=== PATIENT | male | born 1935 | race Two or more races ===

== ENCOUNTER 2018-09-07 14:35 | Inpatient (IN) | payer MEDICARE, MEDICAID ==
[~2018-09-07] VITALS: Ht 165.1 cm; Wt 68.0 kg
[2018-09-07 22:00] VITALS: BP 149/94
--- NOTE | 2018-09-07 22:00 | NUR ---
NURSE NOTES: Received report from Lev from [facility] (2029). Pt. arrived 2138 via ambulance. Family at bedside. Pt. in bed awake showing no signs of acute distress. Respiration even and non labored on room air. No sob noted. AOx1. VS stable. campus monitor on showing SR. Bed in lowest position, wheels locked and alarm on. Call light within reach. Will cont. to monitor.
[2018-09-07 23:00] LABS: BASOPHILS % (AUTO) 1.6 % (0.0-2.0); EOSINOPHILS % (AUTO) 5.4 % (0.0-3.0); HEMATOCRIT 40.6 % (42.0-52.0); HEMOGLOBIN 13.3 G/DL (14.2-18.0); LYMPHOCYTES % (AUTO) 20.4 % (20.0-45.0); MEAN CORPUSCULAR VOLUME 88 FL (80-99); MONOCYTES % (AUTO) 9.9 % (1.0-10.0); NEUTROPHILS % (AUTO) 62.8 % (45.0-75.0); PLATELET COUNT 229 K/UL (150-450); RED BLOOD COUNT 4.61 M/UL (4.70-6.10); RED CELL DISTRIBUTION WIDTH 11.7 % (11.6-14.8); WHITE BLOOD COUNT 7.3 K/UL (4.8-10.8)
[2018-09-07 23:24] LABS: ALANINE AMINOTRANSFERASE 16 U/L (12-78); ALBUMIN 3.5 G/DL (3.4-5.0); ALBUMIN/GLOBULIN RATIO 1.1 (1.0-2.7); ALKALINE PHOSPHATASE 45 U/L (46-116); ANION GAP 6 mmol/L (5-15); ASPARTATE AMINO TRANSFERASE 10 U/L (15-37); BILIRUBIN,TOTAL 0.3 MG/DL (0.2-1.0); BLOOD UREA NITROGEN 25 mg/dL (7-18); CALCIUM 8.8 MG/DL (8.5-10.1); CARBON DIOXIDE 29 MMOL/L (21-32); CHLORIDE 102 MMOL/L (98-107); CHOLESTEROL 134 MG/DL (< 200); CREATININE 1.5 MG/DL (0.55-1.30); HDL CHOLESTEROL 49 MG/DL (40-60); POTASSIUM 3.8 MMOL/L (3.5-5.1); SODIUM 137 MMOL/L (136-145); TRIGLYCERIDES 85 MG/DL (30-150)
[2018-09-08] VITALS: BP 131/73
[2018-09-08 04:00] VITALS: BP 136/80
[2018-09-08] MEDS ORDERED: FLOMAX0.4 MG ORAL (06:13)
[2018-09-08] MEDS ORDERED: SENEXON-S TABL1 EACH ORAL (06:13)
[2018-09-08] MEDS ORDERED: NAMENDA10 MG ORAL (06:13)
[2018-09-08] MEDS ORDERED: PLAVIX75 MG ORAL (06:13)
[2018-09-08] MEDS ORDERED: MULTIVITAMINS1 EAC8 ORAL (06:13)
[2018-09-08] MEDS ORDERED: BISACODYL10 MG/30 M RC (06:13)
[2018-09-08] MEDS ORDERED: PRAVASTATIN SOD10 M1 ORAL (06:13)
[2018-09-08] MEDS ORDERED: FOLIC ACID1 M1 PO (06:13)
[2018-09-08] MEDS ORDERED: ARICEPT23 MG ORAL (06:13)
[2018-09-08] MEDS ORDERED: CHLORHEXIDINE473 ML MM (06:13)
[2018-09-08] MEDS ORDERED: FISH OIL CAP1000 MG ORAL (06:13)
[2018-09-08] MEDS ORDERED: METFORMIN ER G500 MG PO (06:13)
[2018-09-08] MEDS ORDERED: VITAMIN D1000 UNI1 ORAL (06:13)
[2018-09-08] MEDS ORDERED: GLIMEPIRIDE2 MG ORAL (06:13)
[2018-09-08] MEDS ORDERED: VESICARE5 MG ORAL (06:13)
[2018-09-08] MEDS ORDERED: PANTOPRAZOLE SO20 MG ORAL (06:13)
[2018-09-08] MEDS ORDERED: LOSARTAN POTAS100 MG ORAL (06:13)
[2018-09-08] MEDS: NovoLOG Insulin Flexpen SUBQ SCH ×4 (06:15→21:00)
--- NOTE | 2018-09-08 07:24 | NUR ---
Received report form Venkatesh. pt sleeping in bed. Pt on air sampling and monitoring, no signs of cardiac or respiratory distress at this time. Pt Iv is patent on L F/A running 75ml/hr. call light with in reach. Bed is locked and in lowest position. Pt is AOx1. Will continue to follow plan of care.
--- NOTE | 2018-09-08 07:25 | NUR ---
HAND-OFF: Report given to LISBETH Mijares.
[2018-09-08 08:28] VITALS: BP 145/85
--- NOTE | 2018-09-08 09:45 | History and Physical Report ---
DATE OF ADMISSION: 09/07/2018 CHIEF COMPLAINT: Possible stroke HISTORY OF PRESENT ILLNESS: The patient is a pleasant 83-year-old male. He has a history of diabetes, hypertension, and atherosclerotic cardiovascular disease. He was transferred from a group home facility with complaints of generalized weakness. According to family members, the patient was previously ambulatory, but suddenly several days prior to admission became nonambulatory. Before he had been walking outside, but now could only be mobilized in a wheelchair. The patient is confused at baseline. He is unable provide any history. There is concern about a possible stroke and the patient is therefore admitted for further evaluation and care. PAST MEDICAL HISTORY: As above. PAST SURGICAL HISTORY: None. CURRENT MEDICATIONS: Reconciled and reviewed. ALLERGIES: None. FAMILY HISTORY: None. SOCIAL HISTORY: There is no known history of tobacco, ethanol, or drugs. REVIEW OF SYSTEMS: From the patient is unobtainable. PHYSICAL EXAMINATION: VITAL SIGNS: Temperature 97.4, pulse 102, respirations 18, and blood pressure 149/94. GENERAL: The patient is well developed, in no apparent distress. HEART: Regular rate and rhythm. LUNGS: Clear. ABDOMEN: Soft, nontender, and nondistended. EXTREMITIES: Without clubbing or cyanosis. NEUROLOGIC: The patient is unable to comply with a neurologic exam. He is awake, arousable. Does appear to move all his extremities. LABORATORY DATA: Sodium 137, potassium 3.8, BUN 25, and creatinine 1.5. White count 7, hemoglobin 13, and hematocrit 40. CT of the head is pending. ASSESSMENT: This is an 83-year-old male with history of diabetes, hypertension, and dementia admitted with complaints of focal weakness, inability to walk, unclear etiology. Stroke is a definite possibility. Acute renal failure. PLAN: CT scan of the head. Cardiology followup regarding the patient's tachycardia. Cautious hydration. Continue antiplatelet therapy and BP medications. Carlos Hunt M.D. DR: YENNIFER JOB#: [id number] CC:
[2018-09-08] MEDS: Heparin 5000 units/ml inj SUBQ SCH ×2 (09:52→21:26)
[2018-09-08] MEDS: Aspirin EC 81mg tab ORAL SCH (09:53)
[2018-09-08] MEDS: Docusate Sod/Senna tab ORAL SCH (09:53)
[2018-09-08] MEDS: Losartan 50mg tab ORAL SCH (09:53)
[2018-09-08] MEDS: Multivitamin w/Minerals tab ORAL SCH (09:54)
[2018-09-08] MEDS: Tamsulosin 0.4mg cap ORAL SCH (09:54)
[2018-09-08] MEDS: Vitamin D 1000 IU Tab ORAL SCH (09:54)
[2018-09-08] MEDS: Memantine 10mg tab ORAL SCH ×2 (09:54→17:54)
--- NOTE | 2018-09-08 10:59 | Diagnostic Imaging Report ---
Indications: Headache and weakness Technique: Spiral acquisitions obtained through the brain. Angled axial and coronal 5 x 5 mm slices were reconstructed. Total dose length product 1516.79 mGycm. CTDI vol(s) 70.38 mGy. Dose reduction achieved using automated exposure control Comparison: None. Findings: There is marked age-related enlargement of the ventricles and extra axial CSF spaces. There is periventricular deep white matter low-attenuation, consistent with chronic microvascular ischemic change. No acute intracranial hemorrhage or edema, mass effect, nor midline shift. There is minimal ethmoid sinus mucosal disease There is evidence of prior cataract surgery on the left. Impression: Chronic and age-related changes Negative for acute intracranial bleed or mass effect The CT scanner at [facility] is accredited by the [employer] and the scans are performed using protocols designed to limit radiation exposure to as low as reasonably achievable to attain images of sufficient resolution adequate for diagnostic evaluation.
[2018-09-08 12:00] VITALS: BP 151/90
--- NOTE | 2018-09-08 15:56 | NUR ---
CASE MANAGEMENT:REVIEW 83 YR OLD MALE BIBA FROM [facility] CC; UNABLE TO AMBULATE SI: ACUTE RENAL FAILURE. POSSIBLE STROKE 97.4 102 18 149/94 98% ON RA H/H-13.3/40.6 BUN+25 CR+1.5 IS:IVF@75/HR ASA PO QD HEPARIN SQ Q12 PLAVIX PO QD COZAAR PO QD CT HEAD CAROTID DUPLEX PT EVAL : DIRECTLY ADMITTED TO TELEMETRY
[2018-09-08 16:00] VITALS: BP 148/86
--- NOTE | 2018-09-08 19:32 | NUR ---
HAND-OFF: Report given to Eddie/RN , pt in stable condition endorsed plan of care.
--- NOTE | 2018-09-08 19:39 | NUR ---
NURSE NOTES: Received report form Maryana BOB. Patient is resting in bed watching tv. Vital signs are stable with no signs of cardiac or respiratory distress noted at this time. Pt Iv is patent on L F/A running 75ml/hr. Call light is within reach. Bed is locked and in lowest position. Will continue to monitor and follow plan of care.
[2018-09-08 20:00] VITALS: BP 148/90
[2018-09-09] VITALS: BP 162/88
--- NOTE | 2018-09-09 02:15 | Progress Note ---
DATE: 09/08/2018 CARDIOLOGY PROGRESS NOTE SUBJECTIVE: Imaging studies of the brain are pending. The patient is more alert, but still withdrawn and poorly mobile. OBJECTIVE: VITAL SIGNS: Blood pressure 148/90, pulse 80, respiratory rate 18, afebrile, and oxygen saturation 98% on room air. HEENT: Dry mucous membranes. NECK: Supple. No bruits. LUNGS: Clear. CARDIAC: Regular. Normal S1 and S2 with a fourth heart sound. ABDOMEN: Soft and nontender. EXTREMITIES: No edema. Symmetric strength. IMPRESSION: 1. Encephalopathy. 2. Cerebrovascular disease, possible acute cerebrovascular insult. 3. Acute on chronic kidney injury. 4. Hypovolemia. 5. Dehydration, resolved. 6. Sinus tachycardia. PLAN: 1. Continue hydration. 2. Titrate antihypertensives. 3. Metabolic profile. 4. DVT prophylaxis. 5. Await imaging studies of the brain. 6. Urinalysis, banding. Mitchell West M.D. DR: KAISER JOB#: [id number] CC:
--- NOTE | 2018-09-09 02:15 | Consultation ---
DATE OF CONSULTATION: 09/07/2018 CARDIOLOGY CONSULTATION CONSULTING PHYSICIAN: Mitchell West M.D. REQUESTING PHYSICIAN: Carlos Hunt M.D. REASON: Tachycardia in the setting of possible cerebrovascular accident. HISTORY OF PRESENT ILLNESS: This is an 83-year-old Turk[place] who lives in a [facility] facility and has significant cardiovascular disease. He was transferred to the emergency room with generalized weakness and decline in baseline function. He was previously ambulatory and according to family members was nonambulatory for the past few days. He has been increasingly confused and anorectic. The patient himself is unable to provide any history. PAST MEDICAL HISTORY: Includes atherosclerotic cardiovascular disease, hypertension, type 2 diabetes mellitus, chronic kidney disease, osteoarthritis, cerebrovascular disease with dementia, and urinary incontinence. ALLERGIES: None. FAMILY HISTORY: Noncontributory. SOCIAL HISTORY: No record of smoking, alcohol, or substance abuse. MEDICATIONS: Prior to admission, reviewed and reconciled. REVIEW OF SYSTEMS: Not obtainable from the patient. Pertinent data from review of prior records is outlined above. PHYSICAL EXAMINATION: VITAL SIGNS: Afebrile, blood pressure 149/94, pulse 102, and respirations 18. HEENT: Temporal wasting. Pale conjunctivae. Oropharynx clear. Mucous membranes dry. NECK: Supple. No adenopathy. Jugular venous pressure normal. LUNGS: Clear. CARDIAC: Regular rhythm. Rapid rate. Normal S1, S2 with a fourth heart sound and a 1/6 systolic murmur at apex. ABDOMEN: Soft, nontender. No guarding. No rebound. No pulsatile masses. EXTREMITIES: No clubbing or cyanosis. No edema. NEUROLOGIC: Unable to comply with neurologic exam. He is awake and arousable and moves all extremities. LABORATORY AND DIAGNOSTIC DATA: EKG pending. Chemistry panel reviewed. IMPRESSION: 1. Secondary sinus tachycardia. 2. Mild hypovolemia and dehydration. 3. Encephalopathy raising the possibility of an acute cerebrovascular insult. PLAN: 1. Hydration. 2. CAT scan of the brain. 3. DVT prophylaxis. 4. Antiplatelet therapy. 5. Discontinue medications that may contribute to altered mentation and somnolence. We will follow with you during this hospital course and we will review imaging studies of the brain once available. Mitchell West M.D. DR: HALIMA JOB#: [id number] CC:
[2018-09-09 04:00] VITALS: BP 161/94
[2018-09-09 06:15] LABS: EOSINOPHILS % (AUTO) 5.2 % (0.0-3.0); HEMATOCRIT 45.9 % (42.0-52.0); HEMOGLOBIN 15.1 G/DL (14.2-18.0); MEAN CORPUSCULAR VOLUME 90 FL (80-99); MONOCYTES % (AUTO) 8.5 % (1.0-10.0); NEUTROPHILS % (AUTO) 67.4 % (45.0-75.0); PLATELET COUNT 258 K/UL (150-450); RED BLOOD COUNT 5.11 M/UL (4.70-6.10); RED CELL DISTRIBUTION WIDTH 12.2 % (11.6-14.8); WHITE BLOOD COUNT 6.8 K/UL (4.8-10.8)
[2018-09-09] MEDS: NovoLOG Insulin Flexpen SUBQ SCH ×4 (06:30→21:00)
[2018-09-09 06:56] LABS: ALANINE AMINOTRANSFERASE 13 U/L (12-78); ALBUMIN 3.6 G/DL (3.4-5.0); ALBUMIN/GLOBULIN RATIO 0.9 (1.0-2.7); ALKALINE PHOSPHATASE 53 U/L (46-116); ANION GAP 7 mmol/L (5-15); ASPARTATE AMINO TRANSFERASE 15 U/L (15-37); BILIRUBIN,TOTAL 0.5 MG/DL (0.2-1.0); BLOOD UREA NITROGEN 13 mg/dL (7-18); CALCIUM 8.6 MG/DL (8.5-10.1); CARBON DIOXIDE 26 MMOL/L (21-32); CHLORIDE 107 MMOL/L (98-107); CHOLESTEROL 142 MG/DL (< 200); CREATININE 1.1 MG/DL (0.55-1.30); HDL CHOLESTEROL 50 MG/DL (40-60); POTASSIUM 4.1 MMOL/L (3.5-5.1); SODIUM 139 MMOL/L (136-145); TRIGLYCERIDES 145 MG/DL (30-150)
--- NOTE | 2018-09-09 07:17 | NUR ---
HAND-OFF: Report given to Min RN.
--- NOTE | 2018-09-09 07:17 | NUR ---
NURSE NOTES: Received report from Roslyn BOB. Alert and confused and unable to make needs known. Pt sitting in bed and awake. no c/o on kevin moon faces pain scale. Urine analysis ordered yesterday is not collected due to incontinence. Condom cath applied for collecting urine. No signs of distress noted. On room air. Bed in lowest position and locked. 2X side rails up and On Zone 2 bed alarm. Will continue to plan of care.
[2018-09-09 08:00] VITALS: BP 148/98
[2018-09-09] MEDS: Aspirin EC 81mg tab ORAL SCH (09:24)
[2018-09-09] MEDS: Tamsulosin 0.4mg cap ORAL SCH (09:24)
[2018-09-09] MEDS: Memantine 10mg tab ORAL SCH ×2 (09:24→19:07)
[2018-09-09] MEDS: Losartan 50mg tab ORAL SCH (09:24)
[2018-09-09] MEDS: Docusate Sod/Senna tab ORAL SCH (09:25)
[2018-09-09] MEDS: Vitamin D 1000 IU Tab ORAL SCH (09:25)
[2018-09-09] MEDS: Multivitamin w/Minerals tab ORAL SCH (09:25)
[2018-09-09] MEDS: Heparin 5000 units/ml inj SUBQ SCH ×2 (09:27→22:10)
[2018-09-09 10:14] LABS: APPEARANCE,URINE CLEAR; BILIRUBIN, URINE NEGATIVE (NEGATIVE); COLOR,URINE PALE YELLOW; GLUCOSE, URINE (UA) NEGATIVE (NEGATIVE); KETONES,URINE NEGATIVE (NEGATIVE); LEUKOCYTE ESTERASE ,URINE 2+ (NEGATIVE); NITRITE,URINE NEGATIVE (NEGATIVE); PH,URINE 7 (4.5-8.0); PROTEIN,URINE NEGATIVE (NEGATIVE); UROBILINOGEN,URINE NORMAL MG/DL (0.0-1.0)
--- NOTE | 2018-09-09 11:36 | General Progress Note ---
Assessment/Plan Problem List: (1) Inabality to Ambulate, Stroke (2) Acute renal failure (ARF) ICD Codes: N17.9 - Acute kidney failure, unspecified SNOMED: 65742943 (3) Diabetes type 2, controlled ICD Codes: E11.9 - Type 2 diabetes mellitus without complications SNOMED: 89882638, 791979174 (4) Toxic metabolic encephalopathy ICD Codes: G92 - Toxic encephalopathy SNOMED: 205791814 (5) SVT (supraventricular tachycardia) ICD Codes: I47.1 - Supraventricular tachycardia SNOMED: 0656160 Status: stable, progressing Assessment/Plan: antiplt rx ivf tele monitor for arrhythmia monitor bs BP rx Subjective ROS Limited/Unobtainable: Yes Constitutional: Reports: no symptoms HEENT: Reports: no symptoms Cardiovascular: Reports: palpitations Respiratory: Reports: no symptoms Gastrointestinal/Abdominal: Reports: no symptoms Genitourinary: Reports: no symptoms Neurologic/Psychiatric: Reports: pre-existing deficit Endocrine: Reports: no symptoms Hematologic/Lymphatic: Reports: no symptoms Allergies: Coded Allergies: NO KNOWN ALLERGIES (Verified Allergy, Unknown, 09/07/18) All Systems: reviewed and negative except above Subjective no events. had svt last night- regular. currently in sinus. no fever or chills. Objective Last 24 Hour Vital Signs Date Time Temp Pulse Resp B/P (MAP) Pulse Ox O2 Delivery O2 Flow Rate FiO2 09/09/18 09:24 148/98 09/09/18 09:00 Room Air 09/09/18 08:00 97.3 89 20 148/98 (115) 97 09/09/18 08:00 84 09/09/18 04:00 98.1 85 18 161/94 (116) 98 09/09/18 04:00 70 09/09/18 00:00 98.6 81 18 162/88 (112) 99 09/09/18 00:00 70 09/08/18 21:00 Room Air 09/08/18 20:00 98.4 80 18 148/90 (109) 98 09/08/18 20:00 83 09/08/18 16:00 96.7 85 18 148/86 (106) 98 09/08/18 16:00 81 09/08/18 12:00 98.6 87 18 151/90 (110) 97 09/08/18 12:00 80 Intake and Output 09/08/18 09/09/18 18:59 06:59 Intake Total 260 ml Balance 260 ml Intake Oral 260 ml # Voids 3 Laboratory Tests 09/09/18 05:43: White Blood Count 6.8, Red Blood Count 5.11, Hemoglobin 15.1, Hematocrit 45.9, Mean Corpuscular Volume 90, Mean Corpuscular Hemoglobin 29.4, Mean Corpuscular Hemoglobin Concent 32.8, Red Cell Distribution Width 12.2, Platelet Count 258, Mean Platelet Volume 5.4L, Neutrophils (%) (Auto) 67.4, Lymphocytes (%) (Auto) 17.0L, Monocytes (%) (Auto) 8.5, Eosinophils (%) (Auto) 5.2H, Basophils (%) ( Auto) 2.0, Sodium Level 139, Potassium Level 4.1, Chloride Level 107, Carbon Dioxide Level 26, Anion Gap 7, Blood Urea Nitrogen 13, Creatinine 1.1, Estimat Glomerular Filtration Rate , Glucose Level 100, Calcium Level 8.6, Magnesium Level 1.9, Total Bilirubin 0.5, Aspartate Amino Transf (AST/SGOT) 15, Alanine Aminotransferase (ALT/SGPT) 13, Alkaline Phosphatase 53, Pro-B-Type Natriuretic Peptide 310H, Total Protein 7.5, Albumin 3.6, Globulin 3.9, Albumin/Globulin Ratio 0.9L, Triglycerides Level 145, Cholesterol Level 142, LDL Cholesterol 74, HDL Cholesterol 50, Cholesterol/HDL Ratio 2.8L 09/09/18 10:05: Urine Color Pale yellow, Urine Appearance Clear, Urine pH 7, Urine Specific Sweeden 1.005, Urine Protein Negative, Urine Glucose (UA) Negative, Urine Ketones Negative, Urine Blood Negative, Urine Nitrite Negative, Urine Bilirubin Negative, Urine Urobilinogen Normal, Urine Leukocyte Esterase 2+H, Urine RBC 0, Urine WBC 0-2, Urine Squamous Epithelial Cells None, Urine Bacteria None Height (Feet): 5 Height (Inches): 5.00 Weight (Pounds): 150 General Appearance: WD/WN, alert, confused Neck: supple Cardiovascular: normal rate, regular rhythm Respiratory/Chest: chest wall non-tender, lungs clear, normal breath sounds, no respiratory distress Abdomen: normal bowel sounds, non tender, soft, no organomegaly, no mass Edema: no edema noted Arm (L), no edema noted Arm (R), no edema noted Leg (L), no edema noted Leg (R), no edema noted Pedal (L), no edema noted Pedal (R), no edema noted 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
[2018-09-09 12:00] VITALS: BP 148/74
[2018-09-09 16:00] VITALS: BP 141/76
--- NOTE | 2018-09-09 16:33 | NUR ---
PT Note PT chel completed, tx initiated. Patient has muscle weakness and decreased postural stability, requiring extensive assist in functional mobility and gait. Patient needs PT services to increase his muscle strength and balance to improve his mobility and gait. Addendum: 09/09/18 at 1634 by MARGARITA CHAMORRO PT Amended: Links added.
--- NOTE | 2018-09-09 19:30 | NUR ---
HAND-OFF: Report given to Duane RN. Pt remains stable..
--- NOTE | 2018-09-09 19:35 | NUR ---
NURSE NOTES: Received report from Romero Wilson RN. Patient in bed AAO X1-2 with family at bedside, no complaints of acute pain or discomfort noted. kept clean, dry, and comfortable in bed. IV line intact and patent and placed on continuous cardiac monitoring per protocol. Patient is incontinent and external catheter placed PRN, kept intact and patent. Tolerating RA with no S/S of SOB or resp. distress and on continuous cardiac monitoring per protocol. Safety precaution in place; siderails X3 up, call light within reach, bed in lowest position, brakes and alarm on at all times. Needs and wants anticipated and attended, will continue plan of care and monitor for any changes noted.
[2018-09-09 20:00] VITALS: BP 145/86
[2018-09-09] MEDS: Metoprolol 25mg tab ORAL SCH (22:08)
--- NOTE | 2018-09-09 23:45 | Progress Note ---
DATE: 09/09/2018 CARDIOLOGY PROGRESS NOTE SUBJECTIVE: Monitored rhythm is reviewed. Episode of nonsustained SVT last evening. Now in sinus rhythm. The patient without respiratory distress. OBJECTIVE: VITAL SIGNS: Blood pressure 148/98 to 162/88, heart rate 84, respiratory rate 18, and afebrile. LUNGS: Clear. CARDIAC: Regular rhythm and rate. Normal S1, S2 with a fourth heart sound. ABDOMEN: Soft. EXTREMITIES: No edema. LABORATORY DATA: White count 6.8 and hemoglobin 15.1. Sodium 139, potassium 4.1, bicarbonate 26, BUN 15, and creatinine 1.1. Pro-natriuretic peptide 310. Albumin 2.9. Urinalysis with no active sediment. CAT scan of the brain yesterday revealed chronic changes with no acute process. IMPRESSION: 1. Mild hypovolemia and dehydration, improved. 2. Prerenal azotemia and acute renal failure, improving. 3. Possible acute cerebrovascular insult. 4. Paroxysmal SVT. 5. Hypertensive heart disease with elevated blood pressure. 6. Metabolic and toxic encephalopathy. 7. Type 2 diabetes mellitus. 8. Chronic diastolic congestive heart failure. PLAN: 1. Advance antihypertensives and include beta-jose. 2. UA with sed rate. 3. Continue remainder of cardiovascular therapy without change. 4. Adjust IV fluids. 5. Continued anti-lipid and anti-platelet therapy. Mitchell West M.D. DR: LUIZ JOB#: [id number] CC:
[2018-09-10] VITALS: BP 142/85
--- NOTE | 2018-09-10 03:30 | NUR ---
NURSE NOTES: Patient in bed asleep with no S/S of distress. Will continue plan of care
[2018-09-10 04:00] VITALS: BP 144/88
[2018-09-10] MEDS: NovoLOG Insulin Flexpen SUBQ SCH ×4 (06:04→20:54)
--- NOTE | 2018-09-10 07:01 | NUR ---
NURSE NOTES: Received report from Duane BOB. Alert and confused and unable to make needs known. Pt sitting in bed and awake. no c/o pain. Condom cath intact and patent. No signs of distress noted. On room air. Bed in lowest position and locked. 2X side rails up and On Zone 2 bed alarm. Will continue to plan of care.
--- NOTE | 2018-09-10 07:01 | NUR ---
HAND-OFF: Report given to Romero Wilson RN. Patient in stable condition, endorsed plan of care.
[2018-09-10 07:13] LABS: BASOPHILS % (AUTO) 2.1 % (0.0-2.0); HEMATOCRIT 43.8 % (42.0-52.0); HEMOGLOBIN 14.4 G/DL (14.2-18.0); LYMPHOCYTES % (AUTO) 13.5 % (20.0-45.0); MEAN CORPUSCULAR VOLUME 89 FL (80-99); MONOCYTES % (AUTO) 9.2 % (1.0-10.0); NEUTROPHILS % (AUTO) 69.2 % (45.0-75.0); PLATELET COUNT 232 K/UL (150-450); RED BLOOD COUNT 4.94 M/UL (4.70-6.10); RED CELL DISTRIBUTION WIDTH 11.8 % (11.6-14.8); WHITE BLOOD COUNT 7.3 K/UL (4.8-10.8)
[2018-09-10 07:35] LABS: ANION GAP 9 mmol/L (5-15); BLOOD UREA NITROGEN 15 mg/dL (7-18); CALCIUM 8.7 MG/DL (8.5-10.1); CARBON DIOXIDE 26 MMOL/L (21-32); CHLORIDE 107 MMOL/L (98-107); CHOLESTEROL 136 MG/DL (< 200); CREATININE 1.1 MG/DL (0.55-1.30); HDL CHOLESTEROL 52 MG/DL (40-60); POTASSIUM 3.9 MMOL/L (3.5-5.1); SODIUM 141 MMOL/L (136-145); TRIGLYCERIDES 79 MG/DL (30-150)
[2018-09-10 08:00] VITALS: BP 158/87
[2018-09-10] MEDS: Metoprolol 25mg tab ORAL SCH ×2 (08:51→20:52)
[2018-09-10] MEDS: Docusate Sod/Senna tab ORAL SCH (08:51)
[2018-09-10] MEDS: Aspirin EC 81mg tab ORAL SCH (08:51)
[2018-09-10] MEDS: Multivitamin w/Minerals tab ORAL SCH (08:51)
[2018-09-10] MEDS: Vitamin D 1000 IU Tab ORAL SCH (08:51)
[2018-09-10] MEDS: Losartan 50mg tab ORAL SCH (08:51)
[2018-09-10] MEDS: Memantine 10mg tab ORAL SCH ×2 (08:52→17:45)
[2018-09-10] MEDS: Heparin 5000 units/ml inj SUBQ SCH ×2 (08:52→20:53)
[2018-09-10] MEDS: Tamsulosin 0.4mg cap ORAL SCH (08:52)
[2018-09-10 12:00] VITALS: BP 160/96
--- NOTE | 2018-09-10 15:11 | General Progress Note ---
Assessment/Plan Problem List: (1) Inabality to Ambulate, Stroke (2) Acute renal failure (ARF) ICD Codes: N17.9 - Acute kidney failure, unspecified SNOMED: 80310862 (3) Diabetes type 2, controlled ICD Codes: E11.9 - Type 2 diabetes mellitus without complications SNOMED: 62175626, 033822738 (4) Toxic metabolic encephalopathy ICD Codes: G92 - Toxic encephalopathy SNOMED: 986697393 (5) SVT (supraventricular tachycardia) ICD Codes: I47.1 - Supraventricular tachycardia SNOMED: 3931373 Status: stable, progressing Assessment/Plan: antiplt rx tele monitor for arrhythmia monitor bs BP rx dc planning Subjective ROS Limited/Unobtainable: No Constitutional: Reports: malaise, weakness HEENT: Reports: no symptoms Cardiovascular: Reports: no symptoms Respiratory: Reports: no symptoms Gastrointestinal/Abdominal: Reports: no symptoms Genitourinary: Reports: no symptoms Neurologic/Psychiatric: Reports: no symptoms Hematologic/Lymphatic: Reports: no symptoms Allergies: Coded Allergies: NO KNOWN ALLERGIES (Verified Allergy, Unknown, 09/07/18) All Systems: reviewed and negative except above Subjective no events. no fevers or chills. currently in sinus. no fever or chills. Objective Last 24 Hour Vital Signs Date Time Temp Pulse Resp B/P (MAP) Pulse Ox O2 Delivery O2 Flow Rate FiO2 09/10/18 12:00 76 09/10/18 12:00 98.0 76 22 160/96 (117) 99 09/10/18 09:00 Room Air 09/10/18 08:51 81 158/87 09/10/18 08:51 158/87 09/10/18 08:00 98.1 81 20 158/87 (110) 97 09/10/18 08:00 80 09/10/18 04:00 75 09/10/18 04:00 97.9 92 18 144/88 (106) 98 09/10/18 00:00 88 09/10/18 00:00 97.4 89 20 142/85 (104) 97 09/09/18 22:08 95 145/86 09/09/18 21:00 Room Air 09/09/18 20:00 98.1 95 18 145/86 (105) 96 09/09/18 20:00 109 09/09/18 16:00 92 09/09/18 16:00 97.7 72 20 141/76 (97) 97 Intake and Output 09/09/18 09/10/18 18:59 06:59 Intake Total 1120 ml Output Total 400 ml Balance 1120 ml -400 ml Intake Oral 120 ml IV Total 1000 ml Output Urine Total 400 ml # Voids 3 Laboratory Tests 09/10/18 06:15: White Blood Count 7.3, Red Blood Count 4.94, Hemoglobin 14.4, Hematocrit 43.8, Mean Corpuscular Volume 89, Mean Corpuscular Hemoglobin 29.1, Mean Corpuscular Hemoglobin Concent 32.8, Red Cell Distribution Width 11.8, Platelet Count 232, Mean Platelet Volume 4.9L, Neutrophils (%) (Auto) 69.2, Lymphocytes (%) (Auto) 13.5L, Monocytes (%) (Auto) 9.2, Eosinophils (%) (Auto) 6.0H, Basophils (%) ( Auto) 2.1H, Sodium Level 141, Potassium Level 3.9, Chloride Level 107, Carbon Dioxide Level 26, Anion Gap 9, Blood Urea Nitrogen 15, Creatinine 1.1, Estimat Glomerular Filtration Rate , Glucose Level 106, Calcium Level 8.7, Magnesium Level 2.1, Triglycerides Level 79, Cholesterol Level 136, LDL Cholesterol 71, HDL Cholesterol 52, Cholesterol/HDL Ratio 2.6L Height (Feet): 5 Height (Inches): 5.00 Weight (Pounds): 150 Objective General Appearance: WD/WN, alert, confused Neck: supple Cardiovascular: normal rate, regular rhythm Respiratory/Chest: chest wall non-tender, lungs clear, normal breath sounds, no respiratory distress Abdomen: normal bowel sounds, non tender, soft, no organomegaly, no mass Edema: no edema noted Arm (L), no edema noted Arm (R), no edema noted Leg (L), no edema noted Leg (R), no edema noted Pedal (L), no edema noted Pedal (R), no edema noted 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
[2018-09-10] MEDS ORDERED: NORVASC2.5 MG ORAL (15:16)
[2018-09-10] MEDS ORDERED: LOPRESSOR25 M1 ORAL (15:16)
[2018-09-10 16:00] VITALS: BP 154/90
--- NOTE | 2018-09-10 19:31 | NUR ---
HAND-OFF: Report given to Duane RN. Pt remains stable.
[2018-09-10 20:00] VITALS: BP 155/84
[2018-09-11] VITALS: BP 134/74
--- NOTE | 2018-09-11 | Progress Note ---
DATE: 09/10/2018 SUBJECTIVE: No new distress. Sinus rhythm. No recurring SVT. Rare atrial ectopics. OBJECTIVE: VITAL SIGNS: Blood pressure 160/96 max and now 155/84, heart rate 98, and respiratory rate 22. LUNGS: Clear. CARDIAC: Regular rhythm and rate. Normal S1 and S2. ABDOMEN: Soft. No edema. LABORATORY DATA: White count 7.3 and hemoglobin 14.4. Magnesium 2.1, potassium 3.9, BUN 15, and creatinine 1.1. IMPRESSION: 1. Hypovolemia and dehydration, corrected with hydration. 2. Hypertensive heart disease with elevated blood pressure. 3. Paroxysmal supraventricular tachycardia. 4. Cerebrovascular disease with dementia. PLAN: 1. Advance beta-jose. 2. Discontinue IV fluids. 3. Titrate antihypertensives. 4. Continue cardiac monitoring. 5. Antiplatelet and anti-lipid therapy long-term. Mitchell West M.D. DR: PA JOB#: [id number] CC:
--- NOTE | 2018-09-11 03:06 | NUR ---
NURSE NOTES: Patient in bed asleep with no S/S of distress. Will continue to monitor.
[2018-09-11 04:00] VITALS: BP 145/84
[2018-09-11] MEDS: NovoLOG Insulin Flexpen SUBQ SCH ×2 (05:54→11:20)
--- NOTE | 2018-09-11 07:33 | NUR ---
HAND-OFF: Report given to Moshe Joe RN. Patient in bed AAO X3 in stable condition, endorsed plan of care.
--- NOTE | 2018-09-11 07:33 | NUR ---
NURSE NOTES: Report received from Subha Zepeda. Patient observed sleeping comfortably in bed. No s/s of distress. all safety precautions in place. will follow.
[2018-09-11 08:00] VITALS: BP 148/81
[2018-09-11] MEDS: Aspirin EC 81mg tab ORAL SCH (08:45)
[2018-09-11] MEDS: Metoprolol 25mg tab ORAL SCH (08:45)
[2018-09-11] MEDS: Docusate Sod/Senna tab ORAL SCH (08:45)
[2018-09-11] MEDS: Multivitamin w/Minerals tab ORAL SCH (08:46)
[2018-09-11] MEDS: Vitamin D 1000 IU Tab ORAL SCH (08:46)
[2018-09-11] MEDS: Tamsulosin 0.4mg cap ORAL SCH (08:46)
[2018-09-11] MEDS: Losartan 50mg tab ORAL SCH (08:46)
[2018-09-11] MEDS: Heparin 5000 units/ml inj SUBQ SCH (08:48)
[2018-09-11] MEDS ORDERED: Memantine 10mg tab ORAL SCH (09:00)
--- NOTE | 2018-09-11 10:25 | NUR ---
DISCHARGE PLAN FAXED CLINICALS TO [facility] *WAITING FOR CALL BACK WITH ASSIGNED ROOM NUMBER
--- NOTE | 2018-09-11 11:27 | NUR ---
DISCHARGE PLANNING PATIENT WILL DISCHARGE TO [facility] ROOM 228-2 SKILLED T: [phone] FOR NURSE TO NURSE REPORT [facility] HAS BEEN ARRANGED FOR [address] [employer] ANALYST SPOKE WITH DAUGHTER,CATY, WHO IS IN AGREEMENT WITH DISCHARGE PLAN
[2018-09-11 12:00] VITALS: BP 135/86
--- NOTE | 2018-09-11 12:41 | NUR ---
NURSE NOTES: Discharge order received from Dr. Hunt. Patient to go back to [facility]. Report given to admitting Nurse Peace. Family aware of discharge. grape picker time at 13:30.
--- NOTE | 2018-09-11 15:20 | NUR ---
NURSE NOTES: Patient discharge to SNF accompanied by 2 ambulance attendants. Patient left facility in no distress. daughter Kay present during discharge. all belongings taken. heart monitor removed IV dcd.
--- NOTE | 2018-09-12 02:15 | Progress Note ---
DATE: 09/11/2018 CARDIOLOGY PROGRESS NOTE SUBJECTIVE: The patient has no shortness of breath or chest pain. Tolerating diet. No nausea or vomiting. Cultures remain negative. OBJECTIVE: VITAL SIGNS: Blood pressure 148/81, pulse 86, and respiratory rate 18. LUNGS: Clear. CARDIAC: Regular. Normal S1 and S2 with a fourth heart sound. ABDOMEN: Soft. EXTREMITIES: No edema. IMPRESSION: 1. Hypovolemia and dehydration, corrected with hydration by IV route. 2. Hypertensive heart disease with improved blood pressure control. 3. Paroxysmal supraventricular tachycardia, suppressed with beta-blockers. 4. Cerebrovascular disease with dementia, now at baseline mentation. PLAN: 1. Discharge to longterm facility on current cardiovascular medication regimen. 2. Encourage oral intake and fluids. 3. Outpatient follow up. Mitchell West M.D. DR: PRADIP JOB#: [id number] CC:
--- NOTE | 2018-09-12 11:41 | Discharge Summary ---
Discharge Summary Discharge Summary _ DATE OF ADMISSION: 09/07/2018 DATE OF DISCHARGE: 09/11/2018 DISCHARGED by: Dr. Hunt REASON FOR ADMISSION: 83 years old male with past medical history of diabetes mellitus, hypertension, atherosclerotic cardiovascular disease, was transferred from the [facility] facility with complaints of generalized weakness. According to family member, patient recently was ambulatory , but then became nonambulatory. Before he had been walking outside, but now he only can be mobilized by the wheelchair. Patient was confused at baseline and unable to provide any history. There was a concern of possible stroke, and patient therefore was admitted for further evaluation and management. CONSULTANTS: assistant spa director [facility]SE: Patient admitted to telemetry floor. Patient started on cautious hydration. CT of the head revealed chronic and age-related changes, but was negative for acute intracranial bleeding or mass-effect. Carotid duplex revealed minimal to mild degree of stenosis. Lipid panel was stable. TSH was within normal limits. Renal parameters and electrolytes were closely monitored. Nephrotoxins were avoided. Electrolytes remained stable. With gentle hydration BUN from 25 down to 15 , and creatinine from 1.5 down to 1.1. Urinalysis revealed no evidence of urinary tract infection. Circuit Recorder seen and evaluated patient and closely followed. Antiplatelet therapy with aspirin and Plavix continued. Statin was continued. DVT prophylaxis provided . All medication that possibly contributed to altered mentation and somnolence, were discontinued. Blood pressure was managed with multiple regimen of beta-jose, angiotensin receptor jose and calcium channel jose. Blood pressure stabilized. Patient had evidence of paroxysmal supraventricular tachycardia on telemetry , which was suppressed with beta-jose. Blood sugar was managed with sliding scale of insulin. Flomax continued. Patient was working with physical therapist. Fall precaution maintained. Patient was using front wheel walker. Patient initially presented with hypovolemia due to dehydration which was corrected with gentle IV hydration. IV fluids discontinued. Mental status returned to baseline. Patient was stable for discharge to [facility] facility on current cardiovascular medication regimen. Oral intake and fluids were encouraged. FINAL DIAGNOSES: Hypovolemia and dehydration, corrected with hydration Acute renal failure due to hypovolemia resolved Hypertensive heart disease with elevated blood pressure Paroxysmal supraventricular tachycardia, suppressed with beta-jose Cerebrovascular disease with dementia Toxic metabolic encephalopathy Diabetes mellitus type 2 controlled DISCHARGE MEDICATIONS: See Medication Reconciliation list. DISCHARGE INSTRUCTIONS: Patient was discharged to the [facility] facility. Follow up with medical doctor at the facility. I have been assigned to dictate discharge summary for this account. I was not involved in the patient's management. Lottie Hartman NP Sep 12, 2018 11:41
--- NOTE | 2018-09-13 09:01 | Diagnostic Imaging Report ---
APPROVED REPORT CPT Code: 75628 Vascular Symptoms CVA/TIA: Comments: Screening Doppler Spectral Velocity Analysis RightLeft arteries. The Doppler spectral flow analysis indicates the degree of stenosis is minimal (30%) in the common carotid arteries, mild (30-40%) in the internal carotid arteries, and (5% - 10%) in the external carotid arteries. arteries. The Doppler spectral flow analysis indicates the degree of stenosis is minimal (10%) in the common carotid arteries, mild (30-40%) in the internal carotid arteries, and (30%) in the external carotid arteries. SUBCLAVIANS/VERTEBRALS - Imaging reveals both subclavians and vertebral arteries to be patent, without evidence of stenosis or steal.
== END 2018-09-11 15:25 | DRG 682 ==
LOC: 2E 21:28
DX: N17.9 Acute kidney failure, unspecified (principal); G92 Toxic encephalopathy; I47.1 Supraventricular tachycardia; I50.32 Chronic diastolic (congestive) heart failure; I13.0 Hypertensive heart and chronic kidney disease with heart failure and stage 1 through stage 4 chronic kidney disease, or unspecified chronic kidney disease; R53.1 Weakness; E86.0 Dehydration; E86.1 Hypovolemia; I69.318 Other symptoms and signs involving cognitive functions following cerebral infarction; F01.50 Vascular dementia, unspecified severity, without behavioral disturbance, psychotic disturbance, mood disturbance, and anxiety; I25.10 Atherosclerotic heart disease of native coronary artery without angina pectoris; E11.22 Type 2 diabetes mellitus with diabetic chronic kidney disease; N18.9 Chronic kidney disease, unspecified; I69.398 Other sequelae of cerebral infarction; R26.2 Difficulty in walking, not elsewhere classified
CPT/HCPCS: 36415; 70450; 80048; 80053; 80061; 81003; 82962; 83036; 83735; 83880; 84443; 85025; 87081; 93880; C9399; J1815

== ENCOUNTER 2019-12-07 15:18 | Inpatient (IN) | payer MEDICARE, MEDICAID ==
[2019-12-07] VITALS (21 sets, daily range): BP systolic 82–133; BP diastolic 46–88
[~2019-12-07] VITALS: Ht 167.6 cm; Wt 68.5 kg
[~2019-12-07 15:18] MED LIST: ARICEPT23 MG ORAL; BISACODYL10 MG/30 M RC; CHLORHEXIDINE473 ML MM; FISH OIL CAP1000 MG ORAL; FLOMAX0.4 MG ORAL; FOLIC ACID1 M1 PO; GLIMEPIRIDE2 MG ORAL; LOPRESSOR25 M1 ORAL; LOSARTAN POTAS100 MG ORAL; METFORMIN ER G500 MG PO; MULTIVITAMINS1 EAC8 ORAL; NAMENDA10 MG ORAL; NORVASC2.5 MG ORAL; PANTOPRAZOLE SO20 MG ORAL; PLAVIX75 MG ORAL; PRAVASTATIN SOD10 M1 ORAL; SENEXON-S TABL1 EACH ORAL; VESICARE5 MG ORAL; VITAMIN D1000 UNI1 ORAL
--- NOTE | 2019-12-07 15:20 | NUR ---
ED Nurse Note: brought in by ambulance annalise ra [facility] from [facility] for hypotension and tachycardia 82/46 hr 148. changed into gown attached to monitor. patient ao0; opens eyes spontaneously; withdraws to pain. tachycardic. arrived with NRB 15L spo2 98%. incontinent x 2 presents with copious diarrhea. all safety measures met.
[2019-12-07] MEDS ORDERED: CATAPRES0.1 MG ORAL (15:28)
[2019-12-07] MEDS ORDERED: PRAVASTATIN SOD20 M1 ORAL (15:28)
[2019-12-07] MEDS ORDERED: SINEMET 25-1001 EAC1 ORAL (15:28)
[2019-12-07] MEDS ORDERED: FAMOTIDINE20 MG ORAL (15:28)
[2019-12-07] MEDS ORDERED: PANTOPRAZOLE SO40 MG ORAL (15:28)
[2019-12-07] MEDS ORDERED: METOPROLOL TART25 MG ORAL (15:28)
[2019-12-07] MEDS ORDERED: Sodium Chloride 1,900 ML IVLG ONE (15:30)
[2019-12-07] MEDS ORDERED: Cefepime HCl 2 GM in NS 110 ML IV ONE (15:30)
[2019-12-07] MEDS ORDERED: Vancomycin 1 GM in NS 275 ML IV ONE (15:30)
--- NOTE | 2019-12-07 15:30 | Emergency Room Report ---
History of Present Illness General Chief Complaint: Dyspnea/Respdistress Source: Patient Present Illness HPI Patient is an 84-year-old male sent in from nursing facility after increased altered level of consciousness. Patient had recent hospitalization for urinary infection in [facility]. He was noted to have increased work of breathing as well as decreased mental status. Patient was noted to be hypotensive by EMS and was started on supplemental oxygen. Has been having increased fever. Patient is noted to be Setswana speaking.Patient was sent in from [facility]. Primary care physician per patient's daughter is Dr. Hunt was noted to have systolic blood pressure in the 50s by EMS.. Patient was noted to have recent hospitalization and was having multiple episodes of watery diarrhea. Had recent antibiotic use in the hospital. Had a prior history of dementia as well as diabetes and CVA. Allergies: Coded Allergies: NO KNOWN ALLERGIES (Verified Allergy, Unknown, 09/07/18) COVID-19 Screening Contact w/high risk pt: No Experienced COVID-19 symptoms?: No COVID-19 Testing performed SENIOR ADMINISTRATIVE ASSISTANT: No Patient History Past Medical History: see triage record Reviewed Nursing Documentation: PMH: Agreed; PSxH: Agreed Nursing Documentation-PMH Past Medical History: No History, Except For Hx Cardiac Problems: Yes - chf, [place] Hx Hypertension: Yes Hx Diabetes: Yes Hx Neurological Problems: Yes - parkinson's disease Hx Dementia: Yes Review of Systems All Other Systems: negative except mentioned in HPI Physical Exam Vital Signs Date Time Temp Pulse Resp B/P (MAP) Pulse Ox O2 Delivery O2 Flow Rate FiO2 12/07/19 15:17 97.7 148 28 82/46 (58) 95 Non-Rebreather 15.0 Sp02 EP Interpretation: reviewed, normal General Appearance: alert, Chronically Ill Head: atraumatic ENT: normal ENT inspection, hearing 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, normal voice Neck: normal inspection, supple, no bony tend, limited range of motion Respiratory: normal inspection, no respiratory distress, no retraction, no wheezing Cardiovascular #1: regular rate, rhythm, no edema Gastrointestinal: normal inspection, normal bowel sounds, non tender, soft, no guarding, no hernia Genitourinary: no CVA tenderness, other - uncircumcised male Musculoskeletal: normal inspection, back normal, normal range of motion Neurologic: alert, speech normal, normal inspection, other - Responsive, dry mucous membranes blood pressure cough present Psychiatric: normal inspection, judgement/insight normal, mood/affect normal Skin: other - Erythema to the lower abdomen and scrotal area no crepitance, Procedures Critical Care Time Critical Care Time Patient had a critical medical condition which untreated could potentially result in life or limb threatening injury. Total critical care time excluding procedures approximately 45 minutes. Central Line Central Line : Consent: Emergent Central Line Lumen: triple Maximal Sterile Barrier Tech: yes cap, yes mask, yes sterile gown, yes sterile gloves, yes large sterile sheet, yes hand hygiene, yes chlorhexidine prep No Max Barrier Tech Because: emergency insertion Central Line Postion: internal jugular (R), subclavian (R) Anesthesia: Lidocaine cc's of anesthesia: 3 US Guided Line?: No Central Line Post Position: sutured, good blood return, position confirmed w/ CXR Attempts: Other - Right subclavian attempted x1 with poor line position. Patient Tolerated: Well Complications: None Progress Right IJ was placed under ultrasound guidance with adequate line placement. Medical Decision Making Diagnostic Impression: Primary Impression: Septic shock Additional Impressions: Inabality to Ambulate, Stroke Toxic metabolic encephalopathy ER Course Patient presented for hypotension. Diagnosis include was not limited to septic shock, cardiogenic shock, dehydration among others. Because of complexity of patient's case laboratory tests and imaging studies were ordered. Patient noted to have recent hospitalization for urinary infection. He was noted to be markedly hypotensive by EMS and started on IV fluids. Had recent hospitalizations with similar symptoms in the past. Patient's laboratory testing showed elevated white blood count as well as elevated BNP. Patient started on IV fluids with some improvement in blood pressure. He started on pressors after fluid bolus. Patient's initial troponin was noted be negative. BNP was elevated. Lactic acid level was 2.0. White blood count was noted to be elevated. Patient's increased diarrhea suggest that the patient may have colitis. CT imaging of the head and abdomen pelvis was ordered. Patient was started on IV antibiotics. Patient was full code. Dr. West was contacted for Dr. Hunt was contacted for inpatient management due to primary care physician. Labs Test 12/07/19 15:30 12/07/19 15:46 White Blood Count 18.6 K/UL (4.8-10.8) Red Blood Count 5.09 M/UL (4.70-6.10) Hemoglobin 14.9 G/DL (14.2-18.0) Hematocrit 45.7 % (42.0-52.0) Mean Corpuscular Volume 90 FL (80-99) Mean Corpuscular Hemoglobin 29.2 PG (27.0-31.0) Mean Corpuscular Hemoglobin Concent 32.5 G/DL (32.0-36.0) Red Cell Distribution Width 15.1 % (11.6-14.8) Platelet Count 330 K/UL (150-450) Mean Platelet Volume 5.7 FL (6.5-10.1) Neutrophils (%) (Auto) % (45.0-75.0) Lymphocytes (%) (Auto) % (20.0-45.0) Monocytes (%) (Auto) % (1.0-10.0) Eosinophils (%) (Auto) % (0.0-3.0) Basophils (%) (Auto) % (0.0-2.0) Urine Color Yellow Urine Appearance Cloudy Urine pH 5 (4.5-8.0) Urine Specific Barton 1.025 (1.005-1.035) Urine Protein 2+ (NEGATIVE) Urine Glucose (UA) Negative (NEGATIVE) Urine Ketones 1+ (NEGATIVE) Urine Blood 3+ (NEGATIVE) Urine Nitrite Negative (NEGATIVE) Urine Bilirubin 2+ (NEGATIVE) Urine Ictotest Negative (NEGATIVE) Urine Urobilinogen Normal MG/DL (0.0-1.0) Urine Leukocyte Esterase 1+ (NEGATIVE) Urine RBC 5-10 /HPF (0 - 0) Urine WBC 2-4 /HPF (0 - 0) Urine Squamous Epithelial Cells Few /LPF (NONE/OCC) Urine Bacteria Moderate /HPF (NONE) Sodium Level 149 MMOL/L (136-145) Potassium Level 4.7 MMOL/L (3.5-5.1) Chloride Level 118 MMOL/L (98-107) Carbon Dioxide Level 19 MMOL/L (21-32) Anion Gap 12 mmol/L (5-15) Blood Urea Nitrogen 53 mg/dL (7-18) Creatinine 4.3 MG/DL (0.55-1.30) Estimat Glomerular Filtration Rate 13.3 mL/min (>60) Glucose Level 259 MG/DL (74-106) Calcium Level 7.4 MG/DL (8.5-10.1) Total Bilirubin 0.3 MG/DL (0.2-1.0) Aspartate Amino Transf (AST/SGOT) 15 U/L (15-37) Alanine Aminotransferase (ALT/SGPT) < 6 U/L (12-78) Alkaline Phosphatase 57 U/L (46-116) Total Creatine Kinase 60 U/L (26-308) Creatine Kinase MB < 0.5 NG/ML (0.0-3.6) Creatine Kinase MB Relative Index 0.8 Troponin I 0.013 ng/mL (0.000-0.056) Pro-B-Type Natriuretic Peptide 1937 pg/mL (0-125) Total Protein 6.3 G/DL (6.4-8.2) Albumin 2.0 G/DL (3.4-5.0) Globulin 4.3 g/dL Albumin/Globulin Ratio 0.5 (1.0-2.7) Arterial Blood pH 7.380 (7.350-7.450) Arterial Blood Partial Pressure CO2 24.9 mmHg (35.0-45.0) Arterial Blood Partial Pressure O2 428.8 mmHg (75.0-100.0) Arterial Blood HCO3 14.4 mmol/L (22.0-26.0) Arterial Blood Oxygen Saturation 99.5 % (95-100) Arterial Blood Base Excess -8.8 (-2-2) Jose Test N/a EKG Diagnostic Results Rate: tachycardiac Rhythm: NSR ST Segments: no acute changes Rhythm Strip Diag. Results EP Interpretation: yes Rhythm: NSR, no PVC's Last Vital Signs Date Time Temp Pulse Resp B/P (MAP) Pulse Ox O2 Delivery O2 Flow Rate FiO2 12/07/19 15:17 97.7 148 28 82/46 (58) 95 Non-Rebreather 15.0 Status: improved Disposition: ADMITTED INPATIENT Condition: Critical Miguel Lester MD Dec 07, 2019 15:30
--- NOTE | 2019-12-07 15:30 | NUR ---
ED Nurse Note: central line placed by ermd. abbott inserted per ermd order. blood, initial lactic, blood cultures, urine, flu covid mrsa vre cre swab collected; sent downt to lab.
[2019-12-07] MEDS ORDERED: Lidocaine 1% Plain 30 ml INJ ONE (15:40)
--- NOTE | 2019-12-07 16:00 | NUR ---
ED Nurse Note: upon xray confirmation, central line malpositioned. line d/c by ermd. 2nd attempt placed by ermd; pending xray confirmation
[2019-12-07] MEDS ORDERED: Norepinephrine Bitartrate 4 MG in NS 250 ML IV SCH (16:04)
[2019-12-07] MEDS ORDERED: Norepinephrine 4mg/NS Premix 250 ML IV SCH (16:15)
[2019-12-07 16:18] LABS: HEMATOCRIT 45.7 % (42.0-52.0); HEMOGLOBIN 14.9 G/DL (14.2-18.0); MEAN CORPUSCULAR VOLUME 90 FL (80-99); PLATELET COUNT 330 K/UL (150-450); RED BLOOD COUNT 5.09 M/UL (4.70-6.10); RED CELL DISTRIBUTION WIDTH 15.1 % (11.6-14.8); WHITE BLOOD COUNT 18.6 K/UL (4.8-10.8)
[2019-12-07 16:19] LABS: APPEARANCE,URINE CLOUDY; BILIRUBIN, URINE 2+ (NEGATIVE); GLUCOSE, URINE (UA) NEGATIVE (NEGATIVE); KETONES,URINE 1+ (NEGATIVE); LEUKOCYTE ESTERASE ,URINE 1+ (NEGATIVE); NITRITE,URINE NEGATIVE (NEGATIVE); PH,URINE 5 (4.5-8.0); PROTEIN,URINE 2+ (NEGATIVE); UROBILINOGEN,URINE NORMAL MG/DL (0.0-1.0)
[2019-12-07 16:20] LABS: COLOR,URINE YELLOW
[2019-12-07 16:27] LABS: ANION GAP 12 mmol/L (5-15); BLOOD UREA NITROGEN 53 mg/dL (7-18); CALCIUM 7.4 MG/DL (8.5-10.1); CARBON DIOXIDE 19 MMOL/L (21-32); CHLORIDE 118 MMOL/L (98-107); CREATININE 4.3 MG/DL (0.55-1.30); POTASSIUM 4.7 MMOL/L (3.5-5.1); SODIUM 149 MMOL/L (136-145)
[2019-12-07 16:40] LABS: ALANINE AMINOTRANSFERASE < 6 U/L (12-78); ALBUMIN/GLOBULIN RATIO 0.5 (1.0-2.7); ALKALINE PHOSPHATASE 57 U/L (46-116); ASPARTATE AMINO TRANSFERASE 15 U/L (15-37); BILIRUBIN,TOTAL 0.3 MG/DL (0.2-1.0); CKMB < 0.5 NG/ML (0.0-3.6); CREATINE KINASE 60 U/L (26-308)
--- NOTE | 2019-12-07 17:02 | NUR ---
ED Nurse Note: pt down to ct via gurney with autobody technician. patient stable for transport.
--- NOTE | 2019-12-07 17:28 | Diagnostic Imaging Report ---
EXAM: CT Head Without Intravenous Contrast CLINICAL HISTORY: AMS TECHNIQUE: Axial computed tomography images of the head/brain without intravenous contrast. CTDI is 53.4 mGy and DLP is 965.4 mGy-cm. One or more of the following dose reduction techniques were used: automated exposure control, adjustment of the mA and/or kV according to patient size, use of iterative reconstruction technique. COMPARISON: CT head on 09/08/2018 FINDINGS: Brain: No acute infarct or hemorrhage identified. No extra-axial fluid collection. No mass effect or midline shift. Stable areas of hypoattenuation in the supratentorial white matter likely represent chronic small vessel ischemic changes. Ventricles and sulci: Stable prominence of the ventricles and sulci is likely secondary to cerebral volume loss. Bones: Normal. No bony lesion or acute fracture. Subcutaneous tissues: Normal. Sinuses: Normal. No air-fluid levels or mucosal thickening. Mastoid air cells: Normal. Orbits: Left lens implant. Other: Atherosclerotic calcifications in the intracranial vasculature. IMPRESSION: 1. No acute intracranial abnormality. 2. Stable prominent small vessel ischemic changes and cerebral volume loss.
--- NOTE | 2019-12-07 17:30 | NUR ---
ED Nurse Note: pt back from ct via gurney with transport tank technician. reattached to monitor. remains tachycardic; bp stable 109/88. levophed still on hold until xray confirmation result. will continue to monitor.
--- NOTE | 2019-12-07 17:45 | NUR ---
ED Nurse Note: sacral wound noted. rectal tube inserted per ermd order. Addendum: 12/07/19 at 1817 by LCRISOSTOM ED Nurse Note: sacral wound noted; photo taken and uploaded. rectal tube inserted per ermd order.
--- NOTE | 2019-12-07 17:46 | Diagnostic Imaging Report ---
EXAM: CT Abdomen and Pelvis Without Intravenous Contrast CLINICAL HISTORY: AMS TECHNIQUE: Axial computed tomography images of the abdomen and pelvis without intravenous contrast. CTDI is 4.1 mGy and DLP is 207.3 mGy-cm. One or more of the following dose reduction techniques were used: automated exposure control, adjustment of the mA and/or kV according to patient size, use of iterative reconstruction technique. COMPARISON: None FINDINGS: Lung bases: Mild dependent atelectasis bilaterally. Component of infectious/inflammatory process is not excluded. Mediastinum: Small hiatal hernia. ABDOMEN: Liver: Hepatic cysts. Gallbladder and bile ducts: Unremarkable. No calcified stones. No ductal dilation. Pancreas: Unremarkable. No ductal dilation. Spleen: Unremarkable. No splenomegaly. Adrenals: Unremarkable. No mass. Kidneys and ureters: Mild renal vascular calcifications bilaterally. No hydronephrosis or obstructing stone. Small inferior left renal cyst. Stomach and bowel: Fluid in the colon is suggestive of diarrheal state. Prominence of the berrios of the colon and rectum may represent colitis and proctitis. Mildly prominent fluid and gas-filled small bowel loops could represent enteritis. Wall thickening of the duodenum is concerning for duodenitis. Evaluation of the stomach is limited by underdistention. PELVIS: Appendix: Normal appendix. Bladder: Cisneros catheter in an underdistended bladder. No stones. Reproductive: Unremarkable as visualized. ABDOMEN and PELVIS: Intraperitoneal space: Unremarkable. No free air. No significant fluid collection. Bones/joints: Old left-sided rib fracture deformities. Old fracture deformity of the left pubic rami. Degenerative changes of the spine. No dislocation. Soft tissues: Unremarkable. Vasculature: Atherosclerotic changes of the vasculature. No aortic aneurysm. Lymph nodes: Unremarkable. No enlarged lymph nodes. IMPRESSION: 1. Mild dependent atelectasis bilaterally. Component of infectious/inflammatory process is not excluded. 2. Fluid in the colon is suggestive of diarrheal state. Prominence of the berrios of the colon and rectum may represent colitis and proctitis. 3. Mildly prominent fluid and gas-filled small bowel loops could represent enteritis. Wall thickening of the duodenum is concerning for duodenitis.
--- NOTE | 2019-12-07 17:47 | Diagnostic Imaging Report ---
EXAM: XR Chest, 1 View CLINICAL HISTORY: SOB TECHNIQUE: Frontal view of the chest. COMPARISON: None FINDINGS: Hardware: Right internal jugular central venous catheter which terminates in the region of the SVC. Lungs/pleura: Normal. No focal consolidation. No pleural effusion or pneumothorax. Heart/mediastinum: Atherosclerotic calcifications of the aorta. No cardiomegaly. Soft tissues: Unremarkable. Bones: No acute fracture. Degenerative changes of the acromio clavicular joints and spine. Upper abdomen: Normal. IMPRESSION: 1. No acute disease identified. 2. Right internal jugular central venous catheter which terminates in the region of the SVC.
--- NOTE | 2019-12-07 18:00 | NUR ---
ED Nurse Note: confirmation to use TLC noted; initiated levophed drip to 10 mcg/min per ermd. bp 112/85
--- NOTE | 2019-12-07 18:22 | NUR ---
NURSE NOTES: LATE ENTRY: CALLED ER FOR REPORT, PLACED ON HOLD, NURSE HOUSTON HOLM WILL CALL BACK WHEN READY.
--- NOTE | 2019-12-07 18:37 | NUR ---
NURSE NOTES: LATE ENTRY: RECEIVED FROM RN HOUSTON HOLM. AWAITING PT ARRIVAL TO UNIT. GOING TO ROOM 246-H
--- NOTE | 2019-12-07 18:45 | NUR ---
TRANSFER TO FLOOR: Patient transferred to icu 246h as ordered, per paul jay. Report given to tiffany obregon. patient stable for transport. transferred to unit via gurney with rn and peg. belongings list and admission packet sent with patient.
--- NOTE | 2019-12-07 18:50 | NUR ---
NURSE NOTES: LATE ENTRY: PT ON UNIT, CONNECTED TO MONITOR. BP 112. LEVOPHED RUNNING AT 10MG/HR. HR 120'S. PT O.E TO PAIN. NON VERBAL. ON R.A 95%. RECTAL TUBE. SACRAL WOUND. ECHEVERRIA IN PLACE. AX TEMPP 98.5. RT IJ TLC. REPORT GIVEN TO ON COMING NURSE. BED ALARM. SIDE RAILS.
--- NOTE | 2019-12-07 19:00 | NUR ---
NURSE NOTES: Patient Transferred from ED to ICU, report was received from Theresa BOB. Patient is non-verbal at this time, awake but not oriented, opens eyes to stimulus, pupils reactive to light. patients upper extremities are strong 4/5, somewhat contracted inwardly. Patient is currently on Levophed gtt at 10mcg/min with blood pressure of 114/76, pressor will be titrated down accordingly.Patient has Cisneros catheter with minimal output,light adan in color. There is a right IJ TLC with Levophed at 10mcg/min. Skin alterations noted. Cool to touch, mild mottled lower extremities. Addendum: 12/08/19 at 0045 by KATIE NORTON RN Patient also has rectal tube in place, inserted in ER. Watery diarrhea.
--- NOTE | 2019-12-07 19:15 | NUR ---
NURSE NOTES: Follow up ABG performed by RT.
--- NOTE | 2019-12-07 19:38 | NUR ---
NURSE NOTES: Called attending and left message regarding admission orders.
--- NOTE | 2019-12-07 19:45 | NUR ---
NURSE NOTES: Patient placed on NC at 2L for now.
--- NOTE | 2019-12-07 20:00 | NUR ---
NURSE NOTES: Dr. West called back, I gave MD updates on patients condition. MD mentioned he will be inputting admission orders himself.
[2019-12-07] MEDS: Norepinephrine 4mg/NS Premix 250 ML IV SCH (21:04)
--- NOTE | 2019-12-07 21:30 | NUR ---
NURSE NOTES: blood pressure is 124/69, pressor held at this time, was running at 2mcg/min.
--- NOTE | 2019-12-07 22:30 | NUR ---
NURSE NOTES: pt is a sleep at this time, no SOB noted. O2sat is at 100% with NC 2L. pt seems comfortable. pt able to understand some words but confused. call light within reach. will continue to monitor pt closely.
[2019-12-08] VITALS (26 sets, daily range): BP systolic 96–144; BP diastolic 54–99
--- NOTE | 2019-12-08 | NUR ---
NURSE NOTES: checked pt's BS 209, asymptomatic. pt is watching Estonian TV shows at this time. AOx1 and confused. no SOB noted. VSS. call light within reach. will continue to monitor pt
--- NOTE | 2019-12-08 00:30 | Consultation ---
DATE OF CONSULTATION: 12/07/2019 CARDIOLOGY CONSULTATION CONSULTING PHYSICIAN: Mitchell West MD. REQUESTING PHYSICIAN: Carlos Hunt MD. REASON FOR CONSULTATION: Shock. HISTORY OF PRESENT ILLNESS: This is an 84-year-old male residing at a group home facility. He was recently hospitalized at a different facility for urinary tract infection with sepsis. The patient was noted to be lethargic, withdrawn, and short of breath according to [facility] staff. Paramedics were summoned. Supplemental oxygen was placed and hypotension was confirmed. The patient was also febrile and transported to this emergency room. On arrival to the emergency room, systolic blood pressure readings ranged from 50 to 70. Central venous access was obtained. Fluid challenges were initiated and subsequently pressors were given. The patient has recently had diarrhea episodes at the group home facility. Other constitutional symptoms are not known. The patient has an underlying dementia and historical data cannot be obtained especially in view of his current presentation. PAST MEDICAL HISTORY: Cerebrovascular disease, dementia, recurring urinary tract infections, prostatic hypertrophy, hyperlipidemia, hypertension, type 2 diabetes mellitus, osteoarthritis, history of aspiration, history of myocardial infarction, Parkinson disease, history of congestive heart failure. ALLERGIES: None known. MEDICATIONS: Reviewed and reconciled. SOCIAL HISTORY: Negative for smoking, alcohol, or substance abuse. His surrogate decision maker is his daughter. Advanced directives, Full Code. This was reaffirmed with discussions with his daughter. The patient has been full Code during his recent hospitalizations as well. Family members are aware of his poor health overall and critical status at this time. REVIEW OF SYSTEMS: Otherwise not obtainable. PHYSICAL EXAMINATION: GENERAL: Thin frail, poorly responsive. VITAL SIGNS: Blood pressure 70/50, heart rate 148, respiratory rate 28, afebrile. HEENT: Temporal wasting. Pale conjunctivae. Dry mucous membranes. NECK: Supple. LUNGS: Diminished breath sounds. No wheezing or rales. CARDIAC: Regular rhythm. Rapid rate. Normal S1, S2 with no murmur. ABDOMEN: Soft, slightly distended but no guarding or rebound elicited. EXTREMITIES: With poor capillary refill. No clubbing, cyanosis, or edema. NEUROLOGIC: Presently withdraws to pain, otherwise non communicative. He does open his eyes to verbal communication. Right internal jugular access site is clean and dry. LABORATORY DATA: White count 18.6, hemoglobin 14.9, platelets 330. Lactic acid 2.0. Troponin is 0.013. Natriuretic peptide 1900. Albumin 2.0. Liver function normal. BUN 53, creatinine 4.3, sodium 149, potassium 4.7, bicarb 19. EKG sinus tachycardia, no acute abnormalities. Chest x-ray, no acute process. IMPRESSION: 1. Sepsis. 2. Shock. 3. Hypovolemia. 4. Dehydration. 5. Hypernatremia. 6. . 7. Metabolic acidosis. 8. Acute renal failure. 9. Type 2 diabetes mellitus with hyperglycemia. 10. Acute myocardial ischemia. 11. Acute diastolic congestive heart failure. 12. Severe protein-calorie malnutrition. 13. Possible colitis. PLAN: 1. ICU care. 2. Volume resuscitation. 3. Free water replacement. 4. Pressor support with taper as condition improves. 5. Panculture. 6. Broad-spectrum antibiotics. 7. Stool C. diff toxin. 8. DVT and stress ulcer prophylaxis. 9. NPO for now. 10. Remains critical and guarded. 11. Follow up troponin level will be obtained. Mitchell West M.D. DR: Gudelia JOB#: [id number] CC:
--- NOTE | 2019-12-08 01:20 | NUR ---
NURSE NOTES: pt is watching bulgarian TV show at this time. pt states no pain at this time. call light within reach. will continue to monitor pt. no SOB noted. VSS.
--- NOTE | 2019-12-08 01:38 | NUR ---
NURSE NOTES: Pressors continues to remain on hold, blood pressure has remained stable since pressors have been on hold current BP is 126/49, latest temperature was 98.5F (ax). Remains on nasal cannula at 2L, 100% SpO2.
--- NOTE | 2019-12-08 03:30 | NUR ---
NURSE NOTES: pt is resting on the bed, VSS. no fever, no active bleeding, no SOB noted at this time. call light within reach.
--- NOTE | 2019-12-08 05:00 | NUR ---
NURSE NOTES: pt's temperature is at 97.1, vitals are stable at this time. no SOB noted. pt currently AOx 1 confused but able to understand more conversation compare to prior. call light within reach. will continue to monitor pt.
[2019-12-08 05:09] LABS: BASOPHILS % (AUTO) 1.4 % (0.0-2.0); EOSINOPHILS % (AUTO) 0.1 % (0.0-3.0); HEMATOCRIT 41.6 % (42.0-52.0); LYMPHOCYTES % (AUTO) 9.8 % (20.0-45.0); MEAN CORPUSCULAR VOLUME 91 FL (80-99); MONOCYTES % (AUTO) 10.8 % (1.0-10.0); NEUTROPHILS % (AUTO) 77.9 % (45.0-75.0); PLATELET COUNT 266 K/UL (150-450); RED BLOOD COUNT 4.59 M/UL (4.70-6.10); RED CELL DISTRIBUTION WIDTH 15.1 % (11.6-14.8); WHITE BLOOD COUNT 15.4 K/UL (4.8-10.8)
[2019-12-08 06:03] LABS: ALANINE AMINOTRANSFERASE < 6 U/L (12-78); ALBUMIN 1.8 G/DL (3.4-5.0); ALBUMIN/GLOBULIN RATIO 0.4 (1.0-2.7); ALKALINE PHOSPHATASE 53 U/L (46-116); ANION GAP 14 mmol/L (5-15); ASPARTATE AMINO TRANSFERASE 15 U/L (15-37); BILIRUBIN,TOTAL 0.2 MG/DL (0.2-1.0); BLOOD UREA NITROGEN 51 mg/dL (7-18); CALCIUM 7.1 MG/DL (8.5-10.1); CARBON DIOXIDE 13 MMOL/L (21-32); CHLORIDE 121 MMOL/L (98-107); CREATININE 3.1 MG/DL (0.55-1.30); POTASSIUM 4.1 MMOL/L (3.5-5.1); SODIUM 148 MMOL/L (136-145)
[2019-12-08] MEDS: NovoLOG Insulin Flexpen SUBQ SCH ×6 (06:21→21:00)
--- NOTE | 2019-12-08 07:28 | NUR ---
HAND-OFF: Report given to [facility] Nurse.
[2019-12-08] MEDS: Pantoprazole Inj IVP SCH (08:49)
[2019-12-08] MEDS: Heparin 5000 units/ml inj SUBQ SCH ×2 (08:49→21:00)
--- NOTE | 2019-12-08 08:51 | NUR ---
OPENS EYES TO TOUCHING FLATAFFECT LEVOPHED DRIP OFF BP 119/72 TEMP 97,9 HR105
--- NOTE | 2019-12-08 09:38 | NUR ---
CASE MANAGEMENT:REVIEW 84 YR OLD MALE BIBA FROM [facility] CC: SOB AND LOW BP SI: SEPTIC SHOCK. 97.7 148 28 82/46 95% ON 15L NRB WBC+18.6 BUN+53 CR-4.3 IS: IV VANCOMYCIN IV CEFEPIME IV FLAGYL LEVOPHED GTT 1L NS BOLUS CT HEAD/ABD/PELVIS CXR BLOOD CX : ICU STATUS DCP: FROM [facility]
[2019-12-08] MEDS ORDERED: NS 275ml ONE (09:51)
[2019-12-08] MEDS ORDERED: 1/2 NS 1000ml IV ONE ×2 (09:51→15:19)
[2019-12-08] MEDS ORDERED: Tubing IV Secondary IV ONE (09:51)
--- NOTE | 2019-12-08 11:40 | NUR ---
PT, SEEN BY JENNIFER MURRIETA NO NEW ORDERS
--- NOTE | 2019-12-08 13:09 | Cardiology Progress Note ---
Subjective DATE OF SERVICE: Dec 08, 2019 Remains in ICU - condition remains critical with guarded prognosis. Discussed with ICU staff and consulting MD's Pressor support being tapered off. Still with loose stools. Cultures pending Objective Last 24 Hour Vital Signs Date Time Temp Pulse Resp B/P (MAP) Pulse Ox O2 Delivery O2 Flow Rate FiO2 12/08/19 12:00 Nasal Cannula 2.0 12/08/19 12:00 110 12/08/19 12:00 110 19 120/63 (82) 100 12/08/19 11:04 107 25 111/63 (79) 100 12/08/19 10:00 107 15 141/99 (113) 100 12/08/19 09:00 97.9 105 18 144/68 (93) 100 12/08/19 08:00 104 18 119/72 (88) 100 12/08/19 08:00 Nasal Cannula 2.0 12/08/19 08:00 107 12/08/19 07:00 104 21 107/65 (79) 100 12/08/19 06:00 109 18 110/74 (86) 100 12/08/19 05:00 109 18 96/82 (87) 100 12/08/19 04:00 Nasal Cannula 2.0 12/08/19 04:00 97.0 110 17 117/70 (86) 100 12/08/19 03:05 111 12/08/19 03:00 115 18 124/77 (93) 100 12/08/19 02:00 115 20 115/74 (88) 100 12/08/19 01:00 118 22 108/70 (83) 99 12/08/19 00:30 119 22 113/75 (88) 100 12/08/19 00:00 98.8 120 20 110/74 (86) 100 12/08/19 00:00 Nasal Cannula 2.0 12/07/19 23:30 121 17 120/73 (89) 100 12/07/19 23:08 120 12/07/19 23:00 124 14 109/70 (83) 100 12/07/19 22:30 122 14 133/83 (100) 100 12/07/19 22:00 98.5 122 22 111/72 (85) 100 12/07/19 21:30 124 20 107/71 (83) 100 12/07/19 21:15 124 21 110/69 (83) 100 12/07/19 21:04 112/71 12/07/19 21:00 126 22 112/71 (85) 100 12/07/19 21:00 112/71 12/07/19 20:45 124 27 103/66 (78) 100 12/07/19 20:30 103/66 12/07/19 20:30 126 23 103/56 (72) 100 12/07/19 20:15 126 23 97/60 (72) 100 12/07/19 20:15 110/75 12/07/19 20:01 127 12/07/19 20:00 127 27 94/54 (67) 100 12/07/19 20:00 97/60 12/07/19 20:00 Nasal Cannula 2.0 12/07/19 19:57 99 Nasal Cannula 2.0 28 12/07/19 19:45 127 22 110/75 (87) 100 12/07/19 19:40 Non-Rebreather 10.0 12/07/19 19:30 110/75 12/07/19 19:30 127 24 111/65 (80) 100 12/07/19 19:15 129 19 107/71 (83) 100 12/07/19 19:02 129 12/07/19 19:00 128 21 107/66 (80) 98 12/07/19 19:00 107/71 12/07/19 18:58 98.9 128 19 118/82 (94) 90 12/07/19 18:45 97.7 128 18 132/85 91 Room Air 12/07/19 18:45 118/82 12/07/19 18:00 97.7 128 18 112/85 91 Room Air 12/07/19 18:00 112/85 12/07/19 17:45 97.7 131 19 83/65 96 Room Air 12/07/19 17:30 97.7 136 20 109/88 94 Room Air 12/07/19 16:20 77/48 12/07/19 16:19 77/48 12/07/19 16:00 97.7 129 20 94/67 96 Room Air 12/07/19 15:30 97.7 148 28 82/46 95 Non-Rebreather 15.0 12/07/19 15:30 148 28 Non-Rebreather 15.0 12/07/19 15:17 97.7 148 28 82/46 (58) 95 Non-Rebreather 15.0 ROS: unchanged from my evaluation of 12/07/19 HEENT: other - Dry MM's RHYTHM: NSR, ST LUNGS: lungs clear bilaterally CARDIAC: regular rhythm, normal S1 and S2, tachycardia ABDOMEN: normal bowel sounds, non tender, soft, no organomegaly EXTREMITIES: no calf tenderness, trace edema Laboratory Tests Test 12/07/19 15:30 12/07/19 15:46 12/07/19 19:39 12/07/19 23:57 White Blood Count 18.6 K/UL (4.8-10.8) H Red Blood Count 5.09 M/UL (4.70-6.10) Hemoglobin 14.9 G/DL (14.2-18.0) Hematocrit 45.7 % (42.0-52.0) Mean Corpuscular Volume 90 FL (80-99) Mean Corpuscular Hemoglobin 29.2 PG (27.0-31.0) Mean Corpuscular Hemoglobin Concent 32.5 G/DL (32.0-36.0) Red Cell Distribution Width 15.1 % (11.6-14.8) H Platelet Count 330 K/UL (150-450) Mean Platelet Volume 5.7 FL (6.5-10.1) L Neutrophils (%) (Auto) % (45.0-75.0) Lymphocytes (%) (Auto) % (20.0-45.0) Monocytes (%) (Auto) % (1.0-10.0) Eosinophils (%) (Auto) % (0.0-3.0) Basophils (%) (Auto) % (0.0-2.0) Differential Total Cells Counted 100 Neutrophils % (Manual) 71 % (45-75) Lymphocytes % (Manual) 10 % (20-45) L Monocytes % (Manual) 7 % (1-10) Eosinophils % (Manual) 1 % (0-3) Basophils % (Manual) 0 % (0-2) Band Neutrophils 11 % (0-8) H Platelet Estimate Adequate Platelet Morphology Normal Anisocytosis 1+ Urine Color Yellow Urine Appearance Cloudy Urine pH 5 (4.5-8.0) Urine Specific [place] 1.025 (1.005-1.035) Urine Protein 2+ (NEGATIVE) H Urine Glucose (UA) Negative (NEGATIVE) Urine Ketones 1+ (NEGATIVE) H Urine Blood 3+ (NEGATIVE) H Urine Nitrite Negative (NEGATIVE) Urine Bilirubin 2+ (NEGATIVE) H Urine Ictotest Negative (NEGATIVE) Urine Urobilinogen Normal MG/DL (0.0-1.0) Urine Leukocyte Esterase 1+ (NEGATIVE) H Urine RBC 5-10 /HPF (0 - 0) H Urine WBC 2-4 /HPF (0 - 0) Urine Squamous Epithelial Cells Few /LPF (NONE/OCC) Urine Bacteria Moderate /HPF (NONE) H Sodium Level 149 MMOL/L (136-145) H Potassium Level 4.7 MMOL/L (3.5-5.1) Chloride Level 118 MMOL/L (98-107) H Carbon Dioxide Level 19 MMOL/L (21-32) L Anion Gap 12 mmol/L (5-15) Blood Urea Nitrogen 53 mg/dL (7-18) H Creatinine 4.3 MG/DL (0.55-1.30) H Estimat Glomerular Filtration Rate 13.3 mL/min (>60) Glucose Level 259 MG/DL (74-106) H Lactic Acid Level 2.00 mmol/L (0.4-2.0) Calcium Level 7.4 MG/DL (8.5-10.1) L Total Bilirubin 0.3 MG/DL (0.2-1.0) Aspartate Amino Transf (AST/SGOT) 15 U/L (15-37) Alanine Aminotransferase (ALT/SGPT) < 6 U/L (12-78) L Alkaline Phosphatase 57 U/L (46-116) Total Creatine Kinase 60 U/L (26-308) Creatine Kinase MB < 0.5 NG/ML (0.0-3.6) Creatine Kinase MB Relative Index 0.8 Troponin I 0.013 ng/mL (0.000-0.056) Pro-B-Type Natriuretic Peptide 1937 pg/mL (0-125) H Total Protein 6.3 G/DL (6.4-8.2) L Albumin 2.0 G/DL (3.4-5.0) L Globulin 4.3 g/dL Albumin/Globulin Ratio 0.5 (1.0-2.7) L Arterial Blood pH 7.380 (7.350-7.450) 7.317 (7.350-7.450) Arterial Blood Partial Pressure CO2 24.9 mmHg (35.0-45.0) *L 23.3 mmHg (35.0-45.0) *L Arterial Blood Partial Pressure O2 428.8 mmHg (75.0-100.0) H 238.9 mmHg (75.0-100.0) H Arterial Blood HCO3 14.4 mmol/L (22.0-26.0) *L 11.7 mmol/L (22.0-26.0) *L Arterial Blood Oxygen Saturation 99.5 % (95-100) 99.0 % (95-100) Arterial Blood Base Excess -8.8 (-2-2) L -12.4 (-2-2) *L Jose Test N/a Positive POC Whole Blood Glucose Pending Test 12/08/19 01:00 12/08/19 04:10 12/08/19 06:14 12/08/19 11:15 Stool Occult Blood Pending White Blood Count 15.4 K/UL (4.8-10.8) H Red Blood Count 4.59 M/UL (4.70-6.10) L Hemoglobin 13.0 G/DL (14.2-18.0) L Hematocrit 41.6 % (42.0-52.0) L Mean Corpuscular Volume 91 FL (80-99) Mean Corpuscular Hemoglobin 28.4 PG (27.0-31.0) Mean Corpuscular Hemoglobin Concent 31.4 G/DL (32.0-36.0) L Red Cell Distribution Width 15.1 % (11.6-14.8) H Platelet Count 266 K/UL (150-450) Mean Platelet Volume 5.7 FL (6.5-10.1) L Neutrophils (%) (Auto) 77.9 % (45.0-75.0) H Lymphocytes (%) (Auto) 9.8 % (20.0-45.0) L Monocytes (%) (Auto) 10.8 % (1.0-10.0) H Eosinophils (%) (Auto) 0.1 % (0.0-3.0) Basophils (%) (Auto) 1.4 % (0.0-2.0) Sodium Level 148 MMOL/L (136-145) H Potassium Level 4.1 MMOL/L (3.5-5.1) Chloride Level 121 MMOL/L (98-107) H Carbon Dioxide Level 13 MMOL/L (21-32) L Anion Gap 14 mmol/L (5-15) Blood Urea Nitrogen 51 mg/dL (7-18) H Creatinine 3.1 MG/DL (0.55-1.30) H Estimat Glomerular Filtration Rate 19.3 mL/min (>60) Glucose Level 215 MG/DL (74-106) H Calcium Level 7.1 MG/DL (8.5-10.1) L Magnesium Level 2.1 MG/DL (1.8-2.4) Total Bilirubin 0.2 MG/DL (0.2-1.0) Aspartate Amino Transf (AST/SGOT) 15 U/L (15-37) Alanine Aminotransferase (ALT/SGPT) < 6 U/L (12-78) L Alkaline Phosphatase 53 U/L (46-116) Troponin I 0.018 ng/mL (0.000-0.056) Total Protein 5.8 G/DL (6.4-8.2) L Albumin 1.8 G/DL (3.4-5.0) L Globulin 4.0 g/dL Albumin/Globulin Ratio 0.4 (1.0-2.7) L Thyroid Stimulating Hormone (TSH) 1.387 uiU/mL (0.358-3.740) POC Whole Blood Glucose Pending 138 MG/DL (74-106) H Microbiology Date/Time Source Procedure Growth Status 12/07/19 15:45 Nasal Nares - Final Complete 12/07/19 15:45 Nasal Nares - Final Complete 12/07/19 15:30 Urine,Clean Catch Urine Culture - Preliminary NO GROWTH Resulted 12/07/19 15:30 Nasopharynx SARS-CoV-2 RdRp Gene Assay - Final Complete Assessment/Plan Assessment/Plan Sepsis Shock Hypovolemia Dehydration Acute myocardial ischemia Acute renal failure NIDDM with hyperglycemia Diarrhea Metabolic acidosis Parkinson's dis with dementia Taper off pressors Antimicrobials Hypotonic IVF Hold feeds Follow-up culture results Full Code Mitchell West MD Dec 08, 2019 13:09
[2019-12-08] MEDS ORDERED: COLACE100 MG ORAL (14:03)
[2019-12-08] MEDS ORDERED: ACETAMINOPHEN325 M1 ORAL (14:03)
[2019-12-08] MEDS ORDERED: NOVOLIN R100 UNIT/1 SUBQ (14:03)
[2019-12-08] MEDS ORDERED: LOPRESSOR25 M1 ORAL (14:03)
[2019-12-08] MEDS ORDERED: BISACODYL10 M1 RC (14:03)
[2019-12-08] MEDS ORDERED: MILK OF MA2400 MG/10 ORAL (14:03)
[2019-12-08] MEDS ORDERED: LOPERAMIDE2 M1 PO (14:03)
[2019-12-08] MEDS: Sodium Bicarbonate 50 ML in 1/2 NS 1000ml 1,000 ML IV SCH ×2 (15:00→23:27)
[2019-12-08] MEDS: Cefepime HCl 1 GM in D5W 55 ML IVPB SCH (15:00)
--- NOTE | 2019-12-08 15:05 | NUR ---
PT,SEEN BY LIANG MURRIETA WITH ORDERS
--- NOTE | 2019-12-08 15:45 | History and Physical Report ---
DATE OF ADMISSION: 12/07/2019 CHIEF COMPLAINT: Septic shock, UTI. HISTORY: The patient is an 84-year-old male, well known to me. He has a history of hypertension, diabetes, Crohn disease, dementia, who was transferred from a half-way facility with complaints of altered mental status and tachycardia. In the ER, he was noted to be septic and was hypotensive. He had evidence of an urinary tract infection. He was instituted on broad-spectrum IV antibiotics, pancultured. He was started on Levophed. His blood pressure was 40. He is now admitted to intensive care unit. PAST MEDICAL HISTORY: As above. PAST SURGICAL HISTORY: None. CURRENT MEDICATIONS: Reconciled and reviewed. ALLERGIES: None. FAMILY HISTORY: None. SOCIAL HISTORY: There is no known history of tobacco, ethanol, or drugs. REVIEW OF SYSTEMS: Unobtainable as the patient is confused. PHYSICAL EXAMINATION: VITAL SIGNS: Temperature 97.9, pulse 104, respirations 18, and blood pressure 144/68. GENERAL: The patient is a chronically ill-appearing male, in no apparent distress. HEENT: Head is normocephalic and atraumatic. Sclerae anicteric. The oropharynx is clear. NECK: Supple. HEART: Regular rate and rhythm. LUNGS: Clear. ABDOMEN: Soft, nontender, nondistended. EXTREMITIES: Without clubbing, cyanosis, or edema. LABORATORY DATA: White count 18,000. Sodium 148, creatinine was 3.1, bicarb of 13. UA showed 2-4 wbc's. Chest x-ray was clear. CT of the abdomen showed possible colitis, questionable duodenitis. ASSESSMENT: This is an elderly male with multiple medical problems complaints of septic shock, possibly secondary to UTI, cannot rule out some component of colitis. PLAN: Broad-spectrum antibiotics. ID consultation. Cardiology followup. Aggressive fluid resuscitation. Monitor renal function. The patient's status is currently critical and guarded. Carlos Hunt M.D. DR: KEDAR JOB#: [id number] CC:
--- NOTE | 2019-12-08 17:14 | NUR ---
AWAKE/AGITATEDWITH PMCARE HOBUP V/S CONDITION STABLE
--- NOTE | 2019-12-08 19:25 | NUR ---
NURSE HAND-OFF REPORT: Latest Vital Signs: Temperature 98.3 , Pulse 107 , B/P 119 /65 , Respiratory Rate 17 , O2 SAT 100 , Nasal Cannula, O2 Flow Rate 2.0 . Vital Sign Comment: EKG Rhythm: Sinus Tachycardia Rhythm change?: N MD Notified?: - MD Response: Latest Miranda Fall Score: 50 Fall Risk: High Risk Safety Measures: Call light , Bed Alarm Zone 2, Side Rails Side Rails x2, Bed position Low and Locked. Fall Precautions: Yellow Socks Yellow Gown Door Sign Patient Fall Education Report given to Abelino PINA.
[2019-12-08] MEDS: Dyna-Hex 2% Top Sol 2oz TOPIC SCH (20:00)
--- NOTE | 2019-12-08 20:00 | NUR ---
NURSE NOTES: SBAR form Lou casing fluid tender. Patient is awake, [place] speaking, opens eyes spontaneously, non-verbal. On NC 2L, SpO2 97%, NO SOB or Pain, FLACC score 0/10. Right IJ TLC NaHCO3 at 125ml/hr. Vitals are stable, afebrile , NAD at this time. skin alterations noted. Will continue to monitor.
[2019-12-08] MEDS: Norepinephrine 4mg/NS Premix 250 ML IV SCH (21:00)
--- NOTE | 2019-12-08 22:00 | NUR ---
NURSE NOTES: Scheduled medications given, glucose noted to be 104, no coverage given. Vitals remains stable. Afebrile, Family at bedside. Will continue monitor.
[2019-12-09] VITALS (18 sets, daily range): BP systolic 106–136; BP diastolic 54–80
--- NOTE | 2019-12-09 | NUR ---
NURSE NOTES: Patient resting in bed. Vitals remains stable, making more urine output-clear yellow. Oral care performed, repositioned. NAD awake AAOX1-2
--- NOTE | 2019-12-09 02:00 | NUR ---
NURSE NOTES: Repositioned patient, vitals continue to be stable, afebrile, no SOB observed. Urine output doing well.
--- NOTE | 2019-12-09 04:00 | NUR ---
NURSE NOTES: AM care performed, wound dressings changed. Bed bath given. VS remains stable, patient on room air tolerating well, no SOB. Spo2 100%. RR 16-20. Rectal tube remains in place, draining watery stool. Am labs performed.
[2019-12-09 05:44] LABS: BASOPHILS % (AUTO) 0.6 % (0.0-2.0); HEMATOCRIT 37.1 % (42.0-52.0); HEMOGLOBIN 11.7 G/DL (14.2-18.0); LYMPHOCYTES % (AUTO) 9.5 % (20.0-45.0); MEAN CORPUSCULAR VOLUME 90 FL (80-99); MONOCYTES % (AUTO) 9.3 % (1.0-10.0); NEUTROPHILS % (AUTO) 79.6 % (45.0-75.0); PLATELET COUNT 238 K/UL (150-450); RED BLOOD COUNT 4.11 M/UL (4.70-6.10); RED CELL DISTRIBUTION WIDTH 14.8 % (11.6-14.8); WHITE BLOOD COUNT 9.4 K/UL (4.8-10.8)
--- NOTE | 2019-12-09 06:00 | NUR ---
NURSE NOTES: Patient resting in bed. Vitals remains stable, making more urine output-clear yellow. Oral care performed, repositioned. NAD awake AAOX1-2
[2019-12-09 06:07] LABS: CALCIUM 7.2 MG/DL (8.5-10.1); CREATININE 1.9 MG/DL (0.55-1.30); POTASSIUM 3.3 MMOL/L (3.5-5.1)
[2019-12-09 06:10] LABS: PHOSPHORUS 2.7 MG/DL (2.5-4.9)
[2019-12-09] MEDS: NovoLOG Insulin Flexpen SUBQ SCH ×4 (06:30→21:20)
--- NOTE | 2019-12-09 07:10 | NUR ---
NURSE NOTES: Report received from LISBETH Mcadams. Patient is awake and oriented to name. Icelandic speaking. Confused and trying to pull out IVs. Afebrile. Continued bilateral soft wrist restraints. On RA. O2 sat 100%. Cisneros and rectal tube in place draining to gravity. Right IJ TLC patent and asymptomatic. Sodium bicarb in 1/2NS is running at 125cc/hr. Bed in lowest position. Side rails up x3. Will resume plan of care.
[2019-12-09] MEDS: Sodium Bicarbonate 50 ML in 1/2 NS 1000ml 1,000 ML IV SCH (07:37)
[2019-12-09] MEDS ORDERED: Sodium Bicarbonate 50 ML in D5W 1000ml 1,000 ML IV SCH (07:45)
--- NOTE | 2019-12-09 07:48 | General Progress Note ---
Subjective ROS Limited/Unobtainable: Yes Constitutional: Reports: malaise, weakness HEENT: Reports: no symptoms Cardiovascular: Reports: no symptoms Respiratory: Reports: no symptoms Gastrointestinal/Abdominal: Reports: diarrhea Genitourinary: Reports: no symptoms Neurologic/Psychiatric: Reports: pre-existing deficit Endocrine: Reports: no symptoms Hematologic/Lymphatic: Reports: no symptoms Allergies: Coded Allergies: NO KNOWN ALLERGIES (Verified Allergy, Unknown, 09/07/18) All Systems: reviewed and negative except above Subjective alert. BP stable. no fevers. On ivf. good uop. renal fxn improving. Na trending up. cultures noted. Objective Last 24 Hour Vital Signs Date Time Temp Pulse Resp B/P (MAP) Pulse Ox O2 Delivery O2 Flow Rate FiO2 12/09/19 07:00 101 13 126/59 (81) 100 12/09/19 06:00 104 17 112/64 (80) 100 12/09/19 05:00 101 13 108/67 (81) 100 12/09/19 04:00 105 12/09/19 04:00 98.6 107 15 125/62 (83) 100 12/09/19 04:00 Nasal Cannula 2.0 12/09/19 03:00 101 16 121/64 (83) 100 12/09/19 02:00 117 16 119/57 (77) 12/09/19 01:00 101 16 119/80 (93) 97 12/09/19 00:00 99.1 108 14 124/69 (87) 100 12/09/19 00:00 102 12/09/19 00:00 Nasal Cannula 2.0 12/08/19 23:00 104 14 115/62 (79) 100 12/08/19 22:00 107 14 122/62 (82) 99 12/08/19 21:45 105 20 111/70 (84) 92 12/08/19 21:00 92 18 113/58 (76) 100 12/08/19 20:00 99 12/08/19 20:00 Nasal Cannula 2.0 12/08/19 20:00 98.9 106 14 123/67 (85) 100 12/08/19 19:05 107 17 119/65 (83) 100 12/08/19 18:00 108 14 133/71 (91) 100 12/08/19 17:05 101 17 121/54 (76) 100 10/24/20 16:00 106 22 128/67 (87) 96 12/08/19 16:00 104 12/08/19 16:00 Nasal Cannula 2.0 12/08/19 15:03 98.3 103 17 118/64 (82) 100 12/08/19 14:00 103 16 104/61 (75) 100 12/08/19 13:00 102 14 102/85 (91) 100 12/08/19 12:00 Nasal Cannula 2.0 12/08/19 12:00 110 12/08/19 12:00 110 19 120/63 (82) 100 12/08/19 11:04 107 25 111/63 (79) 100 12/08/19 10:00 107 15 141/99 (113) 100 12/08/19 09:00 97.9 105 18 144/68 (93) 100 12/08/19 08:00 104 18 119/72 (88) 100 12/08/19 08:00 Nasal Cannula 2.0 12/08/19 08:00 107 Intake and Output 12/08/19 12/09/19 19:00 07:00 Intake Total 1505 ml 1650 ml Output Total 640 ml 695 ml Balance 865 ml 955 ml Intake IV Total 1505 ml 1650 ml Output Urine Total 585 ml 695 ml Stool Total 55 ml Laboratory Tests 12/08/19 11:15: POC Whole Blood Glucose 138H 12/08/19 15:00: Urine Random Sodium 32, Urine Creatinine 104.8 12/09/19 04:34: White Blood Count 9.4, Red Blood Count 4.11L, Hemoglobin 11.7L, Hematocrit 37.1L , Mean Corpuscular Volume 90, Mean Corpuscular Hemoglobin 28.6, Mean Corpuscular Hemoglobin Concent 31.7L, Red Cell Distribution Width 14.8, Platelet Count 238, Mean Platelet Volume 5.6L, Neutrophils (%) (Auto) 79.6H, Lymphocytes (%) (Auto) 9.5L, Monocytes (%) (Auto) 9.3, Eosinophils (%) (Auto) 1.0, Basophils (%) (Auto) 0.6, Sodium Level 150H, Potassium Level 3.3L, Chloride Level 119H, Carbon Dioxide Level 20L, Anion Gap 11, Blood Urea Nitrogen 33H, Creatinine 1.9H, Estimat Glomerular Filtration Rate 34.0, Glucose Level 93#, Calcium Level 7.2L, Phosphorus Level 2.7, Magnesium Level 1.9, Pro-B-Type Natriuretic Peptide 584H, Random Vancomycin Level 7.8 12/09/19 06:12: POC Whole Blood Glucose [Pending] Height (Feet): 5 Height (Inches): 6.00 Weight (Pounds): 114 General Appearance: WD/WN, alert, confused EENT: normal ENT inspection Neck: supple Cardiovascular: normal rate Respiratory/Chest: chest wall non-tender, lungs clear, normal breath sounds Abdomen: normal bowel sounds, non tender, soft, no organomegaly Edema: no edema noted Arm (L), no edema noted Arm (R) 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, alert, responsive, disoriented Lymphatic: normal anterior cervical (L), normal anterior cervical (R) Assessment/Plan Problem List: (1) IBD (inflammatory bowel disease) ICD Codes: K52.9 - Noninfective gastroenteritis and colitis, unspecified SNOMED: 49931074 (2) SVT (supraventricular tachycardia) ICD Codes: I47.1 - Supraventricular tachycardia SNOMED: 4988365 (3) Acute renal failure (ARF) ICD Codes: N17.9 - Acute kidney failure, unspecified SNOMED: 63679450 (4) Diabetes type 2, controlled ICD Codes: E11.9 - Type 2 diabetes mellitus without complications SNOMED: 91338723, 666563773 (5) Toxic metabolic encephalopathy ICD Codes: G92 - Toxic encephalopathy SNOMED: 933033325 (6) Septic shock ICD Codes: A41.9 - Sepsis, unspecified organism; R65.21 - Severe sepsis with septic shock SNOMED: 76976161 Status: stable, progressing Assessment/Plan: ivf adjusted monitor lytes iv abx per ID follow up cultures GI eval pending dvt/stress ulcer prophylaxis follow up cdiff guarded improving Carlos Hunt MD Dec 09, 2019 07:48
[2019-12-09] MEDS ORDERED: Vancomycin 1gm/D5W 275ml IVPB ONE ×2 (08:00)
--- NOTE | 2019-12-09 08:00 | NUR ---
NURSE NOTES: Dr Hunt here to see the patient. Updated him with patient's current condition including abnormal labs. Order entered by Doctor.
[2019-12-09] MEDS: Pantoprazole Inj IVP SCH (08:28)
[2019-12-09] MEDS: Heparin 5000 units/ml inj SUBQ SCH ×2 (08:29→21:00)
--- NOTE | 2019-12-09 09:27 | NUR ---
NURSE NOTES: HOB elevated in high gaona's position. Fed the patient 1:1 with soft easy chew diet at bedside. Patient ate 20% of the meal. Slow repetitive chewing noted. No coughing.
--- NOTE | 2019-12-09 11:16 | NUR ---
NURSE NOTES: Dr Martinez here to see the patient. Updated him with patient's current condition. Orders entered by Dr Martinez. Son visited the patient.
--- NOTE | 2019-12-09 12:30 | Consultation ---
DATE OF CONSULTATION: 12/09/2019 NEPHROLOGY CONSULTATION CONSULTING PHYSICIAN: Jose A Martinez MD. REFERRING PHYSICIAN: Carlos Hunt MD. REASON FOR CONSULTATION: Acute kidney injury. HISTORY OF PRESENT ILLNESS: The patient is an 84-year-old man, who presented to the emergency room with hypotension, shock with a blood pressure of 50 to 70, acute kidney injury, metabolic acidosis. He apparently was recently in [facility] with an episode of tachycardia and urosepsis. He has had recent diarrhea. The patient has a history of diabetes, Parkinson's disease, dementia, congestive heart failure. He is unable to provide any history. MEDICATIONS: Prior to admission, medications are listed in the computer include the following: Tylenol, bisacodyl, Sinemet, Colace, NovoLog sliding scale, loperamide, magnesium hydroxide, metoprolol, pravastatin. SYSTEM REVIEW: The patient is unable. PHYSICAL EXAMINATION: GENERAL: The patient is seen in the ICU. He opens his eyes, looks above, is not speaking. VITAL SIGNS: Pulse 108, respirations 15, blood pressure 136/69, O2 saturation 100%, temperature 98.6. HEAD, EYES, EARS, NOSE, AND THROAT: He keeps his mouth closed. Sclerae nonicteric. NECK: No adenopathy. LUNGS: Clear. HEART: Rhythm is regular and tachycardic. I hear no murmur. ABDOMEN: Soft without organomegaly or masses. GENITOURINARY: A Cisneros catheter is in place. Rectal tube shows dark liquid stool. EXTREMITIES: No edema, cyanosis or clubbing. NEUROLOGIC: The patient looks above. There is no obvious facial asymmetry. There is a paucity of movement. No tremor is seen. LABORATORY DATA: Review of pertinent labs as follows. The urinalysis shows 2+ protein, 1+ ketones, 3+ blood, 5 to 10 rbc's and 2 to 4 white cells per high-power field. Urine sodium 32, urine creatinine 104.8. On admission, sodium 149, potassium 4.7, chloride 118, CO2 19, BUN 53, creatinine 4.3, calcium 7.4, CK 60. Albumin 2.0. The CO2 fell as low as 13 and I started an IV fluids with bicarbonate. This morning, sodium 150, potassium 3.3, chloride 119, CO2 20, BUN 33, creatinine 1.9, glucose is 93, phosphorus 2.7, magnesium 1.9. IMPRESSION: 1. Septic shock. 2. Hypovolemic shock. 3. Acute kidney injury likely due to prerenal azotemia. 4. UTI with gram-negative rods, although there is minimal pyuria on urinalysis. 5. Diarrhea, which may be a cause of his fever and dehydration, rule out C. difficile. 6. Adult-onset diabetes. 7. History of BPH with possible urinary retention in the past. 8. [id number] protein-calorie malnutrition. 9. History of Parkinson's. PLAN: Continue IV hydration cautiously in view of a prior history of CHF. We will check for C. difficile. Continue antibiotics and watch closely in view of his comorbidities. Jose A Martinez M.D. DR: QUAN JOB#: [id number] CC:
[2019-12-09] MEDS: SODIUM BICARBONATE IV SCH ×2 (12:41→21:25)
[2019-12-09] MEDS: D5W IV SCH ×2 (12:41→21:25)
[2019-12-09] MEDS: POTASSIUM CHLORIDE IV SCH ×2 (12:41→21:25)
--- NOTE | 2019-12-09 13:20 | NUR ---
TRANSFER TO FLOOR: Patient transferred to [facility], . Report given to LISBETH Mcgowan. No belongings noted. Informed daughter of the transfer.
--- NOTE | 2019-12-09 13:45 | NUR ---
NURSES NOTES: Received report from Stephani Maddox RN. No belongings listed. Pt is A/O x 1 and Serbian speaking. No pain noted. No SOB or acute distress. Pt is on bilateral restraints which skin is intact, no swelling. media monitor shows ST at 107. VS within normal range of 116/62. Pt has a abbott which is draining yellow urine via gravity. Also has a rectal tube with dark green stool. 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 Pt has fluids running @ 125cc/hr. Bed in lowest position and locked. Bed alarm on. Will continue plan of care.
[2019-12-09] MEDS: Cefepime HCl 1 GM in D5W 55 ML IVPB SCH (15:17)
--- NOTE | 2019-12-09 17:30 | Cardiology Progress Note ---
Subjective DATE OF SERVICE: Dec 09, 2019 Remains in ICU - condition remains critical but improving. Discussed with ICU staff and consulting MD's Pressor support now tapered off. Still with loose stools. Stool OB +; stool CDiff pending Objective Last 24 Hour Vital Signs Date Time Temp Pulse Resp B/P (MAP) Pulse Ox O2 Delivery O2 Flow Rate FiO2 12/09/19 16:00 94 12/09/19 16:00 104 18 114/67 (83) 100 12/09/19 13:42 98.9 107 16 116/62 (80) 99 12/09/19 13:00 108 14 106/54 (71) 100 12/09/19 12:00 101 15 126/65 (85) 100 12/09/19 12:00 Room Air 12/09/19 12:00 103 12/09/19 12:00 98.8 105 12 130/64 (86) 99 12/09/19 11:00 101 15 126/65 (85) 100 12/09/19 10:00 110 15 113/76 (88) 100 12/09/19 09:00 108 15 136/69 (91) 100 12/09/19 08:30 99 14 123/69 (87) 100 12/09/19 08:00 Room Air 12/09/19 08:00 98.6 100 17 127/59 (81) 100 12/09/19 07:32 100 12/09/19 07:00 101 13 126/59 (81) 100 12/09/19 06:00 104 17 112/64 (80) 100 12/09/19 05:00 101 13 108/67 (81) 100 12/09/19 04:00 105 12/09/19 04:00 98.6 107 15 125/62 (83) 100 12/09/19 04:00 Nasal Cannula 2.0 12/09/19 03:00 101 16 121/64 (83) 100 12/09/19 02:00 117 16 119/57 (77) 12/09/19 01:00 101 16 119/80 (93) 97 12/09/19 00:00 99.1 108 14 124/69 (87) 100 12/09/19 00:00 102 12/09/19 00:00 Nasal Cannula 2.0 12/08/19 23:00 104 14 115/62 (79) 100 12/08/19 22:00 107 14 122/62 (82) 99 12/08/19 21:45 105 20 111/70 (84) 92 12/08/19 21:00 92 18 113/58 (76) 100 12/08/19 20:00 99 12/08/19 20:00 Nasal Cannula 2.0 12/08/19 20:00 98.9 106 14 123/67 (85) 100 12/08/19 19:05 107 17 119/65 (83) 100 12/08/19 18:00 108 14 133/71 (91) 100 ROS: unchanged from my evaluation of 12/07/19 HEENT: other RHYTHM: NSR, ST LUNGS: lungs clear bilaterally CARDIAC: regular rhythm, normal S1 and S2, tachycardia ABDOMEN: normal bowel sounds, non tender, soft, no organomegaly EXTREMITIES: no calf tenderness, trace edema Laboratory Tests Test 12/09/19 04:34 12/09/19 06:12 White Blood Count 9.4 K/UL (4.8-10.8) Red Blood Count 4.11 M/UL (4.70-6.10) L Hemoglobin 11.7 G/DL (14.2-18.0) L Hematocrit 37.1 % (42.0-52.0) L Mean Corpuscular Volume 90 FL (80-99) Mean Corpuscular Hemoglobin 28.6 PG (27.0-31.0) Mean Corpuscular Hemoglobin Concent 31.7 G/DL (32.0-36.0) L Red Cell Distribution Width 14.8 % (11.6-14.8) Platelet Count 238 K/UL (150-450) Mean Platelet Volume 5.6 FL (6.5-10.1) L Neutrophils (%) (Auto) 79.6 % (45.0-75.0) H Lymphocytes (%) (Auto) 9.5 % (20.0-45.0) L Monocytes (%) (Auto) 9.3 % (1.0-10.0) Eosinophils (%) (Auto) 1.0 % (0.0-3.0) Basophils (%) (Auto) 0.6 % (0.0-2.0) Sodium Level 150 MMOL/L (136-145) H Potassium Level 3.3 MMOL/L (3.5-5.1) L Chloride Level 119 MMOL/L (98-107) H Carbon Dioxide Level 20 MMOL/L (21-32) L Anion Gap 11 mmol/L (5-15) Blood Urea Nitrogen 33 mg/dL (7-18) H Creatinine 1.9 MG/DL (0.55-1.30) H Estimat Glomerular Filtration Rate 34.0 mL/min (>60) Glucose Level 93 MG/DL (74-106) # Calcium Level 7.2 MG/DL (8.5-10.1) L Phosphorus Level 2.7 MG/DL (2.5-4.9) Magnesium Level 1.9 MG/DL (1.8-2.4) Pro-B-Type Natriuretic Peptide 584 pg/mL (0-125) H Random Vancomycin Level 7.8 ug/mL POC Whole Blood Glucose Pending Microbiology Date/Time Source Procedure Growth Status 12/07/19 15:45 Nasal Nares - Final Complete 12/07/19 15:45 Nasal Nares - Final Complete 12/07/19 15:45 Blood Blood Culture - Preliminary NO GROWTH AFTER 24 HOURS Resulted 12/07/19 15:30 Urine,Clean Catch Urine Culture - Preliminary Gram Negative Fei Resulted 12/07/19 15:30 Nasopharynx SARS-CoV-2 RdRp Gene Assay - Final Complete 12/07/19 15:30 Blood Blood Culture - Preliminary NO GROWTH AFTER 24 HOURS Resulted Assessment/Plan Assessment/Plan Sepsis Shock Hypovolemia Dehydration Acute myocardial ischemia Acute renal failure responding to hydration NIDDM with hyperglycemia Diarrhea Metabolic acidosis Parkinson's dis with dementia Remain off pressors Antimicrobials Hypotonic IVF with bicarb Advance diet Follow-up culture results Full Code Mitchell West MD Dec 09, 2019 17:30
--- NOTE | 2019-12-09 17:32 | General Progress Note ---
Subjective Allergies: Coded Allergies: NO KNOWN ALLERGIES (Verified Allergy, Unknown, 09/07/18) Objective Last 24 Hour Vital Signs Date Time Temp Pulse Resp B/P (MAP) Pulse Ox O2 Delivery O2 Flow Rate FiO2 12/09/19 16:00 94 12/09/19 16:00 104 18 114/67 (83) 100 12/09/19 13:42 98.9 107 16 116/62 (80) 99 12/09/19 13:00 108 14 106/54 (71) 100 12/09/19 12:00 101 15 126/65 (85) 100 12/09/19 12:00 Room Air 12/09/19 12:00 103 12/09/19 12:00 98.8 105 12 130/64 (86) 99 12/09/19 11:00 101 15 126/65 (85) 100 12/09/19 10:00 110 15 113/76 (88) 100 12/09/19 09:00 108 15 136/69 (91) 100 12/09/19 08:30 99 14 123/69 (87) 100 12/09/19 08:00 Room Air 12/09/19 08:00 98.6 100 17 127/59 (81) 100 12/09/19 07:32 100 12/09/19 07:00 101 13 126/59 (81) 100 12/09/19 06:00 104 17 112/64 (80) 100 12/09/19 05:00 101 13 108/67 (81) 100 12/09/19 04:00 105 12/09/19 04:00 98.6 107 15 125/62 (83) 100 12/09/19 04:00 Nasal Cannula 2.0 12/09/19 03:00 101 16 121/64 (83) 100 12/09/19 02:00 117 16 119/57 (77) 12/09/19 01:00 101 16 119/80 (93) 97 12/09/19 00:00 99.1 108 14 124/69 (87) 100 12/09/19 00:00 102 12/09/19 00:00 Nasal Cannula 2.0 12/08/19 23:00 104 14 115/62 (79) 100 12/08/19 22:00 107 14 122/62 (82) 99 12/08/19 21:45 105 20 111/70 (84) 92 10/24/20 21:00 92 18 113/58 (76) 100 12/08/19 20:00 99 12/08/19 20:00 Nasal Cannula 2.0 12/08/19 20:00 98.9 106 14 123/67 (85) 100 12/08/19 19:05 107 17 119/65 (83) 100 12/08/19 18:00 108 14 133/71 (91) 100 Intake and Output 12/08/19 12/09/19 19:00 07:00 Intake Total 1505 ml 1775 ml Output Total 640 ml 695 ml Balance 865 ml 1080 ml Intake IV Total 1505 ml 1775 ml Output Urine Total 585 ml 695 ml Stool Total 55 ml Laboratory Tests 12/09/19 04:34: White Blood Count 9.4, Red Blood Count 4.11L, Hemoglobin 11.7L, Hematocrit 37.1L , Mean Corpuscular Volume 90, Mean Corpuscular Hemoglobin 28.6, Mean Corpuscular Hemoglobin Concent 31.7L, Red Cell Distribution Width 14.8, Platelet Count 238, Mean Platelet Volume 5.6L, Neutrophils (%) (Auto) 79.6H, Lymphocytes (%) (Auto) 9.5L, Monocytes (%) (Auto) 9.3, Eosinophils (%) (Auto) 1.0, Basophils (%) (Auto) 0.6, Sodium Level 150H, Potassium Level 3.3L, Chloride Level 119H, Carbon Dioxide Level 20L, Anion Gap 11, Blood Urea Nitrogen 33H, Creatinine 1.9H, Estimat Glomerular Filtration Rate 34.0, Glucose Level 93#, Calcium Level 7.2L, Phosphorus Level 2.7, Magnesium Level 1.9, Pro-B-Type Natriuretic Peptide 584H, Random Vancomycin Level 7.8 12/09/19 06:12: POC Whole Blood Glucose [Pending] Height (Feet): 5 Height (Inches): 6.00 Weight (Pounds): 114 Assessment/Plan Status: stable, progressing Assessment/Plan: GI CONSULT Dictated Pattern of recurrent sepsis concerning may need to consider changing Humira to a different biologic. Continue hydration / Abx / supportive care Will follow Thank you MD Bill Stack Payman MD Dec 09, 2019 17:32
[2019-12-09] MEDS ORDERED: SODIUM BICARBONATE IV SCH (18:00)
[2019-12-09] MEDS ORDERED: D5W IV SCH (18:00)
[2019-12-09] MEDS ORDERED: POTASSIUM CHLORIDE IV SCH (18:00)
--- NOTE | 2019-12-09 19:27 | NUR ---
NURSE HAND-OFF REPORT: Important Events on Shift: Transfer from ICU, Diet changed to puree per family request. Patient Status: Stable Diet: Diabetic Puree Moist Pending Orders: Pending Results/Labs: Pending MD notification: Latest Vital Signs: Temperature 98.9 , Pulse 94 , B/P 114 /67 , Respiratory Rate 18 , O2 SAT 100 , Room Air, O2 Flow Rate 2.0 . Vital Sign Comment: EKG Rhythm: Sinus Rhythm Rhythm change?: N MD Notified?: - MD Response: Latest Miranda Fall Score: 50 Fall Risk: High Risk Safety Measures: Call light , Bed Alarm Zone 2, Side Rails Side Rails x2, Bed position Low and Locked. Fall Precautions: Yellow Socks Yellow Gown Door Sign Patient Fall Education Report given to Keny.
--- NOTE | 2019-12-09 20:16 | NUR ---
NURSE NOTES: Received patient report from LISBETH Mcgowan. Patient shows no signs of distress or pain noted at the time. Patient is AO x1. He is on bilateral soft wrist restraints. Patient is on room air and shows no signs of distress or pain. IJ is intact and patent. Running Sodium bicarb 50ml KCL 20 MEQ in D5W @125 Addendum: 12/09/19 at 2020 by Maria Luz Tineo RN Rectal tube in place. Cisneros in place and patent. Patient is on a P200 mattress. Bed is in the lowest position, call light is within reach, side rails up x3. Will continue to monitor.
[2019-12-09] MEDS: Dyna-Hex 2% Top Sol 2oz TOPIC SCH (21:17)
[2019-12-10] VITALS: BP 120/59
[2019-12-10 04:00] VITALS: BP 137/85
[2019-12-10] MEDS: POTASSIUM CHLORIDE IV SCH (06:05)
[2019-12-10] MEDS: SODIUM BICARBONATE IV SCH (06:05)
[2019-12-10] MEDS: D5W IV SCH (06:05)
[2019-12-10] MEDS: NovoLOG Insulin Flexpen SUBQ SCH ×4 (06:07→21:19)
--- NOTE | 2019-12-10 06:33 | NUR ---
NURSE NOTES: Sacral wound dressing changed and cleaned.
--- NOTE | 2019-12-10 06:48 | General Progress Note ---
Subjective ROS Limited/Unobtainable: No Constitutional: Reports: malaise, weakness HEENT: Reports: no symptoms Cardiovascular: Reports: no symptoms Respiratory: Reports: cough Gastrointestinal/Abdominal: Reports: diarrhea Genitourinary: Reports: no symptoms Neurologic/Psychiatric: Reports: no symptoms Hematologic/Lymphatic: Reports: no symptoms Allergies: Coded Allergies: NO KNOWN ALLERGIES (Verified Allergy, Unknown, 09/07/18) All Systems: reviewed and negative except above Subjective more alert. no fevers. WBC trending down. still with diarrhea. cultures reviewed. remains on ivf. all noted. Objective Last 24 Hour Vital Signs Date Time Temp Pulse Resp B/P (MAP) Pulse Ox O2 Delivery O2 Flow Rate FiO2 12/10/19 04:00 96.8 91 20 137/85 (102) 95 12/10/19 04:00 89 12/10/19 04:00 Room Air 12/10/19 02:53 Room Air 12/10/19 00:00 97.9 96 18 120/59 (79) 98 12/10/19 00:00 98 12/09/19 20:12 99 Nasal Cannula 2.0 28 12/09/19 20:00 97.8 105 20 124/66 (85) 100 12/09/19 20:00 108 12/09/19 16:00 94 12/09/19 16:00 104 18 114/67 (83) 100 12/09/19 13:42 98.9 107 16 116/62 (80) 99 12/09/19 13:00 108 14 106/54 (71) 100 12/09/19 12:00 101 15 126/65 (85) 100 12/09/19 12:00 Room Air 12/09/19 12:00 103 12/09/19 12:00 98.8 105 12 130/64 (86) 99 12/09/19 11:00 101 15 126/65 (85) 100 12/09/19 10:00 110 15 113/76 (88) 100 12/09/19 09:00 108 15 136/69 (91) 100 12/09/19 08:30 99 14 123/69 (87) 100 12/09/19 08:00 Room Air 12/09/19 08:00 98.6 100 17 127/59 (81) 100 12/09/19 07:32 100 12/09/19 07:00 101 13 126/59 (81) 100 Intake and Output 12/09/19 12/10/19 19:00 07:00 Intake Total 839.583 ml 450 ml Output Total 375 ml 100 ml Balance 464.583 ml 350 ml Intake Oral 300 ml 450 ml IV Total 539.583 ml Output Urine Total 375 ml 100 ml Laboratory Tests 12/10/19 05:30: White Blood Count [Pending], Red Blood Count [Pending], Hemoglobin [Pending], Hematocrit [Pending], Mean Corpuscular Volume [Pending], Mean Corpuscular Hemoglobin [Pending], Mean Corpuscular Hemoglobin Concent [Pending], Red Cell Distribution Width [Pending], Platelet Count [Pending], Mean Platelet Volume [Pending], Neutrophils (%) (Auto) [Pending], Lymphocytes (%) (Auto) [Pending], Monocytes (%) (Auto) [Pending], Eosinophils (%) (Auto) [Pending], Basophils (%) (Auto) [Pending], Sodium Level [Pending], Potassium Level [Pending], Chloride Level [Pending], Carbon Dioxide Level [Pending], Blood Urea Nitrogen [Pending], Creatinine [Pending], Estimat Glomerular Filtration Rate [Pending], Glucose Level [Pending], Calcium Level [Pending], Phosphorus Level [Pending], Magnesium Level [Pending], Total Bilirubin [Pending], Aspartate Amino Transf (AST/SGOT) [Pending], Alanine Aminotransferase (ALT/SGPT) [Pending], Alkaline Phosphatase [Pending], Total Protein [Pending], Albumin [Pending], Globulin [Pending], Random Vancomycin Level [Pending] Height (Feet): 5 Height (Inches): 6.00 Weight (Pounds): 114 Objective General Appearance: WD/WN, alert, confused EENT: normal ENT inspection Neck: supple Cardiovascular: normal rate Respiratory/Chest: chest wall non-tender, lungs clear, normal breath sounds Abdomen: normal bowel sounds, non tender, soft, no organomegaly Edema: no edema noted Arm (L), no edema noted Arm (R) 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, alert, responsive, disoriented Lymphatic: normal anterior cervical (L), normal anterior cervical (R) Assessment/Plan Problem List: (1) IBD (inflammatory bowel disease) ICD Codes: K52.9 - Noninfective gastroenteritis and colitis, unspecified SNOMED: 40523957 (2) SVT (supraventricular tachycardia) ICD Codes: I47.1 - Supraventricular tachycardia SNOMED: 5790330 (3) Acute renal failure (ARF) ICD Codes: N17.9 - Acute kidney failure, unspecified SNOMED: 11305565 (4) Diabetes type 2, controlled ICD Codes: E11.9 - Type 2 diabetes mellitus without complications SNOMED: 52978661, 300092254 (5) Toxic metabolic encephalopathy ICD Codes: G92 - Toxic encephalopathy SNOMED: 949309577 (6) Septic shock ICD Codes: A41.9 - Sepsis, unspecified organism; R65.21 - Severe sepsis with septic shock SNOMED: 23291194 Status: stable, progressing Assessment/Plan: ivf monitor lytes- pending for today iv abx per ID follow up cultures GI eval appreciated await stool cdiff dvt/stress ulcer prophylaxis improving d/w dtr x 15 mins. updated on status and POC Carlos Hunt MD Dec 10, 2019 06:48
[2019-12-10 07:08] LABS: ALBUMIN 1.6 G/DL (3.4-5.0); ALBUMIN/GLOBULIN RATIO 0.4 (1.0-2.7); BILIRUBIN,TOTAL 0.2 MG/DL (0.2-1.0); CALCIUM 6.9 MG/DL (8.5-10.1); CREATININE 1.5 MG/DL (0.55-1.30); POTASSIUM 3.5 MMOL/L (3.5-5.1)
[2019-12-10 07:10] LABS: PHOSPHORUS 2.1 MG/DL (2.5-4.9)
--- NOTE | 2019-12-10 07:32 | NUR ---
NURSE HAND-OFF REPORT: Important Events on Shift:[NA] Patient Status: [Full code] Diet: [[facility] pureed diet] Pending Orders: NA] Pending Results/Labs:[NA] Pending MD notification:[NA] Latest Vital Signs: Temperature 96.8 , Pulse 89 , B/P 137 /85 , Respiratory Rate 20 , O2 SAT 95 , Room Air, O2 Flow Rate 2.0 . Vital Sign Comment: [NA] EKG Rhythm: Sinus Rhythm Rhythm change?: N MD Notified?: - MD Response: Latest Miranda Fall Score: 50 Fall Risk: High Risk Safety Measures: Call light , Bed Alarm Zone 2, Side Rails Side Rails x2, Bed position Low and Locked. Fall Precautions: Yellow Socks Yellow Gown Door Sign Patient Fall Education Report given to [LISBETH Mac].
--- NOTE | 2019-12-10 07:47 | NUR ---
NURSE NOTES: Received report from LISBETH Braga. Pt asleep comfortably in bed. No s/s of acute distress. Currently on room air. IVF infusing on right IJ, asymptomatic, patent and intact. Bilateral soft wrist restraints on, checked for circulation. F/C draining by gravity, rectal tube in place. Bed in low position, side rails up x3 and call light within reach. Will continue to monitor.
[2019-12-10 08:00] VITALS: BP 136/69
--- NOTE | 2019-12-10 08:30 | Nephrology Progress Note ---
Assessment/Plan Problem List: (1) Septic shock (2) Acute renal failure (ARF) (3) Diabetes type 2, controlled (4) Hypomagnesemia (5) Hypophosphatemia (6) Gastroenteritis Plan iv adjusted, replace phos , mg, await c diff Subjective ROS Limited/Unobtainable: Yes Objective Objective Last 24 Hour Vital Signs Date Time Temp Pulse Resp B/P (MAP) Pulse Ox O2 Delivery O2 Flow Rate FiO2 12/10/19 08:00 96.8 104 20 136/69 (91) 99 12/10/19 04:00 96.8 91 20 137/85 (102) 95 12/10/19 04:00 89 12/10/19 04:00 Room Air 12/10/19 02:53 Room Air 12/10/19 00:00 97.9 96 18 120/59 (79) 98 12/10/19 00:00 98 12/09/19 20:12 99 Nasal Cannula 2.0 28 12/09/19 20:00 97.8 105 20 124/66 (85) 100 12/09/19 20:00 108 12/09/19 16:00 94 12/09/19 16:00 104 18 114/67 (83) 100 12/09/19 13:42 98.9 107 16 116/62 (80) 99 12/09/19 13:00 108 14 106/54 (71) 100 12/09/19 12:00 101 15 126/65 (85) 100 12/09/19 12:00 Room Air 12/09/19 12:00 103 12/09/19 12:00 98.8 105 12 130/64 (86) 99 12/09/19 11:00 101 15 126/65 (85) 100 12/09/19 10:00 110 15 113/76 (88) 100 12/09/19 09:00 108 15 136/69 (91) 100 12/09/19 08:30 99 14 123/69 (87) 100 l Intake and Output 12/09/19 12/10/19 19:00 07:00 Intake Total 839.583 ml 450 ml Output Total 375 ml 100 ml Balance 464.583 ml 350 ml Intake Oral 300 ml 450 ml IV Total 539.583 ml Output Urine Total 375 ml 100 ml Laboratory Tests 10/26/20 05:30: Sodium Level 146H, Potassium Level 3.5, Chloride Level 115H, Carbon Dioxide Level 25, Anion Gap 6, Blood Urea Nitrogen 17, Creatinine 1.5H, Estimat Gl omerular Filtration Rate 44.7, Glucose Level 171H, Calcium Level 6.9L, Phos phorus Level 2.1L, Magnesium Level 1.7L, Total Bilirubin 0.2, Aspartate Amino Transf (AST/SGOT) 16, Alanine Aminotransferase (ALT/SGPT) 7L, Alkaline Phosphatase 50, Total Protein 6.0L, Albumin 1.6L, Globulin 4.4, Albumin/Globulin Ratio 0.4L, Random Vancomycin Level 13.6 Height (Feet): 5 Height (Inches): 6.00 Weight (Pounds): 114 General Appearance: no apparent distress, alert EENT: normal ENT inspection Neck: normal alignment Cardiovascular: regular rhythm Respiratory/Chest: lungs clear Abdomen: non tender, soft Extremities: trace edema Neurologic: motor weakness, disoriented Jose A Martinez MD Dec 10, 2019 08:30
[2019-12-10] MEDS: Pantoprazole Inj IVP SCH (08:50)
[2019-12-10] MEDS: Heparin 5000 units/ml inj SUBQ SCH ×2 (08:53→21:19)
[2019-12-10] MEDS ORDERED: Vancomycin 750mg/NS 275ml IVPB ONE ×2 (09:00)
--- NOTE | 2019-12-10 09:01 | Consultation ---
DATE OF CONSULTATION: 12/09/2019 GASTROENTEROLOGY CONSULTATION CONSULTING PHYSICIAN: Ayaan Khan MD CHIEF COMPLAINT: I was asked to see this patient by Dr. Carlos Hunt for evaluation of Crohn's disease. HISTORY OF PRESENT ILLNESS: The patient is an 84-year-old [place] man [place] [facility] with advanced dementia, who comes in for sepsis. He has been recently admitted multiple times for similar episodes of sepsis. He was diagnosed earlier this year with Crohn's disease for the first time. He is chronically on steroids, but became symptomatic off of the steroids and therefore he was started on Humira approximately 3 months ago. The patient has been admitted with 3 episodes of urinary tract infection with sepsis and this is his fourth episode that I know about. He was also recently admitted to [facility]. With respect to his urinary infections, he has been diagnosed with neurogenic bladder. The patient himself is unable to provide any history. Most of the information is only available from his chart. His Crohn's disease did respond well to Humira treatment and he became asymptomatic, although he became more symptomatic with diarrhea and his Humira level showed need increase the dosage of Humira, but patient was repeatedly admitted for sepsis and therefore the Humira has been held. The patient has been eating by mouth. PAST MEDICAL HISTORY: History of dementia, Parkinson disease, hypertension, hypercholesterolemia, [id number] diabetes mellitus, atherosclerotic cardiovascular disease, prostatic hypertrophy, gastroesophageal reflux disease, vitamin D deficiency, history of duodenal ulcer, history of Crohn's ileitis and Crohn's colitis, neurogenic bladder, multiple episodes of urinary tract infection and sepsis. FAMILY HISTORY: Noncontributory. SOCIAL HISTORY: The patient has advanced dementia, but he is Spanish speaking and does respond to Spanish. [facility]. His daughter looks after his affairs. There is no history of smoking. REVIEW OF SYSTEMS: Otherwise negative. PHYSICAL EXAMINATION: GENERAL: Debilitated elderly man, seen in his room. HEENT: Normocephalic and atraumatic. NECK: Supple. CHEST: Clear to auscultation. CARDIOVASCULAR: Revealed a regular rate. ABDOMEN: Soft, nontender. EXTREMITIES: Revealed no edema. NEUROLOGIC: advanced dementia. LABORATORY DATA: Noted. ASSESSMENT: This patient had Crohn's disease and he has responded well to the therapy. However, the current bouts of sepsis are concerning and therefore his course of inflammatory bowel disease treatment may have to be changed. His immune system may be having a dysfunctional response to Humira. Steroids may be needed to treat his condition. For the time being, I would give antibiotics and hold his Humira. Discussion was held with the patient's family regarding the change in the treatment options. RECOMMENDATIONS: Per above discussion and per orders written in the chart. Thank you for asking me to participate in the care of this patient. Ayaan Khan M.D. DR: KESHIA JOB#: [id number] CC: CHRIS
[2019-12-10 09:22] LABS: BASOPHILS % (AUTO) 0.9 % (0.0-2.0); HEMATOCRIT 36.5 % (42.0-52.0); HEMOGLOBIN 11.7 G/DL (14.2-18.0); LYMPHOCYTES % (AUTO) 15.2 % (20.0-45.0); MEAN CORPUSCULAR VOLUME 89 FL (80-99); MONOCYTES % (AUTO) 10.8 % (1.0-10.0); NEUTROPHILS % (AUTO) 72.1 % (45.0-75.0); PLATELET COUNT 251 K/UL (150-450); RED BLOOD COUNT 4.12 M/UL (4.70-6.10); RED CELL DISTRIBUTION WIDTH 14.2 % (11.6-14.8); WHITE BLOOD COUNT 10.7 K/UL (4.8-10.8)
[2019-12-10] MEDS: Potassium Phosphate 20 MEQ in 1/2 NS 1000ml 1,000 ML IV SCH ×2 (10:01→18:20)
[2019-12-10 12:00] VITALS: BP 118/55
--- NOTE | 2019-12-10 12:15 | Consultation ---
DATE OF CONSULTATION: 12/10/2019 INFECTIOUS DISEASES CONSULTATION CONSULTING PHYSICIAN: Aftab Candelario MD REFERRING PHYSICIAN: Carlos Hunt MD REASON FOR CONSULTATION: Urinary tract infection. HISTORY OF PRESENTING ILLNESS: This is an 84-year-old gentleman with history of diabetes, hypertension, Crohn disease, dementia, who was transferred from a intermediate facility with altered mental status and tachycardia. He was noted to be hypotensive and septic. He was found to have urinary tract infection and an Infectious Diseases consultation has been obtained for antibiotics. PAST MEDICAL HISTORY: 1. History of diabetes. 2. Hypertension. 3. Crohn disease. 4. Dementia. SOCIAL HISTORY: No history of smoking, alcohol, or drug use. FAMILY HISTORY: Unknown. REVIEW OF SYSTEMS: Unable to obtain currently. MEDICATIONS: As an inpatient, he is on potassium, magnesium, chlorhexidine, cefepime, Protonix, subcu heparin, insulin, Flagyl, and vancomycin. ALLERGIES: No known drug allergies. PHYSICAL EXAMINATION: VITAL SIGNS: Temperature of 96.8, T-max of 99.1, pulse of 104, respiratory rate rate 20, blood pressure 136/69, O2 saturation of 99%. HEENT: Pupils equally reactive to light and accommodation. Mouth appears clean without thrush. NECK: Supple. No adenopathy. No JVD. CARDIOVASCULAR: Regular rate and rhythm. No murmurs. LUNGS: Clear to auscultation bilaterally. No crackles. No wheezes. ABDOMEN: Soft, nontender. No organomegaly. EXTREMITIES: No cyanosis. No clubbing. No edema. SKIN: Right IJ catheter noted. LABORATORY AND DIAGNOSTIC DATA: White count of 18 on 12/07/2019, white count of 10.7 today, hemoglobin 11.7, hematocrit 36.5, MCV 89, platelet count 251,000 with neutrophils of 72%. Sodium 146, potassium 3.5, chloride 115, bicarb 25, BUN 17, creatinine 1.5, glucose 171, calcium 6.9. Total bilirubin 0.2, AST 16, ALT 7, alkaline phosphatase 50, total protein 6, albumin 1.6. On 12/07/2019, BUN was 53, creatinine 4.3. UA is showing 2-4 white cells. Urine culture is showing gram-negative rods from 12/07/2019, 10,000 to 20,000 colonies. COVID-19 test was negative. On 12/07/2019, blood cultures are negative. From 12/07/2019, nasal swab was negative for influenza A and B. Chest x-ray is showing no acute disease. CT of abdomen and pelvis is showing mild dependent atelectasis bilaterally, may represent colitis or proctitis with prominence of the berrios of the colon and rectum, may represent enteritis with mildly prominent fluid and gas filled small-bowel loops. There might be duodenitis. CT of head is showing no acute intracranial abnormality, stable prominent small-vessel ischemic changes, and cerebral volume loss. ASSESSMENT: This is an 84-year-old gentleman with history of diabetes, hypertension, Crohn disease, and dementia, who comes in with tachycardia and hypotension and is found to have: 1. Gram-negative urinary tract infection. 2. We would also be concerned regarding enteritis and colitis and possible C. difficile colitis. 3. Renal failure is improving. 4. Leukocytosis is improving. 5. Shock has resolved. PLAN: 1. Continue cefepime and Flagyl for now. 2. We will order stool for C. difficile colitis. 3. Discontinue IV vancomycin. 4. We will follow up cultures and adjust antibiotics accordingly. I would like to thank, Dr. Hunt, for this consultation. Aftab Candelario M.D. DR: Brie JOB#: [id number] CC:
[2019-12-10] MEDS: Cefepime HCl 1 GM in D5W 55 ML IVPB SCH (15:45)
[2019-12-10 16:00] VITALS: BP 139/70
--- NOTE | 2019-12-10 19:09 | NUR ---
NURSE HAND-OFF REPORT: Important Events on Shift:[] Patient Status: [] Diet: [] Pending Orders: [] Pending Results/Labs:[] Pending MD notification:[] Latest Vital Signs: Temperature 97.2 , Pulse 113 , B/P 139 /70 , Respiratory Rate 20 , O2 SAT 98 , Room Air, O2 Flow Rate 2.0 . Vital Sign Comment: [] EKG Rhythm: Sinus Tachycardia Rhythm change?: N MD Notified?: N - MD Response: Latest Miranda Fall Score: 50 Fall Risk: High Risk Safety Measures: Call light , Bed Alarm Zone 2, Side Rails Side Rails x2, Bed position Low and Locked. Fall Precautions: Yellow Socks Yellow Gown Door Sign Patient Fall Education Report given to [LISBETH Braga].
[2019-12-10 20:00] VITALS: BP 121/72
--- NOTE | 2019-12-10 20:05 | NUR ---
NURSE NOTES: Received patient report from LISBETH Mac. Patient shows no signs of distress or pain at the time. He is sleeping at the moment. Patient responds when I call his name. IJ is intact and patent. Running 1/2 NS 20 Meq @100cc/hr. Dressing is intact and clean. Cisneros catheter is intact and draining. Patient has rectal tube in place. Patient is on room air and shows no signs of respiratory distress. Patient is on P200 mattress. Bed is in the lowest position, call light is within reach, side rails up x3. Patient is on bilateral soft wrist restraints. Optifoam in place on both wrists to protect skin integrity. Will continue to monitor.
--- NOTE | 2019-12-10 20:26 | NUR ---
NURSE NOTES: Amanda from microbiology called to inform patients urine shows ESBL with e coli. Dr. Hunt informed. No new orders given.
[2019-12-10] MEDS: Dyna-Hex 2% Top Sol 2oz TOPIC SCH (21:19)
--- NOTE | 2019-12-10 21:50 | General Progress Note ---
Subjective Allergies: Coded Allergies: NO KNOWN ALLERGIES (Verified Allergy, Unknown, 09/07/18) Subjective Above noted d/w at bedside patient out of ICU eating OK awake Objective Last 24 Hour Vital Signs Date Time Temp Pulse Resp B/P (MAP) Pulse Ox O2 Delivery O2 Flow Rate FiO2 12/10/19 16:00 113 12/10/19 16:00 97.2 113 20 139/70 (93) 98 12/10/19 12:00 110 12/10/19 12:00 97.9 101 18 118/55 (76) 99 12/10/19 09:00 Room Air 12/10/19 08:00 96.8 104 20 136/69 (91) 99 12/10/19 08:00 85 12/10/19 04:00 96.8 91 20 137/85 (102) 95 12/10/19 04:00 89 12/10/19 04:00 Room Air 12/10/19 02:53 Room Air 12/10/19 00:00 97.9 96 18 120/59 (79) 98 12/10/19 00:00 98 Intake and Output 12/09/19 12/10/19 19:00 07:00 Intake Total 839.583 ml 450 ml Output Total 375 ml 100 ml Balance 464.583 ml 350 ml Intake Oral 300 ml 450 ml IV Total 539.583 ml Output Urine Total 375 ml 100 ml Laboratory Tests 12/10/19 05:30: Sodium Level 146H, Potassium Level 3.5, Chloride Level 115H, Carbon Dioxide Level 25, Anion Gap 6, Blood Urea Nitrogen 17, Creatinine 1.5H, Estimat Glomerular Filtration Rate 44.7, Glucose Level 171H, Calcium Level 6.9L, Phosphorus Level 2.1L, Magnesium Level 1.7L, Total Bilirubin 0.2, Aspartate Amino Transf (AST/SGOT) 16, Alanine Aminotransferase (ALT/SGPT) 7L, Alkaline Phosphatase 50, Total Protein 6.0L, Albumin 1.6L, Globulin 4.4, Albumin/Globulin Ratio 0.4L, Random Vancomycin Level 13.6 12/10/19 08:50: White Blood Count 10.7, Red Blood Count 4.12L, Hemoglobin 11.7L, Hematocrit 36.5L, Mean Corpuscular Volume 89, Mean Corpuscular Hemoglobin 28.4, Mean Corpuscular Hemoglobin Concent 32.0, Red Cell Distribution Width 14.2, Platelet Count 251, Mean Platelet Volume 5.4L, Neutrophils (%) (Auto) 72.1, Lymphocytes (%) (Auto) 15.2L, Monocytes (%) (Auto) 10.8H, Eosinophils (%) (Auto) 1.0, Basophils (%) (Auto) 0.9 12/10/19 10:51: POC Whole Blood Glucose 157H Height (Feet): 5 Height (Inches): 6.00 Weight (Pounds): 114 Objective WDWN NCAT supple CTA RR abd soft NT ND no edema Assessment/Plan Status: stable, progressing Assessment/Plan: Assessment - Crohn's colitis - recurrent sepsis - diarrhea - OBS Recommendations - Abx - Hold Humira - Follow labs and exam - check C Diff - may need to switch biologic Ayaan Khan MD Dec 10, 2019 21:50
--- NOTE | 2019-12-10 22:38 | Cardiology Progress Note ---
Subjective DATE OF SERVICE: Dec 10, 2019 Still with loose stools. Stool OB +; stool CDiff pending Electrolyte abnormalities noted Objective Last 24 Hour Vital Signs Date Time Temp Pulse Resp B/P (MAP) Pulse Ox O2 Delivery O2 Flow Rate FiO2 12/10/19 21:00 Room Air 12/10/19 16:00 113 12/10/19 16:00 97.2 113 20 139/70 (93) 98 12/10/19 12:00 110 12/10/19 12:00 97.9 101 18 118/55 (76) 99 12/10/19 09:00 Room Air 12/10/19 08:00 96.8 104 20 136/69 (91) 99 12/10/19 08:00 85 12/10/19 04:00 96.8 91 20 137/85 (102) 95 12/10/19 04:00 89 12/10/19 04:00 Room Air 12/10/19 02:53 Room Air 12/10/19 00:00 97.9 96 18 120/59 (79) 98 12/10/19 00:00 98 ROS: unchanged from my evaluation of 12/07/19 HEENT: other RHYTHM: NSR, ST LUNGS: lungs clear bilaterally CARDIAC: regular rhythm, normal S1 and S2, tachycardia ABDOMEN: normal bowel sounds, non tender, soft, no organomegaly EXTREMITIES: no calf tenderness, trace edema Laboratory Tests Test 12/10/19 05:30 12/10/19 08:50 12/10/19 10:51 Sodium Level 146 MMOL/L (136-145) H Potassium Level 3.5 MMOL/L (3.5-5.1) Chloride Level 115 MMOL/L (98-107) H Carbon Dioxide Level 25 MMOL/L (21-32) Anion Gap 6 mmol/L (5-15) Blood Urea Nitrogen 17 mg/dL (7-18) Creatinine 1.5 MG/DL (0.55-1.30) H Estimat Glomerular Filtration Rate 44.7 mL/min (>60) Glucose Level 171 MG/DL (74-106) H Calcium Level 6.9 MG/DL (8.5-10.1) L Phosphorus Level 2.1 MG/DL (2.5-4.9) L Magnesium Level 1.7 MG/DL (1.8-2.4) L Total Bilirubin 0.2 MG/DL (0.2-1.0) Aspartate Amino Transf (AST/SGOT) 16 U/L (15-37) Alanine Aminotransferase (ALT/SGPT) 7 U/L (12-78) L Alkaline Phosphatase 50 U/L (46-116) Total Protein 6.0 G/DL (6.4-8.2) L Albumin 1.6 G/DL (3.4-5.0) L Globulin 4.4 g/dL Albumin/Globulin Ratio 0.4 (1.0-2.7) L Random Vancomycin Level 13.6 ug/mL White Blood Count 10.7 K/UL (4.8-10.8) Red Blood Count 4.12 M/UL (4.70-6.10) L Hemoglobin 11.7 G/DL (14.2-18.0) L Hematocrit 36.5 % (42.0-52.0) L Mean Corpuscular Volume 89 FL (80-99) Mean Corpuscular Hemoglobin 28.4 PG (27.0-31.0) Mean Corpuscular Hemoglobin Concent 32.0 G/DL (32.0-36.0) Red Cell Distribution Width 14.2 % (11.6-14.8) Platelet Count 251 K/UL (150-450) Mean Platelet Volume 5.4 FL (6.5-10.1) L Neutrophils (%) (Auto) 72.1 % (45.0-75.0) Lymphocytes (%) (Auto) 15.2 % (20.0-45.0) L Monocytes (%) (Auto) 10.8 % (1.0-10.0) H Eosinophils (%) (Auto) 1.0 % (0.0-3.0) Basophils (%) (Auto) 0.9 % (0.0-2.0) POC Whole Blood Glucose 157 MG/DL (74-106) H Assessment/Plan Assessment/Plan Sepsis Shock recovered Hypovolemia Dehydration Acute myocardial ischemia Acute renal failure responding to hydration NIDDM with hyperglycemia Diarrhea Metabolic acidosis Parkinson's dis with dementia Hypophosphatemia Hypomagnesemia Antimicrobials Adjust IVF Advance diet Follow-up stool culture and CDiff toxin results Replace Mg++ and PO4- Full Code Mitchell West MD Dec 10, 2019 22:38
[2019-12-10] MEDS: Metoprolol Tartrate 12.5mg TAB ORAL SCH (23:12)
[2019-12-11] VITALS: BP 126/69
--- NOTE | 2019-12-11 01:22 | NUR ---
NURSE NOTES: Patients sacral wound dressing cleaned and changed.
[2019-12-11 04:00] VITALS: BP 132/72
[2019-12-11] MEDS: Potassium Phosphate 20 MEQ in 1/2 NS 1000ml 1,000 ML IV SCH ×2 (06:10→16:09)
[2019-12-11] MEDS: NovoLOG Insulin Flexpen SUBQ SCH ×4 (06:11→21:00)
--- NOTE | 2019-12-11 07:00 | NUR ---
NURSE NOTES: Received report from LISBETH Braga. Pt is stable, awake and resting in bed. Pt is on RA w/ no s/s or complaint of distress at this time. Pt rectal tube draining stool noted. Pt abbott noted, draining to gravity. Pt is on a p200 overlay mattress. B heel DTI and sacral stage 3 noted. R IJ tripple lumen IV running 1/2 NS 20 MEQ at 100cc, dressing dry and intact. Pt is on B soft wrist restraints; skin intact, no swelling, pulse palpable, sensation intact and cap refill <3 seconds. Pt bed low and locked, call light in reach and bed alarm on. Abbott and rectal tube drainage bag both elevated off the floor.
--- NOTE | 2019-12-11 07:25 | NUR ---
NURSE HAND-OFF REPORT: Important Events on Shift:[NA] Patient Status: [Full code] Diet: [Pureed CCHO] Pending Orders: [NA] Pending Results/Labs:[NA] Pending MD notification:[NA] Latest Vital Signs: Temperature 99.1 , Pulse 92 , B/P 132 /72 , Respiratory Rate 20 , O2 SAT 98 , Room Air, O2 Flow Rate 2.0 . Vital Sign Comment: [NA] EKG Rhythm: Sinus Rhythm Rhythm change?: N MD Notified?: N - MD Response: Latest Miranda Fall Score: 50 Fall Risk: High Risk Safety Measures: Call light , Bed Alarm Zone 2, Side Rails Side Rails x2, Bed position Low and Locked. Fall Precautions: Yellow Socks Yellow Gown Door Sign Patient Fall Education Report given to []LISBETH Pace.
[2019-12-11 07:41] LABS: BASOPHILS % (AUTO) 0.6 % (0.0-2.0); EOSINOPHILS % (AUTO) 1.5 % (0.0-3.0); HEMATOCRIT 34.9 % (42.0-52.0); HEMOGLOBIN 11.1 G/DL (14.2-18.0); MEAN CORPUSCULAR VOLUME 88 FL (80-99); MONOCYTES % (AUTO) 8.8 % (1.0-10.0); NEUTROPHILS % (AUTO) 72.2 % (45.0-75.0); PLATELET COUNT 227 K/UL (150-450); RED BLOOD COUNT 3.95 M/UL (4.70-6.10); RED CELL DISTRIBUTION WIDTH 14.7 % (11.6-14.8); WHITE BLOOD COUNT 9.4 K/UL (4.8-10.8)
[2019-12-11 08:00] VITALS: BP 146/50
[2019-12-11] MEDS: Pantoprazole Inj IVP SCH (08:00)
[2019-12-11] MEDS: Metoprolol Tartrate 12.5mg TAB ORAL SCH ×2 (08:02→23:07)
[2019-12-11] MEDS: Heparin 5000 units/ml inj SUBQ SCH ×2 (08:04→23:05)
[2019-12-11 08:06] LABS: PHOSPHORUS 3.3 MG/DL (2.5-4.9)
[2019-12-11 08:15] LABS: ALBUMIN 1.4 G/DL (3.4-5.0); ALBUMIN/GLOBULIN RATIO 0.3 (1.0-2.7); BILIRUBIN,TOTAL 0.2 MG/DL (0.2-1.0); CALCIUM 6.6 MG/DL (8.5-10.1); CREATININE 1.2 MG/DL (0.55-1.30); POTASSIUM 3.6 MMOL/L (3.5-5.1)
--- NOTE | 2019-12-11 08:49 | NUR ---
NURSE NOTES:Skin/Wound assessment Sacral pressure ulcer stage 2 5.5x9.0x0.2 100% pink tissue with moderate amount of drainage.Nelly wound excoriated .Triad and Optifoam applied and recommended.Bilateral heels skin intact optifoam applied and pillows to offload.Patient has diarrhea and rectal tube which has dislodged could explain excoriation .RN aware and at bedside for reinsertion.Patient is on an air mattress overlay and is restrained. Addendum: 12/11/19 at 0905 by MARYLIN CHARLES RN RN assessment done 12/10/19
--- NOTE | 2019-12-11 08:51 | General Progress Note ---
Subjective ROS Limited/Unobtainable: No Constitutional: Reports: malaise, weakness HEENT: Reports: no symptoms Cardiovascular: Reports: no symptoms Respiratory: Reports: no symptoms Gastrointestinal/Abdominal: Reports: difficulty swallowing Genitourinary: Reports: no symptoms Neurologic/Psychiatric: Reports: pre-existing deficit Endocrine: Reports: no symptoms Hematologic/Lymphatic: Reports: no symptoms Allergies: Coded Allergies: NO KNOWN ALLERGIES (Verified Allergy, Unknown, 09/07/18) All Systems: reviewed and negative except above Subjective no events. alert. no fevers. tolerating puree food. All noted. +esbl uti. cdiff pending. stool ob +. on iv abx. Objective Last 24 Hour Vital Signs Date Time Temp Pulse Resp B/P (MAP) Pulse Ox O2 Delivery O2 Flow Rate FiO2 12/11/19 08:02 86 149/50 12/11/19 04:00 95 12/11/19 04:00 99.1 92 20 132/72 (92) 98 12/11/19 00:00 103 12/11/19 00:00 98.8 104 18 126/69 (88) 97 12/10/19 23:12 112 121/72 12/10/19 21:00 Room Air 12/10/19 20:00 98.2 109 18 121/72 (88) 98 12/10/19 20:00 112 12/10/19 16:00 113 12/10/19 16:00 97.2 113 20 139/70 (93) 98 12/10/19 12:00 110 12/10/19 12:00 97.9 101 18 118/55 (76) 99 12/10/19 09:00 Room Air Intake and Output 12/10/19 12/11/19 19:00 07:00 Intake Total 558.266 ml 750 ml Output Total 1300 ml 1300 ml Balance -741.734 ml -550 ml Intake Oral 50 ml IV Total 558.266 ml 700 ml Output Urine Total 1300 ml 1300 ml # Bowel Movements 3 Laboratory Tests 12/10/19 08:50: White Blood Count 10.7, Red Blood Count 4.12L, Hemoglobin 11.7L, Hematocrit 36.5L, Mean Corpuscular Volume 89, Mean Corpuscular Hemoglobin 28.4, Mean Corpuscular Hemoglobin Concent 32.0, Red Cell Distribution Width 14.2, Platelet Count 251, Mean Platelet Volume 5.4L, Neutrophils (%) (Auto) 72.1, Lymphocytes (%) (Auto) 15.2L, Monocytes (%) (Auto) 10.8H, Eosinophils (%) (Auto) 1.0, Basophils (%) (Auto) 0.9 12/10/19 10:51: POC Whole Blood Glucose 157H 12/11/19 06:50: White Blood Count 9.4, Red Blood Count 3.95L, Hemoglobin 11.1L, Hematocrit 34.9L , Mean Corpuscular Volume 88, Mean Corpuscular Hemoglobin 28.1, Mean Corpuscular Hemoglobin Concent 31.9L, Red Cell Distribution Width 14.7, Platelet Count 227, Mean Platelet Volume 5.5L, Neutrophils (%) (Auto) 72.2, Lymphocytes (%) (Auto) 17.0L, Monocytes (%) (Auto) 8.8, Eosinophils (%) (Auto) 1.5, Basophils (%) (Auto) 0.6, Sodium Level 149H, Potassium Level 3.6, Chloride Level 117H, Carbon Dioxide Level 25, Anion Gap 7, Blood Urea Nitrogen 11, Creatinine 1.2, Estimat Glomerular Filtration Rate 57.8, Glucose Level 110H, Calcium Level 6.6L, Phosphorus Level 3.3, Magnesium Level 2.0, Total Bilirubin 0.2, Aspartate Amino Transf (AST/SGOT) 17, Alanine Aminotransferase (ALT/SGPT) 8L, Alkaline Phosphatase 44L, Total Protein 5.5L, Albumin 1.4L, Globulin 4.1, Albumin/Globulin Ratio 0.3L Height (Feet): 5 Height (Inches): 6.00 Weight (Pounds): 114 Objective General Appearance: WD/WN, alert, confused EENT: normal ENT inspection Neck: supple Cardiovascular: normal rate Respiratory/Chest: chest wall non-tender, lungs clear, normal breath sounds Abdomen: normal bowel sounds, non tender, soft, no organomegaly Edema: no edema noted Arm (L), no edema noted Arm (R) Neurologic: data steward II-XII 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, alert, responsive, disoriented Lymphatic: normal anterior cervical (L), normal anterior cervical (R) Assessment/Plan Problem List: (1) IBD (inflammatory bowel disease) ICD Codes: K52.9 - Noninfective gastroenteritis and colitis, unspecified SNOMED: 82162101 (2) SVT (supraventricular tachycardia) ICD Codes: I47.1 - Supraventricular tachycardia SNOMED: 4679361 (3) Acute renal failure (ARF) ICD Codes: N17.9 - Acute kidney failure, unspecified SNOMED: 54320627 (4) Diabetes type 2, controlled ICD Codes: E11.9 - Type 2 diabetes mellitus without complications SNOMED: 91964380, 719572752 (5) Toxic metabolic encephalopathy ICD Codes: G92 - Toxic encephalopathy SNOMED: 769892101 (6) Septic shock ICD Codes: A41.9 - Sepsis, unspecified organism; R65.21 - Severe sepsis with septic shock SNOMED: 90986888 Status: stable, progressing Assessment/Plan: ivf adjusted for increased Na monitor lytes iv abx per ID follow up cultures GI eval appreciated await stool cdiff dvt/stress ulcer prophylaxis monitor HR monitor BS skin care turn q2 improving Carlos Hunt MD Dec 11, 2019 08:51
--- NOTE | 2019-12-11 11:08 | Infectious Diseases Prog Note ---
Assessment/Plan Assessment/Plan antibiotics : cefepime A 1. e.coli esbl UTI 2. diabetes mellitus 3. hypertension 4. dementia 5. leucocytosis improving 6. renal failure improving P 1. start meropenem 2. d/c cefepime 3. will follow up cultures Subjective ROS Limited/Unobtainable: Yes Allergies: Coded Allergies: NO KNOWN ALLERGIES (Verified Allergy, Unknown, 09/07/18) Objective Last 24 Hour Vital Signs Date Time Temp Pulse Resp B/P (MAP) Pulse Ox O2 Delivery O2 Flow Rate FiO2 12/11/19 09:00 Room Air 12/11/19 08:02 86 149/50 12/11/19 08:00 97.9 86 20 146/50 (82) 98 12/11/19 08:00 87 12/11/19 04:00 95 12/11/19 04:00 99.1 92 20 132/72 (92) 98 12/11/19 00:00 103 12/11/19 00:00 98.8 104 18 126/69 (88) 97 12/10/19 23:12 112 121/72 12/10/19 21:00 Room Air 12/10/19 20:00 98.2 109 18 121/72 (88) 98 12/10/19 20:00 112 12/10/19 16:00 113 12/10/19 16:00 97.2 113 20 139/70 (93) 98 12/10/19 12:00 110 12/10/19 12:00 97.9 101 18 118/55 (76) 99 Height (Feet): 5 Height (Inches): 6.00 Weight (Pounds): 114 Respiratory/Chest: lungs clear Cardiovascular: normal rate, regular rhythm, no gallop/murmur Abdomen: soft, non tender Extremities: no edema Laboratory Tests Test 12/11/19 06:08 12/11/19 06:50 POC Whole Blood Glucose Pending White Blood Count 9.4 K/UL (4.8-10.8) Red Blood Count 3.95 M/UL (4.70-6.10) L Hemoglobin 11.1 G/DL (14.2-18.0) L Hematocrit 34.9 % (42.0-52.0) L Mean Corpuscular Volume 88 FL (80-99) Mean Corpuscular Hemoglobin 28.1 PG (27.0-31.0) Mean Corpuscular Hemoglobin Concent 31.9 G/DL (32.0-36.0) L Red Cell Distribution Width 14.7 % (11.6-14.8) Platelet Count 227 K/UL (150-450) Mean Platelet Volume 5.5 FL (6.5-10.1) L Neutrophils (%) (Auto) 72.2 % (45.0-75.0) Lymphocytes (%) (Auto) 17.0 % (20.0-45.0) L Monocytes (%) (Auto) 8.8 % (1.0-10.0) Eosinophils (%) (Auto) 1.5 % (0.0-3.0) Basophils (%) (Auto) 0.6 % (0.0-2.0) Sodium Level 149 MMOL/L (136-145) H Potassium Level 3.6 MMOL/L (3.5-5.1) Chloride Level 117 MMOL/L (98-107) H Carbon Dioxide Level 25 MMOL/L (21-32) Anion Gap 7 mmol/L (5-15) Blood Urea Nitrogen 11 mg/dL (7-18) Creatinine 1.2 MG/DL (0.55-1.30) Estimat Glomerular Filtration Rate 57.8 mL/min (>60) Glucose Level 110 MG/DL (74-106) H Calcium Level 6.6 MG/DL (8.5-10.1) L Phosphorus Level 3.3 MG/DL (2.5-4.9) Magnesium Level 2.0 MG/DL (1.8-2.4) Total Bilirubin 0.2 MG/DL (0.2-1.0) Aspartate Amino Transf (AST/SGOT) 17 U/L (15-37) Alanine Aminotransferase (ALT/SGPT) 8 U/L (12-78) L Alkaline Phosphatase 44 U/L (46-116) L Total Protein 5.5 G/DL (6.4-8.2) L Albumin 1.4 G/DL (3.4-5.0) L Globulin 4.1 g/dL Albumin/Globulin Ratio 0.3 (1.0-2.7) L Current Medications Medications (Trade) Dose Ordered Sig/Adelaida Route PRN Reason Start Time Stop Time Status Last Admin Dose Admin Cefepime HCl 1 gm/ Dextrose 55 ml @ 110 mls/hr Q24H IVPB 12/08/19 15:00 12/15/19 14:59 12/10/19 15:45 Chlorhexidine Gluconate (Delicia-Hex 2%) 1 applic DAILY@2000 TOPIC 12/08/19 20:00 03/07/20 19:59 12/10/19 21:19 Dextrose 1,000 ml @ 75 mls/hr [id number] IV 12/11/19 09:00 01/10/20 08:59 12/11/19 09:50 Dextrose (Dextrose 50%) 25 ml Q30M PRN IV Hypoglycemia 12/07/19 23:30 03/06/20 23:29 Dextrose (Dextrose 50%) 50 ml Q30M PRN IV Hypoglycemia 12/07/19 23:30 03/06/20 23:29 Heparin Sodium (Porcine) (Heparin 5000 units/ml) 5,000 units EVERY 12 HOURS SUBQ 12/08/19 09:00 01/22/20 08:59 12/11/19 08:04 Insulin Aspart (NovoLOG) BEFORE MEALS AND HS SUBQ 12/08/19 06:30 03/07/20 06:29 12/10/19 21:19 Metoprolol Tartrate (Lopressor) 12.5 mg Q12HR ORAL 12/10/19 23:00 03/09/20 22:59 12/11/19 08:02 Metronidazole 100 ml @ 100 mls/hr Q8H IVPB 12/08/19 00:00 12/15/19 00:00 12/11/19 08:01 Pantoprazole (Protonix) 40 mg DAILY IVP 12/08/19 09:00 01/07/20 08:59 12/11/19 08:00 Potassium Phosphate 20 meq/ Sodium Chloride 1,004.5455 ml @ 100 mls/hr Q10H3M IV 12/10/19 10:00 01/09/20 09:59 12/11/19 06:10 Aftab Candelario MD Dec 11, 2019 11:08
--- NOTE | 2019-12-11 11:08 | NUR ---
RD ASSESSMENT & RECOMMENDATIONS SEE CARE ACTIVITY FOR COMPLETE ASSESSMENT DAILY ESTIMATED NEEDS: Needs based on underweight 52kg 30-35 kcals/kg 3600-0979 total kcals 1.25-2 g protein/kg 65-104 g total protein 25-30 mL/kg 3755-9284 total fluid mLs NUTRITION DIAGNOSIS: Altered GI function r/t Crohns disease as evidenced by pt w/ Crohns disease adm w. watery diarrhea, now w/ rectal tube and stage 2 sacral injury CURRENT DIET: CCHO LOW puree PO DIET RECOMMENDATIONS: Puree texture soft diet ADDITIONAL RECOMMENDATIONS: 1) recalibrate bed scale s/p floor txr from ICU 2) Add ensure enlive qdaily; glucerna w/ elev BG 3) Rec to DC CCHO diet until po intake is consistent. 4) Checks lytes daily w/ loose stool, replete as needed
[2019-12-11 12:00] VITALS: BP 122/60
--- NOTE | 2019-12-11 13:40 | NUR ---
NURSE NOTES: Contacted Dr Hunt regarding Pt two large volume fluids at the same time. Awaiting call back
[2019-12-11] MEDS: Meropenem 500 MG in NS 55 ML IVPB SCH (13:43)
[2019-12-11 16:00] VITALS: BP 133/71
--- NOTE | 2019-12-11 17:01 | General Progress Note ---
Subjective Allergies: Coded Allergies: NO KNOWN ALLERGIES (Verified Allergy, Unknown, 09/07/18) Subjective Above noted patient out of ICU eating OK awake Objective Last 24 Hour Vital Signs Date Time Temp Pulse Resp B/P (MAP) Pulse Ox O2 Delivery O2 Flow Rate FiO2 12/11/19 16:00 97.5 78 20 133/71 (91) 98 12/11/19 12:00 70 12/11/19 12:00 97.9 80 18 122/60 (80) 98 12/11/19 09:00 Room Air 12/11/19 08:02 86 149/50 12/11/19 08:00 97.9 86 20 146/50 (82) 98 12/11/19 08:00 87 12/11/19 04:00 95 12/11/19 04:00 99.1 92 20 132/72 (92) 98 12/11/19 00:00 103 12/11/19 00:00 98.8 104 18 126/69 (88) 97 12/10/19 23:12 112 121/72 12/10/19 21:00 Room Air 12/10/19 20:00 98.2 109 18 121/72 (88) 98 12/10/19 20:00 112 Intake and Output 12/10/19 12/11/19 19:00 07:00 Intake Total 558.266 ml 750 ml Output Total 1300 ml 1300 ml Balance -741.734 ml -550 ml Intake Oral 50 ml IV Total 558.266 ml 700 ml Output Urine Total 1300 ml 1300 ml # Bowel Movements 3 Laboratory Tests 12/11/19 06:08: POC Whole Blood Glucose [Pending] 12/11/19 06:50: White Blood Count 9.4, Red Blood Count 3.95L, Hemoglobin 11.1L, Hematocrit 34.9L , Mean Corpuscular Volume 88, Mean Corpuscular Hemoglobin 28.1, Mean Corpuscular Hemoglobin Concent 31.9L, Red Cell Distribution Width 14.7, Platelet Count 227, Mean Platelet Volume 5.5L, Neutrophils (%) (Auto) 72.2, Lymphocytes (%) (Auto) 17.0L, Monocytes (%) (Auto) 8.8, Eosinophils (%) (Auto) 1.5, Basophils (%) (Auto) 0.6, Sodium Level 149H, Potassium Level 3.6, Chloride Level 117H, Carbon Dioxide Level 25, Anion Gap 7, Blood Urea Nitrogen 11, Creatinine 1.2, Estimat Glomerular Filtration Rate 57.8, Glucose Level 110H, Calcium Level 6.6L, Phosphorus Level 3.3, Magnesium Level 2.0, Total Bilirubin 0.2, Aspartate Amino Transf (AST/SGOT) 17, Alanine Aminotransferase (ALT/SGPT) 8L, Alkaline Phosphatase 44L, Total Protein 5.5L, Albumin 1.4L, Globulin 4.1, Albumin/Globulin Ratio 0.3L 12/11/19 11:08: POC Whole Blood Glucose 122H Height (Feet): 5 Height (Inches): 6.00 Weight (Pounds): 114 Objective WDWN NCAT supple CTA RR abd soft NT ND no edema Assessment/Plan Status: stable, progressing Assessment/Plan: Assessment - Crohn's colitis - recurrent sepsis - diarrhea - (+) BM x3 - OBS Recommendations - Abx - Hold Humira - Follow labs and exam - check C Diff - still waiting, will re order - may need to switch biologic Ayaan Khan MD Dec 11, 2019 17:00
--- NOTE | 2019-12-11 17:11 | Nephrology Progress Note ---
Assessment/Plan Problem List: (1) Septic shock (2) Acute renal failure (ARF) (3) Diabetes type 2, controlled (4) Hypomagnesemia (5) Hypophosphatemia (6) Gastroenteritis Plan iv adjusted, replace phos , mg, better await c diff, esbl uti seen by ID, consuelo abbott 12/11, proteinuria and very low alb may be nephrotic Subjective ROS Limited/Unobtainable: Yes Objective Objective Last 24 Hour Vital Signs Date Time Temp Pulse Resp B/P (MAP) Pulse Ox O2 Delivery O2 Flow Rate FiO2 12/11/19 16:00 97.5 78 20 133/71 (91) 98 12/11/19 12:00 70 12/11/19 12:00 97.9 80 18 122/60 (80) 98 12/11/19 09:00 Room Air 12/11/19 08:02 86 149/50 12/11/19 08:00 97.9 86 20 146/50 (82) 98 12/11/19 08:00 87 12/11/19 04:00 95 12/11/19 04:00 99.1 92 20 132/72 (92) 98 12/11/19 00:00 103 12/11/19 00:00 98.8 104 18 126/69 (88) 97 12/10/19 23:12 112 121/72 12/10/19 21:00 Room Air 12/10/19 20:00 98.2 109 18 121/72 (88) 98 12/10/19 20:00 112 Intake and Output 12/10/19 12/11/19 19:00 07:00 Intake Total 558.266 ml 750 ml Output Total 1300 ml 1300 ml Balance -741.734 ml -550 ml Intake Oral 50 ml IV Total 558.266 ml 700 ml Output Urine Total 1300 ml 1300 ml # Bowel Movements 3 Laboratory Tests 12/11/19 06:08: POC Whole Blood Glucose [Pending] 12/11/19 06:50: White Blood Count 9.4, Red Blood Count 3.95L, Hemoglobin 11.1L, Hematocrit 34.9L , Mean Corpuscular Volume 88, Mean Corpuscular Hemoglobin 28.1, Mean Corpuscular Hemoglobin Concent 31.9L, Red Cell Distribution Width 14.7, Platelet Count 227, Mean Platelet Volume 5.5L, Neutrophils (%) (Auto) 72.2, Lymphocytes (%) (Auto) 17.0L, Monocytes (%) (Auto) 8.8, Eosinophils (%) (Auto) 1.5, Basophils (%) (Auto) 0.6, Sodium Level 149H, Potassium Level 3.6, Chloride Level 117H, Carbon Dioxide Level 25, Anion Gap 7, Blood Urea Nitrogen 11, Creatinine 1.2, Estimat Glomerular Filtration Rate 57.8, Glucose Level 110H, Calcium Level 6.6L, Phosphorus Level 3.3, Magnesium Level 2.0, Total Bilirubin 0.2, Aspartate Amino Transf (AST/SGOT) 17, Alanine Aminotransferase (ALT/SGPT) 8L, Alkaline Phosphatase 44L, Total Protein 5.5L, Albumin 1.4L, Globulin 4.1, Albumin/Globulin Ratio 0.3L 12/11/19 11:08: POC Whole Blood Glucose 122H Height (Feet): 5 Height (Inches): 6.00 Weight (Pounds): 114 General Appearance: no apparent distress, alert, confused EENT: normal ENT inspection Neck: normal alignment Cardiovascular: regular rhythm Respiratory/Chest: lungs clear, normal breath sounds Abdomen: non tender, soft Extremities: trace edema Neurologic: motor weakness, disoriented Jose A Martinez MD Dec 11, 2019 17:11
--- NOTE | 2019-12-11 19:15 | NUR ---
NURSE NOTES: Important Events on Shift: Received report from Katelynn Nichole RN. Pt in stable condition throughout shift. No signs or symptoms of pain or distress noted at this time Patient Status: stable Diet: CCHO low pureed Pending Orders: DC abbott catheter in AM, post void residual. Pending Results/Labs: BMP, Urine culture Pending MD notification: None Latest Vital Signs: Temperature 97.5 , Pulse 78 , B/P 133 /71 , Respiratory Rate 20 , O2 SAT 96 , Room Air, O2 Flow Rate 2.0 . Vital Sign Comment: Stable EKG Rhythm: Sinus Rhythm Rhythm change?: N MD Notified?: N - MD Response: - Latest Miranda Fall Score: 50 Fall Risk: High Risk Safety Measures: Call light , Bed Alarm Zone 2, Side Rails Side Rails x2, Bed position Low and Locked. Fall Precautions: YES Yellow Socks YES Yellow Gown YES Door Sign YES Patient Fall Education YES
[2019-12-11 20:00] VITALS: BP 135/72
[2019-12-11] MEDS: Dyna-Hex 2% Top Sol 2oz TOPIC SCH (23:04)
--- NOTE | 2019-12-11 23:49 | Cardiology Progress Note ---
Subjective DATE OF SERVICE: Dec 11, 2019 Decreased loose stools Stool OB + Electrolyte abnormalities noted; patient remains on hypotonic IVF Urine culture positive for ESBL E.coli. Objective Last 24 Hour Vital Signs Date Time Temp Pulse Resp B/P (MAP) Pulse Ox O2 Delivery O2 Flow Rate FiO2 12/11/19 23:07 95 135/72 12/11/19 18:52 96 Room Air 21 12/11/19 16:00 97.5 78 20 133/71 (91) 98 12/11/19 16:00 78 12/11/19 12:00 70 12/11/19 12:00 97.9 80 18 122/60 (80) 98 12/11/19 09:00 Room Air 12/11/19 08:02 86 149/50 12/11/19 08:00 97.9 86 20 146/50 (82) 98 12/11/19 08:00 87 12/11/19 04:00 95 12/11/19 04:00 99.1 92 20 132/72 (92) 98 12/11/19 00:00 103 12/11/19 00:00 98.8 104 18 126/69 (88) 97 ROS: unchanged from my evaluation of 12/07/19 HEENT: other RHYTHM: NSR, ST LUNGS: lungs clear bilaterally CARDIAC: regular rhythm, normal S1 and S2, tachycardia ABDOMEN: normal bowel sounds, non tender, soft, no organomegaly EXTREMITIES: no calf tenderness, trace edema Laboratory Tests Test 12/11/19 06:08 12/11/19 06:50 12/11/19 11:08 12/11/19 17:40 POC Whole Blood Glucose Pending 122 MG/DL (74-106) H White Blood Count 9.4 K/UL (4.8-10.8) Red Blood Count 3.95 M/UL (4.70-6.10) L Hemoglobin 11.1 G/DL (14.2-18.0) L Hematocrit 34.9 % (42.0-52.0) L Mean Corpuscular Volume 88 FL (80-99) Mean Corpuscular Hemoglobin 28.1 PG (27.0-31.0) Mean Corpuscular Hemoglobin Concent 31.9 G/DL (32.0-36.0) L Red Cell Distribution Width 14.7 % (11.6-14.8) Platelet Count 227 K/UL (150-450) Mean Platelet Volume 5.5 FL (6.5-10.1) L Neutrophils (%) (Auto) 72.2 % (45.0-75.0) Lymphocytes (%) (Auto) 17.0 % (20.0-45.0) L Monocytes (%) (Auto) 8.8 % (1.0-10.0) Eosinophils (%) (Auto) 1.5 % (0.0-3.0) Basophils (%) (Auto) 0.6 % (0.0-2.0) Sodium Level 149 MMOL/L (136-145) H Potassium Level 3.6 MMOL/L (3.5-5.1) Chloride Level 117 MMOL/L (98-107) H Carbon Dioxide Level 25 MMOL/L (21-32) Anion Gap 7 mmol/L (5-15) Blood Urea Nitrogen 11 mg/dL (7-18) Creatinine 1.2 MG/DL (0.55-1.30) Estimat Glomerular Filtration Rate 57.8 mL/min (>60) Glucose Level 110 MG/DL (74-106) H Calcium Level 6.6 MG/DL (8.5-10.1) L Phosphorus Level 3.3 MG/DL (2.5-4.9) Magnesium Level 2.0 MG/DL (1.8-2.4) Total Bilirubin 0.2 MG/DL (0.2-1.0) Aspartate Amino Transf (AST/SGOT) 17 U/L (15-37) Alanine Aminotransferase (ALT/SGPT) 8 U/L (12-78) L Alkaline Phosphatase 44 U/L (46-116) L Total Protein 5.5 G/DL (6.4-8.2) L Albumin 1.4 G/DL (3.4-5.0) L Globulin 4.1 g/dL Albumin/Globulin Ratio 0.3 (1.0-2.7) L Urine Random Total Protein 28 MG/DL (< 11.9) H Urine Creatinine 18.7 MG/DL (30.0-125.0) L Assessment/Plan Assessment/Plan Sepsis Shock recovered Hypovolemia Dehydration Acute myocardial ischemia Acute renal failure responding to hydration NIDDM with hyperglycemia Diarrhea Metabolic acidosis Parkinson's dis with dementia Hypophosphatemia Hypomagnesemia E.coli ESBL UTI Antimicrobials per ID Adjust IVF Advance diet Follow-up stool culture and CDiff toxin results Replace Mg++ and PO4- Full Code Mitchell West MD Dec 11, 2019 23:49
[2019-12-12] VITALS: BP 122/65
[2019-12-12] MEDS: Meropenem 500 MG in NS 55 ML IVPB SCH ×2 (01:58→14:18)
--- NOTE | 2019-12-12 03:50 | NUR ---
TRANSFER TO FLOOR: Patient transferred to [address] [place] [address] per Brett. Report given to LISBETH Mac Belongings and medications given to LISBETH Mac. Family to be informed of transfer in AM. Important Events on Shift: rectal tube dislodged, requiring reinsertion Patient Status: stable Diet: CCHO Low pureed Pending Orders: DC abbott cath in AM, Post residual void. Call dtr to inform her of transfer during AM shift. Pending Results/Labs: BMP, urine culture Pending MD notification: none Latest Vital Signs: Temperature 98.1 , Pulse 81 , B/P 122 /65 , Respiratory Rate 16 , O2 SAT 95 , Room Air, O2 Flow Rate 2.0 . Vital Sign Comment: stable EKG Rhythm: Sinus Rhythm Rhythm change?: N MD Notified?: N - MD Response: Latest Miranda Fall Score: 50 Fall Risk: High Risk Safety Measures: Call light , Bed Alarm Zone 2, Side Rails Side Rails x2, Bed position Low and Locked. Fall Precautions: yes Yellow Socks yes Yellow Gown yes Door Sign yes Patient Fall Education yes
[2019-12-12 04:00] VITALS: BP 127/67
--- NOTE | 2019-12-12 05:58 | Cardiology Progress Note ---
Subjective DATE OF SERVICE: Dec 12, 2019 No apparent distress Decreased loose stools Stool OB + Electrolyte abnormalities noted; patient remains on hypotonic IVF Urine culture positive for ESBL E.coli. Objective Last 24 Hour Vital Signs Date Time Temp Pulse Resp B/P (MAP) Pulse Ox O2 Delivery O2 Flow Rate FiO2 12/12/19 00:00 98.1 81 16 122/65 (84) 95 12/11/19 23:07 95 135/72 12/11/19 21:00 Room Air 12/11/19 20:00 98.4 95 17 135/72 (93) 97 12/11/19 18:52 96 Room Air 21 12/11/19 16:00 97.5 78 20 133/71 (91) 98 12/11/19 16:00 78 12/11/19 12:00 70 12/11/19 12:00 97.9 80 18 122/60 (80) 98 12/11/19 09:00 Room Air 12/11/19 08:02 86 149/50 12/11/19 08:00 97.9 86 20 146/50 (82) 98 12/11/19 08:00 87 ROS: unchanged from my evaluation of 12/07/19 HEENT: other LUNGS: lungs clear bilaterally CARDIAC: regular rhythm, normal S1 and S2, tachycardia ABDOMEN: normal bowel sounds, non tender, soft, no organomegaly EXTREMITIES: no calf tenderness, trace edema Laboratory Tests Test 12/11/19 06:08 12/11/19 06:50 12/11/19 11:08 12/11/19 17:40 POC Whole Blood Glucose Pending 122 MG/DL (74-106) H White Blood Count 9.4 K/UL (4.8-10.8) Red Blood Count 3.95 M/UL (4.70-6.10) L Hemoglobin 11.1 G/DL (14.2-18.0) L Hematocrit 34.9 % (42.0-52.0) L Mean Corpuscular Volume 88 FL (80-99) Mean Corpuscular Hemoglobin 28.1 PG (27.0-31.0) Mean Corpuscular Hemoglobin Concent 31.9 G/DL (32.0-36.0) L Red Cell Distribution Width 14.7 % (11.6-14.8) Platelet Count 227 K/UL (150-450) Mean Platelet Volume 5.5 FL (6.5-10.1) L Neutrophils (%) (Auto) 72.2 % (45.0-75.0) Lymphocytes (%) (Auto) 17.0 % (20.0-45.0) L Monocytes (%) (Auto) 8.8 % (1.0-10.0) Eosinophils (%) (Auto) 1.5 % (0.0-3.0) Basophils (%) (Auto) 0.6 % (0.0-2.0) Sodium Level 149 MMOL/L (136-145) H Potassium Level 3.6 MMOL/L (3.5-5.1) Chloride Level 117 MMOL/L (98-107) H Carbon Dioxide Level 25 MMOL/L (21-32) Anion Gap 7 mmol/L (5-15) Blood Urea Nitrogen 11 mg/dL (7-18) Creatinine 1.2 MG/DL (0.55-1.30) Estimat Glomerular Filtration Rate 57.8 mL/min (>60) Glucose Level 110 MG/DL (74-106) H Calcium Level 6.6 MG/DL (8.5-10.1) L Phosphorus Level 3.3 MG/DL (2.5-4.9) Magnesium Level 2.0 MG/DL (1.8-2.4) Total Bilirubin 0.2 MG/DL (0.2-1.0) Aspartate Amino Transf (AST/SGOT) 17 U/L (15-37) Alanine Aminotransferase (ALT/SGPT) 8 U/L (12-78) L Alkaline Phosphatase 44 U/L (46-116) L Total Protein 5.5 G/DL (6.4-8.2) L Albumin 1.4 G/DL (3.4-5.0) L Globulin 4.1 g/dL Albumin/Globulin Ratio 0.3 (1.0-2.7) L Urine Random Total Protein 28 MG/DL (< 11.9) H Urine Creatinine 18.7 MG/DL (30.0-125.0) L Assessment/Plan Assessment/Plan Sepsis Shock recovered Hypovolemia Dehydration Acute myocardial ischemia Acute renal failure responding to hydration NIDDM with hyperglycemia Diarrhea Metabolic acidosis Parkinson's dis with dementia Hypophosphatemia Hypomagnesemia E.coli ESBL UTI Antimicrobials per ID Taper off IVF Advance diet Follow-up stool culture and CDiff toxin results Replace Mg++ and PO4- Full Code Mitchell West MD Dec 12, 2019 05:58
[2019-12-12] MEDS: NovoLOG Insulin Flexpen SUBQ SCH ×4 (06:11→20:01)
--- NOTE | 2019-12-12 06:19 | NUR ---
NURSE NOTES: Cisneros catheter discontinued per MD order. Catheter intact. patient tolerated well.
--- NOTE | 2019-12-12 07:10 | NUR ---
NURSE NOTES: Spoke with daughter Kay about patient's transfer to .
--- NOTE | 2019-12-12 07:24 | NUR ---
HAND-OFF: Report given to LISBETH Clinton.
--- NOTE | 2019-12-12 07:30 | NUR ---
NURSE NOTES: received report from LISBETH Mac. patient in bed, sleeping. no respiratory distress noted on room air. no facial grimacing noted. IV on RIJ running D5w@75/hr, soft restraints on both wrists for safety, prevention pulling out devices. skin intact. P200 mattress for wound management. rectal tube in place.active bowel sound. monitor voiding bladder after d/c f/c. bed bound. call light within reach. alarm on. will continue to provide plan of care.
[2019-12-12 07:46] LABS: CALCIUM 6.7 MG/DL (8.5-10.1); CREATININE 1.2 MG/DL (0.55-1.30); POTASSIUM 3.2 MMOL/L (3.5-5.1)
[2019-12-12 08:00] VITALS: BP 155/94
[2019-12-12] MEDS: Pantoprazole Inj IVP SCH (09:24)
[2019-12-12] MEDS: Metoprolol Tartrate 12.5mg TAB ORAL SCH ×2 (09:25→19:59)
[2019-12-12] MEDS: Heparin 5000 units/ml inj SUBQ SCH ×2 (09:25→20:00)
--- NOTE | 2019-12-12 09:29 | General Progress Note ---
Subjective ROS Limited/Unobtainable: No Constitutional: Reports: malaise, weakness HEENT: Reports: no symptoms Cardiovascular: Reports: no symptoms Respiratory: Reports: no symptoms Gastrointestinal/Abdominal: Reports: no symptoms Genitourinary: Reports: no symptoms Neurologic/Psychiatric: Reports: no symptoms Endocrine: Reports: no symptoms Hematologic/Lymphatic: Reports: no symptoms Allergies: Coded Allergies: NO KNOWN ALLERGIES (Verified Allergy, Unknown, 09/07/18) All Systems: reviewed and negative except above Subjective no events. alert. no fevers. tolerating puree food. All noted. +esbl uti. cdiff pending. stool ob +. on iv abx. still with diarrhea Objective Last 24 Hour Vital Signs Date Time Temp Pulse Resp B/P (MAP) Pulse Ox O2 Delivery O2 Flow Rate FiO2 12/12/19 04:00 97.9 83 17 127/67 (87) 95 12/12/19 00:00 98.1 81 16 122/65 (84) 95 12/11/19 23:07 95 135/72 12/11/19 21:00 Room Air 12/11/19 20:00 98.4 95 17 135/72 (93) 97 12/11/19 18:52 96 Room Air 21 12/11/19 16:00 97.5 78 20 133/71 (91) 98 12/11/19 16:00 78 12/11/19 12:00 70 12/11/19 12:00 97.9 80 18 122/60 (80) 98 Intake and Output 12/11/19 12/12/19 19:00 07:00 Intake Total 150 ml Output Total 2600 ml 1200 ml Balance -2450 ml -1200 ml Intake Oral 150 ml Output Urine Total 2600 ml 1200 ml Laboratory Tests 12/11/19 11:08: POC Whole Blood Glucose 122H 12/11/19 17:40: Urine Random Total Protein 28H, Urine Creatinine 18.7L 12/12/19 06:48: Sodium Level 149H, Potassium Level 3.2L, Chloride Level 119H, Carbon Dioxide Level 24, Anion Gap 6, Blood Urea Nitrogen 10, Creatinine 1.2, Estimat Glomerular Filtration Rate 57.8, Glucose Level 159H, Calcium Level 6.7L Height (Feet): 5 Height (Inches): 6.00 Weight (Pounds): 114 Objective General Appearance: WD/WN, alert, confused EENT: normal ENT inspection Neck: supple Cardiovascular: normal rate Respiratory/Chest: chest wall non-tender, lungs clear, normal breath sounds Abdomen: normal bowel sounds, non tender, soft, no organomegaly Edema: no edema noted Arm (L), no edema noted Arm (R) 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, alert, responsive, disoriented Lymphatic: normal anterior cervical (L), normal anterior cervical (R) Assessment/Plan Problem List: (1) IBD (inflammatory bowel disease) ICD Codes: K52.9 - Noninfective gastroenteritis and colitis, unspecified SNOMED: 61700115 (2) SVT (supraventricular tachycardia) ICD Codes: I47.1 - Supraventricular tachycardia SNOMED: 1569812 (3) Acute renal failure (ARF) ICD Codes: N17.9 - Acute kidney failure, unspecified SNOMED: 43719846 (4) Diabetes type 2, controlled ICD Codes: E11.9 - Type 2 diabetes mellitus without complications SNOMED: 08284396, 224644584 (5) Toxic metabolic encephalopathy ICD Codes: G92 - Toxic encephalopathy SNOMED: 636664145 (6) Septic shock ICD Codes: A41.9 - Sepsis, unspecified organism; R65.21 - Severe sepsis with septic shock SNOMED: 17987712 Status: stable, progressing Assessment/Plan: ivf adjusted for increased Na monitor lytes iv abx per ID follow up cultures GI eval appreciated await stool cdiff dvt/stress ulcer prophylaxis monitor HR monitor BS skin care turn q2 improving Carlos Hunt MD Dec 12, 2019 09:29
--- NOTE | 2019-12-12 11:21 | Infectious Diseases Prog Note ---
Assessment/Plan Assessment/Plan antibiotics : meropenem A 1. e.coli esbl UTI 2. diabetes mellitus 3. hypertension 4. dementia 5. leucocytosis resolved 6. renal failure improving P 1. continue meropenem 5 more days 2. will follow up cultures Subjective ROS Limited/Unobtainable: Yes Allergies: Coded Allergies: NO KNOWN ALLERGIES (Verified Allergy, Unknown, 09/07/18) Objective Last 24 Hour Vital Signs Date Time Temp Pulse Resp B/P (MAP) Pulse Ox O2 Delivery O2 Flow Rate FiO2 12/12/19 09:25 72 155/94 12/12/19 09:00 Room Air 12/12/19 08:00 97.0 72 18 155/94 (114) 96 12/12/19 04:00 97.9 83 17 127/67 (87) 95 12/12/19 00:00 98.1 81 16 122/65 (84) 95 12/11/19 23:07 95 135/72 12/11/19 21:00 Room Air 12/11/19 20:00 98.4 95 17 135/72 (93) 97 12/11/19 18:52 96 Room Air 21 12/11/19 16:00 97.5 78 20 133/71 (91) 98 12/11/19 16:00 78 12/11/19 12:00 70 12/11/19 12:00 97.9 80 18 122/60 (80) 98 Height (Feet): 5 Height (Inches): 6.00 Weight (Pounds): 114 Respiratory/Chest: lungs clear Cardiovascular: normal rate, regular rhythm, no gallop/murmur Abdomen: soft, non tender Extremities: no edema, other - right IJ catheter Laboratory Tests Test 12/11/19 17:40 12/12/19 06:48 Urine Random Total Protein 28 MG/DL (< 11.9) H Urine Creatinine 18.7 MG/DL (30.0-125.0) L Sodium Level 149 MMOL/L (136-145) H Potassium Level 3.2 MMOL/L (3.5-5.1) L Chloride Level 119 MMOL/L (98-107) H Carbon Dioxide Level 24 MMOL/L (21-32) Anion Gap 6 mmol/L (5-15) Blood Urea Nitrogen 10 mg/dL (7-18) Creatinine 1.2 MG/DL (0.55-1.30) Estimat Glomerular Filtration Rate 57.8 mL/min (>60) Glucose Level 159 MG/DL (74-106) H Calcium Level 6.7 MG/DL (8.5-10.1) L Current Medications Medications (Trade) Dose Ordered Sig/Adelaida Route PRN Reason Start Time Stop Time Status Last Admin Dose Admin Chlorhexidine Gluconate (Delicia-Hex 2%) 1 applic DAILY@2000 TOPIC 12/08/19 20:00 03/07/20 19:59 12/11/19 23:04 Dextrose 1,000 ml @ 75 mls/hr [id number] IV 12/11/19 09:00 01/10/20 08:59 12/11/19 22:20 Dextrose (Dextrose 50%) 25 ml Q30M PRN IV Hypoglycemia 12/07/19 23:30 03/06/20 23:29 Dextrose (Dextrose 50%) 50 ml Q30M PRN IV Hypoglycemia 12/07/19 23:30 03/06/20 23:29 Heparin Sodium (Porcine) (Heparin 5000 units/ml) 5,000 units EVERY 12 HOURS SUBQ 12/08/19 09:00 01/22/20 08:59 12/12/19 09:25 Insulin Aspart (NovoLOG) BEFORE MEALS AND HS SUBQ 12/08/19 06:30 03/07/20 06:29 12/10/19 21:19 Meropenem 500 mg/ Sodium Chloride 55 ml @ 110 mls/hr Q12H IVPB 12/11/19 13:00 12/16/19 12:59 12/12/19 01:58 Metoprolol Tartrate (Lopressor) 12.5 mg Q12HR ORAL 12/10/19 23:00 03/09/20 22:59 12/12/19 09:25 Metronidazole 100 ml @ 100 mls/hr Q8H IVPB 12/08/19 00:00 12/15/19 00:00 12/12/19 09:24 Pantoprazole (Protonix) 40 mg DAILY IVP 12/08/19 09:00 01/07/20 08:59 12/12/19 09:24 Aftab Candelario MD Dec 12, 2019 11:21
[2019-12-12 12:00] VITALS: BP 145/79
[2019-12-12] MEDS ORDERED: NS 275ml ONE (14:02)
[2019-12-12] MEDS ORDERED: Tubing IV Secondary IV ONE (14:02)
[2019-12-12 16:00] VITALS: BP 143/66
--- NOTE | 2019-12-12 16:35 | Nephrology Progress Note ---
Assessment/Plan Problem List: (1) Septic shock (2) Acute renal failure (ARF) (3) Diabetes type 2, controlled (4) Hypomagnesemia (5) Hypophosphatemia (6) Gastroenteritis (7) Crohn's colitis (8) Hypernatremia (9) Proteinuria Plan iv adjusted, replace phos , mg, better await c diff, esbl uti seen by ID, try dc abbott 12/11, proteinuria and very low alb may be from crohn's, low K and high Na iv adjusted Subjective ROS Limited/Unobtainable: Yes Objective Objective Last 24 Hour Vital Signs Date Time Temp Pulse Resp B/P (MAP) Pulse Ox O2 Delivery O2 Flow Rate FiO2 12/12/19 12:00 97.7 80 17 145/79 (101) 100 12/12/19 09:25 72 155/94 12/12/19 09:00 Room Air 12/12/19 08:00 97.0 72 18 155/94 (114) 96 12/12/19 04:00 97.9 83 17 127/67 (87) 95 12/12/19 00:00 98.1 81 16 122/65 (84) 95 12/11/19 23:07 95 135/72 12/11/19 21:00 Room Air 12/11/19 20:00 98.4 95 17 135/72 (93) 97 12/11/19 18:52 96 Room Air 21 Intake and Output 12/11/19 12/12/19 19:00 07:00 Intake Total 150 ml Output Total 2600 ml 1200 ml Balance -2450 ml -1200 ml Intake Oral 150 ml Output Urine Total 2600 ml 1200 ml Laboratory Tests 12/11/19 17:40: Urine Random Total Protein 28H, Urine Creatinine 18.7L 12/12/19 06:48: Sodium Level 149H, Potassium Level 3.2L, Chloride Level 119H, Carbon Dioxide Level 24, Anion Gap 6, Blood Urea Nitrogen 10, Creatinine 1.2, Estimat Glomerular Filtration Rate 57.8, Glucose Level 159H, Calcium Level 6.7L Height (Feet): 5 Height (Inches): 6.00 Weight (Pounds): 114 General Appearance: no apparent distress, confused EENT: normal ENT inspection Neck: normal alignment Cardiovascular: normal rate, regular rhythm Respiratory/Chest: lungs clear Abdomen: non tender, soft Extremities: trace edema Neurologic: motor weakness Jose A Martinez MD Dec 12, 2019 16:35
--- NOTE | 2019-12-12 19:29 | NUR ---
NURSE HAND-OFF: Important Events on Shift:DC rectal tube. changed IV ATB, restaints on both wrist Patient Status: stable, non compliant, aggressive at times. Diet: CCHO M Pending Orders: n/a Pending Results/Labs:c-diff Pending MD notification:n/a Latest Vital Signs: Temperature 98.1 , Pulse 84 , B/P 143 /66 , Respiratory Rate 18 , O2 SAT 94 , Room Air, O2 Flow Rate 2.0 . Vital Sign Comment: stable Latest Miranda Fall Score: 50 Fall Risk: High Risk Safety Measures: Call light , Bed Alarm Zone 2, Side Rails Side Rails x2, Bed position Low and Locked. Fall Precautions: Yellow Socks Yellow Gown Door Sign Patient Fall Education Report given to LISBETH Mac.
[2019-12-12 20:00] VITALS: BP 112/55
[2019-12-12] MEDS: Dyna-Hex 2% Top Sol 2oz TOPIC SCH (20:01)
--- NOTE | 2019-12-12 21:00 | NUR ---
NURSE NOTES: Son at bedside. Patient awake, no s/s of acute distress. P200 mattress noted. Right IJ patent, 3 lumens flushed with normal saline. Bilateral soft wrist restraints in place, skin underneath asymptomatic, bilateral upper extremity edema noted. Patient cleaned and changed with CARDIAC SURGEON and son. Paste like bowel movement. Sacral dressing changed. Calazime cream applied to perianal area.
--- NOTE | 2019-12-12 21:16 | General Progress Note ---
Subjective Allergies: Coded Allergies: NO KNOWN ALLERGIES (Verified Allergy, Unknown, 09/07/18) Subjective Above noted awake watching TV Objective Last 24 Hour Vital Signs Date Time Temp Pulse Resp B/P (MAP) Pulse Ox O2 Delivery O2 Flow Rate FiO2 12/12/19 19:59 84 143/66 12/12/19 19:30 97 Room Air 21 12/12/19 16:00 98.1 84 18 143/66 (91) 94 12/12/19 12:00 97.7 80 17 145/79 (101) 100 12/12/19 09:25 72 155/94 12/12/19 09:00 Room Air 12/12/19 08:00 97.0 72 18 155/94 (114) 96 12/12/19 04:00 97.9 83 17 127/67 (87) 95 12/12/19 00:00 98.1 81 16 122/65 (84) 95 12/11/19 23:07 95 135/72 l Intake and Output 12/11/19 12/12/19 19:00 07:00 Intake Total 150 ml Output Total 2600 ml 1200 ml Balance -2450 ml -1200 ml Intake Oral 150 ml Output Urine Total 2600 ml 1200 ml Laboratory Tests 12/12/19 06:48: Sodium Level 149H, Potassium Level 3.2L, Chloride Level 119H, Carbon Dioxide Level 24, Anion Gap 6, Blood Urea Nitrogen 10, Creatinine 1.2, Estimat Glomerular Filtration Rate 57.8, Glucose Level 159H, Calcium Level 6.7L Height (Feet): 5 Height (Inches): 6.00 Weight (Pounds): 114 Objective WDWN NCAT supple CTA RR abd soft NT ND no edema Assessment/Plan Status: stable, progressing Assessment/Plan: Assessment - Crohn's colitis - recurrent sepsis while on Humira - diarrhea - still no C Diff available - OBS Recommendations - Abx - Hold Humira - Follow labs and exam - check C Diff - still waiting, will re order - may need to switch biologic --> will try to get Stelara approved as outpt Ayaan Khan MD Dec 12, 2019 21:16
[2019-12-13] VITALS: BP 133/65
[2019-12-13] MEDS: Meropenem 500 MG in NS 55 ML IVPB SCH ×2 (00:38→12:26)
[2019-12-13 04:00] VITALS: BP 117/70
[2019-12-13 04:43] LABS: BASOPHILS % (AUTO) 0.8 % (0.0-2.0); EOSINOPHILS % (AUTO) 2.4 % (0.0-3.0); HEMATOCRIT 33.3 % (42.0-52.0); LYMPHOCYTES % (AUTO) 24.3 % (20.0-45.0); MEAN CORPUSCULAR VOLUME 89 FL (80-99); MONOCYTES % (AUTO) 9.8 % (1.0-10.0); NEUTROPHILS % (AUTO) 62.7 % (45.0-75.0); PLATELET COUNT 235 K/UL (150-450); RED BLOOD COUNT 3.76 M/UL (4.70-6.10); RED CELL DISTRIBUTION WIDTH 15.2 % (11.6-14.8); WHITE BLOOD COUNT 5.6 K/UL (4.8-10.8)
[2019-12-13 05:05] LABS: PHOSPHORUS 2.2 MG/DL (2.5-4.9)
[2019-12-13 05:06] LABS: ALANINE AMINOTRANSFERASE 10 U/L (12-78); ALBUMIN 1.3 G/DL (3.4-5.0); ALBUMIN/GLOBULIN RATIO 0.3 (1.0-2.7); ALKALINE PHOSPHATASE 40 U/L (46-116); ANION GAP 3 mmol/L (5-15); ASPARTATE AMINO TRANSFERASE 24 U/L (15-37); BILIRUBIN,TOTAL 0.2 MG/DL (0.2-1.0); BLOOD UREA NITROGEN 7 mg/dL (7-18); CALCIUM 6.9 MG/DL (8.5-10.1); CARBON DIOXIDE 27 MMOL/L (21-32); CHLORIDE 120 MMOL/L (98-107); CREATININE 1.1 MG/DL (0.55-1.30); POTASSIUM 3.4 MMOL/L (3.5-5.1); SODIUM 150 MMOL/L (136-145)
[2019-12-13] MEDS: NovoLOG Insulin Flexpen SUBQ SCH ×4 (05:54→20:27)
--- NOTE | 2019-12-13 06:24 | NUR ---
NURSE NOTES: Sacral dressing changed again. Second paste like bowel movement.
--- NOTE | 2019-12-13 07:24 | General Progress Note ---
Subjective ROS Limited/Unobtainable: Yes Constitutional: Reports: malaise, weakness HEENT: Reports: no symptoms Cardiovascular: Reports: no symptoms Respiratory: Reports: no symptoms Gastrointestinal/Abdominal: Reports: diarrhea Genitourinary: Reports: no symptoms Neurologic/Psychiatric: Reports: pre-existing deficit Endocrine: Reports: no symptoms Hematologic/Lymphatic: Reports: no symptoms Allergies: Coded Allergies: NO KNOWN ALLERGIES (Verified Allergy, Unknown, 09/07/18) All Systems: reviewed and negative except above Subjective no events. decreased diarrhea. more formed. no fever or chills. alert ut confused at baseline. increase Na. on hypotonic ivf. cdiff neg. GI noted. Objective Last 24 Hour Vital Signs Date Time Temp Pulse Resp B/P (MAP) Pulse Ox O2 Delivery O2 Flow Rate FiO2 12/13/19 04:00 98.3 83 18 117/70 (86) 94 12/13/19 00:00 98.5 98 18 133/65 (87) 94 12/12/19 21:47 Room Air 12/12/19 20:00 98.9 89 18 112/55 (74) 94 12/12/19 19:59 84 143/66 12/12/19 19:30 97 Room Air 21 12/12/19 16:00 98.1 84 18 143/66 (91) 94 12/12/19 12:00 97.7 80 17 145/79 (101) 100 12/12/19 09:25 72 155/94 12/12/19 09:00 Room Air 12/12/19 08:00 97.0 72 18 155/94 (114) 96 Intake and Output 12/12/19 12/13/19 18:59 06:59 Intake Total 910 ml 250 ml Output Total 424 ml 179 ml Balance 486 ml 71 ml Intake Oral 600 ml 250 ml IV Total 310 ml Post Void Residual 424 ml 179 ml Bladder Scan Volume Amount 201-300 ml 151-200 ml 151-200 ml # Voids 3 3 # Bowel Movements 2 2 Laboratory Tests 12/13/19 04:00: White Blood Count 5.6, Red Blood Count 3.76L, Hemoglobin 11.0L, Hematocrit 33.3L , Mean Corpuscular Volume 89, Mean Corpuscular Hemoglobin 29.3, Mean Corpuscular Hemoglobin Concent 33.1, Red Cell Distribution Width 15.2H, Platelet Count 235, Mean Platelet Volume 5.9L, Neutrophils (%) (Auto) 62.7, Lymphocytes (%) (Auto) 24.3, Monocytes (%) (Auto) 9.8, Eosinophils (%) (Auto) 2.4, Basophils (%) (Auto) 0.8, Sodium Level 150H, Potassium Level 3.4L, Chloride Level 120H, Carbon Dioxide Level 27, Anion Gap 3L, Blood Urea Nitrogen 7, Creatinine 1.1, Estimat Glomerular Filtration Rate > 60, Glucose Level 108H, Calcium Level 6.9L, Phosphorus Level 2.2L, Magnesium Level 1.6L, Total Bilirubin 0.2, Aspartate Amino Transf (AST/SGOT) 24, Alanine Aminotransferase (ALT/SGPT) 10L, Alkaline Phosphatase 40L, Total Protein 5.4L, Albumin 1.3L, Globulin 4.1, Albumin/Globulin Ratio 0.3L Height (Feet): 5 Height (Inches): 6.00 Weight (Pounds): 114 Objective General Appearance: WD/WN, alert, confused EENT: normal ENT inspection Neck: supple Cardiovascular: normal rate Respiratory/Chest: chest wall non-tender, lungs clear, normal breath sounds Abdomen: normal bowel sounds, non tender, soft, no organomegaly Edema: no edema noted Arm (L), no edema noted Arm (R) 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, alert, responsive, disoriented Lymphatic: normal anterior cervical (L), normal anterior cervical (R) Assessment/Plan Problem List: (1) IBD (inflammatory bowel disease) ICD Codes: K52.9 - Noninfective gastroenteritis and colitis, unspecified SNOMED: 72955151 (2) SVT (supraventricular tachycardia) ICD Codes: I47.1 - Supraventricular tachycardia SNOMED: 4806323 (3) Acute renal failure (ARF) ICD Codes: N17.9 - Acute kidney failure, unspecified SNOMED: 60221500 (4) Diabetes type 2, controlled ICD Codes: E11.9 - Type 2 diabetes mellitus without complications SNOMED: 02161533, 885188727 (5) Toxic metabolic encephalopathy ICD Codes: G92 - Toxic encephalopathy SNOMED: 981045004 (6) Septic shock ICD Codes: A41.9 - Sepsis, unspecified organism; R65.21 - Severe sepsis with septic shock SNOMED: 76236897 Status: stable, progressing Assessment/Plan: ivf increased monitor lytes iv abx per ID follow up cultures GI eval appreciated. Consider stelara as outpt cdiff neg dvt/stress ulcer prophylaxis monitor HR monitor BS skin care turn q2 improving Carlos Hunt MD Dec 13, 2019 07:23
--- NOTE | 2019-12-13 07:30 | NUR ---
NURSE NOTES: Report received from Zaina RN, rounds made. Patient non-verbal, calm. Respirations even/unlabored on RA. In semi-fowlers position. IV (D5W+30 meq KCL) at 75 ml/hr infusing to right IJ, site asymptomatic. Bilateral wrist restraints on, skin warm, capillary refill < 3 seconds, wiggles, pulses palpable, bilateral wrist optifoam in place. P200 [address]. Will reposition every 2 hours and provide skin care. Will provide nutrition and PO fluids. Will apply condom cath. Call light in reach, bed in lowest position, will continue to monitor.
--- NOTE | 2019-12-13 07:44 | NUR ---
HAND-OFF: Report given to LISBETH Graves.
[2019-12-13 08:00] VITALS: BP 147/94
[2019-12-13] MEDS: Pantoprazole Inj IVP SCH (08:55)
[2019-12-13] MEDS: Metoprolol Tartrate 12.5mg TAB ORAL SCH ×2 (08:56→20:28)
[2019-12-13] MEDS: Heparin 5000 units/ml inj SUBQ SCH ×2 (08:56→20:26)
[2019-12-13] MEDS: D5W w/KCl 20mEq 1,000 ML IV SCH ×2 (09:03→17:06)
[2019-12-13 12:00] VITALS: BP 130/69
--- NOTE | 2019-12-13 12:18 | NUR ---
CASE MANAGEMENT:REVIEW 12/13/19 SI: SEPTIC SHOCK. IBD. ACUTE RENAL FAILURE 98.0 88 20 147/94 99% ON RA H/H-11.0/33.3 NA+150 K-3.4 PHOS-2.2 MAG-1.6 IS: IVF@125/HR IV MEROPENEM Q12 LOPRESSOR PO Q12 IV PROTONIX QD HEPARIN SQ Q12HRS : MED/SURG STATUS 4 EAST DCP: FROM [facility]: DC RECTAL TUBE
--- NOTE | 2019-12-13 12:30 | NUR ---
NURSE NOTES: Condom catheter applied, y/cl urine noted in drainage bag. Skin care provided, repositioned every 2 hours. Patient had brown soft moderate size BM x1. New optifoam applied to sacral area, redness noted. Will continue to monitor.
--- NOTE | 2019-12-13 13:00 | Infectious Diseases Prog Note ---
Assessment/Plan Assessment/Plan A 1. E.coli UTI 2. Diabetes mellitus 3. Hypertension 4. Dementia 5. Leucocytosis resolved 6. Acute renal failure improving P 1. continue Meropenem 4 more days 2. will follow up cultures Subjective ROS Limited/Unobtainable: Yes Constitutional: Denies: fever Psychiatric: Reports: other - on restraint Allergies: Coded Allergies: NO KNOWN ALLERGIES (Verified Allergy, Unknown, 09/07/18) Objective Last 24 Hour Vital Signs Date Time Temp Pulse Resp B/P (MAP) Pulse Ox O2 Delivery O2 Flow Rate FiO2 12/13/19 12:00 97.7 85 20 130/69 (89) 99 12/13/19 08:56 88 147/94 12/13/19 08:00 98.0 88 20 147/94 (111) 99 12/13/19 04:00 98.3 83 18 117/70 (86) 94 12/13/19 00:00 98.5 98 18 133/65 (87) 94 12/12/19 21:47 Room Air 12/12/19 20:00 98.9 89 18 112/55 (74) 94 12/12/19 19:59 84 143/66 12/12/19 19:30 97 Room Air 21 12/12/19 16:00 98.1 84 18 143/66 (91) 94 Height (Feet): 5 Height (Inches): 6.00 Weight (Pounds): 114 General Appearance: no acute distress HEENT: mucous membranes moist Respiratory/Chest: lungs clear Cardiovascular: normal rate Abdomen: soft, non tender Extremities: no edema Neurologic/Psychiatric: alert, responsive Microbiology Date/Time Source Procedure Growth Status 12/12/19 12:20 Stool Clostridium difficile Toxin Assay - Final Complete Laboratory Tests Test 12/12/19 16:18 12/12/19 19:52 12/13/19 04:00 12/13/19 11:50 POC Whole Blood Glucose 186 MG/DL (74-106) H 185 MG/DL (74-106) H 200 MG/DL (74-106) H White Blood Count 5.6 K/UL (4.8-10.8) Red Blood Count 3.76 M/UL (4.70-6.10) L Hemoglobin 11.0 G/DL (14.2-18.0) L Hematocrit 33.3 % (42.0-52.0) L Mean Corpuscular Volume 89 FL (80-99) Mean Corpuscular Hemoglobin 29.3 PG (27.0-31.0) Mean Corpuscular Hemoglobin Concent 33.1 G/DL (32.0-36.0) Red Cell Distribution Width 15.2 % (11.6-14.8) H Platelet Count 235 K/UL (150-450) Mean Platelet Volume 5.9 FL (6.5-10.1) L Neutrophils (%) (Auto) 62.7 % (45.0-75.0) Lymphocytes (%) (Auto) 24.3 % (20.0-45.0) Monocytes (%) (Auto) 9.8 % (1.0-10.0) Eosinophils (%) (Auto) 2.4 % (0.0-3.0) Basophils (%) (Auto) 0.8 % (0.0-2.0) Sodium Level 150 MMOL/L (136-145) H Potassium Level 3.4 MMOL/L (3.5-5.1) L Chloride Level 120 MMOL/L (98-107) H Carbon Dioxide Level 27 MMOL/L (21-32) Anion Gap 3 mmol/L (5-15) L Blood Urea Nitrogen 7 mg/dL (7-18) Creatinine 1.1 MG/DL (0.55-1.30) Estimat Glomerular Filtration Rate > 60 mL/min (>60) Glucose Level 108 MG/DL (74-106) H Calcium Level 6.9 MG/DL (8.5-10.1) L Phosphorus Level 2.2 MG/DL (2.5-4.9) L Magnesium Level 1.6 MG/DL (1.8-2.4) L Total Bilirubin 0.2 MG/DL (0.2-1.0) Aspartate Amino Transf (AST/SGOT) 24 U/L (15-37) Alanine Aminotransferase (ALT/SGPT) 10 U/L (12-78) L Alkaline Phosphatase 40 U/L (46-116) L Total Protein 5.4 G/DL (6.4-8.2) L Albumin 1.3 G/DL (3.4-5.0) L Globulin 4.1 g/dL Albumin/Globulin Ratio 0.3 (1.0-2.7) L Current Medications Medications (Trade) Dose Ordered Sig/Adelaida Route PRN Reason Start Time Stop Time Status Last Admin Dose Admin Chlorhexidine Gluconate (Delicia-Hex 2%) 1 applic DAILY@2000 TOPIC 12/08/19 20:00 03/07/20 19:59 12/12/19 20:01 Dextrose (Dextrose 50%) 25 ml Q30M PRN IV Hypoglycemia 12/07/19 23:30 03/06/20 23:29 Dextrose (Dextrose 50%) 50 ml Q30M PRN IV Hypoglycemia 12/07/19 23:30 03/06/20 23:29 Dextrose/ Electrolytes 1,000 ml @ 125 mls/hr Q8H IV 12/13/19 08:30 01/12/20 08:29 12/13/19 09:03 Heparin Sodium (Porcine) (Heparin 5000 units/ml) 5,000 units EVERY 12 HOURS SUBQ 12/08/19 09:00 01/22/20 08:59 12/13/19 08:56 Insulin Aspart (NovoLOG) BEFORE MEALS AND HS SUBQ 12/08/19 06:30 03/07/20 06:29 12/13/19 11:55 Meropenem 500 mg/ Sodium Chloride 55 ml @ 110 mls/hr Q12H IVPB 12/11/19 13:00 12/16/19 12:59 12/13/19 12:26 Metoprolol Tartrate (Lopressor) 12.5 mg Q12HR ORAL 12/10/19 23:00 03/09/20 22:59 12/13/19 08:56 Pantoprazole (Protonix) 40 mg DAILY IVP 12/08/19 09:00 01/07/20 08:59 12/13/19 08:55 Gael Wilkinson MD Dec 13, 2019 13:00
[2019-12-13 16:00] VITALS: BP 128/71
--- NOTE | 2019-12-13 17:30 | NUR ---
NURSE NOTES: BMP drawn from right IJ site (flushed, wasted 5 ml, obtained specimen, flushed x2, clamped), sent down to lab at this time.
[2019-12-13 17:51] LABS: CALCIUM 6.8 MG/DL (8.5-10.1); CREATININE 1.2 MG/DL (0.55-1.30); POTASSIUM 3.6 MMOL/L (3.5-5.1)
--- NOTE | 2019-12-13 19:12 | NUR ---
NURSE NOTES: Dr. Hunt updated with 1700 BMP results, no further orders. Also mentioned to Dr. Hunt that the family is requesting an eye examination due to previous blackout from eye pressure, and they think that's why he is always closing his eyes. Will endorse to next shift.
--- NOTE | 2019-12-13 19:18 | NUR ---
NURSE HAND-OFF: Important Events on Shift:K3.4, IVF/rate changed, 1700 BMP done, K3.6, (family requesting eye examination, Dr. Hunt advises to be done outpatient) Patient Status: stable Diet: CCHO med pureed (feed) Pending Orders: none Pending Results/Labs:none Pending MD notification:none Latest Vital Signs: Temperature 97.8 , Pulse 88 , B/P 128 /71 , Respiratory Rate 20 , O2 SAT 99 , Room Air, O2 Flow Rate 2.0 . Vital Sign Comment: none Latest Miranda Fall Score: 50 Fall Risk: High Risk Safety Measures: Call light , Bed Alarm Zone 2, Side Rails Side Rails x2, Bed position Low and Locked. Fall Precautions: Yellow Socks Yellow Gown Door Sign Patient Fall Education Report given to Tim BOB. Addendum: 12/13/19 at 1935 by Ely Dupree RN Endorsed to Tim BOB to pass along to daughter, regarding outpatient eye examination.
[2019-12-13 20:00] VITALS: BP 129/76
--- NOTE | 2019-12-13 20:01 | Nephrology Progress Note ---
Assessment/Plan Problem List: (1) Septic shock (2) Acute renal failure (ARF) (3) Diabetes type 2, controlled (4) Hypomagnesemia (5) Hypophosphatemia (6) Gastroenteritis (7) Crohn's colitis (8) Hypernatremia (9) Proteinuria Plan iv adjusted, replace phos , mg, better await c diff, esbl uti seen by ID, try dc abbott 12/11, proteinuria and very low alb may be from crohn's, low K and high Na iv adjusted Subjective ROS Limited/Unobtainable: Yes Objective Objective Last 24 Hour Vital Signs Date Time Temp Pulse Resp B/P (MAP) Pulse Ox O2 Delivery O2 Flow Rate FiO2 12/13/19 16:00 97.8 88 20 128/71 (90) 99 12/13/19 12:00 97.7 85 20 130/69 (89) 99 12/13/19 09:00 Room Air 12/13/19 08:56 88 147/94 12/13/19 08:11 99 Room Air 21 12/13/19 08:00 98.0 88 20 147/94 (111) 99 12/13/19 04:00 98.3 83 18 117/70 (86) 94 12/13/19 00:00 98.5 98 18 133/65 (87) 94 12/12/19 21:47 Room Air Intake and Output 12/12/19 12/13/19 19:00 07:00 Intake Total 910 ml 325 ml Output Total 424 ml 179 ml Balance 486 ml 146 ml Intake Oral 600 ml 250 ml IV Total 310 ml 75 ml Post Void Residual 424 ml 179 ml Bladder Scan Volume Amount 201-300 ml 151-200 ml 151-200 ml # Voids 3 3 # Bowel Movements 2 2 Laboratory Tests 12/13/19 04:00: White Blood Count 5.6, Red Blood Count 3.76L, Hemoglobin 11.0L, Hematocrit 33.3L , Mean Corpuscular Volume 89, Mean Corpuscular Hemoglobin 29.3, Mean Corpuscular Hemoglobin Concent 33.1, Red Cell Distribution Width 15.2H, Platelet Count 235, Mean Platelet Volume 5.9L, Neutrophils (%) (Auto) 62.7, Lymphocytes (%) (Auto) 24.3, Monocytes (%) (Auto) 9.8, Eosinophils (%) (Auto) 2.4, Basophils (%) (Auto) 0.8, Sodium Level 150H, Potassium Level 3.4L, Chloride Level 120H, Carbon Dioxide Level 27, Anion Gap 3L, Blood Urea Nitrogen 7, Creatinine 1.1, Estimat Glomerular Filtration Rate > 60, Glucose Level 108H, Calcium Level 6.9L, Phosphorus Level 2.2L, Magnesium Level 1.6L, Total Bilirubin 0.2, Aspartate Amino Transf (AST/SGOT) 24, Alanine Aminotransferase (ALT/SGPT) 10L, Alkaline Phosphatase 40L, Total Protein 5.4L, Albumin 1.3L, Globulin 4.1, Albumin/Globulin Ratio 0.3L 12/13/19 11:50: POC Whole Blood Glucose 200H 12/13/19 16:55: POC Whole Blood Glucose 234H 12/13/19 17:15: Sodium Level 144, Potassium Level 3.6, Chloride Level 113H, Carbon Dioxide Level 26, Anion Gap 5, Blood Urea Nitrogen 5L, Creatinine 1.2, Estimat Glomerular Filtration Rate 57.8, Glucose Level 224#H, Calcium Level 6.8L Height (Feet): 5 Height (Inches): 6.00 Weight (Pounds): 114 General Appearance: no apparent distress, alert, confused EENT: normal ENT inspection Neck: normal alignment Cardiovascular: regular rhythm Respiratory/Chest: lungs clear Abdomen: non tender, soft Extremities: trace edema Neurologic: motor weakness Jose A Martinez MD Dec 13, 2019 20:01
--- NOTE | 2019-12-13 20:10 | NUR ---
NURSE NOTES: Patient in bed, asleep, unable to make needs known. Respiration is even and unlabored. Kept clean and comfortable. No s/s of pain or discomfort noted. Skin is warm and dry to touch. IV site noted, iv fluid is infusing as ordered. Bed in low and locked position. provided safe environment. call light is at bedside. Will continue plan of care.
[2019-12-13] MEDS: Dyna-Hex 2% Top Sol 2oz TOPIC SCH (20:25)
--- NOTE | 2019-12-13 21:48 | General Progress Note ---
Subjective Allergies: Coded Allergies: NO KNOWN ALLERGIES (Verified Allergy, Unknown, 09/07/18) Subjective Above noted awake calm Objective Last 24 Hour Vital Signs Date Time Temp Pulse Resp B/P (MAP) Pulse Ox O2 Delivery O2 Flow Rate FiO2 12/13/19 20:28 77 129/76 12/13/19 20:00 98.5 77 20 129/76 (93) 94 12/13/19 16:00 97.8 88 20 128/71 (90) 99 12/13/19 12:00 97.7 85 20 130/69 (89) 99 12/13/19 09:00 Room Air 12/13/19 08:56 88 147/94 12/13/19 08:11 99 Room Air 21 12/13/19 08:00 98.0 88 20 147/94 (111) 99 12/13/19 04:00 98.3 83 18 117/70 (86) 94 12/13/19 00:00 98.5 98 18 133/65 (87) 94 12/12/19 21:47 Room Air Intake and Output 12/12/19 12/13/19 19:00 07:00 Intake Total 910 ml 325 ml Output Total 424 ml 179 ml Balance 486 ml 146 ml Intake Oral 600 ml 250 ml IV Total 310 ml 75 ml Post Void Residual 424 ml 179 ml Bladder Scan Volume Amount 201-300 ml 151-200 ml 151-200 ml # Voids 3 3 # Bowel Movements 2 2 Laboratory Tests 12/13/19 04:00: White Blood Count 5.6, Red Blood Count 3.76L, Hemoglobin 11.0L, Hematocrit 33.3L , Mean Corpuscular Volume 89, Mean Corpuscular Hemoglobin 29.3, Mean Corpuscular Hemoglobin Concent 33.1, Red Cell Distribution Width 15.2H, Platelet Count 235, Mean Platelet Volume 5.9L, Neutrophils (%) (Auto) 62.7, Lymphocytes (%) (Auto) 24.3, Monocytes (%) (Auto) 9.8, Eosinophils (%) (Auto) 2.4, Basophils (%) (Auto) 0.8, Sodium Level 150H, Potassium Level 3.4L, Chloride Level 120H, Carbon Dioxide Level 27, Anion Gap 3L, Blood Urea Nitrogen 7, Creatinine 1.1, Estimat Glomerular Filtration Rate > 60, Glucose Level 108H, Calcium Level 6.9L, Phosphorus Level 2.2L, Magnesium Level 1.6L, Total Bilirubin 0.2, Aspartate Amino Transf (AST/SGOT) 24, Alanine Aminotransferase (ALT/SGPT) 10L, Alkaline Phosphatase 40L, Total Protein 5.4L, Albumin 1.3L, Globulin 4.1, Albumin/Globulin Ratio 0.3L 12/13/19 11:50: POC Whole Blood Glucose 200H 12/13/19 16:55: POC Whole Blood Glucose 234H 12/13/19 17:15: Sodium Level 144, Potassium Level 3.6, Chloride Level 113H, Carbon Dioxide Level 26, Anion Gap 5, Blood Urea Nitrogen 5L, Creatinine 1.2, Estimat Glomerular Filtration Rate 57.8, Glucose Level 224#H, Calcium Level 6.8L Height (Feet): 5 Height (Inches): 6.00 Weight (Pounds): 114 Objective WDWN NCAT supple CTA RR abd soft NT ND no edema Assessment/Plan Status: stable, progressing Assessment/Plan: Assessment - Crohn's colitis - recurrent sepsis while on Humira - diarrhea - C Diff (-) - OBS Recommendations - Abx - Hold Humira - Follow labs and exam - may need to switch biologic --> will try to get [facility] approved as outpt Ayaan Khan MD Dec 13, 2019 21:48
[2019-12-13] MEDS: POTASSIUM PHOSPHATE IV SCH (21:50)
[2019-12-13] MEDS: D5W IV SCH (21:50)
[2019-12-14] VITALS: BP 133/71
[2019-12-14] MEDS: Meropenem 500 MG in NS 55 ML IVPB SCH ×2 (00:20→13:35)
[2019-12-14 04:00] VITALS: BP 152/82
--- NOTE | 2019-12-14 05:30 | NUR ---
NURSE NOTES: Patient was cleaned. Bowel movement, soft, no diarrhea. Kept clean and comfortable. Provide safe environment. Call light is at bedside. Will continue plan of care.
[2019-12-14] MEDS: POTASSIUM PHOSPHATE IV SCH (06:04)
[2019-12-14] MEDS: D5W IV SCH (06:04)
[2019-12-14] MEDS: NovoLOG Insulin Flexpen SUBQ SCH ×4 (06:04→22:31)
[2019-12-14 06:46] LABS: CALCIUM 7.2 MG/DL (8.5-10.1); CREATININE 1.2 MG/DL (0.55-1.30); POTASSIUM 3.9 MMOL/L (3.5-5.1)
--- NOTE | 2019-12-14 06:46 | General Progress Note ---
Subjective ROS Limited/Unobtainable: No Constitutional: Reports: malaise, weakness HEENT: Reports: no symptoms Cardiovascular: Reports: no symptoms Respiratory: Reports: no symptoms Gastrointestinal/Abdominal: Reports: no symptoms Genitourinary: Reports: no symptoms Neurologic/Psychiatric: Reports: pre-existing deficit Endocrine: Reports: no symptoms Hematologic/Lymphatic: Reports: no symptoms Allergies: Coded Allergies: NO KNOWN ALLERGIES (Verified Allergy, Unknown, 09/07/18) All Systems: reviewed and negative except above Subjective no events. d/w staff. diarrhea better- soft formed stool. no fevers. currently resting. no distress, remains on iv meropenem Objective Last 24 Hour Vital Signs Date Time Temp Pulse Resp B/P (MAP) Pulse Ox O2 Delivery O2 Flow Rate FiO2 12/14/19 04:00 98.2 83 20 152/82 (105) 99 12/14/19 00:00 97.7 67 18 133/71 (91) 100 12/13/19 21:00 Room Air 12/13/19 20:28 77 129/76 12/13/19 20:00 98.5 77 20 129/76 (93) 94 12/13/19 19:06 98 Room Air 21 12/13/19 16:00 97.8 88 20 128/71 (90) 99 12/13/19 12:00 97.7 85 20 130/69 (89) 99 12/13/19 09:00 Room Air 12/13/19 08:56 88 147/94 12/13/19 08:11 99 Room Air 21 12/13/19 08:00 98.0 88 20 147/94 (111) 99 Intake and Output 12/13/19 12/14/19 19:00 07:00 Intake Total 1240 ml 355 ml Output Total 473 ml 134 ml Balance 767 ml 221 ml Intake Oral 240 ml IV Total 1000 ml 355 ml Output Urine Total 400 ml Post Void Residual 73 ml 134 ml Bladder Scan Volume Amount 51-75 ml 101-150 ml # Voids 2 # Bowel Movements 3 Laboratory Tests 12/13/19 11:50: POC Whole Blood Glucose 200H 12/13/19 16:55: POC Whole Blood Glucose 234H 12/13/19 17:15: Sodium Level 144, Potassium Level 3.6, Chloride Level 113H, Carbon Dioxide Level 26, Anion Gap 5, Blood Urea Nitrogen 5L, Creatinine 1.2, Estimat Glomerular Filtration Rate 57.8, Glucose Level 224#H, Calcium Level 6.8L 12/14/19 06:00: POC Whole Blood Glucose 126H 12/14/19 06:05: Sodium Level [Pending], Potassium Level [Pending], Chloride Level [Pending], Carbon Dioxide Level [Pending], Blood Urea Nitrogen [Pending], Creatinine [Pending], Estimat Glomerular Filtration Rate [Pending], Glucose Level [Pending], Calcium Level [Pending], Phosphorus Level [Pending], Magnesium Level [Pending] Height (Feet): 5 Height (Inches): 6.00 Weight (Pounds): 114 Objective General Appearance: WD/WN, alert, confused EENT: normal ENT inspection Neck: supple Cardiovascular: normal rate Respiratory/Chest: chest wall non-tender, lungs clear, normal breath sounds Abdomen: normal bowel sounds, non tender, soft, no organomegaly Edema: no edema noted Arm (L), no edema noted Arm (R) 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, alert, responsive, disoriented Lymphatic: normal anterior cervical (L), normal anterior cervical (R) Assessment/Plan Problem List: (1) IBD (inflammatory bowel disease) ICD Codes: K52.9 - Noninfective gastroenteritis and colitis, unspecified SNOMED: 66971012 (2) SVT (supraventricular tachycardia) ICD Codes: I47.1 - Supraventricular tachycardia SNOMED: 7609567 (3) Acute renal failure (ARF) ICD Codes: N17.9 - Acute kidney failure, unspecified SNOMED: 16531453 (4) Diabetes type 2, controlled ICD Codes: E11.9 - Type 2 diabetes mellitus without complications SNOMED: 36247557, 701868348 (5) Toxic metabolic encephalopathy ICD Codes: G92 - Toxic encephalopathy SNOMED: 513411343 (6) Septic shock ICD Codes: A41.9 - Sepsis, unspecified organism; R65.21 - Severe sepsis with septic shock SNOMED: 50512340 Status: stable, progressing Assessment/Plan: dc ivf monitor lytes iv abx per ID follow up cultures GI eval appreciated. Consider stelara as outpt cdiff neg dvt/stress ulcer prophylaxis monitor HR monitor BS skin care turn q2 improving dc planning if ok with all. Carlos Hunt MD Dec 14, 2019 06:46
[2019-12-14] MEDS ORDERED: PROTONIX20 MG ORAL (06:49)
[2019-12-14] MEDS ORDERED: MEROPENEM500 MG IV (06:49)
[2019-12-14 07:09] LABS: PHOSPHORUS 2.4 MG/DL (2.5-4.9)
--- NOTE | 2019-12-14 07:13 | NUR ---
NURSE HAND-OFF: Important Events on Shift:WNL Patient Status: Diet: CCHO Med Pending Orders: Pending Results/Labs: Pending MD notification: Latest Vital Signs: Temperature 98.2 , Pulse 83 , B/P 152 /82 , Respiratory Rate 20 , O2 SAT 99 , Room Air, O2 Flow Rate 2.0 . Vital Sign Comment: WNL Latest Miranda Fall Score: 50 Fall Risk: High Risk Safety Measures: Call light , Bed Alarm Zone 2, Side Rails Side Rails x2, Bed position Low and Locked. Fall Precautions: Yellow Socks Yellow Gown Door Sign Patient Fall Education Report given to Subha Rodriguez.
[2019-12-14 08:00] VITALS: BP 112/71
--- NOTE | 2019-12-14 08:02 | NUR ---
NURSE NOTES: Received report from Tim BOB. Patient is asleep during rounds, in no apparent distress, RR even and unlabored. Bilat soft wrist restrains in place as ordered, condom cath in place. Right IJ dressing intact, clean. On pressure relief mattress. Fall precautions maintained. Side rails upx3, bed low and locked, call light within reach. Will continue plan of care.
[2019-12-14] MEDS: Metoprolol Tartrate 12.5mg TAB ORAL SCH ×2 (09:44→22:20)
[2019-12-14] MEDS: Pantoprazole Inj IVP SCH (09:44)
[2019-12-14] MEDS: Heparin 5000 units/ml inj SUBQ SCH ×2 (09:45→22:31)
--- NOTE | 2019-12-14 11:20 | Infectious Diseases Prog Note ---
Assessment/Plan Assessment/Plan antibiotics : meropenem A 1. e.coli esbl UTI 2. diabetes mellitus 3. hypertension 4. dementia 5. leucocytosis resolved 6. renal failure improving P 1. continue meropenem 3 more days 2. will follow up cultures Subjective ROS Limited/Unobtainable: Yes Allergies: Coded Allergies: NO KNOWN ALLERGIES (Verified Allergy, Unknown, 09/07/18) Objective Last 24 Hour Vital Signs Date Time Temp Pulse Resp B/P (MAP) Pulse Ox O2 Delivery O2 Flow Rate FiO2 12/14/19 09:44 68 112/71 12/14/19 09:00 Room Air 12/14/19 08:00 97.2 68 18 112/71 (85) 98 12/14/19 04:00 98.2 83 20 152/82 (105) 99 12/14/19 00:00 97.7 67 18 133/71 (91) 100 12/13/19 21:00 Room Air 12/13/19 20:28 77 129/76 12/13/19 20:00 98.5 77 20 129/76 (93) 94 12/13/19 19:06 98 Room Air 21 12/13/19 16:00 97.8 88 20 128/71 (90) 99 12/13/19 12:00 97.7 85 20 130/69 (89) 99 Height (Feet): 5 Height (Inches): 6.00 Weight (Pounds): 114 Respiratory/Chest: lungs clear Cardiovascular: normal rate, regular rhythm, no gallop/murmur Abdomen: soft, non tender Extremities: no edema, other - right IJ catheter Microbiology Date/Time Source Procedure Growth Status 12/12/19 12:20 Stool Clostridium difficile Toxin Assay - Final Complete Laboratory Tests Test 12/13/19 11:50 12/13/19 16:55 12/13/19 17:15 12/14/19 06:00 POC Whole Blood Glucose 200 MG/DL (74-106) H 234 MG/DL (74-106) H 126 MG/DL (74-106) H Sodium Level 144 MMOL/L (136-145) Potassium Level 3.6 MMOL/L (3.5-5.1) Chloride Level 113 MMOL/L (98-107) H Carbon Dioxide Level 26 MMOL/L (21-32) Anion Gap 5 mmol/L (5-15) Blood Urea Nitrogen 5 mg/dL (7-18) L Creatinine 1.2 MG/DL (0.55-1.30) Estimat Glomerular Filtration Rate 57.8 mL/min (>60) Glucose Level 224 MG/DL (74-106) #H Calcium Level 6.8 MG/DL (8.5-10.1) L Test 12/14/19 06:05 Sodium Level 142 MMOL/L (136-145) Potassium Level 3.9 MMOL/L (3.5-5.1) Chloride Level 111 MMOL/L (98-107) H Carbon Dioxide Level 28 MMOL/L (21-32) Anion Gap 4 mmol/L (5-15) L Blood Urea Nitrogen 5 mg/dL (7-18) L Creatinine 1.2 MG/DL (0.55-1.30) Estimat Glomerular Filtration Rate 57.8 mL/min (>60) Glucose Level 149 MG/DL (74-106) H Calcium Level 7.2 MG/DL (8.5-10.1) L Phosphorus Level 2.4 MG/DL (2.5-4.9) L Magnesium Level 2.2 MG/DL (1.8-2.4) Current Medications Medications (Trade) Dose Ordered Sig/Adelaida Route PRN Reason Start Time Stop Time Status Last Admin Dose Admin Chlorhexidine Gluconate (Delicia-Hex 2%) 1 applic DAILY@2000 TOPIC 12/08/19 20:00 03/07/20 19:59 12/13/19 20:25 Dextrose (Dextrose 50%) 25 ml Q30M PRN IV Hypoglycemia 12/07/19 23:30 03/06/20 23:29 Dextrose (Dextrose 50%) 50 ml Q30M PRN IV Hypoglycemia 12/07/19 23:30 03/06/20 23:29 Heparin Sodium (Porcine) (Heparin 5000 units/ml) 5,000 units EVERY 12 HOURS SUBQ 12/08/19 09:00 01/22/20 08:59 12/14/19 09:45 Insulin Aspart (NovoLOG) BEFORE MEALS AND HS SUBQ 12/08/19 06:30 03/07/20 06:29 12/13/19 20:27 Meropenem 500 mg/ Sodium Chloride 55 ml @ 110 mls/hr Q12H IVPB 12/11/19 13:00 12/16/19 12:59 12/14/19 00:20 Metoprolol Tartrate (Lopressor) 12.5 mg Q12HR ORAL 12/10/19 23:00 03/09/20 22:59 12/14/19 09:44 Pantoprazole (Protonix) 40 mg DAILY IVP 12/08/19 09:00 01/07/20 08:59 12/14/19 09:44 Aftab Candelario MD Dec 14, 2019 11:20
--- NOTE | 2019-12-14 11:21 | NUR ---
DISCHARGE PLANNING PATIENT IS FROM SNF AND REQUIRES A CURRENT COVID TEST ~ ORDERED NEED ID CLEARANCE FOR DISCHARGE
[2019-12-14 12:00] VITALS: BP 144/77
--- NOTE | 2019-12-14 12:15 | NUR ---
*-*DISCHARGE PLANNING*-* PATIENT HAS BEEN REFERRED TO: [facility] P: [phone] S/W SENG, WILL CALL BACK AFTER REVIEW.
--- NOTE | 2019-12-14 12:57 | NUR ---
RD ASSESSMENT & RECOMMENDATIONS SEE CARE ACTIVITY FOR COMPLETE ASSESSMENT DAILY ESTIMATED NEEDS: Needs based on underweight 52kg 30-35 kcals/kg 1262-6339 total kcals 1.25-2 g protein/kg 65-104 g total protein 25-30 mL/kg 0157-9952 total fluid mLs NUTRITION DIAGNOSIS: Altered GI function r/t Crohns disease as evidenced by pt w/ Crohns disease adm w. 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
--- NOTE | 2019-12-14 13:02 | NUR ---
CASE MANAGEMENT:REVIEW 12/14/19 SI: SEPTIC SHOCK. IBD. ACUTE RENAL FAILURE. 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
--- NOTE | 2019-12-14 14:20 | Nephrology Progress Note ---
Assessment/Plan Problem List: (1) Septic shock (2) Acute renal failure (ARF) (3) Diabetes type 2, controlled (4) Hypomagnesemia (5) Hypophosphatemia (6) Gastroenteritis (7) Crohn's colitis (8) Hypernatremia (9) Proteinuria Plan replace phos , mg, better await c diff, esbl uti seen by ID, try dc abbott 12/11, proteinuria and very low alb may be from crohn's, low K and high Na better Subjective ROS Limited/Unobtainable: Yes Objective Objective Last 24 Hour Vital Signs Date Time Temp Pulse Resp B/P (MAP) Pulse Ox O2 Delivery O2 Flow Rate FiO2 12/14/19 12:00 97.4 83 18 144/77 (99) 99 12/14/19 09:44 68 112/71 12/14/19 09:00 Room Air 12/14/19 08:00 97.2 68 18 112/71 (85) 98 12/14/19 04:00 98.2 83 20 152/82 (105) 99 12/14/19 00:00 97.7 67 18 133/71 (91) 100 12/13/19 21:00 Room Air 12/13/19 20:28 77 129/76 12/13/19 20:00 98.5 77 20 129/76 (93) 94 12/13/19 19:06 98 Room Air 21 12/13/19 16:00 97.8 88 20 128/71 (90) 99 Intake and Output 12/13/19 12/14/19 19:00 07:00 Intake Total 1240 ml 1255 ml Output Total 473 ml 884 ml Balance 767 ml 371 ml Intake Oral 240 ml 100 ml IV Total 1000 ml 1155 ml Output Urine Total 400 ml 750 ml Post Void Residual 73 ml 134 ml Bladder Scan Volume Amount 51-75 ml 101-150 ml # Voids 2 2 # Bowel Movements 3 1 Laboratory Tests 12/13/19 16:55: POC Whole Blood Glucose 234H 12/13/19 17:15: Sodium Level 144, Potassium Level 3.6, Chloride Level 113H, Carbon Dioxide Level 26, Anion Gap 5, Blood Urea Nitrogen 5L, Creatinine 1.2, Estimat Glomerular Filtration Rate 57.8, Glucose Level 224#H, Calcium Level 6.8L 12/14/19 06:00: POC Whole Blood Glucose 126H 12/14/19 06:05: Sodium Level 142, Potassium Level 3.9, Chloride Level 111H, Carbon Dioxide Level 28, Anion Gap 4L, Blood Urea Nitrogen 5L, Creatinine 1.2, Estimat Glomerular Filtration Rate 57.8, Glucose Level 149H, Calcium Level 7.2L, Phosphorus Level 2.4L, Magnesium Level 2.2 12/14/19 11:58: POC Whole Blood Glucose 111H Height (Feet): 5 Height (Inches): 6.00 Weight (Pounds): 114 General Appearance: no apparent distress, confused EENT: normal ENT inspection Neck: normal alignment Cardiovascular: regular rhythm Respiratory/Chest: normal breath sounds Abdomen: non tender Extremities: trace edema Neurologic: motor weakness Jose A Martinez MD Dec 14, 2019 14:20
--- NOTE | 2019-12-14 15:11 | NUR ---
NURSE NOTES: Spoke with Dr. Candelario. Per MD, patient is cleared for discharge back to SNF from ID standpoint, patient to continue IV antibiotics on d/c.
[2019-12-14] MEDS ORDERED: Tubing IV Secondary IV ONE (15:34)
--- NOTE | 2019-12-14 15:34 | NUR ---
DISCHARGE PLANNING DISCHARGE PLAN DISCUSSED WITH DR RODRIGUEZ. HE IS AWARE THAT DR CARRILLO GAVE CLEARANCE FOR DISCHARGE. MADE DR RODRIGUEZ AWARE OF IJ LINE AND THE FACT THE [facility]UST[facility] CANNOT ACCEPT WITH IJ. ORDER RECEIVED FROM DR RODRIGUEZ AND ENTERED
[2019-12-14 16:00] VITALS: BP 148/82
[2019-12-14] MEDS ORDERED: Potassium Phosphate 20 MM in NS 275 ML IV ONE (16:00)
--- NOTE | 2019-12-14 16:28 | NUR ---
NURSE NOTES: Right upper arm 22g peripheral IV line started per order.
--- NOTE | 2019-12-14 18:42 | General Progress Note ---
Subjective Allergies: Coded Allergies: NO KNOWN ALLERGIES (Verified Allergy, Unknown, 09/07/18) Subjective Above noted awake calm stools C Diff (-) Objective Last 24 Hour Vital Signs Date Time Temp Pulse Resp B/P (MAP) Pulse Ox O2 Delivery O2 Flow Rate FiO2 12/14/19 16:00 97.7 83 18 148/82 (104) 95 12/14/19 12:00 97.4 83 18 144/77 (99) 99 12/14/19 09:44 68 112/71 12/14/19 09:00 Room Air 12/14/19 08:00 97.2 68 18 112/71 (85) 98 12/14/19 04:00 98.2 83 20 152/82 (105) 99 12/14/19 00:00 97.7 67 18 133/71 (91) 100 12/13/19 21:00 Room Air 12/13/19 20:28 77 129/76 12/13/19 20:00 98.5 77 20 129/76 (93) 94 12/13/19 19:06 98 Room Air 21 Intake and Output 12/13/19 12/14/19 19:00 07:00 Intake Total 1240 ml 1255 ml Output Total 473 ml 884 ml Balance 767 ml 371 ml Intake Oral 240 ml 100 ml IV Total 1000 ml 1155 ml Output Urine Total 400 ml 750 ml Post Void Residual 73 ml 134 ml Bladder Scan Volume Amount 51-75 ml 101-150 ml # Voids 2 2 # Bowel Movements 3 1 Laboratory Tests 12/14/19 06:00: POC Whole Blood Glucose 126H 12/14/19 06:05: Sodium Level 142, Potassium Level 3.9, Chloride Level 111H, Carbon Dioxide Level 28, Anion Gap 4L, Blood Urea Nitrogen 5L, Creatinine 1.2, Estimat Glomerular Filtration Rate 57.8, Glucose Level 149H, Calcium Level 7.2L, Phosphorus Level 2.4L, Magnesium Level 2.2 12/14/19 11:58: POC Whole Blood Glucose 111H 12/14/19 16:30: POC Whole Blood Glucose 118H Height (Feet): 5 Height (Inches): 6.00 Weight (Pounds): 114 Objective WDWN NCAT supple CTA RR abd soft NT ND no edema Assessment/Plan Status: stable, progressing Assessment/Plan: Assessment - Crohn's colitis - recurrent sepsis while on Humira - diarrhea - C Diff (-) - OBS Recommendations - Abx - Hold Humira - Follow labs and exam - may need to switch biologic --> will try to get Stelara approved as outpt Ayaan Khan MD Dec 14, 2019 18:42
--- NOTE | 2019-12-14 19:25 | NUR ---
NURSE HAND-OFF: Important Events on Shift: D/c planning, peripheral line placed. Patient Status: stable Diet: CCHO Pending Orders: IJ removal, endorsed to Mercedes BOB Pending Results/Labs:N/A Pending MD notification:N/A Latest Vital Signs: Temperature 97.7 , Pulse 83 , B/P 148 /82 , Respiratory Rate 18 , O2 SAT 95 , Room Air, O2 Flow Rate 2.0 . Vital Sign Comment: VS stable Latest Miranda Fall Score: 50 Fall Risk: High Risk Safety Measures: Call light , Bed Alarm Zone 2, Side Rails Side Rails x3, Bed position Low and Locked. Fall Precautions: Yellow Socks Door Sign Patient Fall Education Report given to Mercedes BOB.
--- NOTE | 2019-12-14 19:30 | NUR ---
NURSE NOTES: Patient in bed, awake and confused. Bilateral soft wrist restraints in progress. On room air with no signs of distress or SOB. IV intact and patent. Right IJ noted. Bed locked and in lowest position. Call light in reach. Bed alarm on. Will continue plan of care.
[2019-12-14 20:00] VITALS: BP 143/83
[2019-12-14] MEDS: Dyna-Hex 2% Top Sol 2oz TOPIC SCH (22:23)
[2019-12-15] VITALS: BP 139/74
[2019-12-15] MEDS: Meropenem 500 MG in NS 55 ML IVPB SCH ×2 (01:11→12:04)
[2019-12-15 04:00] VITALS: BP 148/77
[2019-12-15 06:07] LABS: ANION GAP 4 mmol/L (5-15); BLOOD UREA NITROGEN 4 mg/dL (7-18); CALCIUM 7.2 MG/DL (8.5-10.1); CARBON DIOXIDE 27 MMOL/L (21-32); CHLORIDE 115 MMOL/L (98-107); CREATININE 1.1 MG/DL (0.55-1.30); POTASSIUM 3.6 MMOL/L (3.5-5.1); SODIUM 146 MMOL/L (136-145)
--- NOTE | 2019-12-15 06:15 | NUR ---
NURSE NOTES: Right internal jugular central line removed per MD orders. Pressure held for 5 minutes. No bleeding; dressing clean, dry and intact. director card aware. Will send cath tip for culture per protocol.
[2019-12-15] MEDS: NovoLOG Insulin Flexpen SUBQ SCH ×2 (06:24→12:11)
--- NOTE | 2019-12-15 07:06 | NUR ---
NURSE HAND-OFF: Important Events on Shift: Right IJ central line removed Patient Status: Stable Diet: CCHO Pending Orders: N/A Pending Results/Labs: Phos, BMP Pending MD notification: N/A Latest Vital Signs: Temperature 97.5 , Pulse 79 , B/P 148 /77 , Respiratory Rate 18 , O2 SAT 100 , Room Air, O2 Flow Rate 2.0 . Vital Sign Comment: N/A Latest Miranda Fall Score: 50 Fall Risk: High Risk Safety Measures: Call light , Bed Alarm Zone 2, Side Rails Side Rails x3, Bed position Low and Locked. Fall Precautions: Yellow Socks Door Sign Patient Fall Education Report given to LISBETH Robbins.
--- NOTE | 2019-12-15 07:48 | General Progress Note ---
Subjective ROS Limited/Unobtainable: Yes Constitutional: Reports: malaise, weakness HEENT: Reports: no symptoms Cardiovascular: Reports: no symptoms Respiratory: Reports: no symptoms Gastrointestinal/Abdominal: Reports: diarrhea Genitourinary: Reports: no symptoms Neurologic/Psychiatric: Reports: pre-existing deficit Endocrine: Reports: no symptoms Hematologic/Lymphatic: Reports: no symptoms Allergies: Coded Allergies: NO KNOWN ALLERGIES (Verified Allergy, Unknown, 09/07/18) All Systems: reviewed and negative except above Subjective no events. d/w staff. intermittent diarrhea, no fevers. currently resting. no distress, remains on iv meropenem IJ removed Objective Last 24 Hour Vital Signs Date Time Temp Pulse Resp B/P (MAP) Pulse Ox O2 Delivery O2 Flow Rate FiO2 12/15/19 04:00 97.5 79 18 148/77 (100) 100 12/15/19 00:00 98.1 79 18 139/74 (95) 99 12/14/19 22:20 92 143/83 12/14/19 20:38 Room Air 12/14/19 20:00 97.7 92 18 143/83 (103) 98 12/14/19 16:00 97.7 83 18 148/82 (104) 95 12/14/19 12:00 97.4 83 18 144/77 (99) 99 12/14/19 09:44 68 112/71 12/14/19 09:00 Room Air 12/14/19 08:00 97.2 68 18 112/71 (85) 98 Intake and Output 12/14/19 12/15/19 19:00 07:00 Intake Total 775 ml Output Total 78 ml Balance 775 ml -78 ml Intake Oral 720 ml IV Total 55 ml Post Void Residual 78 ml Bladder Scan Volume Amount 283 mL 76-100 ml # Voids 3 5 # Bowel Movements 2 2 Laboratory Tests 12/14/19 11:58: POC Whole Blood Glucose 111H 12/14/19 16:30: POC Whole Blood Glucose 118H 12/15/19 05:30: Sodium Level 146H, Potassium Level 3.6, Chloride Level 115H, Carbon Dioxide Level 27, Anion Gap 4L, Blood Urea Nitrogen 4L, Creatinine 1.1, Estimat Glomerular Filtration Rate > 60, Glucose Level 106, Calcium Level 7.2L, Phosphorus Level 3.0 Height (Feet): 5 Height (Inches): 6.00 Weight (Pounds): 114 Objective General Appearance: WD/WN, alert, confused EENT: normal ENT inspection Neck: supple Cardiovascular: normal rate Respiratory/Chest: chest wall non-tender, lungs clear, normal breath sounds Abdomen: normal bowel sounds, non tender, soft, no organomegaly Edema: no edema noted Arm (L), no edema noted Arm (R) Neurologic: procurement manager II-XII 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, alert, responsive, disoriented Lymphatic: normal anterior cervical (L), normal anterior cervical (R) Assessment/Plan Problem List: (1) IBD (inflammatory bowel disease) ICD Codes: K52.9 - Noninfective gastroenteritis and colitis, unspecified SNOMED: 35080398 (2) SVT (supraventricular tachycardia) ICD Codes: I47.1 - Supraventricular tachycardia SNOMED: 9129768 (3) Acute renal failure (ARF) ICD Codes: N17.9 - Acute kidney failure, unspecified SNOMED: 15815203 (4) Diabetes type 2, controlled ICD Codes: E11.9 - Type 2 diabetes mellitus without complications SNOMED: 38992298, 693560892 (5) Toxic metabolic encephalopathy ICD Codes: G92 - Toxic encephalopathy SNOMED: 910313159 (6) Septic shock ICD Codes: A41.9 - Sepsis, unspecified organism; R65.21 - Severe sepsis with septic shock SNOMED: 16750157 Status: stable, progressing Assessment/Plan: dc ivf monitor lytes iv abx per ID follow up cultures GI eval appreciated. Consider stelara as outpt cdiff neg dvt/stress ulcer prophylaxis monitor HR monitor BS skin care turn q2 improving dc planning if ok with all. Carlos Hunt MD Dec 15, 2019 07:48
[2019-12-15 08:00] VITALS: BP 139/78
[2019-12-15] MEDS: Pantoprazole Inj IVP SCH (08:37)
[2019-12-15] MEDS: Heparin 5000 units/ml inj SUBQ SCH (08:43)
[2019-12-15] MEDS: Metoprolol Tartrate 12.5mg TAB ORAL SCH (08:44)
--- NOTE | 2019-12-15 09:05 | General Progress Note ---
Subjective ROS Limited/Unobtainable: No Allergies: Coded Allergies: NO KNOWN ALLERGIES (Verified Allergy, Unknown, 09/07/18) Objective Last 24 Hour Vital Signs Date Time Temp Pulse Resp B/P (MAP) Pulse Ox O2 Delivery O2 Flow Rate FiO2 12/15/19 08:44 93 139/78 12/15/19 08:00 97.5 93 19 139/78 (98) 91 12/15/19 04:00 97.5 79 18 148/77 (100) 100 12/15/19 00:00 98.1 79 18 139/74 (95) 99 12/14/19 22:20 92 143/83 12/14/19 20:38 Room Air 12/14/19 20:00 97.7 92 18 143/83 (103) 98 12/14/19 16:00 97.7 83 18 148/82 (104) 95 12/14/19 12:00 97.4 83 18 144/77 (99) 99 12/14/19 09:44 68 112/71 Intake and Output 12/14/19 12/15/19 19:00 07:00 Intake Total 775 ml Output Total 78 ml Balance 775 ml -78 ml Intake Oral 720 ml IV Total 55 ml Post Void Residual 78 ml Bladder Scan Volume Amount 283 mL 76-100 ml # Voids 3 5 # Bowel Movements 2 2 Laboratory Tests 12/14/19 11:58: POC Whole Blood Glucose 111H 12/14/19 16:30: POC Whole Blood Glucose 118H 12/15/19 05:30: Sodium Level 146H, Potassium Level 3.6, Chloride Level 115H, Carbon Dioxide Level 27, Anion Gap 4L, Blood Urea Nitrogen 4L, Creatinine 1.1, Estimat Glomerular Filtration Rate > 60, Glucose Level 106, Calcium Level 7.2L, Phosphorus Level 3.0 Height (Feet): 5 Height (Inches): 6.00 Weight (Pounds): 114 General Appearance: alert EENT: normal ENT inspection Neck: supple Cardiovascular: normal rate Respiratory/Chest: decreased breath sounds Abdomen: hypoactive bowel sounds Extremities: non-tender Assessment/Plan Status: stable, progressing Assessment/Plan: Status: stable, progressing Assessment/Plan: Assessment - Crohn's colitis - recurrent sepsis while on Humira - diarrhea - C Diff (-) - OBS Recommendations - Abx - Hold Humira - Follow labs and exam - may need to switch biologic --> will try to get Rebeccara approved as outpt Simeon Baez MD Dec 15, 2019 09:05
--- NOTE | 2019-12-15 09:21 | NUR ---
NURSE NOTES: PT SLEEPING IN BED. UNABLE TO BE AROUSED TO EAT BREAKFAST. RN UNABLE TO ADMINISTER SCHEDULED 0900 PO MEDICATIONS. VITALS STABLE. NO PAIN NOTED USING FLACC PAIN SCALE. IN NO APPARENT DISTRESS AT THIS TIME. PT IN SEMI-EGAN'S POSITION WITH HOB ELEVATED. BED IN LOWEST POSITION WITH BEDSIDE RAILS X3 RAISED. BED ALARM ON. WILL CONTINUE TO MONITOR.
--- NOTE | 2019-12-15 09:47 | Nephrology Progress Note ---
Assessment/Plan Problem List: (1) Septic shock (2) Acute renal failure (ARF) (3) Diabetes type 2, controlled (4) Hypomagnesemia (5) Hypophosphatemia (6) Gastroenteritis (7) Crohn's colitis (8) Hypernatremia (9) Proteinuria Plan replace phos , mg, better esbl uti seen by ID, try dc abbott 12/11, proteinuria and very low alb may be from crohn's, low K and high Na better, voiding better residual 49 ml, intake fair at risk for recurrent dehydration Subjective ROS Limited/Unobtainable: Yes Objective Objective Last 24 Hour Vital Signs Date Time Temp Pulse Resp B/P (MAP) Pulse Ox O2 Delivery O2 Flow Rate FiO2 12/15/19 09:00 Room Air 12/15/19 08:44 93 139/78 12/15/19 08:00 97.5 93 19 139/78 (98) 91 12/15/19 04:00 97.5 79 18 148/77 (100) 100 12/15/19 00:00 98.1 79 18 139/74 (95) 99 12/14/19 22:20 92 143/83 12/14/19 20:38 Room Air 12/14/19 20:00 97.7 92 18 143/83 (103) 98 12/14/19 16:00 97.7 83 18 148/82 (104) 95 12/14/19 12:00 97.4 83 18 144/77 (99) 99 Intake and Output 12/14/19 12/15/19 19:00 07:00 Intake Total 775 ml Output Total 78 ml Balance 775 ml -78 ml Intake Oral 720 ml IV Total 55 ml Post Void Residual 78 ml Bladder Scan Volume Amount 283 mL 76-100 ml # Voids 3 5 # Bowel Movements 2 2 Laboratory Tests 12/14/19 11:58: POC Whole Blood Glucose 111H 12/14/19 16:30: POC Whole Blood Glucose 118H 12/15/19 05:30: Sodium Level 146H, Potassium Level 3.6, Chloride Level 115H, Carbon Dioxide Level 27, Anion Gap 4L, Blood Urea Nitrogen 4L, Creatinine 1.1, Estimat Glomerular Filtration Rate > 60, Glucose Level 106, Calcium Level 7.2L, Phosphorus Level 3.0 Height (Feet): 5 Height (Inches): 6.00 Weight (Pounds): 114 General Appearance: lethargic, confused EENT: normal ENT inspection Neck: normal alignment Cardiovascular: normal rate Respiratory/Chest: lungs clear Abdomen: soft Extremities: trace edema Neurologic: motor weakness Jose A Martinez MD Dec 15, 2019 09:47
--- NOTE | 2019-12-15 10:15 | NUR ---
*-*DISCHARGE PLANNED*-* PATIENT HAS BEEN ACCEPTED AND WILL BE DISCHARGE BACK TO: [facility] P: [phone] MARC FOR NURSE TO NURSE REPORT ROOM# 28.[facility] TRANSPORTATION SET FOR 12:45PM S/W IRMA [id number]. S/W PATIENTS DAUGHTER KIRK BALBUENA, WHO IS IN AGREEMENT WITH DISCHARGE PLAN.
--- NOTE | 2019-12-15 11:40 | NUR ---
NURSE NOTES: ORDER FOR DISCHARGE RECEIVED FROM DR RODRIGUEZ. RN GAVE REPORT TO LISBETH TRAN PRECISION INSPECTOR AT [facility]. MARC MADE AWARE PT TO CONTINUE IV MERREM 500MG Q12HR X 4 DAYS. RN TO GIVE TODAY'S FIRST DOSE BEFORE PT LEAVES. [facility] ETA 1245HRS. DAUGHTER BARBARA AT BEDSIDE AND MADE AWARE.
[2019-12-15 12:00] VITALS: BP 132/80
--- NOTE | 2019-12-15 13:42 | NUR ---
NURSE NOTES: IV MERREM 500MG COMPLETED FOR SCHEDULED 1300HR ADMINISTRATION. IV ACCESS DISCONTINUED. SACRAL AND BILATERAL HEEL WOUND DRESSING CHANGED AND PICTURES UPLOADED PER POLICY. AMBULANCE PERSONNEL AT BEDSIDE.
--- NOTE | 2019-12-15 13:59 | NUR ---
NURSE NOTES: PT WAS DISCHARGED IN STABLE CONDITION.
--- NOTE | 2019-12-17 14:00 | Discharge Summary ---
Discharge Summary Discharge Summary _ DATE OF ADMISSION: [] 12/07/2019 DATE OF DISCHARGE: [] 12/15/2019 DISCHARGED BY: Dr. Hunt REASON FOR ADMISSION: 84 years old male, resident of intermediate facility, with past medical history of hypertension, diabetes mellitus, congestive heart failure, myocardial infarction, Parkinson disease, dementia, was sent for evaluation due to altered mental status. Patient was recently hospitalized at [facility] for UTI. At the nursing facility he was noted to have increased work of breathing along with decreased mental status. Per seamless tube mill operator patient was hypotensive and hypoxic, patient started on supplemental oxygen. Taker Down also reported fever . patient also noted to have multiple episodes of watery diarrhea with recent antibiotic use in the hospital. Upon evaluation patient was tachycardic with heart rate 148, tachypneic with respiratory rate 28, hypotensive with blood pressure 82/46 and hypoxic , requiring 100% nonrebreather mask. Laboratory work-up revealed leukocytosis WBC 18.6 , stable hemoglobin, hematocrit and platelet count. Lactic acid 2.0 BUN 53, creatinine 4.3. Sodium 149. Glucose 259. Stable LFT. Troponin 0.013, pro BNP 197 . EKG revealed sinus tachycardia, no acute ischemic changes Albumin 2.0 CT scan of the head revealed no acute intracranial pathology. Small vessel ischemic changes and cerebral volume loss noted. Chest x-ray revealed no acute cardiopulmonary pathology. CT scan of the abdomen and pelvis demonstrated bilateral mild dependent atelectasis. Fluid in the colon suggestive of diarrheal state. Prominence of the wall of the colon and rectum , may represent colitis or proctitis. Mildly prominent fluid and gas-filled small bowel loops , could represent enteritis. Wall thickening of the duodenum was concerning for duodenitis. In emergency department central line was placed for pressors. Septic work-up initiated : patient received fluids , pancultured, started on empiric antibiotic and initially admitted to ICU for further management. CONSULTANTS: dipper and drier ID specialist Dr. Candelario GI specialist Dr. Khan salt cutter Dr. Martinez HOSPITAL COURSE: Patient admitted to ICU. Patient was initially on Levophed, titrated to keep mean arterial blood pressure above 65. Patient was also on IV hydration and empiric antibiotic. Supplemental oxygen provided and titrated to keep pulse oximetry above 92%. Pulmonary toilet provided. Blood culture were negative. Urine culture revealed E. coli ESBL. Influenza screen test was negative. Stool for C. difficile was negative. Repeated rapid COVID-19 test was negative as well. Patient was able eventually to be weaned from the pressors. Hemodynamic status was closely monitored . SNF medication resumed. Patient started on low-dose of beta-jose . Blood pressure remained stable. DVT and GI prophylaxis provided. Blood sugar was managed with a sliding scale of insulin. Leukocytosis resolved, no fevers. ID specialist recommended to complete a course of antibiotics at the facility. Renal parameters and electrolytes were closely monitored, electrolytes correct ed as needed. Patient was hydrated with close monitoring of volumes. Electrolytes corrected as needed. BUN from 53 down to 4 and creatinine from 4.3 down to 1.1. Sodium 146. Patient with a history of Crohn's disease. Patient was on Humira and apparently had recurrent sepsis while on Humira. GI specialist recommended hold Humira at this time and switch to another biologic agent. He advised to try to get Stelara to be approved as outpatient. Pain management was addressed as needed. Supportive care provided. Patient clinically stabilized and was ready for discharge to the intermediate facility for continuation of care. FINAL DIAGNOSES: Septic shock Recurrent sepsis while on Humira Crohn colitis Toxic metabolic encephalopathy Acute renal failure-resolved E. coli ESBL UTI Electrolyte imbalance Diabetes mellitus History of hypertension Dementia DISCHARGE MEDICATIONS: See Medication Reconciliation list. DISCHARGE INSTRUCTIONS: Patient was discharged to the intermediate facility. Follow up with medical doctor at the facility. I have been assigned to dictate discharge summary for this account. I was not involved in the patient's management. Lottie Hartman NP Dec 17, 2019 14:00
== END 2019-12-15 13:46 | DRG 871 ==
LOC: EDBD 15:18 → EMR 16:13 → ICU 16:38 → EDBEDREQ 18:02 → 2E 12-09 13:11 → 4E 12-12 03:57
PROC: 05HM33Z Insertion of Infusion Device into Right Internal Jugular Vein, Percutaneous Approach (ICD-10-PCS; principal; 2019-12-07)
DX: A41.9 Sepsis, unspecified organism (principal); R65.21 Severe sepsis with septic shock; I50.33 Acute on chronic diastolic (congestive) heart failure; E43 Unspecified severe protein-calorie malnutrition; G92 Toxic encephalopathy; N39.0 Urinary tract infection, site not specified; K50.90 Crohn's disease, unspecified, without complications; Z16.12 Extended spectrum beta lactamase (ESBL) resistance; N17.9 Acute kidney failure, unspecified; I47.1 Supraventricular tachycardia; Z68.1 Body mass index [BMI] 19.9 or less, adult; I51.3 Intracardiac thrombosis, not elsewhere classified; E86.1 Hypovolemia; G20 Parkinson's disease; F02.80 Dementia in other diseases classified elsewhere, unspecified severity, without behavioral disturbance, psychotic disturbance, mood disturbance, and anxiety; B96.20 Unspecified Escherichia coli [E. coli] as the cause of diseases classified elsewhere; E87.8 Other disorders of electrolyte and fluid balance, not elsewhere classified; Z86.73 Personal history of transient ischemic attack (TIA), and cerebral infarction without residual deficits; N40.0 Benign prostatic hyperplasia without lower urinary tract symptoms; E78.5 Hyperlipidemia, unspecified; M19.90 Unspecified osteoarthritis, unspecified site; I25.2 Old myocardial infarction; E86.0 Dehydration; I11.0 Hypertensive heart disease with heart failure; Z79.4 Long term (current) use of insulin; K21.9 Gastro-esophageal reflux disease without esophagitis; E11.65 Type 2 diabetes mellitus with hyperglycemia; K52.9 Noninfective gastroenteritis and colitis, unspecified; E83.39 Other disorders of phosphorus metabolism; E83.42 Hypomagnesemia
CPT/HCPCS: 36415; 70450; 71045; 74176; 80048; 80053; 80202; 81003; 82044; 82270; 82550; 82553; 82570; 82803; 82962; 83605; 83735; 83880; 84100; 84300; 84443; 84484; 85007; 85025; 86710; 87040; 87070; 87086; 87181; 87324; 93005; 96365; 96367; 99291; J1815; J7030; J8499; U0002

== ENCOUNTER 2020-01-09 11:42 | Inpatient (IN) | payer MEDICARE, MEDICAID ==
[~2020-01-09] VITALS: Ht 167.6 cm; Wt 48.1 kg
[2020-01-09 11:42] VITALS: BP 104/66
[~2020-01-09 11:42] MED LIST changes: +ACETAMINOPHEN325 M1 ORAL; +BISACODYL10 M1 RC; +CATAPRES0.1 MG ORAL; +COLACE100 MG ORAL; +FAMOTIDINE20 MG ORAL; +LOPERAMIDE2 M1 PO; +MEROPENEM500 MG IV; +METOPROLOL TART25 MG ORAL; +MILK OF MA2400 MG/10 ORAL; +NOVOLIN R100 UNIT/1 SUBQ; +PANTOPRAZOLE SO40 MG ORAL; +PRAVASTATIN SOD20 M1 ORAL; +PROTONIX20 MG ORAL; +SINEMET 25-1001 EAC1 ORAL
--- NOTE | 2020-01-09 11:48 | NUR ---
ED Nurse Note: Pt arrived with [facility] due to abnormal labs; BUN & Cr 2.0 from SNF. Left leg swelling noted. Pt knees appear chuyita. Pt has history demenits, nonverbal aox 1
--- NOTE | 2020-01-09 11:50 | NUR ---
ED Nurse Note: Pt penile area is appears red but intact. pt has noted bruising on arms. pt cool to touch.
[2020-01-09 12:49] LABS: HEMATOCRIT 50.4 % (42.0-52.0); HEMOGLOBIN 16.3 G/DL (14.2-18.0); MEAN CORPUSCULAR VOLUME 88 FL (80-99); PLATELET COUNT 397 K/UL (150-450); RED BLOOD COUNT 5.76 M/UL (4.70-6.10); RED CELL DISTRIBUTION WIDTH 14.5 % (11.6-14.8); WHITE BLOOD COUNT 20.9 K/UL (4.8-10.8)
--- NOTE | 2020-01-09 12:49 | NUR ---
ED Nurse Note: Pt began to desat at 74% room air. Pt placed on 15L NR. Called RT
[2020-01-09 12:53] LABS: INR 0.9 (0.9-1.1)
[2020-01-09 12:55] LABS: ANION GAP 18 mmol/L (5-15); BLOOD UREA NITROGEN 51 mg/dL (7-18); CALCIUM 9.1 MG/DL (8.5-10.1); CARBON DIOXIDE 17 MMOL/L (21-32); CHLORIDE 102 MMOL/L (98-107); CREATININE 3.6 MG/DL (0.55-1.30); POTASSIUM 4.3 MMOL/L (3.5-5.1); SODIUM 137 MMOL/L (136-145)
[2020-01-09] MEDS ORDERED: K-DUR20 MEQ ORAL (12:57)
[2020-01-09] MEDS ORDERED: FLUCONAZOLE100 MG ORAL (12:57)
[2020-01-09] MEDS ORDERED: PRO-STAT LIQUID30 ML ORAL (12:58)
[2020-01-09] MEDS ORDERED: MULTIVITAMINS1 EAC8 ORAL (12:59)
--- NOTE | 2020-01-09 13:01 | NUR ---
ED Nurse Note: Pt is at 88% NR 15L. RT at bedside doing ABG
[2020-01-09 13:08] VITALS: BP_SYST 68; BP_SYST 98; BP_DIAS 55; BP_DIAS 79
[2020-01-09 13:13] LABS: ALANINE AMINOTRANSFERASE 6 U/L (12-78); ALBUMIN 2.9 G/DL (3.4-5.0); ALBUMIN/GLOBULIN RATIO 0.4 (1.0-2.7); ALKALINE PHOSPHATASE 118 U/L (46-116); ASPARTATE AMINO TRANSFERASE 18 U/L (15-37); BILIRUBIN,TOTAL 0.3 MG/DL (0.2-1.0); FERRITIN 340 NG/ML (8-388); LACTATE DEHYDROGENASE 413 U/L (81-234)
[2020-01-09] MEDS ORDERED: [UNRECOGNIZED DRUG - OTHER] ORAL (13:31)
[2020-01-09] MEDS ORDERED: ACIDOPHILUS1 EAC7 PO (13:31)
[2020-01-09] MEDS ORDERED: NOVOLIN R100 UNIT/1 SUBQ (13:31)
[2020-01-09] MEDS ORDERED: FERROUS SU220 MG/53 PO (13:31)
--- NOTE | 2020-01-09 13:45 | NUR ---
ED Nurse Note: PT moved to private room
--- NOTE | 2020-01-09 13:52 | NUR ---
ED Nurse Note: Repeat lactic drawn and sent
[2020-01-09 14:18] VITALS: BP 93/57
--- NOTE | 2020-01-09 14:27 | NUR ---
ED Nurse Note: PT TOLERATING 15L NR WELL. SATURATING BETWEEN 97-100%
[2020-01-09 14:32] LABS: APPEARANCE,URINE CLOUDY; BILIRUBIN, URINE NEGATIVE (NEGATIVE); GLUCOSE, URINE (UA) 1+ (NEGATIVE); KETONES,URINE 1+ (NEGATIVE); LEUKOCYTE ESTERASE ,URINE 3+ (NEGATIVE); NITRITE,URINE NEGATIVE (NEGATIVE); PH,URINE 5 (4.5-8.0); PROTEIN,URINE 2+ (NEGATIVE); UROBILINOGEN,URINE NORMAL MG/DL (0.0-1.0)
[2020-01-09 14:36] LABS: COLOR,URINE BROWN
--- NOTE | 2020-01-09 15:18 | Emergency Room Report ---
History of Present Illness General Chief Complaint: Abnormal Labs Source: Medical Record Present Illness HPI 84-year-old male presents to ED for evaluation. Coming from residential facility. Referred here for BUN and creatinine elevated. Also was noted by nursing staff to be hypoxic at facility. Patient nonverbal at baseline. Unable to find any additional history. No signs of distress on arrival. No reported fevers or chills or cough. No other aggravating relieving factors. 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 - 01/07/20 COVID-19 Screening: Negative COVID-19 COVID-19 Testing Source: HEMATOLOGIST Patient History Past Medical History: DM, HTN, ND, CHF, dementia, other - crohns Pertinent Family History: none Social History: Denies: smoking, alcohol use, drug use Immunizations: UTD Reviewed Nursing Documentation: PMH: Agreed; PSxH: Agreed Nursing Documentation-PMH Past Medical History: No History, Except For Hx Cardiac Problems: Yes - chf, ND Hx Hypertension: Yes Hx Diabetes: Yes Hx Gastrointestinal Problems: Yes - Crohn's disease Hx Cerebrovascular Accident: Yes Hx Dementia: Yes Hx Parkinson's Disease: Yes Review of Systems All Other Systems: limited Physical Exam Vital Signs Date Time Temp Pulse Resp B/P (MAP) Pulse Ox O2 Delivery O2 Flow Rate FiO2 01/09/20 11:42 118 13 104/66 100 01/09/20 11:44 96.8 Room Air 01/09/20 13:08 15.0 Sp02 EP Interpretation: reviewed, normal General Appearance: no apparent distress, other - nonverbal Head: normocephalic, atraumatic Eyes: bilateral eye normal inspection, bilateral eye PERRL ENT: hearing 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, normal pharynx, no angioedema, normal voice Neck: full range of motion, supple/symm/no masses Respiratory: chest non-tender, lungs clear, normal breath sounds, speaking full sentences Cardiovascular #1: no edema, tachycardia Cardiovascular #2: 2+ carotid (R), 2+ carotid (L), 2+ radial (R), 2+ radial (L), 2+ dorsalis pedis (R), 2+ dorsalis pedis (L) Gastrointestinal: normal bowel sounds, non tender, soft, non-distended, no guarding, no rebound Rectal: deferred Genitourinary: normal inspection, no CVA tenderness Musculoskeletal: back normal Neurologic: other - Nonverbal Psychiatric: other - Nonverbal Reflexes: 3+ bicep (R), 3+ bicep (L), 3+ tricep (R), 3+ tricep (L), 3+ knee (R), 3+ knee (L) Skin: other - See nursing notes Lymphatic: no adenopathy Procedures Critical Care Time Critical Care Time i. I feel this is a highly complex case requiring extensive working including EKG/Rhythm strip, Xray/CT/US, Blood/urine lab work, repeat exams while in ED, and administration of strong opiates/narcotics for pain control, admission to hospital or close patient follow up. Total time: 45 min bedside evaluation and treatment excludes procedures (EKG). Reason for critical care: Renal failure, hypoxia Possible complications: hypotension, hypertension, ND, shock, arrhythmias, metabolic acidosis, end organ damage, respiratory failure. Interventions: Labs, EKG, chest x-ray, IV fluids, ABG, discussion with cardiology Course: Presenting for abnormal labs. Also noted to be hypoxic. Unable to get proper waveform on pulse ox. ABG shows no acidosis however bicarb very low not hypoxic. There is leukocytosis, BUN/creatinine elevated, lactic elevated, UA positive. IV hydration continued. Given broad-spectrum antibiotics Consultations: nursing staff, EMS, family Performed by: Dr Mancuso Tolerated well condition = serious j. because of unstable vital signs this patient had a condition that could potentially threaten life or limb. I feel this is a critical patient who required my full attention while patient was considered critical. Total Critical Care Time excluding procedures was greater than 45 minutes Medical Decision Making Diagnostic Impression: Primary Impression: Acute renal failure (ARF) Qualified Codes: N17.9 - Acute kidney failure, unspecified Additional Impressions: Sepsis Qualified Codes: A41.9 - Sepsis, unspecified organism UTI (urinary tract infection) Qualified Codes: N39.0 - Urinary tract infection, site not specified; R31.9 - Hematuria, unspecified ER Course Hospital Course 84-year-old male presents with abnormal BUN and creatinine and appears hypoxic Differential diagnoses include: Pneumonia, UTI, sepsis, dehydration, ND/unstable angina Clinical course Patient placed on stretcher. On court recording monitor with stable vitals are ED course. After initial history and physical, I ordered labs, IV fluids, EKG, chest x-ray, blood cultures, UA. Labs - BUN/Cr elevated, marked leukocytosis, troponins negative, UA grossly positive for UTI, lactic elevated EKG - sinus tachycardia no aucte ischemic changes interpreted by me CXR - no acute process ABG shows no hypoxia significant acidosis broad spectrum Abx given. IVFs given. Case discussed with Dr West and they agreed to admit patient to their service for further care and support I feel this is a highly complex case requiring extensive working including EKG/Rhythm strip, Xray/CT/US, Blood/urine lab work, repeat exams while in ED, and administration of strong opiates/narcotics for pain control, admission to hospital or close patient follow up. Diagnosis - ARF, sepsis, UTI Patient admitted to telemetry in serious condition Laboratory Tests Test 01/09/20 11:40 01/09/20 13:10 01/09/20 13:30 01/09/20 14:13 White Blood Count 20.9 K/UL (4.8-10.8) H Red Blood Count 5.76 M/UL (4.70-6.10) Hemoglobin 16.3 G/DL (14.2-18.0) Hematocrit 50.4 % (42.0-52.0) Mean Corpuscular Volume 88 FL (80-99) Mean Corpuscular Hemoglobin 28.3 PG (27.0-31.0) Mean Corpuscular Hemoglobin Concent 32.3 G/DL (32.0-36.0) Red Cell Distribution Width 14.5 % (11.6-14.8) Platelet Count 397 K/UL (150-450) Mean Platelet Volume 6.8 FL (6.5-10.1) Neutrophils (%) (Auto) % (45.0-75.0) Lymphocytes (%) (Auto) % (20.0-45.0) Monocytes (%) (Auto) % (1.0-10.0) Eosinophils (%) (Auto) % (0.0-3.0) Basophils (%) (Auto) % (0.0-2.0) Differential Total Cells Counted 100 Neutrophils % (Manual) 83 % (45-75) H Lymphocytes % (Manual) 10 % (20-45) L Monocytes % (Manual) 5 % (1-10) Eosinophils % (Manual) 0 % (0-3) Basophils % (Manual) 0 % (0-2) Band Neutrophils 2 % (0-8) Platelet Estimate Adequate Platelet Morphology Normal Red Blood Cell Morphology Normal Prothrombin Time 10.5 SEC (9.30-11.50) Prothromb Time International Ratio 0.9 (0.9-1.1) Activated Partial Thromboplast Time 27 SEC (23-33) D-Dimer 8.24 mg/L FEU (0.00-0.49) H Sodium Level 137 MMOL/L (136-145) Potassium Level 4.3 MMOL/L (3.5-5.1) Chloride Level 102 MMOL/L (98-107) Carbon Dioxide Level 17 MMOL/L (21-32) L Anion Gap 18 mmol/L (5-15) H Blood Urea Nitrogen 51 mg/dL (7-18) H Creatinine 3.6 MG/DL (0.55-1.30) H Estimat Glomerular Filtration Rate 16.3 mL/min (>60) Glucose Level 162 MG/DL (74-106) H Lactic Acid Level 5.90 mmol/L (0.4-2.0) H 3.80 mmol/L (0.66-2.22) H Calcium Level 9.1 MG/DL (8.5-10.1) Ferritin 340 NG/ML (8-388) Total Bilirubin 0.3 MG/DL (0.2-1.0) Aspartate Amino Transf (AST/SGOT) 18 U/L (15-37) Alanine Aminotransferase (ALT/SGPT) 6 U/L (12-78) L Alkaline Phosphatase 118 U/L (46-116) H Lactate Dehydrogenase 413 U/L (81-234) H Troponin I 0.009 ng/mL (0.000-0.056) C-Reactive Protein, Quantitative 2.5 mg/dL (0.00-0.90) H Pro-B-Type Natriuretic Peptide 1997 pg/mL (0-125) H Total Protein 10.0 G/DL (6.4-8.2) H Albumin 2.9 G/DL (3.4-5.0) L Globulin 7.1 g/dL Albumin/Globulin Ratio 0.4 (1.0-2.7) L Lipase > 2000 U/L (73-393) H Arterial Blood pH 7.390 (7.350-7.450) Arterial Blood Partial Pressure CO2 18.5 mmHg (35.0-45.0) *L Arterial Blood Partial Pressure O2 514.0 mmHg (75.0-100.0) H Arterial Blood HCO3 11.0 mmol/L (22.0-26.0) *L Arterial Blood Oxygen Saturation 99.4 % (95-100) Arterial Blood Base Excess -11.1 (-2-2) *L Jose Test Positive Urine Color Brown Urine Appearance Cloudy Urine pH 5 (4.5-8.0) Urine Specific [place] 1.020 (1.005-1.035) Urine Protein 2+ (NEGATIVE) H Urine Glucose (UA) 1+ (NEGATIVE) H Urine Ketones 1+ (NEGATIVE) H Urine Blood 5+ (NEGATIVE) H Urine Nitrite Negative (NEGATIVE) Urine Bilirubin Negative (NEGATIVE) Urine Urobilinogen Normal MG/DL (0.0-1.0) Urine Leukocyte Esterase 3+ (NEGATIVE) H Urine RBC 10-15 /HPF (0 - 0) H Urine WBC 60-80 /HPF (0 - 0) H Urine Squamous Epithelial Cells Occasional /LPF Urine Bacteria Few /HPF (NONE) EKG Diagnostic Results Troponin ordered: Yes Rate: tachycardiac Rhythm: NSR ST Segments: no acute changes ASA given to the pt in ED: No Rhythm Strip Diag. Results EP Interpretation: yes Rhythm: NSR, no PVC's, no ectopy Chest X-Ray Diagnostic Results Chest X-Ray Diagnostic Results : Chest X-Ray Ordered: Yes # of Views/Limited/Complete: 1 View Indication: Other EP Interpretation: Yes Interpretation: no consolidation, no effusion, no pneumothorax, no acute cardiopulmonary disease Impression: No acute disease Electronically Signed by: Electronically signed by Kashif Mancuso MD Last Vital Signs Date Time Temp Pulse Resp B/P (MAP) Pulse Ox O2 Delivery O2 Flow Rate FiO2 01/09/20 14:18 96.8 119 17 93/57 100 Non-Rebreather 15.0 Status: improved Disposition: ADMITTED INPATIENT Condition: Serious Referrals: Mitchell West MD (PCP) Kashif Mancuso MD Jan 09, 2020 15:18
[2020-01-09 15:19] VITALS: BP 116/63
--- NOTE | 2020-01-09 15:26 | NUR ---
ED Nurse Note: Pt appears comfortable, asleep in bed. pt tolerating medications. VSS.
[2020-01-09] MEDS ORDERED: Piperacillin/Tazobactam 3.375 GM in NS 110 ML IVPB ONE (15:30)
[2020-01-09 16:02] VITALS: BP 114/72
--- NOTE | 2020-01-09 16:38 | Diagnostic Imaging Report ---
Indication: Shortness of breath Technique: One view of the chest Comparison: And 04/05/2019 Findings: Lungs and pleural spaces are clear. Heart size is normal. No significant change Impression: No acute process
--- NOTE | 2020-01-09 17:28 | NUR ---
ED Nurse Note: Telephone report given to tunde rn and whit rn for continuity of care.
--- NOTE | 2020-01-09 17:30 | NUR ---
TRANSFER TO FLOOR: Patient transferred to TELE as ordered, per ERMD. Report given to LISBETH GOMEZ RN. Belongings GIVEN TO PT.
--- NOTE | 2020-01-09 17:31 | NUR ---
NURSE NOTES: Patient transferred from ED via gurney without incident, report received from Pauly/RN. Patient awake, unable to respond to questions, but arousable to name. On 15L nonrebreather mask, no acute distress/SOB at this time. Patient came with diaper on covered with stool all over. cleaned and put on hospital gown, residential monitor placed on patient, Sinus tachy on monitor. Skin assessment done, patient has sacral stage 2, bilateral lower buttock stage 2, bilateral heel DTI. picture taken and will upload. put patient on comfortable position. Bed in low position and locked, Call light within reach. Encouraged to use call light when needed. Will call MD for admission order.
--- NOTE | 2020-01-09 19:20 | NUR ---
NURSE HAND-OFF REPORT: Important Events on Shift:NA Patient Status: Lethargic Diet: Pending Orders: NA Pending Results/Labs:NA Pending MD notification:NA Latest Vital Signs: Temperature 97.2 , Pulse 117 , B/P 124 /63 , Respiratory Rate 19 , O2 SAT 100 , Non-Rebreather, O2 Flow Rate 15.0 . Vital Sign Comment: Stable but sinus tachy EKG Rhythm: Sinus Tachycardia Rhythm change?: MD Notified?: - MD Response: Latest Miranda Fall Score: 60 Fall Risk: High Risk Safety Measures: Call light Within Reach, Bed Alarm Zone 1, Side Rails Side Rails x3, Bed position Low and Locked. Fall Precautions: Yellow Socks Yellow Gown Door Sign Report given to LISBETH Colindres.
--- NOTE | 2020-01-09 19:30 | NUR ---
NURSE NOTES: RECEIVED REPORT FROM WILLIS/LISBETH SAWYER. PATIENT ASLEEP, OPENS EYES TO VERBAL AND TACTILE STIMULI ONLY. NO S/SX OF PAIN OR DISCOMFORT NOTED AT THIS TIME. BREATHING IS EVEN AND UNLABORED ON 15LPM VIA NRB, NO S/SX OF DISTRESS NOTED; RR20, SAO2 98% ON CURRENT SETTINGS. IV SITE RAC PATENT, INTACT, ASYMPTOMATIC, AND SALINE-LOCKED AT THIS TIME. FALL AND ASPIRATION PRECAUTIONS IN PLACE. BED LOCKED AND IN LOWEST POSITION, SIDERAILS UP X 3. CALL LIGHT WITHIN REACH, WILL CONTINUE TO MONITOR PER POC.
[2020-01-09 20:00] VITALS: BP 104/69
--- NOTE | 2020-01-09 20:09 | NUR ---
NURSE NOTES: CONTACTED DR. VALLE TO CONFIRM IV FLUIDS ORDER THERE ARE TWO AT THIS TIME. ADDITIONALLY, WANTED TO CONFIRM DIET ORDER- PATIENT'S DIET ORDER AT FACILITY WAS PUREED [facility] ([facility] AWAITING CALL BACK FOR ANY NEW ORDERS. Addendum: 01/10/20 at 0022 by Bernadine Rosales RN PER DR. VALLE, "NO DIET ORDER" FOR NOW. NOTED AND CARRIED OUT.
[2020-01-09] MEDS: Heparin 5000 units/ml inj SUBQ SCH (20:25)
--- NOTE | 2020-01-09 21:44 | NUR ---
NURSE NOTES: ECHEVERRIA CATHETER 16FR/10ML INSERTED PER MD ORDER FOR I/Os. PATIENT TOLERATED WELL. URINE AT THIS TIME IS CLEAR AND YELLOW IN COLOR.
[2020-01-10] VITALS: BP 127/78
--- NOTE | 2020-01-10 02:29 | Consultation ---
DATE OF CONSULTATION: 01/09/2020 CARDIOLOGY CONSULTATION CONSULTING PHYSICIAN: Mitchell West MD REFERRING PHYSICIAN: Carlos Hunt MD REASON FOR CONSULTATION: Severe sepsis, early shock, lactic acidosis. HISTORY OF PRESENT ILLNESS: This 84-year-old [place]ian male has been residing at a [facility] facility. He has been on IV fluids repeatedly because of diarrhea related to inflammatory bowel disease and electrolyte disturbances. He also was started on Diflucan several days ago for fungal cystitis. While he had been making progress with his recovery and was scheduled to see Dr. Khan the day after for reevaluation of his colitis, today he was noted to be hypoxic, tachycardic, and transferred to the emergency room for evaluation. There, he was noted to have significant laboratory abnormalities with some hypoxia. I have been asked to assist with cardiovascular care. PAST MEDICAL HISTORY: 1. Coronary artery disease. 2. History of myocardial infarction. 3. Hypertension. 4. Cerebrovascular disease. 5. Dementia. 6. Crohn disease. 7. History of congestive heart failure due to diastolic dysfunction. 8. Type 2 diabetes mellitus. 9. Parkinson disease. ALLERGIES: None. SOCIAL HISTORY: Nonsmoker. No alcohol use. ADVANCE DIRECTIVES: Full Code. REVIEW OF SYSTEMS: COVID-19 study was negative on 01/07/2020. Prior echocardiogram has revealed normal ejection fraction with mild degenerative valve disease. PHYSICAL EXAMINATION: VITAL SIGNS: Blood pressure 104/66, heart rate 118, respirations 13, afebrile, oxygen saturation on 15 liters is 100%. HEENT: Temporal wasting. Dry mucous membranes. NECK: Supple. LUNGS: Clear. CARDIAC: Regular rhythm. Rapid rate. Normal S1, S2 with a fourth heart sound. ABDOMEN: Soft with no focal tenderness, guarding, or rebound. EXTREMITIES: No edema, but contractures are seen. NEUROLOGIC: Moderate cognitive impairment noted, but the patient is alert and interactive. LABORATORY AND DIAGNOSTIC DATA: EKG reveals sinus tachycardia. No acute changes. Chest x-ray, no acute process. Labs notable for sodium 137, potassium 4.3, bicarb 17, BUN 51, creatinine 3.6. Lactic acid 5.9. Glucose 162. LDH 413. Pro-natriuretic peptide 1996. Troponin 0.009. Lipase over 1999. Albumin 2.9. White count is 20.9, hemoglobin 16.3. ABG 7.39, 18, 514. IMPRESSION: 1. Severe sepsis. 2. Early shock. 3. Possible acute pancreatitis. 4. Lactic acidosis. 5. Leukocytosis. 6. Acute renal failure. 7. Fungal cystitis, partially treated. 8. Chronic diastolic congestive heart failure. 9. Moderate protein-calorie malnutrition. 10. Type 2 diabetes mellitus. 11. Cerebrovascular disease with dementia. 12. Hypertensive and ischemic cardiomyopathy. PLAN: 1. Panculture. 2. Antifungal therapy. 3. Cardiac monitoring. 4. Serial lactic acid levels. 5. IV fluid hydration. 6. Monitor electrolytes. 7. NPO. 8. Abdominal imaging studies. 9. Repeat lipase level. 10. DVT prophylaxis. 11. Insulin coverage by sliding scale. 12. Titrate supplemental oxygen as needed. Mitchell West M.D. DR: VALENTIN JOB#: [id number] CC:
[2020-01-10 04:00] VITALS: BP 114/56
--- NOTE | 2020-01-10 06:00 | NUR ---
NURSE NOTES: MRSA/VRE/CRE SWABS COLLECTED AND SENT TO LAB.
[2020-01-10] MEDS ORDERED: NovoLOG Insulin Flexpen SUBQ SCH (06:30)
--- NOTE | 2020-01-10 06:45 | NUR ---
NURSE NOTES: INFORMED EMILY FROM LAB THAT AM LABS NEED TO BE DRAWN.
[2020-01-10] MEDS: NovoLOG Insulin Flexpen SUBQ SCH ×4 (06:55→20:50)
--- NOTE | 2020-01-10 07:35 | NUR ---
NURSE HAND-OFF REPORT: Important Events on Shift: NEW ADMISSION, ECHEVERRIA CATHETER INSERTION Patient Status: STABLE Diet: NPO Pending Orders: 2DECHO, CT ABD WITHOUT CONTRAST Pending Results/Labs: AM LABS, MRSA/VRE/CRE SWABS, COVID PCR Pending MD notification: N/A Latest Vital Signs: Temperature 96.6 , Pulse 68 , B/P 114 /56 , Respiratory Rate 24 , O2 SAT 96 , Non-Rebreather, O2 Flow Rate 15.0 . Vital Sign Comment: STABLE EKG Rhythm: Sinus Tachycardia Rhythm change?: N MD Notified?: - MD Response: Latest Miranda Fall Score: 70 Fall Risk: High Risk Safety Measures: Call light Within Reach, Bed Alarm Zone 1, Side Rails Side Rails x3, Bed position Low and Locked. Fall Precautions: Yellow Socks Yellow Gown Door Sign Patient Fall Education Report given to LISBETH MIR.
--- NOTE | 2020-01-10 07:47 | NUR ---
NURSE NOTES: Report received from Bernadine BOB. Patient seen on rounds, asleep but easily rousable. O2 @ 15lpm via NRM, no signs of distress. Afebrile. SR on tele monitor. Pt is NPO per MD orders. PIV on right AC patent and infusing IV 1/2 NS at 125ml/hr. Cisneros cath secured and draining well. Isolation precautions maintained. Bed low and locked, siderails up x2, call light placed within reach, zone alarms on 1, will continue with plan of care.
[2020-01-10 08:00] VITALS: BP 116/61
[2020-01-10] MEDS: Heparin 5000 units/ml inj SUBQ SCH ×2 (08:22→20:18)
--- NOTE | 2020-01-10 08:36 | NUR ---
NURSE NOTES: Spoke with Javy from Radiology re: Abdomen CT. Pt is PUI so test will be rescheduled till pt results come back. Dr. Hunt saw patient on rounds and was made aware.
[2020-01-10 08:56] LABS: BASOPHILS % (AUTO) 0.7 % (0.0-2.0); EOSINOPHILS % (AUTO) 0.7 % (0.0-3.0); HEMATOCRIT 38.4 % (42.0-52.0); HEMOGLOBIN 12.6 G/DL (14.2-18.0); LYMPHOCYTES % (AUTO) 11.7 % (20.0-45.0); MEAN CORPUSCULAR VOLUME 88 FL (80-99); MONOCYTES % (AUTO) 6.2 % (1.0-10.0); NEUTROPHILS % (AUTO) 80.7 % (45.0-75.0); PLATELET COUNT 329 K/UL (150-450); RED BLOOD COUNT 4.36 M/UL (4.70-6.10); RED CELL DISTRIBUTION WIDTH 15.3 % (11.6-14.8); WHITE BLOOD COUNT 14.3 K/UL (4.8-10.8)
--- NOTE | 2020-01-10 08:59 | History and Physical Report ---
DATE OF ADMISSION: 01/09/2020 CHIEF COMPLAINT: Abnormal labs. HISTORY OF PRESENT ILLNESS: The patient is an 84-year-old male well known to me. He has a history of dementia, diabetes, sinus tachycardia, Crohn disease, hypertension. He was transferred from a residential facility with complaints of abnormal labs. The patient is a poor historian, is unable provide any history. On evaluation in the emergency room, labs were significant for a creatinine of 3.6. Lipase greater than 2000. He was hypoxic and placed on a non-rebreather. White count was 20,000. ABG showed significant metabolic acidosis. The patient also had evidence of UTI. He has been started on IV hydration, antibiotics. He is now admitted to a monitored bed. PAST MEDICAL HISTORY: As above. PAST SURGICAL HISTORY: None. CURRENT MEDICATIONS: Reconciled and reviewed. ALLERGIES: None. FAMILY HISTORY: None. SOCIAL HISTORY: There is no known history of tobacco, ethanol, or drugs. REVIEW OF SYSTEMS: Unobtainable as the patient is confused. PHYSICAL EXAMINATION: VITAL SIGNS: Temperature 96.6, pulse 102, respirations 24, blood pressure 114/56, saturating 97% on 15 liters non-rebreather. GENERAL: The patient is well-developed male, in no apparent distress. Awake, alert. HEENT: Head normocephalic, atraumatic. Sclerae anicteric. Oropharynx clear. NECK: Supple. HEART: Regular rate and rhythm. LUNGS: Clear. ABDOMEN: Soft, nontender, nondistended. EXTREMITIES: Without clubbing, cyanosis, or edema. LABORATORY AND DIAGNOSTIC DATA: White count was 20,000, hemoglobin 16, platelets of 397. Sodium was 137, BUN 51, creatinine 3.6. Lipase greater than 2000. UA showed 60 to 80 wbc's. Chest x-ray was clear. ASSESSMENT: This is an unfortunate 84-year-old male with a history of dementia, , sinus tachycardia, Crohn disease, diabetes, admitted with complaints of sepsis secondary to urinary tract infection, hypoxemia, etiology of which is unclear, possible pancreatitis. PLAN: IV hydration. Monitor laboratories and electrolytes. Follow up pending cultures. IV antibiotics. Cardiology, Infectious Diseases, GI consultation will be obtained. The patient's status is currently guarded. Carlos Hunt M.D. DR: Layla JOB#: [id number] CC:
[2020-01-10 09:28] LABS: ALANINE AMINOTRANSFERASE 6 U/L (12-78); ALBUMIN 2.2 G/DL (3.4-5.0); ALBUMIN/GLOBULIN RATIO 0.4 (1.0-2.7); ALKALINE PHOSPHATASE 86 U/L (46-116); ANION GAP 13 mmol/L (5-15); ASPARTATE AMINO TRANSFERASE 13 U/L (15-37); BILIRUBIN,TOTAL 0.2 MG/DL (0.2-1.0); BLOOD UREA NITROGEN 47 mg/dL (7-18); CALCIUM 7.9 MG/DL (8.5-10.1); CARBON DIOXIDE 14 MMOL/L (21-32); CHLORIDE 110 MMOL/L (98-107); CHOLESTEROL 107 MG/DL (< 200); CREATININE 2.7 MG/DL (0.55-1.30); HDL CHOLESTEROL 39 MG/DL (40-60); POTASSIUM 4.6 MMOL/L (3.5-5.1); SODIUM 137 MMOL/L (136-145); TRIGLYCERIDES 230 MG/DL (30-150)
[2020-01-10 12:00] VITALS: BP 118/71
--- NOTE | 2020-01-10 13:02 | General Progress Note ---
Subjective Allergies: Coded Allergies: NO KNOWN ALLERGIES (Verified Allergy, Unknown, 09/07/18) Objective Last 24 Hour Vital Signs Date Time Temp Pulse Resp B/P (MAP) Pulse Ox O2 Delivery O2 Flow Rate FiO2 01/10/20 12:00 96.7 81 20 118/71 (87) 96 01/10/20 09:00 Non-Rebreather 15.0 01/10/20 08:00 98.8 86 21 116/61 (79) 96 01/10/20 08:00 108 01/10/20 04:00 96.6 68 24 114/56 (75) 96 01/10/20 04:00 102 01/10/20 00:00 97.5 77 24 127/78 (94) 97 01/10/20 00:00 102 01/09/20 21:00 Non-Rebreather 15.0 01/09/20 20:00 110 01/09/20 20:00 97.9 112 24 104/69 (81) 100 01/09/20 18:24 Non-Rebreather 15.0 01/09/20 17:43 97.2 117 19 124/63 100 Non-Rebreather 15.0 01/09/20 16:02 97.1 112 18 114/72 100 Non-Rebreather 15.0 01/09/20 15:19 96.8 115 17 116/63 98 Non-Rebreather 15.0 01/09/20 14:18 96.8 119 17 93/57 100 Non-Rebreather 15.0 01/09/20 13:08 96.8 115 19 98/79 86 Non-Rebreather 15.0 Intake and Output 01/09/20 01/10/20 19:00 07:00 Intake Total 1110 ml 1022.92 ml Output Total 0 ml 375 ml Balance 1110 ml 647.92 ml Intake IV Total 1110 ml 1022.92 ml Output Urine Total 0 ml 375 ml # Bowel Movements 1 3 Laboratory Tests 01/09/20 13:10: Arterial Blood pH 7.390, Arterial Blood Partial Pressure CO2 18.5*L, Arterial Blood Partial Pressure O2 514.0H, Arterial Blood HCO3 11.0*L, Arterial Blood Oxygen Saturation 99.4, Arterial Blood Base Excess -11.1*L, Jose Test Positive 01/09/20 13:30: Urine Color Brown, Urine Appearance Cloudy, Urine pH 5, Urine Specific [place] 1.020, Urine Protein 2+H, Urine Glucose (UA) 1+H, Urine Ketones 1+H, Urine Blood 5+H, Urine Nitrite Negative, Urine Bilirubin Negative, Urine Urobilinogen Normal, Urine Leukocyte Esterase 3+H, Urine RBC 10-15H, Urine WBC 60-80H, Urine Squamous Epithelial Cells Occasional, Urine Bacteria Few 01/09/20 14:13: Lactic Acid Level 3.80H 01/10/20 05:37: POC Whole Blood Glucose 190H 01/10/20 07:55: White Blood Count 14.3H, Red Blood Count 4.36L, Hemoglobin 12.6L, Hematocrit 38.4L, Mean Corpuscular Volume 88, Mean Corpuscular Hemoglobin 28.8, Mean Corpuscular Hemoglobin Concent 32.7, Red Cell Distribution Width 15.3H, Platelet Count 329, Mean Platelet Volume 6.5, Neutrophils (%) (Auto) 80.7H, Lymphocytes (%) (Auto) 11.7L, Monocytes (%) (Auto) 6.2, Eosinophils (%) (Auto) 0.7, Basophils (%) (Auto) 0.7, Sodium Level 137, Potassium Level 4.6, Chloride Level 110H, Carbon Dioxide Level 14L, Anion Gap 13, Blood Urea Nitrogen 47H, Creatinine 2.7H, Estimat Glomerular Filtration Rate 22.7, Glucose Level 234H, Lactic Acid Level 1.40, Calcium Level 7.9L, Magnesium Level 2.4, Total Bilirubin 0.2, Aspartate Amino Transf (AST/SGOT) 13L, Alanine Aminotransferase (ALT/SGPT) 6L, Alkaline Phosphatase 86, Total Protein 7.6, Albumin 2.2L, Globulin 5.4, Albumin/Globulin Ratio 0.4L, Triglycerides Level 230H, Cholesterol Level 107, LDL Cholesterol 42, HDL Cholesterol 39L, Cholesterol/HDL Ratio 2.7L, Lipase > 2000H 01/10/20 11:22: POC Whole Blood Glucose 199H Height (Feet): 5 Height (Inches): 6.00 Weight (Pounds): 106 Assessment/Plan Assessment/Plan: GI CONSULT Assessment - presentation with pneumonitis and pancreatitis - possibly related to mesalamine side effect - h/o Crohns ileitis and pancolitis - steroid responsive - off Humira due to recurrent urosepsis - off mesalamine now given current presentation - h/o neurogenic bladder - h/o recurrent urosepsis - Current U/A suggestive of UTI - need to consider other options (? SP catheter) since Rx for Crohns will ultimately be immune suppressive Recommendations - Supportive care for pancreatitis - IVF - await pancreatic imaging - abx - r/o DVT / PE, given elevated DD and IBD related hypercoagulable state - urology re-eval - check all stool cultures and C Diff - will consider low dose steroids at later date as bridge to Stelara Thank you MD Bill Khan Payman MD Jan 10, 2020 13:02
--- NOTE | 2020-01-10 14:00 | NUR ---
NURSE NOTES: Pt tolerated weaning to venturi mask @ 4lpm, FiO2 30%, O2 sats 97-100% with no signs of distress.
--- NOTE | 2020-01-10 14:57 | Diagnostic Imaging Report ---
EXAM: US Duplex Bilateral Lower Extremities Veins CLINICAL HISTORY: TACHYPNEA TECHNIQUE: Real-time duplex ultrasound scan of the bilateral lower extremity veins integrating B-mode two-dimensional vascular structure, Doppler spectral analysis, color flow Doppler imaging and compression. COMPARISON: None FINDINGS: Right deep veins: Unremarkable. No DVT in the right common femoral, femoral, proximal deep femoral or popliteal veins. The veins demonstrate normal color flow, are normally compressible, with normal phasic flow and/or augmentation response. Right superficial veins: Unremarkable. No thrombus in the visualized right great saphenous vein. Left deep veins: Unremarkable. No DVT in the left common femoral, femoral, proximal deep femoral or popliteal veins. The veins demonstrate normal color flow, are normally compressible, with normal phasic flow and/or augmentation response. Left superficial veins: Unremarkable. No thrombus in the visualized left great saphenous vein. Soft tissues: No acute findings. No popliteal cyst. IMPRESSION: No deep venous thrombosis identified in either lower extremity.
[2020-01-10 16:00] VITALS: BP 114/58
--- NOTE | 2020-01-10 16:41 | Cardiology Progress Note ---
Subjective DATE OF SERVICE: Jan 10, 2020 Remains NPO on IVF hydration On fluconazole for fungal UTI diagnosed at [facility] No fevers No vomiting despite elevated lipase BP parameters stable Venous duplex: negative for DVT Objective Last 24 Hour Vital Signs Date Time Temp Pulse Resp B/P (MAP) Pulse Ox O2 Delivery O2 Flow Rate FiO2 01/10/20 16:00 96.6 68 19 114/58 (76) 96 01/10/20 15:29 Venturi Mask 4.0 01/10/20 12:00 96.7 81 20 118/71 (87) 96 01/10/20 12:00 106 01/10/20 09:00 Non-Rebreather 15.0 01/10/20 08:00 98.8 86 21 116/61 (79) 96 01/10/20 08:00 108 01/10/20 04:00 96.6 68 24 114/56 (75) 96 01/10/20 04:00 102 01/10/20 00:00 97.5 77 24 127/78 (94) 97 01/10/20 00:00 102 01/09/20 21:00 Non-Rebreather 15.0 01/09/20 20:00 110 01/09/20 20:00 97.9 112 24 104/69 (81) 100 01/09/20 18:24 Non-Rebreather 15.0 01/09/20 17:43 97.2 117 19 124/63 100 Non-Rebreather 15.0 HEENT: normal ENT inspection RHYTHM: NSR, ST, PACs LUNGS: lungs clear bilaterally CARDIAC: normal rate, regular rhythm, normal S1 and S2 ABDOMEN: normal bowel sounds, soft, no mass EXTREMITIES: non-tender, no swelling, No edema Laboratory Tests Test 01/10/20 05:37 01/10/20 07:55 01/10/20 11:22 01/10/20 15:59 POC Whole Blood Glucose 190 MG/DL (74-106) H 199 MG/DL (74-106) H 105 MG/DL (74-106) White Blood Count 14.3 K/UL (4.8-10.8) H Red Blood Count 4.36 M/UL (4.70-6.10) L Hemoglobin 12.6 G/DL (14.2-18.0) L Hematocrit 38.4 % (42.0-52.0) L Mean Corpuscular Volume 88 FL (80-99) Mean Corpuscular Hemoglobin 28.8 PG (27.0-31.0) Mean Corpuscular Hemoglobin Concent 32.7 G/DL (32.0-36.0) Red Cell Distribution Width 15.3 % (11.6-14.8) H Platelet Count 329 K/UL (150-450) Mean Platelet Volume 6.5 FL (6.5-10.1) Neutrophils (%) (Auto) 80.7 % (45.0-75.0) H Lymphocytes (%) (Auto) 11.7 % (20.0-45.0) L Monocytes (%) (Auto) 6.2 % (1.0-10.0) Eosinophils (%) (Auto) 0.7 % (0.0-3.0) Basophils (%) (Auto) 0.7 % (0.0-2.0) Sodium Level 137 MMOL/L (136-145) Potassium Level 4.6 MMOL/L (3.5-5.1) Chloride Level 110 MMOL/L (98-107) H Carbon Dioxide Level 14 MMOL/L (21-32) L Anion Gap 13 mmol/L (5-15) Blood Urea Nitrogen 47 mg/dL (7-18) H Creatinine 2.7 MG/DL (0.55-1.30) H Estimat Glomerular Filtration Rate 22.7 mL/min (>60) Glucose Level 234 MG/DL (74-106) H Lactic Acid Level 1.40 mmol/L (0.4-2.0) Calcium Level 7.9 MG/DL (8.5-10.1) L Magnesium Level 2.4 MG/DL (1.8-2.4) Total Bilirubin 0.2 MG/DL (0.2-1.0) Aspartate Amino Transf (AST/SGOT) 13 U/L (15-37) L Alanine Aminotransferase (ALT/SGPT) 6 U/L (12-78) L Alkaline Phosphatase 86 U/L (46-116) Total Protein 7.6 G/DL (6.4-8.2) Albumin 2.2 G/DL (3.4-5.0) L Globulin 5.4 g/dL Albumin/Globulin Ratio 0.4 (1.0-2.7) L Triglycerides Level 230 MG/DL (30-150) H Cholesterol Level 107 MG/DL (< 200) LDL Cholesterol 42 mg/dL (<100) HDL Cholesterol 39 MG/DL (40-60) L Cholesterol/HDL Ratio 2.7 (3.3-4.4) L Lipase > 2000 U/L (73-393) H Microbiology Date/Time Source Procedure Growth Status 01/10/20 05:30 Rectum Received 01/09/20 13:30 Urine,Clean Catch Urine Culture - Preliminary Gram Negative Fei Resulted Assessment/Plan Assessment/Plan UTI - complicated Fungal cystitis Severe sepsis Acute pancreatitis Hypovolemia Dehydration [place] bolic acidosis Acute renal failure Hx CHF - diastolic NIDDM Hypertension/HHD Hx Crohns with diarrhea NPO IVF with bicarb Antifungals ID eval Hold cardiac meds DVT prophyl Insulin cov'g by SS CT abd pending Mitchell West MD Jan 10, 2020 16:41
[2020-01-10] MEDS ORDERED: Sodium Bicarbonate 50 ML in 1/2 NS 1000ml 1,000 ML IV SCH (18:00)
--- NOTE | 2020-01-10 19:24 | NUR ---
NURSE HAND-OFF REPORT: Important Events on Shift: CT abdomen rescheduled pending covid swab results, may start clear liquids pending swallow evaluation; 2D echo done, venous doppler done and negative, O2 weaned nowi on Venturi mask at 4lpm Patient Status: Stable Diet: Clear liquids pending swallow eval Pending Orders: CT abdomen without contrast, urine collection for acetone Pending Results/Labs: Labs in AM Pending MD notification: Latest Vital Signs: Temperature 96.6 , Pulse 101 , B/P 114 /58 , Respiratory Rate 19 , O2 SAT 96 , Venturi Mask, O2 Flow Rate 4.0 . Vital Sign Comment: EKG Rhythm: Sinus Tachycardia Rhythm change?: N MD Notified?: - MD Response: Latest Miranda Fall Score: 70 Fall Risk: High Risk Safety Measures: Call light Within Reach, Bed Alarm Zone 1, Side Rails Side Rails x3, Bed position Low and Locked. Fall Precautions: Yellow Socks Yellow Gown Door Sign Patient Fall Education Report given to Adeola BOB.
--- NOTE | 2020-01-10 19:29 | Consultation ---
DATE OF CONSULTATION: 01/10/2020 GASTROENTEROLOGY CONSULTATION CONSULTING PHYSICIAN: Ayaan Khan MD REFERRING PHYSICIAN: Mitchell West MD CHIEF COMPLAINT: I was asked to see this patient by Dr. Mitchell West and Dr. Carlos Hunt for evaluation of some pancreatitis and Crohn disease. HISTORY OF PRESENT ILLNESS: The patient is an 84-year-old man from a [facility] with advanced dementia in bedbound state, who was brought into the hospital due to renal failure and markedly elevated lipase levels. He has become hypoxic and has been placed on non-rebreather mask. He has had high white count. The patient himself was unable to provide any history and most of the information is only available from the chart. CT scan has been ordered, but is pending at this time. The patient's past gastrointestinal history dates back to earlier this year where he presented to the hospital with refractory diarrhea and underwent colonoscopy showing Crohn disease. He responded very well to steroids, but when tapered off, he became re-symptomatic. Because of that in about middle of this year, he was started on Humira to which he also responded from gastrointestinal GI standpoint. However, he had multiple admissions with urinary tract infection and sepsis, which made continuation of this medication difficult. Although he was seen by Urology and was diagnosed with neurogenic bladder, which may be the cause of the bladder infection, accelerating the infection and sepsis that was possibly contributable to the Humira treatment and therefore, the Humira has been discontinued. In his last admission to the hospital, he was discharged home and he was started on a course of mesalamine until further arrangement as to the medication level could be determined. Of note was that his Humira level was low with no antibody on an [id number] course of treatment and at one point, Humira was increased to weekly doses. However, at this time, he is only on mesalamine 4800 mg daily. The patient has never had any previous history of pancreatitis. His colonoscopy did show Crohn terminal ileitis as well as total colitis. He has had 3 episodes of urinary tract infections recently and the current admission, which does show urinary tract infection, will be his fourth one. Of note, at this time, he is not on Humira and he still has urinary tract infection. A discussion has been held with the family regarding possibly starting him on Stelara as the next medication. PAST MEDICAL HISTORY: History of dementia, history of Parkinson disease, hypertension, hypercholesterolemia, [id number] diabetes mellitus, atherosclerotic cardiovascular disease, prostatic hypertrophy, gastroesophageal reflux disease, vitamin D deficiency, history of duodenal ulcer, and history of Crohn's ileitis as well as total colitis, neurogenic bladder, and multiple episodes of urinary tract infection. FAMILY HISTORY: Noncontributory. SOCIAL HISTORY: The patient is Maori-speaking. He has advanced dementia and is in a 24-hour [facility]. His daughter looks after his affairs. REVIEW OF SYSTEMS: Otherwise negative. PHYSICAL EXAMINATION: GENERAL: An elderly man, seen in his room with a non-rebreather mask. HEENT: Normocephalic and atraumatic. NECK: Supple. CHEST: Revealed coarse breath sounds. CARDIOVASCULAR: Revealed regular rate. ABDOMEN: Soft, flat, nontender, nondistended with good bowel sounds. EXTREMITIES: Revealed no edema. LABORATORY DATA: Noted. ASSESSMENT: This patient presents now with enzymatic pancreatitis although imaging studies are pending to verify the radiographic evaluation of this condition. Given that he was recently started on mesalamine, the possibility of mesalamine-induced pancreatitis should be considered. This is a rare side effect of this medication, but corresponds in timing to this patient's medication use and therefore, I am going to no longer use this medication for this patient. Imaging studies are pending and will be done to evaluate the extent of the condition. In the meantime, he does not have any tenderness on my examination. He appears to be relatively comfortable and therefore, clear liquid diet can be started. However, I will check a swallow study to make sure he is safe. Likewise, he does have some degree of respiratory compromise and mesalamines have also been associated rarely with pneumonitis, which would be secondary, so not to use this drug any further in this patient. The options at this time would be to restart the patient on steroids and we will switch to Stelara. The patient does have ongoing diarrhea, but his bowel movements are all mere few times a day. His presentation was severe lactic acidosis and may be due to the pancreatitis and pneumonitis, and not necessarily from the involvement of diarrhea as it does not appear to be massive. Nonetheless, these may take some time to obtain as an outpatient and he would likely benefit from calming down his inflammatory bowel disease and therefore, this medication is used although I would restart steroids once he is medically cleared from an infectious standpoint and also from sepsis standpoint. RECOMMENDATIONS: 1. Continue with conservative management with IV fluids. 2. Check swallow study. 3. Clear liquid diet and advance as tolerated. 4. Follow lipase and abdominal exam. 5. Imaging studies pending. 6. Restart steroids sometime in the near future. 7. We will try to obtain Stelara as an outpatient. 8. The patient will need urologic re-evaluation given his recurrent episodes of urinary tract infection. Thank you for asking me to participate in the care of this patient. Ayaan Khan M.D. DR: ALO JOB#: [id number] CC:
--- NOTE | 2020-01-10 19:46 | NUR ---
NURSE NOTES: RECEIVED REPORT FROM LYSSA BOB. PT IN BED, AWAKE/ALERT X1, RESPONDS TO VERBAL & TACTILE STIMULI. NO RESP DISTRESS NOTED, ON VENTURI MASK AT 4L/MIN WITH FIO2 OF 30%. 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 IV ON RIGHT WRIST IN PLACE & PATENT. F/C IN PLACE & PATENT DRAINING TO GRAVITY YELLOW URINE. BED IN LOW POSITION & LOCKED, SIDE RAILS UP X3. CALL LIGHT WITH IN REACH. CONTINUE PLAN OF CARE.
[2020-01-10 20:00] VITALS: BP 118/65
[2020-01-10] MEDS: Sodium Bicarbonate 100 ML in D5W 1000ml 1,000 ML IV SCH (20:17)
[2020-01-10] MEDS ORDERED: Varibar Nectar 240ml MC PRN (21:30)
[2020-01-10] MEDS ORDERED: Varibar Honey 250ml MC PRN (21:30)
[2020-01-10] MEDS ORDERED: Varibar Pudding 230ml MC PRN (21:30)
[2020-01-10] MEDS ORDERED: Varibar Thin Liquid powder 148gm MC PRN (21:30)
[2020-01-11] VITALS: BP 120/68
[2020-01-11 04:00] VITALS: BP 113/72
[2020-01-11] MEDS: Sodium Bicarbonate 100 ML in D5W 1000ml 1,000 ML IV SCH ×3 (04:46→18:23)
[2020-01-11] MEDS: NovoLOG Insulin Flexpen SUBQ SCH ×4 (05:58→21:47)
[2020-01-11 07:08] LABS: BASOPHILS % (AUTO) 0.6 % (0.0-2.0); EOSINOPHILS % (AUTO) 0.7 % (0.0-3.0); HEMATOCRIT 33.6 % (42.0-52.0); HEMOGLOBIN 11.5 G/DL (14.2-18.0); LYMPHOCYTES % (AUTO) 17.3 % (20.0-45.0); MEAN CORPUSCULAR VOLUME 86 FL (80-99); MONOCYTES % (AUTO) 7.4 % (1.0-10.0); PLATELET COUNT 323 K/UL (150-450); RED BLOOD COUNT 3.92 M/UL (4.70-6.10); WHITE BLOOD COUNT 12.6 K/UL (4.8-10.8)
--- NOTE | 2020-01-11 07:11 | NUR ---
NURSE NOTES: Report received from Adeola RN. Patient seen on rounds, asleep but easily rousable. O2 @ 4lpm FiO2 30% via venturi mask, no signs of distress. Afebrile. Sinus tachycardia on tele monitor. PIV on right wrist patent and infusing IV Sodium Bicarbonate in D5W at 150ml/hr. Cisneros cath secured and draining well. Isolation precautions maintained. Bed low and locked, siderails up x2, call light placed within reach, zone alarms on 1, will continue with plan of care.
--- NOTE | 2020-01-11 07:25 | NUR ---
NURSE HAND-OFF REPORT: Important Events on Shift:[STARTED ON D5W WITH SODIUM BICARB AT 150CC/HR TOLERATING WELL] Patient Status: [STABLE] Diet: [NPO] Pending Orders: [] Pending Results/Labs:[] Pending MD notification:[] Latest Vital Signs: Temperature 97.5 , Pulse 107 , B/P 113 /72 , Respiratory Rate 22 , O2 SAT 100 , Venturi Mask, O2 Flow Rate 4.0 . Vital Sign Comment: [] EKG Rhythm: Sinus Tachycardia Rhythm change?: N MD Notified?: - MD Response: Latest Miranda Fall Score: 70 Fall Risk: High Risk Safety Measures: Call light Within Reach, Bed Alarm Zone 1, Side Rails Side Rails x3, Bed position Low and Locked. Fall Precautions: Yellow Socks Yellow Gown Door Sign Patient Fall Education Report given to [LISBETH OMALLEY].
[2020-01-11 07:31] LABS: ALBUMIN/GLOBULIN RATIO 0.4 (1.0-2.7); BILIRUBIN,TOTAL 0.2 MG/DL (0.2-1.0); CALCIUM 7.4 MG/DL (8.5-10.1); CREATININE 2.2 MG/DL (0.55-1.30); POTASSIUM 4.4 MMOL/L (3.5-5.1)
--- NOTE | 2020-01-11 07:52 | NUR ---
NURSE NOTES: Dr. Hunt notified of Covid PCR negative results. Also notified of positive ESBL in urine. Awaiting response.
--- NOTE | 2020-01-11 07:57 | NUR ---
NURSE NOTES: Spoke with Martin from CT scan to notify him that patient's covid test results were negative and to confirm if able to do Abdominal CT scan today.
[2020-01-11 08:00] VITALS: BP_SYST 114; BP_DIAS 8; BP_DIAS 81
--- NOTE | 2020-01-11 08:07 | NUR ---
CASE MANAGEMENT:REVIEW BIBA FROM [facility] SI: RENAL FAILURE. SEPSIS. UTI 96.8 118 18 98/79 74% ON RA WBC+20.9 BUN+51 CR+3.6 IS; PLACED ON NRB 15L 1L NS BOLUS IV ZOSYN URINE CX BLOOD CX CXR : TO TELEMETRY DCP: FROM [facility]
[2020-01-11] MEDS: Heparin 5000 units/ml inj SUBQ SCH ×2 (08:49→21:28)
--- NOTE | 2020-01-11 11:00 | Consultation ---
DATE OF CONSULTATION: 01/11/2020 CONSULTING PHYSICIAN: Shailesh Sullivan MD. REFERRING PHYSICIAN: Carlos Hunt MD. REASON FOR CONSULTATION: For followup of multiple urologic issues. HISTORY OF PRESENT ILLNESS: This is an 84-year-old male. He is known to me from previous evaluations. The patient has a history of BPH, lower urinary tract symptoms, and a history of recurrent urinary tract infections. He was admitted to the hospital because of acute kidney injury. Followup Urology evaluation requested. Currently, he has a Cisneros catheter indwelling. Most of the history was obtained from the chart. PAST MEDICAL HISTORY: Significant for above, also dementia, diabetes, tachycardia, Crohn disease, hypertension. PAST SURGICAL HISTORY: Unknown. MEDICATIONS: Current medication list was reviewed. Here in the hospital, the patient is on Zosyn, sodium bicarb, insulin, heparin, fluconazole. ALLERGIES: No known drug allergies. SOCIAL HISTORY: He is resident of a [facility]. REVIEW OF SYSTEMS: Unable to obtain. FAMILY HISTORY: Unable to obtain. PHYSICAL EXAMINATION: GENERAL: An elderly male, in no acute distress. VITAL SIGNS: Temperature is 97.5, blood pressure 113/72, pulse 105, respirations 22. HEENT: Normocephalic. NECK: Supple. ABDOMEN: Soft. : Cisneros is in place. Urine is yellowish with some debris. LABORATORY DATA: His white count is 12.6, hemoglobin 11.5, and platelets 223,000. BUN is 35, creatinine is 2.2. I believe his baseline creatinine is normal. UA on admission showed 2+ protein, 10 to 15 rbc's, 60 to 80 wbc's. His urine culture showed E. coli ESBL. Blood culture is negative so far. DIAGNOSTIC IMAGING STUDIES: The patient had a CT scan of the abdomen and pelvis last month and at that time there was no hydronephrosis reported. IMPRESSION: 1. Acute kidney injury. 2. BPH history. 3. Urinary retention. 4. Proteinuria. 5. UTI. 6. Hematuria. 7. Renal cyst. 8. Possible neurogenic bladder. PLAN AND DISCUSSION: The patient does have acute kidney injury. His renal function will be monitored. It is slowly improving. Cisneros catheter will remain indwelling until his renal function is stabilized. He is to continue with antibiotics as ordered. I will also add tamsulosin and hopefully he can have a voiding trial once he is more stabilized. He can have cystoscopy at an elective basis. We will consider repeat imaging studies. I will follow the patient and any recommendations will be forthcoming. Thank you, Dr. Hunt, for asking me to see this patient in consultation. Shailesh Sullivan M.D. DR: KALLI JOB#: [id number] CC:
[2020-01-11] MEDS: Piperacillin/Tazobactam 3.375 GM in NS 110 ML IVPB SCH ×2 (11:13→21:30)
--- NOTE | 2020-01-11 11:45 | NUR ---
RD ASSESSMENT & RECOMMENDATIONS SEE CARE ACTIVITY FOR COMPLETE ASSESSMENT DAILY ESTIMATED NEEDS: Needs based on underweight, wt loss 48kg 30-35 kcals/kg 8983-1804 total kcals 1.25-2 g protein/kg 60-96 g total protein 25-30 mL/kg 0434-1500 total fluid mLs NUTRITION DIAGNOSIS: Increased kcal/prot needs R/T wound healing, underweight status w/ recent significant wt loss as evidenced by admitted w/ multiple wounds at sacrum, BL buttocks and BL heels per photos, pt @ 75% IBW w/ low BMI of 17.2, w/ significant wt loss of 8.4lbs/ 7.3% in <1 month CURRENT DIET:CLEAR LIQUID DIET PO DIET RECOMMENDATIONS: advance diet as tolerated -> CCHO MED/ texture per ORTHOPEDIC NURSE PRACTITIONER ADDITIONAL RECOMMENDATIONS: 1) Daily calibrated bedscale wt, monitor wt trend 2) Glucerna TID w/ meals once diet advances 3) Monitor PO tolerance: h/o Crohn's disease, elev lipase 4) Monitor BGs closely for hypoglycemia while on CLD 5) Wound healing: Add MVI x 1, Vit C 500mg QD, ZnSO4 220mg QD x 10 days NICK bid added to tray
[2020-01-11 12:00] VITALS: BP 149/64
[2020-01-11] MEDS ORDERED: Ascorbic Acid 500mg tab ORAL SCH (12:15)
[2020-01-11] MEDS ORDERED: Zinc Sulfate 220mg ORAL SCH (12:15)
--- NOTE | 2020-01-11 12:15 | General Progress Note ---
Subjective Respiratory: Reports: no symptoms, cough, orthopnea, shortness of breath, SOB with excertion, SOB at rest, sputum, stridor, wheezing, other Allergies: Coded Allergies: NO KNOWN ALLERGIES (Verified Allergy, Unknown, 09/07/18) Subjective Above noted on O2 FM to get CT today CT of pelvis and po contrast ordered, to better evaluate GI tract RD noted 4-5 bm daily Objective Last 24 Hour Vital Signs Date Time Temp Pulse Resp B/P (MAP) Pulse Ox O2 Delivery O2 Flow Rate FiO2 01/11/20 09:00 Venturi Mask 4.0 01/11/20 08:00 95 01/11/20 08:00 96.4 108 21 114/8 (43) 100 01/11/20 04:00 105 01/11/20 04:00 97.5 107 22 113/72 (86) 100 01/11/20 00:00 97.0 105 22 120/68 (85) 100 01/11/20 00:00 101 01/10/20 21:00 Venturi Mask 4.0 01/10/20 20:00 97.5 110 24 118/65 (82) 99 01/10/20 20:00 111 01/10/20 16:00 96.6 68 19 114/58 (76) 96 01/10/20 16:00 101 01/10/20 15:29 Venturi Mask 4.0 Intake and Output 01/10/20 01/11/20 19:00 07:00 Intake Total 875 ml Output Total 400 ml 350 ml Balance 475 ml -350 ml Intake IV Total 875 ml Output Urine Total 400 ml 350 ml # Bowel Movements 4 1 Laboratory Tests 01/10/20 15:59: POC Whole Blood Glucose 105 01/10/20 20:08: POC Whole Blood Glucose 115H 01/11/20 05:41: POC Whole Blood Glucose 85 01/11/20 06:03: White Blood Count 12.6H, Red Blood Count 3.92L, Hemoglobin 11.5L, Hematocrit 33.6L, Mean Corpuscular Volume 86, Mean Corpuscular Hemoglobin 29.4, Mean Corpuscular Hemoglobin Concent 34.3, Red Cell Distribution Width 16.0H, Platelet Count 323, Mean Platelet Volume 6.3L, Neutrophils (%) (Auto) 74.0, Lymphocytes (%) (Auto) 17.3L, Monocytes (%) (Auto) 7.4, Eosinophils (%) (Auto) 0.7, Basophils (%) (Auto) 0.6, Sodium Level 142, Potassium Level 4.4, Chloride Level 112H, Carbon Dioxide Level 17L, Anion Gap 13, Blood Urea Nitrogen 35H, Creatinine 2.2H, Estimat Glomerular Filtration Rate 28.7, Glucose Level 242H, Lactic Acid Level 3.40H, Calcium Level 7.4L, Phosphorus Level 4.0, Magnesium Level 2.0, Total Bilirubin 0.2, Aspartate Amino Transf (AST/SGOT) 18, Alanine Aminotransferase (ALT/SGPT) 8L, Alkaline Phosphatase 77, Total Protein 6.5, Albumin 2.0L, Globulin 4.5, Albumin/Globulin Ratio 0.4L, Lipase 1975H, Beta-Hydroxybutyric Acid [Pending], Acetone, Qualitative [Pending], Acetone Level Positive-small 01/11/20 11:50: POC Whole Blood Glucose 207H Height (Feet): 5 Height (Inches): 6.00 Weight (Pounds): 106 Assessment/Plan Assessment/Plan: Assessment - presentation with pneumonitis and pancreatitis - possibly related to mesalamine side effect - h/o Crohns ileitis and pancolitis - steroid responsive - off Humira due to recurrent urosepsis - off mesalamine now given current presentation - h/o neurogenic bladder - h/o recurrent urosepsis - Current U/A suggestive of UTI - Urology noted Recommendations - Supportive care for pancreatitis - await CT abd and pelvis - IVF - clears for now - abx - r/o DVT / PE - duplex negative - urology f/u - check all stool cultures and C Diff (C Diff negative) - will consider low dose steroids at later date as bridge to Stelara - MVI, Zn, Vitamin C Ayaan Khan MD Jan 11, 2020 12:15
--- NOTE | 2020-01-11 12:59 | Consultation ---
DATE OF CONSULTATION: 01/11/2020 INFECTIOUS DISEASE CONSULTATION CONSULTING PHYSICIAN: Aftab Candelario MD. REFERRING PHYSICIAN: Carlos Hunt MD. REASON FOR CONSULTATION: Urinary tract infection as well as pancreatitis. HISTORY OF PRESENTING ILLNESS: This is an 84-year-old gentleman with history of diabetes, dementia, hypertension, Crohn disease, sinus tachycardia, who came in from a residential facility with abnormal labs. He was found to have a creatinine of 3.6 and lipase over 2000 as well as urinary tract infection. An Infectious Diseases consultation has been obtained for antibiotics. PAST MEDICAL HISTORY: 1. History of diabetes. 2. Hypertension. 3. Crohn disease. 4. Sinus tachycardia. SOCIAL HISTORY: No history of smoking, alcohol, or drug use. FAMILY HISTORY: Unknown. REVIEW OF SYSTEMS: Unable to obtain currently. MEDICATIONS: As an inpatient, he is on Flomax, Zosyn, sodium bicarbonate, insulin, subcutaneous heparin, fluconazole. ALLERGIES: No known drug allergies. PHYSICAL EXAMINATION: VITAL SIGNS: Temperature 97.5, T-max of 97.9, pulse of 105, respiratory rate 22, blood pressure 113/72. O2 saturation of 100% on 4 liters of oxygen. HEENT: Pupils are equally reactive to light and accommodation. Mouth appears clean without thrush. NECK: Supple. No adenopathy. No JVD. CARDIOVASCULAR: Regular rate and rhythm. No murmurs. LUNGS: Clear to auscultation bilaterally. No crackles. No wheezes. ABDOMEN: Soft, nontender. No organomegaly. EXTREMITIES: No cyanosis, no clubbing, no edema. LABORATORY DATA: White count of 20.9 on 01/09/2020. White count of 12.6 today, hemoglobin 11.5, hematocrit 33.6, MCV 86, platelet count of 323,000. Neutrophils of 74%. Sodium 142, potassium 4.4, chloride 112, bicarb 17, BUN 35, and creatinine 2.2. Creatinine of 3.6 on 01/09/2020. Glucose 242. Calcium 7.4. Magnesium of 2. Total bilirubin 0.2, AST 18, ALT 8, alkaline phosphatase 77. Total protein 6.5, albumin 2. UA is showing 60-80 white cells. Blood cultures are negative on 01/09/2020. On 01/09/2020, COVID-19 test is negative. On 01/09/2020, urine cultures growing E. coli, which is an ESBL susceptible to ertapenem, piperacillin and tazobactam. Stool for C. difficile colitis is negative. Chest x-ray showing no acute process. Ultrasound of legs showed no evidence of DVT in both legs. Lipase of 1974. On 01/09/2020, lipase was more than 2000. ASSESSMENT: This is an 84-year-old gentleman with history of diabetes and hypertension, who comes in with abnormal labs and is found to have, 1. ESBL E. coli urinary tract infection. 2. Diabetes. 3. Hypertension. 4. Renal failure is improving. 5. Crohn disease. 6. He is COVID-19 negative. 7. Pancreatitis is improving slowly. PLAN: 1. Continue Zosyn four more days. 2. Discontinue fluconazole. 3. We will follow up cultures. I would like to thank Dr. Hunt for this consultation. Aftab Candelario M.D. DR: CRYS JOB#: [id number] CC:
--- NOTE | 2020-01-11 13:52 | Diagnostic Imaging Report ---
Indication: Refractory diarrhea, bladder infection, sepsis Technique: Spiral acquisitions obtained through the abdomen and pelvis. No oral contrast utilized, per emergency room physician request No IV contrast utilized, per referring physician request. Multiplanar reconstructions were generated. Total dose length product 175 mGycm. CTDIvol(s) 3 mGy. Dose reduction achieved using automated exposure control Comparison: 12/07/2019 Findings: There is diffuse smooth wall thickening of the descending and sigmoid colon, which are well-opacified with contrast, more questionably of the ascending and transverse colon which are not well opacified. No evidence of diverticulosis or diverticulitis. The appendix is normal. No definite small bowel wall thickening. No small bowel distention. No free or loculated intraperitoneal gas or fluid is evident. The distal esophagus is unremarkable. The stomach is mildly distended. There is some wall thickening of the duodenum Lack of IV contrast limits assessment of the solid organs. The liver demonstrates multiple cysts. The gallbladder, bile ducts, pancreas, spleen, adrenals, kidneys are unremarkable. No retroperitoneal or mesenteric mass or adenopathy. No pelvic mass or adenopathy. The bladder is empty and contains a Cisneros catheter. Gas within the bladder lumen is likely related to the Cisneros catheterization. The bones are unremarkable, except for mild degenerative spondylosis changes. The lung bases demonstrate nonspecific small patchy areas of groundglass opacity in the bilateral lower lobes. A small lipoma is seen in the right groin musculature. Impression: Diffuse smooth wall thickening of the descending and sigmoid colon, more questionably of the ascending and transverse colon, likely related to stated clinical history of Crohn disease There is some duodenal wall thickening. This could be related to the above, could also indicate unrelated duodenitis or peptic ulcer disease Empty bladder with a Cisneros catheter Basilar small patchy areas of pulmonary parenchymal groundglass opacity. These are nonspecific,, could represent areas of atelectasis, acute inflammation, chronic post inflammatory changes, among other possibilities. This is less extensive than on the previous study and is no longer present on the left. Central findings as noted, including small right groin musculature lipoma, degenerative spondylosis, hepatic cysts The CT scanner at [facility] is accredited by the [employer] and the scans are performed using protocols designed to limit radiation exposure to as low as reasonably achievable to attain images of sufficient resolution adequate for diagnostic evaluation.
--- NOTE | 2020-01-11 14:17 | Consultation ---
History of Present Illness General Date patient seen: Jan 11, 2020 Reason for Hospitalization: Abnormal Labs Present Illness HPI This is a 84-year-old male multimedical committees to the care facility patient identified on admission to have significant perirectal perianal buttock proximal thigh and sacral breakdown from incontinence as well as pressure related. Patient noted to have heel DTI. Abnormal labs. Currently admitted for medical care and management. Surgery called to evaluate and assist with care. Patient seen, patient evaluate, chart reviewed. Limited history and physical from examination under participate in care plan. Allergies: Coded Allergies: NO KNOWN ALLERGIES (Verified Allergy, Unknown, 09/07/18) COVID-19 Screening Contact w/high risk pt: No Experienced COVID-19 symptoms?: No Medication History Scheduled Amino Acids/Protein Hydrolys (Pro-Stat Liquid), 30 ML ORAL TWICE A DAY, (Reported) Carbidopa/Levodopa 25-100 Mg* (Sinemet 25-100 Mg Tablet*), 1 TAB ORAL THREE TIMES A DAY, (Reported) Fluconazole (Fluconazole), 100 MG ORAL DAILY, (Reported) Insulin Regular, Human* (Novolin R*), 0 SUBQ .SLIDING SCALE, (Reported) Lactobacillus Acidophilus (Acidophilus), 1 EACH PO TID, (Reported) Meropenem (Meropenem), 500 MG IV Q12HR Metoprolol Tartrate (Metoprolol Tartrate), 12.5 MG ORAL EVERY 12 HOURS, (Reported) Multivitamin With Minerals (Multivitamins With Minerals*), 1 TAB ORAL DAILY, (Reported) Pantoprazole Sodium (Protonix), 20 MG ORAL DAILY Potassium Chloride (Klor-Con M20), 40 MEQ ORAL DAILY, (Reported) Pravastatin Sod* (Pravastatin Sod*), 20 MG ORAL BEDTIME, (Reported) [Llaida], 2,400 MG ORAL BID, (Reported) Scheduled PRN Acetaminophen* (Acetaminophen 325MG Tablet*), 650 MG ORAL Q4H PRN for Temp >100.5, (Reported) Acetaminophen* (Acetaminophen 325MG Tablet*), 650 MG ORAL Q4H PRN for Mild Pain (Pain Scale 1-3), (Reported) Bisacodyl (Bisacodyl), 10 MG RC for Constipation, (Reported) Loperamide Hcl (Loperamide), 1 MG PO EVERY 8 HOURS PRN for Diarrhea, (Reported) Magnesium Hydroxide* (Milk Of Magnesia*), 30 ML ORAL DAILY PRN for Constipation, (Reported) Miscellaneous Medications Ferrous Sulfate (Ferrous Sulfate), 7.5 ML PO, (Reported) Patient History Limited by: age, medical condition History Provided By: Medical Record, PMD Healthcare decision maker Resuscitation status Advanced Directive on File Past Medical/Surgical History Past Medical/Surgical History: (1) Inabality to Ambulate, Stroke (2) Toxic metabolic encephalopathy (3) Septic shock (4) SVT (supraventricular tachycardia) (5) IBD (inflammatory bowel disease) (6) Diabetes type 2, controlled (7) Hypomagnesemia (8) Gastroenteritis (9) Hypophosphatemia (10) Hypernatremia (11) Proteinuria (12) Crohn's colitis (13) Sepsis (14) Liver failure (15) UTI (urinary tract infection) (16) Acute renal failure (ARF) Review of Systems Review of Symptoms General ROS: no weight loss or fever Psychological ROS: no depression or mood changes, no memory loss Ophthalmic ROS: no visual changes or eye irritation ENT ROS: no nasal congestion, hearing loss, dizziness Allergy and Immunology ROS: no allergic symptoms or urticaria Hematological and Lymphatic ROS: no swollen glands, unusual bleeding or bruising Endocrine ROS: no polyuria, polydipsia, weight changes, temperature intolerance Respiratory ROS: no cough, shortness of breath, or wheezing Cardiovascular ROS: no chest pain or dyspnea on exertion Gastrointestinal ROS: denies abdominal pain, bright red blood in stool. Musculoskeletal ROS: no myalgias or arthralgias Neurological ROS: no TIA or stroke symptoms Dermatological ROS: no new or changing skin lesions, rashes or pruritis Limited given medical condition Physical Exam Physical Exam General appearance: alert, cooperative, no distress, appears stated age Head: Normocephalic, without obvious abnormality, atraumatic Eyes: conjunctivae/corneas clear. PERRL, EOM's intact. Fundi benign Throat: Lips, mucosa, and tongue normal. Teeth and gums normal Neck: supple, symmetrical, trachea midline, no adenopathy, thyroid: not enlarged, symmetric, no tenderness/mass/nodules, no carotid bruit and no JVD Lungs: clear to auscultation bilaterally Heart: regular rate and rhythm, S1, S2 normal, no murmur, click, rub or gallop Abdomen: soft, non-tender. Bowel sounds normal. No masses, no organomegaly Extremities: extremities normal, atraumatic, no cyanosis or edema Pulses: 2+ and symmetric Skin: Skin see below Neurologic: Grossly normal Last 24 Hour Vital Signs Date Time Temp Pulse Resp B/P (MAP) Pulse Ox O2 Delivery O2 Flow Rate FiO2 01/11/20 09:00 Venturi Mask 4.0 01/11/20 08:00 95 01/11/20 08:00 96.4 108 21 114/8 (43) 100 01/11/20 04:00 105 01/11/20 04:00 97.5 107 22 113/72 (86) 100 01/11/20 00:00 97.0 105 22 120/68 (85) 100 01/11/20 00:00 101 01/10/20 21:00 Venturi Mask 4.0 01/10/20 20:00 97.5 110 24 118/65 (82) 99 01/10/20 20:00 111 01/10/20 16:00 96.6 68 19 114/58 (76) 96 01/10/20 16:00 101 01/10/20 15:29 Venturi Mask 4.0 Intake and Output 01/10/20 01/11/20 19:00 07:00 Intake Total 875 ml Output Total 400 ml 350 ml Balance 475 ml -350 ml Intake IV Total 875 ml Output Urine Total 400 ml 350 ml # Bowel Movements 4 1 Laboratory Tests Test 01/10/20 15:59 01/10/20 20:08 01/11/20 05:41 01/11/20 06:03 POC Whole Blood Glucose 105 MG/DL (74-106) 115 MG/DL (74-106) H 85 MG/DL (74-106) White Blood Count 12.6 K/UL (4.8-10.8) H Red Blood Count 3.92 M/UL (4.70-6.10) L Hemoglobin 11.5 G/DL (14.2-18.0) L Hematocrit 33.6 % (42.0-52.0) L Mean Corpuscular Volume 86 FL (80-99) Mean Corpuscular Hemoglobin 29.4 PG (27.0-31.0) Mean Corpuscular Hemoglobin Concent 34.3 G/DL (32.0-36.0) Red Cell Distribution Width 16.0 % (11.6-14.8) H Platelet Count 323 K/UL (150-450) Mean Platelet Volume 6.3 FL (6.5-10.1) L Neutrophils (%) (Auto) 74.0 % (45.0-75.0) Lymphocytes (%) (Auto) 17.3 % (20.0-45.0) L Monocytes (%) (Auto) 7.4 % (1.0-10.0) Eosinophils (%) (Auto) 0.7 % (0.0-3.0) Basophils (%) (Auto) 0.6 % (0.0-2.0) Sodium Level 142 MMOL/L (136-145) Potassium Level 4.4 MMOL/L (3.5-5.1) Chloride Level 112 MMOL/L (98-107) H Carbon Dioxide Level 17 MMOL/L (21-32) L Anion Gap 13 mmol/L (5-15) Blood Urea Nitrogen 35 mg/dL (7-18) H Creatinine 2.2 MG/DL (0.55-1.30) H Estimat Glomerular Filtration Rate 28.7 mL/min (>60) Glucose Level 242 MG/DL (74-106) H Lactic Acid Level 3.40 mmol/L (0.4-2.0) H Calcium Level 7.4 MG/DL (8.5-10.1) L Phosphorus Level 4.0 MG/DL (2.5-4.9) Magnesium Level 2.0 MG/DL (1.8-2.4) Total Bilirubin 0.2 MG/DL (0.2-1.0) Aspartate Amino Transf (AST/SGOT) 18 U/L (15-37) Alanine Aminotransferase (ALT/SGPT) 8 U/L (12-78) L Alkaline Phosphatase 77 U/L (46-116) Total Protein 6.5 G/DL (6.4-8.2) Albumin 2.0 G/DL (3.4-5.0) L Globulin 4.5 g/dL Albumin/Globulin Ratio 0.4 (1.0-2.7) L Lipase 1975 U/L (73-393) H Beta-Hydroxybutyric Acid Pending Acetone, Qualitative Pending Acetone Level Positive-small (NEGATIVE) Test 01/11/20 11:50 POC Whole Blood Glucose 207 MG/DL (74-106) H Height (Feet): 5 Height (Inches): 6.00 Weight (Pounds): 106 Medications Current Medications Medications (Trade) Dose Ordered Sig/Adelaida Route PRN Reason Start Time Stop Time Status Last Admin Dose Admin Ascorbic Acid (Vitamin C) 500 mg DAILY ORAL 01/11/20 12:15 02/10/20 12:14 Barium Sulfate (Readi-Cat 2) 450 ml NOW PRN ORAL Radiology Procedure 01/10/20 01:00 01/12/20 00:59 Barium Sulfate (Readi-Cat 2) 450 ml NOW PRN ORAL Radiology Procedure 01/11/20 08:45 01/13/20 08:44 Barium Sulfate (Varibar Honey) 250 ml NOW PRN MC RAD 01/10/20 21:30 01/13/20 21:17 Barium Sulfate (Varibar Igiugig) 240 ml NOW PRN MC RAD 01/10/20 21:30 01/13/20 21:17 Barium Sulfate (Varibar Pudding) 230 ml NOW PRN MC RAD 01/10/20 21:30 01/13/20 21:17 Barium Sulfate (Varibar Thin Liquid powder) 148 gm NOW PRN MC RAD 01/10/20 21:30 01/13/20 21:17 Dextrose (Dextrose 50%) 25 ml Q30M PRN IV Hypoglycemia 01/10/20 00:15 04/09/20 00:14 Dextrose (Dextrose 50%) 50 ml Q30M PRN IV Hypoglycemia 01/10/20 00:15 04/09/20 00:14 Heparin Sodium (Porcine) (Heparin 5000 units/ml) 5,000 units EVERY 12 HOURS SUBQ 01/09/20 21:00 02/23/20 20:59 01/11/20 08:49 Insulin Aspart (NovoLOG) BEFORE MEALS AND HS SUBQ 01/10/20 06:30 04/09/20 06:29 01/11/20 11:54 Multivitamins (Multivitamins) 1 tab DAILY ORAL 01/11/20 12:15 02/10/20 12:14 Piperacillin Sod/ Tazobactam Sod 3.375 gm/Sodium Chloride 110 ml @ 27.5 mls/hr Q12HR IVPB 01/11/20 10:00 01/18/20 09:59 01/11/20 11:13 Sodium Bicarbonate 100 ml/Dextrose 1,100 ml @ 150 mls/hr Q7H20M IV 01/10/20 19:30 02/09/20 19:29 01/11/20 04:46 Tamsulosin HCl (Flomax) 0.4 mg BEDTIME ORAL 01/11/20 21:00 02/10/20 20:59 Zinc Sulfate (Zinc Sulfate) 220 mg DAILY ORAL 01/11/20 12:15 01/21/20 12:15 Assessment/Plan Problem List: (1) Decubitus ulcer ICD Codes: L89.90 - Pressure ulcer of unspecified site, unspecified stage SNOMED: 261931408 (2) Incontinence associated dermatitis Assessment & Plan: 84-year-old male with significant con associated dermatitis in the buttock inner thigh sacrum perirectal area. There is breakdown of the epidermis and erythema of the dermis with open wounds identified. Some decubitus noted changes in the area. Present upon admission. Area clean. Skin protectant applied. Optifoam dressing applied. Monitor for incontinence. Change accordingly. Okay for rectal tube as needed. We will continue with local care. Turn every 2 hours. Offload pressure with pillows. Air soft m attress. Nutritional optimization. Will follow with recommendations. Thank you for letting participate patient's care ICD Codes: L25.8 - Unspecified contact dermatitis due to other agents; R32 - Unspecified urinary incontinence SNOMED: 559720044 (3) Malnutrition Assessment & Plan: DAILY ESTIMATED NEEDS: Needs based on underweight, wt loss 48kg 30-35 kcals/kg 6927-4778 total kcals 1.25-2 g protein/kg 60-96 g total protein 25-30 mL/kg 7014-8337 total fluid mLs NUTRITION DIAGNOSIS: Increased kcal/prot needs R/T wound healing, underweight status w/ recent significant wt loss as evidenced by admitted w/ multiple wounds at sacrum, BL buttocks and BL heels per photos, pt @ 75% IBW w/ low BMI of 17.2, w/ significant wt loss of 8.4lbs/ 7.3% in <1 month CURRENT DIET:CLEAR LIQUID DIET PO DIET RECOMMENDATIONS: advance diet as tolerated -> CCHO MED/ texture 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 ADDITIONAL RECOMMENDATIONS: 1) Daily calibrated bedscale wt, monitor wt trend 2) Glucerna TID w/ meals once diet advances 3) Monitor PO tolerance: h/o Crohn's disease, elev lipase 4) Monitor BGs closely for hypoglycemia while on CLD 5) Wound healing: Add MVI x 1, Vit C 500mg QD, ZnSO4 220mg QD x 10 days NICK bid added to tray ICD Codes: E46 - Unspecified protein-calorie malnutrition SNOMED: 29791484 (4) Sepsis Assessment & Plan: leukocytosis anemia labs noted on abx micro reviewed ID input appreciated wounds unlikely etiology no abscess ICD Codes: A41.9 - Sepsis, unspecified organism SNOMED: 49483129 Qualifiers: Qualified Codes: A41.9 - Sepsis, unspecified organism (5) Septic shock ICD Codes: A41.9 - Sepsis, unspecified organism; R65.21 - Severe sepsis with septic shock SNOMED: 07035200 (6) Hypomagnesemia ICD Codes: E83.42 - Hypomagnesemia SNOMED: 967539815 (7) Gastroenteritis ICD Codes: K52.9 - Noninfective gastroenteritis and colitis, unspecified SNOMED: 60955274 (8) Hypernatremia ICD Codes: E87.0 - Hyperosmolality and hypernatremia SNOMED: 560736290 (9) SVT (supraventricular tachycardia) ICD Codes: I47.1 - Supraventricular tachycardia SNOMED: 8819303 (10) Proteinuria ICD Codes: R80.9 - Proteinuria, unspecified SNOMED: 30511818 (11) Liver failure ICD Codes: K72.90 - Hepatic failure, unspecified without coma SNOMED: 30389366 (12) Hypophosphatemia ICD Codes: E83.39 - Other disorders of phosphorus metabolism SNOMED: 7368820 (13) UTI (urinary tract infection) ICD Codes: N39.0 - Urinary tract infection, site not specified SNOMED: 05800814 Qualifiers: Qualified Codes: N39.0 - Urinary tract infection, site not specified; R31.9 - Hematuria, unspecified (14) Crohn's colitis ICD Codes: K50.10 - Crohn's disease of large intestine without complications SNOMED: 03662773 (15) IBD (inflammatory bowel disease) ICD Codes: K52.9 - Noninfective gastroenteritis and colitis, unspecified SNOMED: 93764118 (16) Acute renal failure (ARF) ICD Codes: N17.9 - Acute kidney failure, unspecified SNOMED: 77619895 Qualifiers: Qualified Codes: N17.9 - Acute kidney failure, unspecified (17) Diabetes type 2, controlled ICD Codes: E11.9 - Type 2 diabetes mellitus without complications SNOMED: 56919644, 580666539 (18) Toxic metabolic encephalopathy ICD Codes: G92 - Toxic encephalopathy SNOMED: 438160696 (19) Inabality to Ambulate, Stroke Daniel Patten Jan 11, 2020 14:17
--- NOTE | 2020-01-11 14:30 | Cardiology Progress Note ---
Subjective DATE OF SERVICE: Jan 11, 2020 Remains on IVF hydration; started clears. No fevers No vomiting despite elevated lipase BP parameters stable Lactic acid still elevated Venous duplex: negative for DVT Objective Last 24 Hour Vital Signs Date Time Temp Pulse Resp B/P (MAP) Pulse Ox O2 Delivery O2 Flow Rate FiO2 01/11/20 09:00 Venturi Mask 4.0 01/11/20 08:00 95 01/11/20 08:00 96.4 108 21 114/8 (43) 100 01/11/20 04:00 105 01/11/20 04:00 97.5 107 22 113/72 (86) 100 01/11/20 00:00 97.0 105 22 120/68 (85) 100 01/11/20 00:00 101 01/10/20 21:00 Venturi Mask 4.0 01/10/20 20:00 97.5 110 24 118/65 (82) 99 01/10/20 20:00 111 01/10/20 16:00 96.6 68 19 114/58 (76) 96 01/10/20 16:00 101 01/10/20 15:29 Venturi Mask 4.0 HEENT: normal ENT inspection RHYTHM: NSR, ST, PACs LUNGS: lungs clear bilaterally CARDIAC: normal rate, regular rhythm, normal S1 and S2 ABDOMEN: normal bowel sounds, soft, no mass EXTREMITIES: non-tender, no swelling, No edema Laboratory Tests Test 01/10/20 15:59 01/10/20 20:08 01/11/20 05:41 01/11/20 06:03 POC Whole Blood Glucose 105 MG/DL (74-106) 115 MG/DL (74-106) H 85 MG/DL (74-106) White Blood Count 12.6 K/UL (4.8-10.8) H Red Blood Count 3.92 M/UL (4.70-6.10) L Hemoglobin 11.5 G/DL (14.2-18.0) L Hematocrit 33.6 % (42.0-52.0) L Mean Corpuscular Volume 86 FL (80-99) Mean Corpuscular Hemoglobin 29.4 PG (27.0-31.0) Mean Corpuscular Hemoglobin Concent 34.3 G/DL (32.0-36.0) Red Cell Distribution Width 16.0 % (11.6-14.8) H Platelet Count 323 K/UL (150-450) Mean Platelet Volume 6.3 FL (6.5-10.1) L Neutrophils (%) (Auto) 74.0 % (45.0-75.0) Lymphocytes (%) (Auto) 17.3 % (20.0-45.0) L Monocytes (%) (Auto) 7.4 % (1.0-10.0) Eosinophils (%) (Auto) 0.7 % (0.0-3.0) Basophils (%) (Auto) 0.6 % (0.0-2.0) Sodium Level 142 MMOL/L (136-145) Potassium Level 4.4 MMOL/L (3.5-5.1) Chloride Level 112 MMOL/L (98-107) H Carbon Dioxide Level 17 MMOL/L (21-32) L Anion Gap 13 mmol/L (5-15) Blood Urea Nitrogen 35 mg/dL (7-18) H Creatinine 2.2 MG/DL (0.55-1.30) H Estimat Glomerular Filtration Rate 28.7 mL/min (>60) Glucose Level 242 MG/DL (74-106) H Lactic Acid Level 3.40 mmol/L (0.4-2.0) H Calcium Level 7.4 MG/DL (8.5-10.1) L Phosphorus Level 4.0 MG/DL (2.5-4.9) Magnesium Level 2.0 MG/DL (1.8-2.4) Total Bilirubin 0.2 MG/DL (0.2-1.0) Aspartate Amino Transf (AST/SGOT) 18 U/L (15-37) Alanine Aminotransferase (ALT/SGPT) 8 U/L (12-78) L Alkaline Phosphatase 77 U/L (46-116) Total Protein 6.5 G/DL (6.4-8.2) Albumin 2.0 G/DL (3.4-5.0) L Globulin 4.5 g/dL Albumin/Globulin Ratio 0.4 (1.0-2.7) L Lipase 1975 U/L (73-393) H Beta-Hydroxybutyric Acid Pending Acetone, Qualitative Pending Acetone Level Positive-small (NEGATIVE) Test 01/11/20 11:50 POC Whole Blood Glucose 207 MG/DL (74-106) H Microbiology Date/Time Source Procedure Growth Status 01/10/20 12:53 Stool Clostridium difficile Toxin Assay - Final Complete 01/10/20 05:30 Rectum Received 01/09/20 13:30 Urine,Clean Catch Urine Culture - Final Escherichia Coli - Esbl Complete 01/09/20 13:05 Nasopharynx Coronavirus COVID-19 PCR ([facility]) - Final Complete 01/09/20 11:40 Blood Blood Culture - Preliminary NO GROWTH AFTER 24 HOURS Resulted 01/09/20 11:40 Blood Blood Culture - Preliminary NO GROWTH AFTER 24 HOURS Resulted Assessment/Plan Assessment/Plan UTI - complicated Fungal cystitis resolved Severe sepsis Acute pancreatitis Hypovolemia Dehydration Lactic acidosis Acute renal failure Hx CHF - diastolic NIDDM Hypertension/HHD Hx Crohns with diarrhea Sinus tachycardia Clears po per GI IVF with bicarb Restart beta jose Resume Sinemet rx DVT prophyl Insulin cov'g by SS CT abd pending Mitchell West MD Jan 11, 2020 14:30
[2020-01-11] MEDS: Metoprolol Tartrate 12.5mg TAB ORAL SCH ×2 (14:37→21:30)
[2020-01-11] MEDS: Levodopa/Carbidopa 25/100 tab ORAL SCH ×2 (14:37→18:24)
--- NOTE | 2020-01-11 15:19 | General Progress Note ---
Subjective ROS Limited/Unobtainable: No Constitutional: Reports: malaise, weakness HEENT: Reports: no symptoms Cardiovascular: Reports: no symptoms Respiratory: Reports: shortness of breath Gastrointestinal/Abdominal: Reports: no symptoms Genitourinary: Reports: no symptoms Neurologic/Psychiatric: Reports: pre-existing deficit Endocrine: Reports: no symptoms Hematologic/Lymphatic: Reports: anemia Allergies: Coded Allergies: NO KNOWN ALLERGIES (Verified Allergy, Unknown, 09/07/18) All Systems: reviewed and negative except above Subjective no events. no real change. appears comfortable. On venti mask. renal fxn improving. +urine culture noted. ct with colitis Objective Last 24 Hour Vital Signs Date Time Temp Pulse Resp B/P (MAP) Pulse Ox O2 Delivery O2 Flow Rate FiO2 01/11/20 14:37 83 149/64 01/11/20 12:00 103 01/11/20 12:00 96.5 83 20 149/64 (92) 100 01/11/20 09:00 Venturi Mask 4.0 01/11/20 08:00 95 01/11/20 08:00 96.4 108 21 114/81 (92) 100 01/11/20 04:00 105 01/11/20 04:00 97.5 107 22 113/72 (86) 100 01/11/20 00:00 97.0 105 22 120/68 (85) 100 01/11/20 00:00 101 01/10/20 21:00 Venturi Mask 4.0 01/10/20 20:00 97.5 110 24 118/65 (82) 99 01/10/20 20:00 111 01/10/20 16:00 96.6 68 19 114/58 (76) 96 01/10/20 16:00 101 01/10/20 15:29 Venturi Mask 4.0 Intake and Output0 01/10/20 01/11/20 19:00 07:00 Intake Total 875 ml Output Total 400 ml 350 ml Balance 475 ml -350 ml Intake IV Total 875 ml Output Urine Total 400 ml 350 ml # Bowel Movements 4 1 Laboratory Tests 01/10/20 15:59: POC Whole Blood Glucose 105 01/10/20 20:08: POC Whole Blood Glucose 115H 01/11/20 05:41: POC Whole Blood Glucose 85 01/11/20 06:03: White Blood Count 12.6H, Red Blood Count 3.92L, Hemoglobin 11.5L, Hematocrit 33.6L, Mean Corpuscular Volume 86, Mean Corpuscular Hemoglobin 29.4, Mean Corpuscular Hemoglobin Concent 34.3, Red Cell Distribution Width 16.0H, Platelet Count 323, Mean Platelet Volume 6.3L, Neutrophils (%) (Auto) 74.0, Lymphocytes (%) (Auto) 17.3L, Monocytes (%) (Auto) 7.4, Eosinophils (%) (Auto) 0.7, Basophils (%) (Auto) 0.6, Sodium Level 142, Potassium Level 4.4, Chloride Level 112H, Carbon Dioxide Level 17L, Anion Gap 13, Blood Urea Nitrogen 35H, Creatinine 2.2H, Estimat Glomerular Filtration Rate 28.7, Glucose Level 242H, Lactic Acid Level 3.40H, Calcium Level 7.4L, Phosphorus Level 4.0, Magnesium Level 2.0, Total Bilirubin 0.2, Aspartate Amino Transf (AST/SGOT) 18, Alanine Aminotransferase (ALT/SGPT) 8L, Alkaline Phosphatase 77, Total Protein 6.5, Albumin 2.0L, Globulin 4.5, Albumin/Globulin Ratio 0.4L, Lipase 1975H, Beta- Hydroxybutyric Acid [Pending], Acetone, Qualitative [Pending], Acetone Level Positive-small 01/11/20 11:50: POC Whole Blood Glucose 207H Height (Feet): 5 Height (Inches): 6.00 Weight (Pounds): 106 General Appearance: WD/WN, alert, confused EENT: normal ENT inspection Neck: non-tender, normal alignment Cardiovascular: normal peripheral pulses, normal rate, regular rhythm Respiratory/Chest: chest wall non-tender, lungs clear, normal breath sounds, no respiratory distress Abdomen: normal bowel sounds, non tender, soft, no organomegaly, no mass Edema: no edema noted Arm (L), no edema noted Arm (R) Neurologic: instructor dancing II-XII 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, alert, responsive, disoriented, aphasia Assessment/Plan Problem List: (1) Diabetes type 2, controlled ICD Codes: E11.9 - Type 2 diabetes mellitus without complications SNOMED: 62807388, 924181337 (2) Toxic metabolic encephalopathy ICD Codes: G92 - Toxic encephalopathy SNOMED: 246283451 (3) Acute renal failure (ARF) ICD Codes: N17.9 - Acute kidney failure, unspecified SNOMED: 75192611 Qualifiers: Qualified Codes: N17.9 - Acute kidney failure, unspecified (4) Crohn's colitis ICD Codes: K50.10 - Crohn's disease of large intestine without complications SNOMED: 27617635 (5) UTI (urinary tract infection) ICD Codes: N39.0 - Urinary tract infection, site not specified SNOMED: 61054946 Qualifiers: Qualified Codes: N39.0 - Urinary tract infection, site not specified; R31.9 - Hematuria, unspecified (6) IBD (inflammatory bowel disease) ICD Codes: K52.9 - Noninfective gastroenteritis and colitis, unspecified SNOMED: 90301971 (7) Inabality to Ambulate, Stroke (8) SVT (supraventricular tachycardia) ICD Codes: I47.1 - Supraventricular tachycardia SNOMED: 3702463 Status: stable Assessment/Plan: cont ivf monitor renal fxn iv abx follow up cultures eval wean o2 check duplex legs monitor bs skin care Carlos Hunt MD Jan 11, 2020 15:19
[2020-01-11 16:00] VITALS: BP 108/64
--- NOTE | 2020-01-11 17:55 | Cardiology Report ---
APPROVED REPORT EKG Measurement Heart [id number] [place] [id number] [id number] <Conclusion> Sinus tachycardia ST & T wave abnormality, consider inferolateral ischemia Abnormal ECG
--- NOTE | 2020-01-11 18:56 | NUR ---
NURSE HAND-OFF REPORT: Important Events on Shift: Covid PCR results negative, CT abdomen/pelvis done w/ oral contrast, still with diarrhea 1 episode today Patient Status: Stable Diet: Clears Pending Orders: N Pending Results/Labs: Labsi in AM Pending MD notification:N Latest Vital Signs: Temperature 97.9 , Pulse 97 , B/P 108 /64 , Respiratory Rate 18 , O2 SAT 99 , Venturi Mask, O2 Flow Rate 4.0 . Vital Sign Comment: EKG Rhythm: Sinus Rhythm Rhythm change?: N MD Notified?: - MD Response: Latest Miranda Fall Score: 70 Fall Risk: High Risk Safety Measures: Call light Within Reach, Bed Alarm Zone 1, Side Rails Side Rails x3, Bed position Low and Locked. Fall Precautions: Yellow Socks Yellow Gown Door Sign Patient Fall Education Report given to Jarrod Alba RN.
--- NOTE | 2020-01-11 19:00 | NUR ---
NURSE NOTES: Patient received from LISBETH Cardenas. Patient is A/O x 1. Patient unable to express his needs. Patient is on nasal cannula on 2 L satting at 96% with no signs of acute respiratory distress. Patient is on abbott 16 malay, patent and well draining. Patient has a right 22 gauge on his wrist, patent and flushed. Bed is in the lowest position and locked, call light within reach. Will continue to monitor.
--- NOTE | 2020-01-11 19:44 | Consultation ---
DATE OF CONSULTATION: 01/11/2020 CONSULTING PHYSICIAN: Jose A Martinez MD REFERRING PHYSICIAN: Carlos Hunt MD and Mitchell West MD CHIEF COMPLAINT AND REASON FOR HOSPITALIZATION: Patient is an 84-year-old man for whom I am asked to evaluate acute kidney injury, metabolic acidosis. HISTORY OF PRESENT ILLNESS: Patient is known to me from prior admission. Has a history of insulin-dependent diabetes, Parkinson disease, Crohn's, colitis, recurrent diarrhea, hypertension, dementia who presents now with acute kidney injury, metabolic acidosis, hypoxemia, leukocytosis, diarrhea worsening. He has had recent urosepsis, UTI with ESBL, severe diarrhea due to Crohn's disease and on his last admission, his renal function improved. He left the hospital with serum creatinine of 1.1. On this admission, he comes in with the following abnormal labs. On 01/09/2020, BUN 51, creatinine 3.6, sodium 137, potassium 4.3, chloride 102, CO2 17, and anion gap of 18. Troponin 0.009 on admission. Albumin 2.9. Lipase greater than 2000. He has had lactic acid as high as 5.8, which is now downtrending and his glucose has been in the 100s to low 200s. His lactic acid was 8.4 today and the beta-hydroxybutyric acid is pending, but he did have positive ketones in his urine. MEDICATIONS: Prior to admission medications are reviewed on the computer include the following. Acetaminophen, ProStat liquid, bisacodyl, Sinemet, ferrous sulfate, fluconazole, insulin sliding scale, acidophilus, loperamide, milk of magnesia, meropenem, metoprolol, multivitamin with minerals, Protonix, potassium, pravastatin, and Lialda. REVIEW OF SYSTEMS: Patient is unable. PHYSICAL EXAMINATION: GENERAL: The patient is lying in bed, awake, but not speaking. VITAL SIGNS: Temperature 96.4, pulse 95, respirations 21, blood pressure 142/81. GENERAL: Patient is chronically ill-appearing. HEAD, EYES, EARS, NOSE, AND THROAT: Sclerae are nonicteric. Oral mucosa is slightly dry. NECK: No adenopathy or thyroid enlargement. LUNGS: Clear. HEART: Regular rate and rhythm. I hear no murmur. ABDOMEN: Soft. I am unable to feel liver or spleen. EXTREMITIES: Show trace edema. NEUROLOGIC: Generalized weakness. There is no obvious facial asymmetry. There is some movement in all extremities. IMPRESSION: 1. Acute kidney injury, likely prerenal in view of a history of severe diarrhea. 2. Metabolic acidosis with increased anion gap, likely a combination of lactic acidosis and ketoacidosis due to diabetes and poor oral intake. 3. Crohn's colitis. 4. Pyuria and possible UTI with a history of ESBL in the urine. 5. Moderate protein-calorie malnutrition. 6. Very high lipase due to probable acute pancreatitis. PLAN: The patient will receive acute with large volumes of IV fluids since he has history of colitis and fluid should be dextrose containing as he can develop diabetic ketoacidosis in view of poor oral intake and diabetes and IV fluids are changed to D5W with sodium bicarbonate correct his acidosis. We will watch closely his volume status, electrolytes, and infectious status. Patient is at high risk. Jose A Martinez M.D. DR: SURJIT JOB#: [id number] CC:
[2020-01-11 20:00] VITALS: BP 110/67
[2020-01-11] MEDS: Tamsulosin 0.4mg cap ORAL SCH (21:30)
[2020-01-12 00:14] VITALS: BP 99/58
[2020-01-12] MEDS: Sodium Bicarbonate 100 ML in D5W 1000ml 1,000 ML IV SCH ×4 (00:50→22:50)
[2020-01-12 04:00] VITALS: BP 99/65
[2020-01-12] MEDS: NovoLOG Insulin Flexpen SUBQ SCH ×4 (06:10→21:00)
[2020-01-12 06:11] LABS: BASOPHILS % (AUTO) 1.1 % (0.0-2.0); EOSINOPHILS % (AUTO) 1.1 % (0.0-3.0); HEMATOCRIT 30.7 % (42.0-52.0); HEMOGLOBIN 10.7 G/DL (14.2-18.0); LYMPHOCYTES % (AUTO) 21.4 % (20.0-45.0); MEAN CORPUSCULAR VOLUME 82 FL (80-99); MONOCYTES % (AUTO) 8.3 % (1.0-10.0); NEUTROPHILS % (AUTO) 68.2 % (45.0-75.0); PLATELET COUNT 298 K/UL (150-450); RED BLOOD COUNT 3.72 M/UL (4.70-6.10); RED CELL DISTRIBUTION WIDTH 15.4 % (11.6-14.8); WHITE BLOOD COUNT 11.1 K/UL (4.8-10.8)
[2020-01-12 06:36] LABS: ALANINE AMINOTRANSFERASE < 6 U/L (12-78); ALBUMIN 2.2 G/DL (3.4-5.0); ALBUMIN/GLOBULIN RATIO 0.4 (1.0-2.7); ALKALINE PHOSPHATASE 83 U/L (46-116); ANION GAP 14 mmol/L (5-15); ASPARTATE AMINO TRANSFERASE 17 U/L (15-37); BILIRUBIN,TOTAL 0.4 MG/DL (0.2-1.0); BLOOD UREA NITROGEN 26 mg/dL (7-18); CALCIUM 7.9 MG/DL (8.5-10.1); CARBON DIOXIDE 19 MMOL/L (21-32); CHLORIDE 106 MMOL/L (98-107); CREATININE 2.3 MG/DL (0.55-1.30); POTASSIUM 3.8 MMOL/L (3.5-5.1); SODIUM 139 MMOL/L (136-145)
--- NOTE | 2020-01-12 07:45 | NUR ---
NURSE HAND-OFF REPORT: Important Events on Shift:[Patient ask for pain medication and antiemetic medication. Says that pain is generalized] Patient Status: [Stable] Diet: [Cardiac diet] Pending Orders: [] Pending Results/Labs:[] Pending MD notification:[] Latest Vital Signs: Temperature 97.6 , Pulse 102 , B/P 99 /65 , Respiratory Rate 18 , O2 SAT 98 , Venturi Mask, O2 Flow Rate 4.0 . Vital Sign Comment: [] EKG Rhythm: Sinus Tachycardia Rhythm change?: Y Notified?: N - MD Response: Latest Miranda Fall Score: 70 Fall Risk: High Risk Safety Measures: Call light Within Reach, Bed Alarm Zone 1, Side Rails Side Rails x3, Bed position Low and Locked. Fall Precautions: Yellow Socks Yellow Gown Door Sign Patient Fall Education Report given to [LISBETH Braga]. Addendum: 01/12/20 at 0807 by Marco Alba RN NURSE HAND-OFF REPORT: Important Events on Shift:[Patient is positive for VRE] Patient Status: [] Diet: [Thin liquids] Pending Orders: [] Pending Results/Labs:[] Pending MD notification:[] Latest Vital Signs: Temperature 97.6 , Pulse 102 , B/P 99 /65 , Respiratory Rate 18 , O2 SAT 98 , Venturi Mask, O2 Flow Rate 4.0 . Vital Sign Comment: [] EKG Rhythm: Sinus Tachycardia Rhythm change?: Y Notified?: N - MD Response: Latest Miranda Fall Score: 70 Fall Risk: High Risk Safety Measures: Call light Within Reach, Bed Alarm Zone 1, Side Rails Side Rails x3, Bed position Low and Locked. Fall Precautions: Yellow Socks Yellow Gown Door Sign Patient Fall Education Report given to [LISBETH Braga].
[2020-01-12 08:00] VITALS: BP 99/58
--- NOTE | 2020-01-12 09:11 | Urology Progress Note ---
Assessment/Plan Status: stable Assessment/Plan: 1. Acute kidney injury. 2. BPH history. 3. Urinary retention. 4. Proteinuria. 5. UTI. 6. Hematuria. 7. Renal cyst. 8. Possible neurogenic bladder. monitor clinically abbott indwelling hand irrigated and do PRN abx as ordered f/u on blood cx flomax voiding trial once renal fxn stabilized Subjective Allergies: Coded Allergies: NO KNOWN ALLERGIES (Verified Allergy, Unknown, 09/07/18) Subjective all noted Objective Last 24 Hour Vital Signs Date Time Temp Pulse Resp B/P (MAP) Pulse Ox O2 Delivery O2 Flow Rate FiO2 01/12/20 04:00 102 01/12/20 04:00 97.6 108 18 99/65 (76) 98 01/12/20 00:14 97.8 76 16 99/58 (72) 99 01/12/20 00:00 84 01/11/20 21:30 75 110/67 01/11/20 21:00 Venturi Mask 4.0 01/11/20 20:00 98.1 75 18 110/67 (81) 100 01/11/20 20:00 97 01/11/20 16:00 97 01/11/20 16:00 97.9 92 18 108/64 (79) 99 01/11/20 14:37 83 149/64 01/11/20 12:00 103 01/11/20 12:00 96.5 83 20 149/64 (92) 100 Intake and Output 01/11/20 01/12/20 19:00 07:00 Intake Total 400 ml Output Total 700 ml 500 ml Balance -300 ml -500 ml Intake Oral 400 ml Output Urine Total 700 ml 500 ml # Voids 1 # Bowel Movements 1 2 Microbiology Date/Time Source Procedure Growth Status 01/10/20 12:53 Stool Stool Culture - Preliminary NO SALMONELLA,SHIGELLA,OR CAMPYLOBACT... Resulted 01/10/20 08:30 Rectum - Final NO CARBAPENEM-RESISTANT ENTEROBACTERI... Complete 01/09/20 13:30 Urine,Clean Catch Urine Culture - Final Escherichia Coli - Esbl Complete 01/09/20 13:05 Nasopharynx Coronavirus COVID-19 PCR ([facility]) - Final Complete 01/09/20 11:40 Blood Blood Culture - Preliminary NO GROWTH AFTER 24 HOURS Resulted Current Medications Medications (Trade) Dose Ordered Sig/Adelaida Route PRN Reason Start Time Stop Time Status Last Admin Dose Admin Ascorbic Acid (Vitamin C) 500 mg DAILY ORAL 01/12/20 09:00 02/11/20 08:59 Barium Sulfate (Readi-Cat 2) 450 ml NOW PRN ORAL Radiology Procedure 01/11/20 08:45 01/13/20 08:44 Barium Sulfate (Varibar Honey) 250 ml NOW PRN RAD 01/10/20 21:30 01/13/20 21:17 Barium Sulfate (Varibar Mcroberts) 240 ml NOW PRN RAD 01/10/20 21:30 01/13/20 21:17 Barium Sulfate (Varibar Pudding) 230 ml NOW PRN RAD 01/10/20 21:30 01/13/20 21:17 Barium Sulfate (Varibar Thin Liquid powder) 148 gm NOW PRN RAD 01/10/20 21:30 01/13/20 21:17 Carbidopa/Levodopa (Sinemet 25/100) 1 tab THREE TIMES A DAY ORAL 01/11/20 14:30 02/10/20 14:29 01/11/20 18:24 Dextrose (Dextrose 50%) 25 ml Q30M PRN IV Hypoglycemia 01/10/20 00:15 04/09/20 00:14 Dextrose (Dextrose 50%) 50 ml Q30M PRN IV Hypoglycemia 01/10/20 00:15 04/09/20 00:14 Heparin Sodium (Porcine) (Heparin 5000 units/ml) 5,000 units EVERY 12 HOURS SUBQ 01/09/20 21:00 02/23/20 20:59 01/11/20 21:28 Insulin Aspart (NovoLOG) BEFORE MEALS AND HS SUBQ 01/10/20 06:30 04/09/20 06:29 01/12/20 06:10 Metoprolol Tartrate (Lopressor) 12.5 mg Q12HR ORAL 01/11/20 15:00 04/10/20 14:59 01/11/20 21:30 Multivitamins (Multivitamins) 1 tab DAILY ORAL 01/12/20 09:00 02/11/20 08:59 Piperacillin Sod/ Tazobactam Sod 3.375 gm/Sodium Chloride 110 ml @ 27.5 mls/hr Q12HR IVPB 01/11/20 10:00 01/18/20 09:59 01/11/20 21:30 Sodium Bicarbonate 100 ml/Dextrose 1,100 ml @ 150 mls/hr Q7H20M IV 01/10/20 19:30 02/09/20 19:29 01/12/20 08:59 Tamsulosin HCl (Flomax) 0.4 mg BEDTIME ORAL 01/11/20 21:00 02/10/20 20:59 01/11/20 21:30 Zinc Sulfate (Zinc Sulfate) 220 mg DAILY ORAL 01/12/20 09:00 01/22/20 08:59 Laboratory Tests 01/11/20 11:50: POC Whole Blood Glucose 207H 01/11/20 16:30: POC Whole Blood Glucose 138H 01/11/20 21:39: POC Whole Blood Glucose 186H 01/12/20 04:50: White Blood Count 11.1H, Red Blood Count 3.72L, Hemoglobin 10.7L, Hematocrit 30. 7L, Mean Corpuscular Volume 82, Mean Corpuscular Hemoglobin 28.7, Mean Corpuscular Hemoglobin Concent 34.8, Red Cell Distribution Width 15.4H, Platelet Count 298, Mean Platelet Volume 6.2L, Neutrophils (%) (Auto) 68.2, Lymphocytes (%) (Auto) 21.4, Monocytes (%) (Auto) 8.3, Eosinophils (%) (Auto) 1.1, Basophils (%) (Auto) 1.1, Sodium Level 139, Potassium Level 3.8, Chloride Level 106, Carbon Dioxide Level 19L, Anion Gap 14, Blood Urea Nitrogen 26H, Creatinine 2.3H , Estimat Glomerular Filtration Rate 27.3, Glucose Level 179H, Lactic Acid Level 2.70H, Calcium Level 7.9L, Total Bilirubin 0.4, Aspartate Amino Transf (AST/SGOT) 17, Alanine Aminotransferase (ALT/SGPT) < 6L, Alkaline Phosphatase 83, Total Protein 7.5, Albumin 2.2L, Globulin 5.3, Albumin/Globulin Ratio 0.4L, Lipase 1951H 01/12/20 06:09: POC Whole Blood Glucose 163H Height (Feet): 5 Height (Inches): 6.00 Weight (Pounds): 106 Objective exam stable urine yellow/adan CT A/P (01/10) noted Shailesh Sullivan MD Jan 12, 2020 09:11
[2020-01-12] MEDS: Levodopa/Carbidopa 25/100 tab ORAL SCH ×3 (09:21→18:09)
[2020-01-12] MEDS: Metoprolol Tartrate 12.5mg TAB ORAL SCH ×2 (09:21→21:09)
[2020-01-12] MEDS: Ascorbic Acid 500mg tab ORAL SCH (09:21)
[2020-01-12] MEDS: Piperacillin/Tazobactam 3.375 GM in NS 110 ML IVPB SCH ×2 (09:21→21:08)
[2020-01-12] MEDS: Zinc Sulfate 220mg ORAL SCH (09:22)
[2020-01-12] MEDS: Heparin 5000 units/ml inj SUBQ SCH ×2 (09:22→21:11)
--- NOTE | 2020-01-12 10:59 | Nephrology Progress Note ---
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, Stroke (10) Malnutrition Plan continue iv with bicarb and dextrose Subjective ROS Limited/Unobtainable: Yes Objective Objective Last 24 Hour Vital Signs Date Time Temp Pulse Resp B/P (MAP) Pulse Ox O2 Delivery O2 Flow Rate FiO2 01/12/20 09:21 105 99/58 01/12/20 04:00 102 01/12/20 04:00 97.6 108 18 99/65 (76) 98 01/12/20 00:14 97.8 76 16 99/58 (72) 99 01/12/20 00:00 84 01/11/20 21:30 75 110/67 01/11/20 21:00 Venturi Mask 4.0 01/11/20 20:00 98.1 75 18 110/67 (81) 100 01/11/20 20:00 97 01/11/20 16:00 97 01/11/20 16:00 97.9 92 18 108/64 (79) 99 01/11/20 14:37 83 149/64 01/11/20 12:00 103 01/11/20 12:00 96.5 83 20 149/64 (92) 100 Intake and Output 01/11/20 01/12/20 19:00 07:00 Intake Total 400 ml Output Total 700 ml 500 ml Balance -300 ml -500 ml Intake Oral 400 ml Output Urine Total 700 ml 500 ml # Voids 1 # Bowel Movements 1 2 Laboratory Tests 01/11/20 11:50: POC Whole Blood Glucose 207H 01/11/20 16:30: POC Whole Blood Glucose 138H 01/11/20 21:39: POC Whole Blood Glucose 186H 01/12/20 04:50: White Blood Count 11.1H, Red Blood Count 3.72L, Hemoglobin 10.7L, Hematocrit 30.7L, Mean Corpuscular Volume 82, Mean Corpuscular Hemoglobin 28.7, Mean Corpuscular Hemoglobin Concent 34.8, Red Cell Distribution Width 15.4H, Platelet Count 298, Mean Platelet Volume 6.2L, Neutrophils (%) (Auto) 68.2, Lymphocytes (%) (Auto) 21.4, Monocytes (%) (Auto) 8.3, Eosinophils (%) (Auto) 1.1, Basophils (%) (Auto) 1.1, Sodium Level 139, Potassium Level 3.8, Chloride Level 106, Carbon Dioxide Level 19L, Anion Gap 14, Blood Urea Nitrogen 26H, Creatinine 2.3H , Estimat Glomerular Filtration Rate 27.3, Glucose Level 179H, Lactic Acid Level 2.70H, Calcium Level 7.9L, Total Bilirubin 0.4, Aspartate Amino Transf (AST/SGOT) 17, Alanine Aminotransferase (ALT/SGPT) < 6L, Alkaline Phosphatase 83, Total Protein 7.5, Albumin 2.2L, Globulin 5.3, Albumin/Globulin Ratio 0.4L, Lipase 1951H 01/12/20 06:09: POC Whole Blood Glucose 163H Height (Feet): 5 Height (Inches): 6.00 Weight (Pounds): 106 General Appearance: no apparent distress, confused EENT: normal ENT inspection Neck: normal alignment Cardiovascular: normal rate Respiratory/Chest: lungs clear Abdomen: non tender, soft Extremities: no edema Neurologic: motor weakness Jose A Martinez MD Jan 12, 2020 10:59
[2020-01-12 12:00] VITALS: BP 98/56
--- NOTE | 2020-01-12 12:35 | General Progress Note ---
Subjective ROS Limited/Unobtainable: No Constitutional: Reports: malaise, weakness HEENT: Reports: no symptoms Cardiovascular: Reports: no symptoms Respiratory: Reports: no symptoms Gastrointestinal/Abdominal: Reports: no symptoms Genitourinary: Reports: no symptoms Neurologic/Psychiatric: Reports: pre-existing deficit Endocrine: Reports: no symptoms Hematologic/Lymphatic: Reports: anemia Allergies: Coded Allergies: NO KNOWN ALLERGIES (Verified Allergy, Unknown, 09/07/18) All Systems: reviewed and negative except above Subjective on nasal cannula. appears more comfortable. alert but confused. remains on iv abx. Objective Last 24 Hour Vital Signs Date Time Temp Pulse Resp B/P (MAP) Pulse Ox O2 Delivery O2 Flow Rate FiO2 01/12/20 09:21 105 99/58 01/12/20 04:00 102 01/12/20 04:00 97.6 108 18 99/65 (76) 98 01/12/20 00:14 97.8 76 16 99/58 (72) 99 01/12/20 00:00 84 01/11/20 21:30 75 110/67 01/11/20 21:00 Venturi Mask 4.0 01/11/20 20:00 98.1 75 18 110/67 (81) 100 01/11/20 20:00 97 01/11/20 16:00 97 01/11/20 16:00 97.9 92 18 108/64 (79) 99 01/11/20 14:37 83 149/64 Intake and Output 01/11/20 01/12/20 19:00 07:00 Intake Total 400 ml Output Total 700 ml 500 ml Balance -300 ml -500 ml Intake Oral 400 ml Output Urine Total 700 ml 500 ml # Voids 1 # Bowel Movements 1 2 Laboratory Tests 01/11/20 16:30: POC Whole Blood Glucose 138H 01/11/20 21:39: POC Whole Blood Glucose 186H 01/12/20 04:50: White Blood Count 11.1H, Red Blood Count 3.72L, Hemoglobin 10.7L, Hematocrit 30.7L, Mean Corpuscular Volume 82, Mean Corpuscular Hemoglobin 28.7, Mean Corpuscular Hemoglobin Concent 34.8, Red Cell Distribution Width 15.4H, Platelet Count 298, Mean Platelet Volume 6.2L, Neutrophils (%) (Auto) 68.2, Lymphocytes (%) (Auto) 21.4, Monocytes (%) (Auto) 8.3, Eosinophils (%) (Auto) 1.1, Basophils (%) (Auto) 1.1, Sodium Level 139, Potassium Level 3.8, Chloride Level 106, Carbon Dioxide Level 19L, Anion Gap 14, Blood Urea Nitrogen 26H, Creatinine 2.3H , Estimat Glomerular Filtration Rate 27.3, Glucose Level 179H, Lactic Acid Level 2.70H, Calcium Level 7.9L, Total Bilirubin 0.4, Aspartate Amino Transf (AST/SGOT) 17, Alanine Aminotransferase (ALT/SGPT) < 6L, Alkaline Phosphatase 83, Total Protein 7.5, Albumin 2.2L, Globulin 5.3, Albumin/Globulin Ratio 0.4L, Lipase 1951H 01/12/20 06:09: POC Whole Blood Glucose 163H 01/12/20 11:34: POC Whole Blood Glucose 134H Height (Feet): 5 Height (Inches): 6.00 Weight (Pounds): 106 General Appearance: WD/WN, alert EENT: PERRL/EOMI, normal ENT inspection Neck: non-tender, normal alignment, supple Cardiovascular: normal peripheral pulses, normal rate Respiratory/Chest: chest wall non-tender, lungs clear, normal breath sounds, no respiratory distress, no accessory muscle use Abdomen: normal bowel sounds, non tender, soft, no organomegaly, no mass Neurologic: twx operator II-XII 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, alert, oriented x 3 Assessment/Plan Problem List: (1) Diabetes type 2, controlled ICD Codes: E11.9 - Type 2 diabetes mellitus without complications SNOMED: 58581797, 793783178 (2) Toxic metabolic encephalopathy ICD Codes: G92 - Toxic encephalopathy SNOMED: 813470458 (3) Acute renal failure (ARF) ICD Codes: N17.9 - Acute kidney failure, unspecified SNOMED: 36098222 Qualifiers: Qualified Codes: N17.9 - Acute kidney failure, unspecified (4) Crohn's colitis ICD Codes: K50.10 - Crohn's disease of large intestine without complications SNOMED: 11653756 (5) UTI (urinary tract infection) ICD Codes: N39.0 - Urinary tract infection, site not specified SNOMED: 41450035 Qualifiers: Qualified Codes: N39.0 - Urinary tract infection, site not specified; R31.9 - Hematuria, unspecified (6) IBD (inflammatory bowel disease) ICD Codes: K52.9 - Noninfective gastroenteritis and colitis, unspecified SNOMED: 16799552 (7) Inabality to Ambulate, Stroke (8) SVT (supraventricular tachycardia) ICD Codes: I47.1 - Supraventricular tachycardia SNOMED: 7176572 Status: stable Assessment/Plan: cont ivf clears monitor renal fxn- labs pending today iv abx per ID follow up cultures eval/GI eval monitor lipase level wean o2 monitor bs skin care dvt/stress ulcer prophylaxis Carlos Hunt MD Jan 12, 2020 12:35
[2020-01-12] MEDS ORDERED: Tubing IV Secondary IV ONE (13:16)
[2020-01-12] MEDS ORDERED: 1/2 NS 1000ml IV ONE (13:16)
--- NOTE | 2020-01-12 14:36 | Surgery Progress Note ---
Surgery Progress Note Subjective Symptoms: improved, tolerating diet, passing flatus, BM Objective Last 24 Hour Vital Signs Date Time Temp Pulse Resp B/P (MAP) Pulse Ox O2 Delivery O2 Flow Rate FiO2 01/12/20 09:21 105 99/58 01/12/20 04:00 102 01/12/20 04:00 97.6 108 18 99/65 (76) 98 01/12/20 00:14 97.8 76 16 99/58 (72) 99 01/12/20 00:00 84 01/11/20 21:30 75 110/67 01/11/20 21:00 Venturi Mask 4.0 01/11/20 20:00 98.1 75 18 110/67 (81) 100 01/11/20 20:00 97 01/11/20 16:00 97 01/11/20 16:00 97.9 92 18 108/64 (79) 99 01/11/20 14:37 83 149/64 I&O Intake and Output 01/11/20 01/12/20 19:00 07:00 Intake Total 400 ml Output Total 700 ml 500 ml Balance -300 ml -500 ml Intake Oral 400 ml Output Urine Total 700 ml 500 ml # Voids 1 # Bowel Movements 1 2 Dressing: saturated Cardiovascular: RSR Respiratory: decreased breath sounds Abdomen: soft, non-tender, present bowel sounds Extremities: no edema, no tenderness, no cyanosis Laboratory Tests Test 01/11/20 16:30 01/11/20 21:39 01/12/20 04:50 01/12/20 06:09 POC Whole Blood Glucose 138 MG/DL (74-106) H 186 MG/DL (74-106) H 163 MG/DL (74-106) H White Blood Count 11.1 K/UL (4.8-10.8) H Red Blood Count 3.72 M/UL (4.70-6.10) L Hemoglobin 10.7 G/DL (14.2-18.0) L Hematocrit 30.7 % (42.0-52.0) L Mean Corpuscular Volume 82 FL (80-99) Mean Corpuscular Hemoglobin 28.7 PG (27.0-31.0) Mean Corpuscular Hemoglobin Concent 34.8 G/DL (32.0-36.0) Red Cell Distribution Width 15.4 % (11.6-14.8) H Platelet Count 298 K/UL (150-450) Mean Platelet Volume 6.2 FL (6.5-10.1) L Neutrophils (%) (Auto) 68.2 % (45.0-75.0) Lymphocytes (%) (Auto) 21.4 % (20.0-45.0) Monocytes (%) (Auto) 8.3 % (1.0-10.0) Eosinophils (%) (Auto) 1.1 % (0.0-3.0) Basophils (%) (Auto) 1.1 % (0.0-2.0) Sodium Level 139 MMOL/L (136-145) Potassium Level 3.8 MMOL/L (3.5-5.1) Chloride Level 106 MMOL/L (98-107) Carbon Dioxide Level 19 MMOL/L (21-32) L Anion Gap 14 mmol/L (5-15) Blood Urea Nitrogen 26 mg/dL (7-18) H Creatinine 2.3 MG/DL (0.55-1.30) H Estimat Glomerular Filtration Rate 27.3 mL/min (>60) Glucose Level 179 MG/DL (74-106) H Lactic Acid Level 2.70 mmol/L (0.4-2.0) H Calcium Level 7.9 MG/DL (8.5-10.1) L Total Bilirubin 0.4 MG/DL (0.2-1.0) Aspartate Amino Transf (AST/SGOT) 17 U/L (15-37) Alanine Aminotransferase (ALT/SGPT) < 6 U/L (12-78) L Alkaline Phosphatase 83 U/L (46-116) Total Protein 7.5 G/DL (6.4-8.2) Albumin 2.2 G/DL (3.4-5.0) L Globulin 5.3 g/dL Albumin/Globulin Ratio 0.4 (1.0-2.7) L Lipase 1951 U/L (73-393) H Test 01/12/20 11:34 POC Whole Blood Glucose 134 MG/DL (74-106) H Plan Problems: (1) Decubitus ulcer (2) Incontinence associated dermatitis Assessment & Plan: 84-year-old male with significant con associated dermatitis in the buttock inner thigh sacrum perirectal area. There is breakdown of the epidermis and erythema of the dermis with open wounds identified. Some decubitus noted changes in the area. Present upon admission. Area clean. Skin protectant applied. Optifoam dressing applied. Monitor for incontinence. Change accordingly. Okay for rectal tube as needed. We will continue with local care. Turn every 2 hours. Offload pressure with pillows. Air soft mattress. Nutritional optimization. Will follow with recommendations. Thank you for letting participate patient's care (3) Malnutrition Assessment & Plan: DAILY ESTIMATED NEEDS: Needs based on underweight, wt loss 48kg 30-35 kcals/kg 7898-5856 total kcals 1.25-2 g protein/kg 60-96 g total protein 25-30 mL/kg 8999-8815 total fluid mLs NUTRITION DIAGNOSIS: Increased kcal/prot needs R/T wound healing, underweight status w/ recent significant wt loss as evidenced by admitted w/ multiple wounds at sacrum, BL buttocks and BL heels per photos, pt @ 75% IBW w/ low BMI of 17.2, w/ significant wt loss of 8.4lbs/ 7.3% in <1 month CURRENT DIET:CLEAR LIQUID DIET PO DIET RECOMMENDATIONS: advance diet as tolerated -> CCHO MED/ texture per [employer] ADDITIONAL RECOMMENDATIONS: 1) Daily calibrated bedscale wt, monitor wt trend 2) Glucerna TID w/ meals once diet advances 3) Monitor PO tolerance: h/o Crohn's disease, elev lipase 4) Monitor BGs closely for hypoglycemia while on CLD 5) Wound healing: Add MVI x 1, Vit C 500mg QD, ZnSO4 220mg QD x 10 days NICK bid added to tray (4) Sepsis Assessment & Plan: leukocytosis anemia labs noted on abx micro reviewed ID input appreciated wounds unlikely etiology no abscess (5) Septic shock (6) Hypomagnesemia (7) Gastroenteritis (8) Hypernatremia (9) SVT (supraventricular tachycardia) (10) Proteinuria (11) Liver failure (12) Hypophosphatemia (13) UTI (urinary tract infection) (14) Crohn's colitis (15) IBD (inflammatory bowel disease) (16) Acute renal failure (ARF) (17) Diabetes type 2, controlled (18) Toxic metabolic encephalopathy (19) Inabality to Ambulate, Stroke Daniel Patten Jan 12, 2020 14:36
[2020-01-12 16:00] VITALS: BP 113/66
--- NOTE | 2020-01-12 17:27 | Infectious Diseases Prog Note ---
Assessment/Plan Assessment/Plan A; 1. ESBL E. coli urinary tract infection. 2. Diabetes. 3. Hypertension. 4. Renal failure is improving. 5. Crohn disease. 6. He is COVID-19 negative. 7. Pancreatitis is improving slowly. 8. Acidosis PLAN: 1. Continue Zosyn 3 more days. 2. We will follow up cultures. Subjective ROS Limited/Unobtainable: Yes Constitutional: Denies: fever Allergies: Coded Allergies: NO KNOWN ALLERGIES (Verified Allergy, Unknown, 09/07/18) Objective Last 24 Hour Vital Signs Date Time Temp Pulse Resp B/P (MAP) Pulse Ox O2 Delivery O2 Flow Rate FiO2 01/12/20 12:00 106 01/12/20 09:21 105 99/58 01/12/20 09:00 Nasal Cannula 2.0 01/12/20 04:00 102 01/12/20 04:00 97.6 108 18 99/65 (76) 98 01/12/20 00:14 97.8 76 16 99/58 (72) 99 01/12/20 00:00 84 01/11/20 21:30 75 110/67 01/11/20 21:00 Venturi Mask 4.0 01/11/20 20:00 98.1 75 18 110/67 (81) 100 01/11/20 20:00 97 Height (Feet): 5 Height (Inches): 6.00 Weight (Pounds): 106 General Appearance: no acute distress HEENT: mucous membranes moist Respiratory/Chest: lungs clear Cardiovascular: tachycardia Abdomen: soft, non tender Extremities: no edema Neurologic/Psychiatric: alert, responsive Microbiology Date/Time Source Procedure Growth Status 01/10/20 12:53 Stool Stool Culture - Preliminary NO SALMONELLA,SHIGELLA,OR CAMPYLOBACT... Resulted 01/10/20 12:53 Stool Clostridium difficile Toxin Assay - Final Complete 01/10/20 08:30 Rectum - Final NO CARBAPENEM-RESISTANT ENTEROBACTERI... Complete 01/10/20 05:30 Rectum VRE Culture - Final Enterococcus Faecium - Vre Complete Laboratory Tests Test 01/11/20 21:39 01/12/20 04:50 01/12/20 06:09 01/12/20 11:34 POC Whole Blood Glucose 186 MG/DL (74-106) H 163 MG/DL (74-106) H 134 MG/DL (74-106) H White Blood Count 11.1 K/UL (4.8-10.8) H Red Blood Count 3.72 M/UL (4.70-6.10) L Hemoglobin 10.7 G/DL (14.2-18.0) L Hematocrit 30.7 % (42.0-52.0) L Mean Corpuscular Volume 82 FL (80-99) Mean Corpuscular Hemoglobin 28.7 PG (27.0-31.0) Mean Corpuscular Hemoglobin Concent 34.8 G/DL (32.0-36.0) Red Cell Distribution Width 15.4 % (11.6-14.8) H Platelet Count 298 K/UL (150-450) Mean Platelet Volume 6.2 FL (6.5-10.1) L Neutrophils (%) (Auto) 68.2 % (45.0-75.0) Lymphocytes (%) (Auto) 21.4 % (20.0-45.0) Monocytes (%) (Auto) 8.3 % (1.0-10.0) Eosinophils (%) (Auto) 1.1 % (0.0-3.0) Basophils (%) (Auto) 1.1 % (0.0-2.0) Sodium Level 139 MMOL/L (136-145) Potassium Level 3.8 MMOL/L (3.5-5.1) Chloride Level 106 MMOL/L (98-107) Carbon Dioxide Level 19 MMOL/L (21-32) L Anion Gap 14 mmol/L (5-15) Blood Urea Nitrogen 26 mg/dL (7-18) H Creatinine 2.3 MG/DL (0.55-1.30) H Estimat Glomerular Filtration Rate 27.3 mL/min (>60) Glucose Level 179 MG/DL (74-106) H Lactic Acid Level 2.70 mmol/L (0.4-2.0) H Calcium Level 7.9 MG/DL (8.5-10.1) L Total Bilirubin 0.4 MG/DL (0.2-1.0) Aspartate Amino Transf (AST/SGOT) 17 U/L (15-37) Alanine Aminotransferase (ALT/SGPT) < 6 U/L (12-78) L Alkaline Phosphatase 83 U/L (46-116) Total Protein 7.5 G/DL (6.4-8.2) Albumin 2.2 G/DL (3.4-5.0) L Globulin 5.3 g/dL Albumin/Globulin Ratio 0.4 (1.0-2.7) L Lipase 1951 U/L (73-393) H Test 01/12/20 16:00 01/12/20 16:50 Sodium Level Pending Potassium Level Pending Chloride Level Pending Carbon Dioxide Level Pending Blood Urea Nitrogen Pending Creatinine Pending Estimat Glomerular Filtration Rate Pending Glucose Level Pending Calcium Level Pending Total Bilirubin Pending Aspartate Amino Transf (AST/SGOT) Pending Alanine Aminotransferase (ALT/SGPT) Pending Alkaline Phosphatase Pending Total Protein Pending Albumin Pending Globulin Pending Lipase Pending POC Whole Blood Glucose 170 MG/DL (74-106) H Current Medications Medications (Trade) Dose Ordered Sig/Adelaida Route PRN Reason Start Time Stop Time Status Last Admin Dose Admin Ascorbic Acid (Vitamin C) 500 mg DAILY ORAL 01/12/20 09:00 02/11/20 08:59 01/12/20 09:21 Barium Sulfate (Readi-Cat 2) 450 ml NOW PRN ORAL Radiology Procedure 01/11/20 08:45 01/13/20 08:44 Barium Sulfate (Varibar Honey) 250 ml NOW PRN MC RAD 01/10/20 21:30 01/13/20 21:17 Barium Sulfate (Varibar [place]) 240 ml NOW PRN MC RAD 01/10/20 21:30 01/13/20 21:17 Barium Sulfate (Varibar Pudding) 230 ml NOW PRN MC RAD 01/10/20 21:30 01/13/20 21:17 Barium Sulfate (Varibar Thin Liquid powder) 148 gm NOW PRN MC RAD 01/10/20 21:30 01/13/20 21:17 Carbidopa/Levodopa (Sinemet 25/100) 1 tab THREE TIMES A DAY ORAL 01/11/20 14:30 02/10/20 14:29 01/12/20 14:24 Dextrose (Dextrose 50%) 25 ml Q30M PRN IV Hypoglycemia 01/10/20 00:15 04/09/20 00:14 Dextrose (Dextrose 50%) 50 ml Q30M PRN IV Hypoglycemia 01/10/20 00:15 04/09/20 00:14 Heparin Sodium (Porcine) (Heparin 5000 units/ml) 5,000 units EVERY 12 HOURS SUBQ 01/09/20 21:00 02/23/20 20:59 01/12/20 09:22 Insulin Aspart (NovoLOG) BEFORE MEALS AND HS SUBQ 01/10/20 06:30 04/09/20 06:29 01/12/20 06:10 Metoprolol Tartrate (Lopressor) 12.5 mg Q12HR ORAL 01/11/20 15:00 04/10/20 14:59 01/12/20 09:21 Multivitamins (Multivitamins) 1 tab DAILY ORAL 01/12/20 09:00 02/11/20 08:59 01/12/20 09:21 Piperacillin Sod/ Tazobactam Sod 3.375 gm/Sodium Chloride 110 ml @ 27.5 mls/hr Q12HR IVPB 01/11/20 10:00 01/18/20 09:59 01/12/20 09:21 Potassium Chloride (K-Dur) 40 meq ONCE ORAL 01/12/20 11:00 04/11/20 12:59 01/12/20 11:57 Sodium Bicarbonate 100 ml/Dextrose 1,100 ml @ 150 mls/hr Q7H20M IV 01/10/20 19:30 02/09/20 19:29 01/12/20 16:27 Tamsulosin HCl (Flomax) 0.4 mg BEDTIME ORAL 01/11/20 21:00 02/10/20 20:59 01/11/20 21:30 Zinc Sulfate (Zinc Sulfate) 220 mg DAILY ORAL 01/12/20 09:00 01/22/20 08:59 01/12/20 09:22 Gael Wilkinson MD Jan 12, 2020 17:27
[2020-01-12 18:03] LABS: ALANINE AMINOTRANSFERASE < 6 U/L (12-78); ALBUMIN 1.8 G/DL (3.4-5.0); ALBUMIN/GLOBULIN RATIO 0.4 (1.0-2.7); ALKALINE PHOSPHATASE 76 U/L (46-116); ASPARTATE AMINO TRANSFERASE 18 U/L (15-37); BILIRUBIN,TOTAL 0.3 MG/DL (0.2-1.0); BLOOD UREA NITROGEN 17 mg/dL (7-18); CALCIUM 7.2 MG/DL (8.5-10.1); CARBON DIOXIDE 27 MMOL/L (21-32); CREATININE 1.4 MG/DL (0.55-1.30)
[2020-01-12 18:05] LABS: CHLORIDE 103 MMOL/L (98-107); POTASSIUM 3.5 MMOL/L (3.5-5.1); SODIUM 139 MMOL/L (136-145)
--- NOTE | 2020-01-12 19:14 | Cardiology Progress Note ---
Subjective DATE OF SERVICE: Jan 12, 2020 Remains on IVF hydration and clears. No fevers No vomiting despite elevated lipase, which is slowly decreasing. BP parameters stable Lactic acid still elevated - 2/70 today. Renal fxn improving slowly. Venous duplex: negative for DVT CT abdomen only notable for bowel and duodenal thickening; no pancreatic abn. Objective Last 24 Hour Vital Signs Date Time Temp Pulse Resp B/P (MAP) Pulse Ox O2 Delivery O2 Flow Rate FiO2 01/12/20 16:00 97.0 116 18 113/66 (82) 100 01/12/20 16:00 135 01/12/20 12:00 97.7 100 20 98/56 (70) 97 01/12/20 12:00 106 01/12/20 09:21 105 99/58 01/12/20 09:00 Nasal Cannula 2.0 01/12/20 08:00 97.5 105 18 99/58 (72) 96 01/12/20 04:00 102 01/12/20 04:00 97.6 108 18 99/65 (76) 98 01/12/20 00:14 97.8 76 16 99/58 (72) 99 01/12/20 00:00 84 01/11/20 21:30 75 110/67 01/11/20 21:00 Venturi Mask 4.0 01/11/20 20:00 98.1 75 18 110/67 (81) 100 01/11/20 20:00 97 ROS: unchanged from my initial evaluation HEENT: normal ENT inspection RHYTHM: NSR, ST, PACs LUNGS: lungs clear bilaterally CARDIAC: normal rate, regular rhythm, normal S1 and S2 ABDOMEN: normal bowel sounds, soft, no mass EXTREMITIES: non-tender, no swelling, No edema Laboratory Tests Test 01/11/20 21:39 01/12/20 04:50 01/12/20 06:09 01/12/20 11:34 POC Whole Blood Glucose 186 MG/DL (74-106) H 163 MG/DL (74-106) H 134 MG/DL (74-106) H White Blood Count 11.1 K/UL (4.8-10.8) H Red Blood Count 3.72 M/UL (4.70-6.10) L Hemoglobin 10.7 G/DL (14.2-18.0) L Hematocrit 30.7 % (42.0-52.0) L Mean Corpuscular Volume 82 FL (80-99) Mean Corpuscular Hemoglobin 28.7 PG (27.0-31.0) Mean Corpuscular Hemoglobin Concent 34.8 G/DL (32.0-36.0) Red Cell Distribution Width 15.4 % (11.6-14.8) H Platelet Count 298 K/UL (150-450) Mean Platelet Volume 6.2 FL (6.5-10.1) L Neutrophils (%) (Auto) 68.2 % (45.0-75.0) Lymphocytes (%) (Auto) 21.4 % (20.0-45.0) Monocytes (%) (Auto) 8.3 % (1.0-10.0) Eosinophils (%) (Auto) 1.1 % (0.0-3.0) Basophils (%) (Auto) 1.1 % (0.0-2.0) Sodium Level 139 MMOL/L (136-145) Potassium Level 3.8 MMOL/L (3.5-5.1) Chloride Level 106 MMOL/L (98-107) Carbon Dioxide Level 19 MMOL/L (21-32) L Anion Gap 14 mmol/L (5-15) Blood Urea Nitrogen 26 mg/dL (7-18) H Creatinine 2.3 MG/DL (0.55-1.30) H Estimat Glomerular Filtration Rate 27.3 mL/min (>60) Glucose Level 179 MG/DL (74-106) H Lactic Acid Level 2.70 mmol/L (0.4-2.0) H Calcium Level 7.9 MG/DL (8.5-10.1) L Total Bilirubin 0.4 MG/DL (0.2-1.0) Aspartate Amino Transf (AST/SGOT) 17 U/L (15-37) Alanine Aminotransferase (ALT/SGPT) < 6 U/L (12-78) L Alkaline Phosphatase 83 U/L (46-116) Total Protein 7.5 G/DL (6.4-8.2) Albumin 2.2 G/DL (3.4-5.0) L Globulin 5.3 g/dL Albumin/Globulin Ratio 0.4 (1.0-2.7) L Lipase 1951 U/L (73-393) H Test 01/12/20 16:00 01/12/20 16:50 Sodium Level 139 MMOL/L (136-145) Potassium Level 3.5 MMOL/L (3.5-5.1) Chloride Level 103 MMOL/L (98-107) Carbon Dioxide Level 27 MMOL/L (21-32) Blood Urea Nitrogen 17 mg/dL (7-18) Creatinine 1.4 MG/DL (0.55-1.30) H Estimat Glomerular Filtration Rate 48.4 mL/min (>60) Glucose Level 169 MG/DL (74-106) H Calcium Level 7.2 MG/DL (8.5-10.1) L Total Bilirubin 0.3 MG/DL (0.2-1.0) Aspartate Amino Transf (AST/SGOT) 18 U/L (15-37) Alanine Aminotransferase (ALT/SGPT) < 6 U/L (12-78) L Alkaline Phosphatase 76 U/L (46-116) Total Protein 6.7 G/DL (6.4-8.2) Albumin 1.8 G/DL (3.4-5.0) L Globulin 4.9 g/dL Albumin/Globulin Ratio 0.4 (1.0-2.7) L Lipase 973 U/L (73-393) H POC Whole Blood Glucose 170 MG/DL (74-106) H Microbiology Date/Time Source Procedure Growth Status 01/10/20 12:53 Stool Stool Culture - Preliminary NO SALMONELLA,SHIGELLA,OR CAMPYLOBACT... Resulted 01/10/20 12:53 Stool Clostridium difficile Toxin Assay - Final Complete 01/10/20 08:30 Rectum - Final NO CARBAPENEM-RESISTANT ENTEROBACTERI... Complete 01/10/20 05:30 Rectum VRE Culture - Final Enterococcus Faecium - Vre Complete Assessment/Plan Assessment/Plan UTI - complicated Fungal cystitis resolved Severe sepsis Acute pancreatitis Hypovolemia Dehydration Lactic acidosis Acute renal failure Hx CHF - diastolic NIDDM Hypertension/HHD Hx Crohns with diarrhea Sinus tachycardia Clears po per GI IVF with bicarb Restart beta jose Resume Sinemet rx DVT prophyl Insulin cov'g by Mitchell Blount MD Jan 12, 2020 19:13
--- NOTE | 2020-01-12 19:20 | NUR ---
NURSE HAND-OFF REPORT: Important Events on Shift:[Patients heart rate went up to 135. Dr. West aware.] Patient Status: [Full code] Diet: [Clear liquid diet] Pending Orders: [] Pending Results/Labs:[] Pending MD notification:[] Latest Vital Signs: Temperature 97.0 , Pulse 135 , B/P 113 /66 , Respiratory Rate 18 , O2 SAT 100 , Nasal Cannula, O2 Flow Rate 2.0 . Vital Sign Comment: [] EKG Rhythm: Sinus Tachycardia Rhythm change?: N MD Notified?: N - MD Response: Latest Miranda Fall Score: 70 Fall Risk: High Risk Safety Measures: Call light Within Reach, Bed Alarm Zone 1, Side Rails Side Rails x3, Bed position Low and Locked. Fall Precautions: Yellow Socks Yellow Gown Door Sign Patient Fall Education Report given to [LISBETH Austin].
--- NOTE | 2020-01-12 19:27 | NUR ---
NURSE NOTES: The Patient is A/O x 1 is unable to express his needs but does not appear to be in any active distress at this time. Patient is on nasal cannula on 2 well tolerated with Resp even and unlabored. The Patient has a Cisneros catheter 16 icelandic draining under gravity of pale yellowish urine. Patient has a right wrist 22 gauge that is patent and asymptomatic . Bed is in the lowest position and locked, call light within reach. Will continue to monitor.
[2020-01-12 20:00] VITALS: BP 114/64
[2020-01-12] MEDS: Tamsulosin 0.4mg cap ORAL SCH (21:08)
--- NOTE | 2020-01-12 23:40 | NUR ---
NURSE HAND-OFF REPORT: Important Events on Shift:Non-verbal but alert to tactile stumuli Patient Status: Diet: Pending Orders: Pending Results/Labs: Pending MD notification: Latest Vital Signs: Temperature 97.9 , Pulse 93 , B/P 132 /54 , Respiratory Rate 20 , O2 SAT 100 , Nasal Cannula, O2 Flow Rate 2.0 . Vital Sign Comment: EKG Rhythm: Sinus Tachycardia Rhythm change?: N MD Notified?: N - MD Response: Latest Miranda Fall Score: 70 Fall Risk: High Risk Safety Measures: Call light Within Reach, Bed Alarm Zone 1, Side Rails Side Rails x3, Bed position Low and Locked. Fall Precautions: Yellow Socks Yellow Gown Door Sign Patient Fall Education Report given to .
[2020-01-13] VITALS: BP 105/58
[2020-01-13 04:00] VITALS: BP 132/54
[2020-01-13] MEDS: Sodium Bicarbonate 100 ML in D5W 1000ml 1,000 ML IV SCH ×2 (06:16→09:09)
[2020-01-13] MEDS: NovoLOG Insulin Flexpen SUBQ SCH ×4 (06:30→21:00)
[2020-01-13 07:55] LABS: BASOPHILS % (AUTO) 1.1 % (0.0-2.0); EOSINOPHILS % (AUTO) 3.1 % (0.0-3.0); HEMATOCRIT 30.7 % (42.0-52.0); HEMOGLOBIN 10.8 G/DL (14.2-18.0); LYMPHOCYTES % (AUTO) 22.3 % (20.0-45.0); MEAN CORPUSCULAR VOLUME 83 FL (80-99); MONOCYTES % (AUTO) 8.3 % (1.0-10.0); NEUTROPHILS % (AUTO) 65.2 % (45.0-75.0); PLATELET COUNT 216 K/UL (150-450); RED BLOOD COUNT 3.71 M/UL (4.70-6.10); RED CELL DISTRIBUTION WIDTH 16.3 % (11.6-14.8); WHITE BLOOD COUNT 6.7 K/UL (4.8-10.8)
[2020-01-13 08:00] VITALS: BP 116/62
[2020-01-13 08:18] LABS: ALANINE AMINOTRANSFERASE < 6 U/L (12-78); ALBUMIN 1.7 G/DL (3.4-5.0); ALBUMIN/GLOBULIN RATIO 0.4 (1.0-2.7); ALKALINE PHOSPHATASE 71 U/L (46-116); ASPARTATE AMINO TRANSFERASE 21 U/L (15-37); BILIRUBIN,TOTAL 0.2 MG/DL (0.2-1.0); BLOOD UREA NITROGEN 13 mg/dL (7-18); CALCIUM 6.6 MG/DL (8.5-10.1); CARBON DIOXIDE 35 MMOL/L (21-32); CHLORIDE 102 MMOL/L (98-107); CREATININE 1.3 MG/DL (0.55-1.30); PHOSPHORUS 2.4 MG/DL (2.5-4.9); POTASSIUM 3.4 MMOL/L (3.5-5.1); SODIUM 141 MMOL/L (136-145)
[2020-01-13 08:22] LABS: AMYLASE 80 U/L (25-115)
--- NOTE | 2020-01-13 09:02 | Urology Progress Note ---
Assessment/Plan Status: stable Assessment/Plan: 1. Acute kidney injury. 2. BPH history. 3. Urinary retention. 4. Proteinuria. 5. UTI. 6. Hematuria. 7. Renal cyst. 8. Possible neurogenic bladder. monitor clinically abbott indwelling hand irrigated and do PRN abx as ordered f/u on blood cx flomax voiding trial once renal fxn stabilized Subjective Allergies: Coded Allergies: NO KNOWN ALLERGIES (Verified Allergy, Unknown, 09/07/18) Subjective all noted Objective Last 24 Hour Vital Signs Date Time Temp Pulse Resp B/P (MAP) Pulse Ox O2 Delivery O2 Flow Rate FiO2 01/13/20 08:00 97.2 110 20 116/62 (80) 97 01/13/20 04:00 97.9 103 20 132/54 (80) 100 01/13/20 04:00 93 01/13/20 00:00 98 01/13/20 00:00 97.6 98 20 105/58 (74) 100 01/12/20 21:09 102 144/63 01/12/20 21:00 Nasal Cannula 2.0 01/12/20 20:00 98.1 103 20 114/64 (81) 100 01/12/20 20:00 103 01/12/20 16:00 97.0 116 18 113/66 (82) 100 01/12/20 16:00 135 01/12/20 12:00 97.7 100 20 98/56 (70) 97 01/12/20 12:00 106 01/12/20 09:21 105 99/58 Intake and Output 01/12/20 01/13/20 19:00 07:00 Intake Total 270 ml 750 ml Output Total 350 ml 340 ml Balance -80 ml 410 ml Intake Oral 120 ml IV Total 150 ml 750 ml Output Urine Total 350 ml 340 ml # Bowel Movements 1 2 Microbiology Date/Time Source Procedure Growth Status 01/10/20 12:53 Stool Stool Culture - Final NO SALMONELLA,SHIGELLA,OR CAMPYLOBACT... Complete 01/10/20 08:30 Rectum - Final NO CARBAPENEM-RESISTANT ENTEROBACTERI... Complete 01/09/20 13:30 Urine,Clean Catch Urine Culture - Final Escherichia Coli - Esbl Complete 01/09/20 13:05 Nasopharynx Coronavirus COVID-19 PCR ([facility]) - Final Complete 01/09/20 11:40 Blood Blood Culture - Preliminary NO GROWTH AFTER 72 HOURS Resulted Current Medications Medications (Trade) Dose Ordered Sig/Adelaida Route PRN Reason Start Time Stop Time Status Last Admin Dose Admin Ascorbic Acid (Vitamin C) 500 mg DAILY ORAL 01/12/20 09:00 02/11/20 08:59 01/12/20 09:21 Barium Sulfate (Varibar Honey) 250 ml NOW PRN RAD 01/10/20 21:30 01/13/20 21:17 Barium Sulfate (Varibar [place]) 240 ml NOW PRN RAD 01/10/20 21:30 01/13/20 21:17 Barium Sulfate (Varibar Pudding) 230 ml NOW PRN RAD 01/10/20 21:30 01/13/20 21:17 Barium Sulfate (Varibar Thin Liquid powder) 148 gm NOW PRN RAD 01/10/20 21:30 01/13/20 21:17 Carbidopa/Levodopa (Sinemet 25/100) 1 tab THREE TIMES A DAY ORAL 01/11/20 14:30 02/10/20 14:29 01/12/20 18:09 Dextrose (Dextrose 50%) 25 ml Q30M PRN IV Hypoglycemia 01/10/20 00:15 04/09/20 00:14 Dextrose (Dextrose 50%) 50 ml Q30M PRN IV Hypoglycemia 01/10/20 00:15 04/09/20 00:14 Heparin Sodium (Porcine) (Heparin 5000 units/ml) 5,000 units EVERY 12 HOURS SUBQ 01/09/20 21:00 02/23/20 20:59 01/12/20 21:11 Insulin Aspart (NovoLOG) BEFORE MEALS AND HS SUBQ 01/10/20 06:30 04/09/20 06:29 01/12/20 17:25 Metoprolol Tartrate (Lopressor) 12.5 mg Q12HR ORAL 01/11/20 15:00 04/10/20 14:59 01/12/20 21:09 Multivitamins (Multivitamins) 1 tab DAILY ORAL 01/12/20 09:00 02/11/20 08:59 01/12/20 09:21 Piperacillin Sod/ Tazobactam Sod 3.375 gm/Sodium Chloride 110 ml @ 27.5 mls/hr Q12HR IVPB 01/11/20 10:00 12/4/20 09:59 01/12/20 21:08 Potassium Chloride (K-Dur) 40 meq ONCE ORAL 01/12/20 11:00 04/11/20 12:59 01/12/20 11:57 Sodium Bicarbonate 100 ml/Dextrose 1,100 ml @ 150 mls/hr Q7H20M IV 01/10/20 19:30 02/09/20 19:29 01/13/20 06:16 Tamsulosin HCl (Flomax) 0.4 mg BEDTIME ORAL 01/11/20 21:00 02/10/20 20:59 01/12/20 21:08 Zinc Sulfate (Zinc Sulfate) 220 mg DAILY ORAL 01/12/20 09:00 01/22/20 08:59 01/12/20 09:22 Laboratory Tests 01/12/20 11:34: POC Whole Blood Glucose 134H 01/12/20 16:00: Sodium Level 139, Potassium Level 3.5, Chloride Level 103, Carbon Dioxide Level 27, Blood Urea Nitrogen 17, Creatinine 1.4H, Estimat Glomerular Filtration Rate 48.4, Glucose Level 169H, Calcium Level 7.2L, Total Bilirubin 0.3, Aspartate Amino Transf (AST/SGOT) 18, Alanine Aminotransferase (ALT/SGPT) < 6L, Alkaline Phosphatase 76, Total Protein 6.7, Albumin 1.8L, Globulin 4.9, Albumin/Globulin Ratio 0.4L, Lipase 973H 01/12/20 16:50: POC Whole Blood Glucose 170H 01/12/20 21:25: POC Whole Blood Glucose 103 01/13/20 06:40: White Blood Count 6.7, Red Blood Count 3.71L, Hemoglobin 10.8L, Hematocrit 30.7L , Mean Corpuscular Volume 83, Mean Corpuscular Hemoglobin 29.0, Mean Corpuscular Hemoglobin Concent 35.2, Red Cell Distribution Width 16.3H, Platelet Count 216, Mean Platelet Volume 6.0L, Neutrophils (%) (Auto) 65.2, Lymphocytes (%) (Auto) 22.3, Monocytes (%) (Auto) 8.3, Eosinophils (%) (Auto) 3.1H, Basophils (%) (Auto) 1.1, Sodium Level 141, Potassium Level 3.4L, Chloride Level 102, Carbon Dioxide Level 35H, Blood Urea Nitrogen 13, Creatinine 1.3, Estimat Glomerular Filtration Rate 52.7, Glucose Level 169H, Calcium Level 6.6L, Phosphorus Level 2.4L, Magnesium Level 1.6L, Total Bilirubin 0.2, Aspartate Amino Transf (AST/SGOT) 21, Alanine Aminotransferase (ALT/SGPT) < 6L, Alkaline Phosphatase 71, Total Protein 5.8L, Albumin 1.7L, Globulin 4.1, Albumin/Globulin Ratio 0.4L, Amylase Level 80, Lipase 634H Height (Feet): 5 Height (Inches): 6.00 Weight (Pounds): 106 Objective exam stable urine yellow/adan CT A/P (01/10) noted Shailesh Sullivan MD Jan 13, 2020 09:02
[2020-01-13] MEDS: Piperacillin/Tazobactam 3.375 GM in NS 110 ML IVPB SCH ×2 (09:09→22:11)
[2020-01-13] MEDS: Levodopa/Carbidopa 25/100 tab ORAL SCH ×3 (09:09→18:10)
[2020-01-13] MEDS: Ascorbic Acid 500mg tab ORAL SCH (09:09)
[2020-01-13] MEDS: Zinc Sulfate 220mg ORAL SCH (09:09)
[2020-01-13] MEDS: Metoprolol Tartrate 12.5mg TAB ORAL SCH ×2 (09:09→22:06)
[2020-01-13] MEDS: Heparin 5000 units/ml inj SUBQ SCH ×2 (09:11→22:07)
--- NOTE | 2020-01-13 09:45 | Nephrology Progress Note ---
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, Stroke (10) Malnutrition (11) Hypomagnesemia (12) Hypophosphatemia (13) Hypokalemia Plan continue iv replace K, Phos , Mg Subjective ROS Limited/Unobtainable: Yes Objective Objective Last 24 Hour Vital Signs Date Time Temp Pulse Resp B/P (MAP) Pulse Ox O2 Delivery O2 Flow Rate FiO2 01/13/20 09:09 110 116/62 01/13/20 08:00 97.2 110 20 116/62 (80) 97 01/13/20 04:00 97.9 103 20 132/54 (80) 100 01/13/20 04:00 93 01/13/20 00:00 98 01/13/20 00:00 97.6 98 20 105/58 (74) 100 01/12/20 21:09 102 144/63 01/12/20 21:00 Nasal Cannula 2.0 01/12/20 20:00 98.1 103 20 114/64 (81) 100 01/12/20 20:00 103 01/12/20 16:00 97.0 116 18 113/66 (82) 100 01/12/20 16:00 135 01/12/20 12:00 97.7 100 20 98/56 (70) 97 01/12/20 12:00 106 Intake and Output 01/12/20 01/13/20 19:00 07:00 Intake Total 270 ml 750 ml Output Total 350 ml 340 ml Balance -80 ml 410 ml Intake Oral 120 ml IV Total 150 ml 750 ml Output Urine Total 350 ml 340 ml # Bowel Movements 1 2 Laboratory Tests 01/12/20 11:34: POC Whole Blood Glucose 134H 01/12/20 16:00: Sodium Level 139, Potassium Level 3.5, Chloride Level 103, Carbon Dioxide Level 27, Blood Urea Nitrogen 17, Creatinine 1.4H, Estimat Glomerular Filtration Rate 48.4, Glucose Level 169H, Calcium Level 7.2L, Total Bilirubin 0.3, Aspartate Amino Transf (AST/SGOT) 18, Alanine Aminotransferase (ALT/SGPT) < 6L, Alkaline Phosphatase 76, Total Protein 6.7, Albumin 1.8L, Globulin 4.9, Albumin/Globulin Ratio 0.4L, Lipase 973H 01/12/20 16:50: POC Whole Blood Glucose 170H 01/12/20 21:25: POC Whole Blood Glucose 103 01/13/20 06:40: White Blood Count 6.7, Red Blood Count 3.71L, Hemoglobin 10.8L, Hematocrit 30.7L , Mean Corpuscular Volume 83, Mean Corpuscular Hemoglobin 29.0, Mean Corpuscular Hemoglobin Concent 35.2, Red Cell Distribution Width 16.3H, Platelet Count 216, Mean Platelet Volume 6.0L, Neutrophils (%) (Auto) 65.2, Lymphocytes (%) (Auto) 22.3, Monocytes (%) (Auto) 8.3, Eosinophils (%) (Auto) 3.1H, Basophils (%) (Auto) 1.1, Sodium Level 141, Potassium Level 3.4L, Chloride Level 102, Carbon Dioxide Level 35H, Blood Urea Nitrogen 13, Creatinine 1.3, Estimat Glomerular Filtration Rate 52.7, Glucose Level 169H, Calcium Level 6.6L, Phosphorus Level 2.4L, Magnesium Level 1.6L, Total Bilirubin 0.2, Aspartate Amino Transf (AST/SGOT) 21, Alanine Aminotransferase (ALT/SGPT) < 6L, Alkaline Phosphatase 71, Total Protein 5.8L, Albumin 1.7L, Globulin 4.1, Albumin/Globulin Ratio 0.4L, Amylase Level 80, Lipase 634H Height (Feet): 5 Height (Inches): 6.00 Weight (Pounds): 106 General Appearance: no apparent distress, alert EENT: normal ENT inspection Neck: normal alignment Cardiovascular: normal rate Respiratory/Chest: lungs clear Abdomen: non tender, soft Extremities: trace edema Neurologic: motor weakness Jose A Martinez MD Jan 13, 2020 09:45
--- NOTE | 2020-01-13 11:09 | NUR ---
NURSE NOTES: Received pt from LISBETH Asutin at 0730, pt is very lethargic, pt has NC 2lit, pt is on continues heart monitoring, pt has Cisneros cath in place is working well, pt has in tact iv access R wrist 22g is running well, Dr Martinez visited pt and is aware about pt is lethargic and K 3.4 MG 1.6 P 2.4 and other lab results and V/S, MD F/U. Dr Khan visited pt and is aware about diarrhea ordered Imodium 40po PRN, noted and carried out. all needs attended, bed is locked and is in the lowest position, call light within easy reach. will continue to monitor.
--- NOTE | 2020-01-13 11:25 | General Progress Note ---
Subjective ROS Limited/Unobtainable: No Constitutional: Reports: malaise, weakness HEENT: Reports: no symptoms Cardiovascular: Reports: no symptoms Respiratory: Reports: cough Gastrointestinal/Abdominal: Reports: no symptoms Genitourinary: Reports: no symptoms Neurologic/Psychiatric: Reports: pre-existing deficit Endocrine: Reports: no symptoms Hematologic/Lymphatic: Reports: no symptoms Allergies: Coded Allergies: NO KNOWN ALLERGIES (Verified Allergy, Unknown, 09/07/18) All Systems: reviewed and negative except above Subjective remains on nasal cannula. labs reviewed. lipase trending down. low k and low mg. wbc improved. no fevers or chills. no distress. Objective Last 24 Hour Vital Signs Date Time Temp Pulse Resp B/P (MAP) Pulse Ox O2 Delivery O2 Flow Rate FiO2 01/13/20 09:09 110 116/62 01/13/20 08:00 97.2 110 20 116/62 (80) 97 01/13/20 07:46 88 01/13/20 04:00 97.9 103 20 132/54 (80) 100 01/13/20 04:00 93 01/13/20 00:00 98 01/13/20 00:00 97.6 98 20 105/58 (74) 100 01/12/20 21:09 102 144/63 01/12/20 21:00 Nasal Cannula 2.0 01/12/20 20:00 98.1 103 20 114/64 (81) 100 01/12/20 20:00 103 01/12/20 16:00 97.0 116 18 113/66 (82) 100 01/12/20 16:00 135 01/12/20 12:00 97.7 100 20 98/56 (70) 97 01/12/20 12:00 106 Intake and Output 01/12/20 01/13/20 19:00 07:00 Intake Total 270 ml 900 ml Output Total 350 ml 340 ml Balance -80 ml 560 ml Intake Oral 120 ml IV Total 150 ml 900 ml Output Urine Total 350 ml 340 ml # Bowel Movements 1 2 Laboratory Tests 01/12/20 11:34: POC Whole Blood Glucose 134H 01/12/20 16:00: Sodium Level 139, Potassium Level 3.5, Chloride Level 103, Carbon Dioxide Level 27, Blood Urea Nitrogen 17, Creatinine 1.4H, Estimat Glomerular Filtration Rate 48.4, Glucose Level 169H, Calcium Level 7.2L, Total Bilirubin 0.3, Aspartate Amino Transf (AST/SGOT) 18, Alanine Aminotransferase (ALT/SGPT) < 6L, Alkaline Phosphatase 76, Total Protein 6.7, Albumin 1.8L, Globulin 4.9, Albumin/Globulin Ratio 0.4L, Lipase 973H 01/12/20 16:50: POC Whole Blood Glucose 170H 01/12/20 21:25: POC Whole Blood Glucose 103 01/13/20 06:40: White Blood Count 6.7, Red Blood Count 3.71L, Hemoglobin 10.8L, Hematocrit 30.7L , Mean Corpuscular Volume 83, Mean Corpuscular Hemoglobin 29.0, Mean Corpuscular Hemoglobin Concent 35.2, Red Cell Distribution Width 16.3H, Platelet Count 216, Mean Platelet Volume 6.0L, Neutrophils (%) (Auto) 65.2, Lymphocytes (%) (Auto) 22.3, Monocytes (%) (Auto) 8.3, Eosinophils (%) (Auto) 3.1H, Basophils (%) (Auto) 1.1, Sodium Level 141, Potassium Level 3.4L, Chloride Level 102, Carbon Dioxide Level 35H, Blood Urea Nitrogen 13, Creatinine 1.3, Estimat Glomerular Filtration Rate 52.7, Glucose Level 169H, Calcium Level 6.6L, Phosphorus Level 2.4L, Magnesium Level 1.6L, Total Bilirubin 0.2, Aspartate Amino Transf (AST/SGOT) 21, Alanine Aminotransferase (ALT/SGPT) < 6L, Alkaline Phosphatase 71 , Total Protein 5.8L, Albumin 1.7L, Globulin 4.1, Albumin/Globulin Ratio 0.4L, Amylase Level 80, Lipase 634H Height (Feet): 5 Height (Inches): 6.00 Weight (Pounds): 106 General Appearance: WD/WN, alert EENT: PERRL/EOMI Neck: non-tender, normal alignment Cardiovascular: normal peripheral pulses, normal rate, regular rhythm Respiratory/Chest: chest wall non-tender, lungs clear, normal breath sounds Abdomen: normal bowel sounds, non tender, soft, no organomegaly, no mass Edema: no edema noted Arm (L), no edema noted Arm (R) Neurologic: sock folder II-XII 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, alert, responsive, disoriented, aphasia Assessment/Plan Problem List: (1) Diabetes type 2, controlled ICD Codes: E11.9 - Type 2 diabetes mellitus without complications SNOMED: 59262416, 250093594 (2) Toxic metabolic encephalopathy ICD Codes: G92 - Toxic encephalopathy SNOMED: 245250873 (3) Acute renal failure (ARF) ICD Codes: N17.9 - Acute kidney failure, unspecified SNOMED: 54930635 Qualifiers: Qualified Codes: N17.9 - Acute kidney failure, unspecified (4) Crohn's colitis ICD Codes: K50.10 - Crohn's disease of large intestine without complications SNOMED: 77742775 (5) UTI (urinary tract infection) ICD Codes: N39.0 - Urinary tract infection, site not specified SNOMED: 26283931 Qualifiers: Qualified Codes: N39.0 - Urinary tract infection, site not specified; R31.9 - Hematuria, unspecified (6) IBD (inflammatory bowel disease) ICD Codes: K52.9 - Noninfective gastroenteritis and colitis, unspecified SNOMED: 85668456 (7) Inabality to Ambulate, Stroke (8) SVT (supraventricular tachycardia) ICD Codes: I47.1 - Supraventricular tachycardia SNOMED: 5415228 Status: stable Assessment/Plan: cont ivf clears replace k and mg monitor labs monitor lipase iv abx per ID follow up cultures wean o2 monitor bs skin care dvt/stress ulcer prophylaxis message left with family re: status and poc Carlos Hunt MD Jan 13, 2020 11:25
[2020-01-13] MEDS: POTASSIUM PHOSPHATE IV SCH (11:43)
[2020-01-13] MEDS: 1/2 NS IV SCH (11:43)
[2020-01-13 12:00] VITALS: BP 102/53
--- NOTE | 2020-01-13 12:38 | General Progress Note ---
Subjective Allergies: Coded Allergies: NO KNOWN ALLERGIES (Verified Allergy, Unknown, 09/07/18) Subjective Above noted comfortable d/w RN - diarrhea 4-5 times daily lipase down WBC now normal CT noted: Duodenitis, distal colitis Objective Last 24 Hour Vital Signs Date Time Temp Pulse Resp B/P (MAP) Pulse Ox O2 Delivery O2 Flow Rate FiO2 01/13/20 09:09 110 116/62 01/13/20 08:00 97.2 110 20 116/62 (80) 97 01/13/20 07:46 88 01/13/20 04:00 97.9 103 20 132/54 (80) 100 01/13/20 04:00 93 01/13/20 00:00 98 01/13/20 00:00 97.6 98 20 105/58 (74) 100 01/12/20 21:09 102 144/63 01/12/20 21:00 Nasal Cannula 2.0 01/12/20 20:00 98.1 103 20 114/64 (81) 100 01/12/20 20:00 103 01/12/20 16:00 97.0 116 18 113/66 (82) 100 01/12/20 16:00 135 Intake and Output 01/12/20 01/13/20 19:00 07:00 Intake Total 270 ml 900 ml Output Total 350 ml 340 ml Balance -80 ml 560 ml Intake Oral 120 ml IV Total 150 ml 900 ml Output Urine Total 350 ml 340 ml # Bowel Movements 1 2 Laboratory Tests 01/12/20 16:00: Sodium Level 139, Potassium Level 3.5, Chloride Level 103, Carbon Dioxide Level 27, Blood Urea Nitrogen 17, Creatinine 1.4H, Estimat Glomerular Filtration Rate 48.4, Glucose Level 169H, Calcium Level 7.2L, Total Bilirubin 0.3, Aspartate Amino Transf (AST/SGOT) 18, Alanine Aminotransferase (ALT/SGPT) < 6L, Alkaline Phosphatase 76, Total Protein 6.7, Albumin 1.8L, Globulin 4.9, Albumin/Globulin Ratio 0.4L, Lipase 973H 01/12/20 16:50: POC Whole Blood Glucose 170H 01/12/20 21:25: POC Whole Blood Glucose 103 01/13/20 06:40: Sodium Level 141, Potassium Level 3.4L, Chloride Level 102, Carbon Dioxide Level 35H, Blood Urea Nitrogen 13, Creatinine 1.3, Estimat Glomerular Filtration Rate 52.7, Glucose Level 169H, Calcium Level 6.6L, Total Bilirubin 0.2, Aspartate Amino Transf (AST/SGOT) 21, Alanine Aminotransferase (ALT/SGPT) < 6L, Alkaline Phosphatase 71, Total Protein 5.8L, Albumin 1.7L, Globulin 4.1, Albumin/Globulin Ratio 0.4L, Lipase 634H, White Blood Count 6.7, Red Blood Count 3.71L, Hemoglobin 10.8L, Hematocrit 30.7L, Mean Corpuscular Volume 83, Mean Corpuscular Hemoglobin 29.0, Mean Corpuscular Hemoglobin Concent 35.2, Red Cell Distribution Width 16.3H, Platelet Count 216, Mean Platelet Volume 6.0L, Neutrophils (%) (Auto) 65.2, Lymphocytes (%) (Auto) 22.3, Monocytes (%) (Auto) 8.3, Eosinophils (%) (Auto) 3.1H, Basophils (%) (Auto) 1.1, Phosphorus Level 2.4L, Magnesium Level 1.6L, Amylase Level 80 01/13/20 11:58: POC Whole Blood Glucose 178H 01/13/20 11:59: POC Whole Blood Glucose 171H Height (Feet): 5 Height (Inches): 6.00 Weight (Pounds): 106 Assessment/Plan Status: stable Assessment/Plan: Assessment - presentation with pneumonitis and pancreatitis - possibly related to mesalamine side effect - h/o Crohns ileitis and pancolitis - steroid responsive - off Humira due to recurrent urosepsis - off mesalamine now given current presentation - having diarrhea off Rx - h/o neurogenic bladder - h/o recurrent urosepsis - Current U/A suggestive of UTI - Urology noted Recommendations - Supportive care for pancreatitis - Add PPI BID - Add steroid enemas BID for now - PO steroids when OK with ID - IVF - advance po to solids, add shakes - abx per ID - r/o DVT / PE - duplex negative - urology f/u - check all stool cultures and C Diff (All negative) - MVI, Zn, Vitamin C Ayaan Khan MD Jan 13, 2020 12:38
--- NOTE | 2020-01-13 14:36 | Surgery Progress Note ---
Surgery Progress Note Subjective Additional Comments leukocytosis resolved comfortable no complaints tolerating diet Objective Last 24 Hour Vital Signs Date Time Temp Pulse Resp B/P (MAP) Pulse Ox O2 Delivery O2 Flow Rate FiO2 01/13/20 13:23 76 01/13/20 09:09 110 116/62 01/13/20 08:00 97.2 110 20 116/62 (80) 97 01/13/20 07:46 88 01/13/20 04:00 97.9 103 20 132/54 (80) 100 01/13/20 04:00 93 01/13/20 00:00 98 01/13/20 00:00 97.6 98 20 105/58 (74) 100 01/12/20 21:09 102 144/63 01/12/20 21:00 Nasal Cannula 2.0 01/12/20 20:00 98.1 103 20 114/64 (81) 100 01/12/20 20:00 103 01/12/20 16:00 97.0 116 18 113/66 (82) 100 01/12/20 16:00 135 I&O Intake and Output 01/12/20 01/13/20 19:00 07:00 Intake Total 270 ml 900 ml Output Total 350 ml 340 ml Balance -80 ml 560 ml Intake Oral 120 ml IV Total 150 ml 900 ml Output Urine Total 350 ml 340 ml # Bowel Movements 1 2 Dressing: saturated Cardiovascular: RSR Respiratory: decreased breath sounds Abdomen: soft, non-tender, present bowel sounds Extremities: no tenderness, no cyanosis Laboratory Tests Test 01/12/20 16:00 01/12/20 16:50 01/12/20 21:25 01/13/20 06:40 Sodium Level 139 MMOL/L (136-145) 141 MMOL/L (136-145) Potassium Level 3.5 MMOL/L (3.5-5.1) 3.4 MMOL/L (3.5-5.1) L Chloride Level 103 MMOL/L (98-107) 102 MMOL/L (98-107) Carbon Dioxide Level 27 MMOL/L (21-32) 35 MMOL/L (21-32) H Blood Urea Nitrogen 17 mg/dL (7-18) 13 mg/dL (7-18) Creatinine 1.4 MG/DL (0.55-1.30) H 1.3 MG/DL (0.55-1.30) Estimat Glomerular Filtration Rate 48.4 mL/min (>60) 52.7 mL/min (>60) Glucose Level 169 MG/DL (74-106) H 169 MG/DL (74-106) H Calcium Level 7.2 MG/DL (8.5-10.1) L 6.6 MG/DL (8.5-10.1) L Total Bilirubin 0.3 MG/DL (0.2-1.0) 0.2 MG/DL (0.2-1.0) Aspartate Amino Transf (AST/SGOT) 18 U/L (15-37) 21 U/L (15-37) Alanine Aminotransferase (ALT/SGPT) < 6 U/L (12-78) L < 6 U/L (12-78) L Alkaline Phosphatase 76 U/L (46-116) 71 U/L (46-116) Total Protein 6.7 G/DL (6.4-8.2) 5.8 G/DL (6.4-8.2) L Albumin 1.8 G/DL (3.4-5.0) L 1.7 G/DL (3.4-5.0) L Globulin 4.9 g/dL 4.1 g/dL Albumin/Globulin Ratio 0.4 (1.0-2.7) L 0.4 (1.0-2.7) L Lipase 973 U/L (73-393) H 615 U/L (73-393) H POC Whole Blood Glucose 170 MG/DL (74-106) H 103 MG/DL (74-106) White Blood Count 6.7 K/UL (4.8-10.8) Red Blood Count 3.71 M/UL (4.70-6.10) L Hemoglobin 10.8 G/DL (14.2-18.0) L Hematocrit 30.7 % (42.0-52.0) L Mean Corpuscular Volume 83 FL (80-99) Mean Corpuscular Hemoglobin 29.0 PG (27.0-31.0) Mean Corpuscular Hemoglobin Concent 35.2 G/DL (32.0-36.0) Red Cell Distribution Width 16.3 % (11.6-14.8) H Platelet Count 216 K/UL (150-450) Mean Platelet Volume 6.0 FL (6.5-10.1) L Neutrophils (%) (Auto) 65.2 % (45.0-75.0) Lymphocytes (%) (Auto) 22.3 % (20.0-45.0) Monocytes (%) (Auto) 8.3 % (1.0-10.0) Eosinophils (%) (Auto) 3.1 % (0.0-3.0) H Basophils (%) (Auto) 1.1 % (0.0-2.0) Phosphorus Level 2.4 MG/DL (2.5-4.9) L Magnesium Level 1.6 MG/DL (1.8-2.4) L Amylase Level 80 U/L (25-115) Test 01/13/20 11:58 01/13/20 11:59 POC Whole Blood Glucose 178 MG/DL (74-106) H 171 MG/DL (74-106) H Plan Problems: (1) Decubitus ulcer (2) Incontinence associated dermatitis Assessment & Plan: 84-year-old male with significant con associated dermatitis in the buttock inner thigh sacrum perirectal area. There is breakdown of the epidermis and erythema of the dermis with open wounds identified. Some decubitus noted changes in the area. Present upon admission. Area clean. Skin protectant applied. Optifoam dressing applied. Monitor for incontinence. Change accordingly. Okay for rectal tube as needed. We will continue with local care. Turn every 2 hours. Offload pressure with pillows. Air soft mattress. Nutritional optimization. Will follow with recommendations. Thank you for letting participate patient's care (3) Malnutrition Assessment & Plan: DAILY ESTIMATED NEEDS: Needs based on underweight, wt loss 48kg 30-35 kcals/kg 4455-3433 total kcals 1.25-2 g protein/kg 60-96 g total protein 25-30 mL/kg 5518-4057 total fluid mLs NUTRITION DIAGNOSIS: Increased kcal/prot needs R/T wound healing, underweight status w/ recent significant wt loss as evidenced by admitted w/ multiple wounds at sacrum, BL buttocks and BL heels per photos, pt @ 75% IBW w/ low BMI of 17.2, w/ significant wt loss of 8.4lbs/ 7.3% in <1 month CURRENT DIET:CLEAR LIQUID DIET PO DIET RECOMMENDATIONS: advance diet as tolerated -> CCHO MED/ texture per FURNITURE DETAILER ADDITIONAL RECOMMENDATIONS: 1) Daily calibrated bedscale wt, monitor wt trend 2) Glucerna TID w/ meals once diet advances 3) Monitor PO tolerance: h/o Crohn's disease, elev lipase 4) Monitor BGs closely for hypoglycemia while on CLD 5) Wound healing: Add MVI x 1, Vit C 500mg QD, ZnSO4 220mg QD x 10 days NICK bid added to tray (4) Sepsis Assessment & Plan: leukocytosis anemia labs noted on abx micro reviewed ID input appreciated wounds unlikely etiology no abscess (5) Septic shock (6) Hypomagnesemia (7) Gastroenteritis (8) Hypernatremia (9) SVT (supraventricular tachycardia) (10) Proteinuria (11) Liver failure (12) Hypophosphatemia (13) UTI (urinary tract infection) (14) Crohn's colitis (15) IBD (inflammatory bowel disease) (16) Acute renal failure (ARF) (17) Diabetes type 2, controlled (18) Toxic metabolic encephalopathy (19) Inabality to Ambulate, Stroke Daniel Patten Jan 13, 2020 14:36
[2020-01-13] MEDS: Hydrocortisone Enema Susp 60ml RECTAL SCH ×2 (14:42→18:11)
[2020-01-13 15:53] VITALS: BP 108/62
--- NOTE | 2020-01-13 17:36 | NUR ---
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 will continue to monitor.
--- NOTE | 2020-01-13 18:31 | Cardiology Progress Note ---
Subjective DATE OF SERVICE: Jan 13, 2020 Remains on IVF hydration and tube feeds No fevers No vomiting despite elevated lipase, which is slowly normalizing. BP parameters stable Lactic acid normalized. Renal fxn improving slowly. Venous duplex: negative for DVT CT abdomen only notable for bowel and duodenal thickening; no pancreatic abn. Objective Last 24 Hour Vital Signs Date Time Temp Pulse Resp B/P (MAP) Pulse Ox O2 Delivery O2 Flow Rate FiO2 01/13/20 15:53 97.0 95 20 108/62 (77) 97 01/13/20 15:10 96 01/13/20 13:23 76 01/13/20 12:00 96.9 100 18 102/53 (69) 96 01/13/20 09:09 110 116/62 01/13/20 09:00 Nasal Cannula 2.0 01/13/20 08:00 97.2 110 20 116/62 (80) 97 01/13/20 07:46 88 01/13/20 04:00 97.9 103 20 132/54 (80) 100 01/13/20 04:00 93 01/13/20 00:00 98 01/13/20 00:00 97.6 98 20 105/58 (74) 100 01/12/20 21:09 102 144/63 01/12/20 21:00 Nasal Cannula 2.0 01/12/20 20:00 98.1 103 20 114/64 (81) 100 01/12/20 20:00 103 ROS: unchanged from my initial evaluation HEENT: normal ENT inspection RHYTHM: NSR, ST, PACs LUNGS: lungs clear bilaterally CARDIAC: normal rate, regular rhythm, normal S1 and S2 ABDOMEN: normal bowel sounds, soft, no mass EXTREMITIES: non-tender, no swelling, No edema Laboratory Tests Test 01/12/20 21:25 01/13/20 06:40 01/13/20 11:58 01/13/20 11:59 POC Whole Blood Glucose 103 MG/DL (74-106) 178 MG/DL (74-106) H 171 MG/DL (74-106) H White Blood Count 6.7 K/UL (4.8-10.8) Red Blood Count 3.71 M/UL (4.70-6.10) L Hemoglobin 10.8 G/DL (14.2-18.0) L Hematocrit 30.7 % (42.0-52.0) L Mean Corpuscular Volume 83 FL (80-99) Mean Corpuscular Hemoglobin 29.0 PG (27.0-31.0) Mean Corpuscular Hemoglobin Concent 35.2 G/DL (32.0-36.0) Red Cell Distribution Width 16.3 % (11.6-14.8) H Platelet Count 216 K/UL (150-450) Mean Platelet Volume 6.0 FL (6.5-10.1) L Neutrophils (%) (Auto) 65.2 % (45.0-75.0) Lymphocytes (%) (Auto) 22.3 % (20.0-45.0) Monocytes (%) (Auto) 8.3 % (1.0-10.0) Eosinophils (%) (Auto) 3.1 % (0.0-3.0) H Basophils (%) (Auto) 1.1 % (0.0-2.0) Sodium Level 141 MMOL/L (136-145) Potassium Level 3.4 MMOL/L (3.5-5.1) L Chloride Level 102 MMOL/L (98-107) Carbon Dioxide Level 35 MMOL/L (21-32) H Blood Urea Nitrogen 13 mg/dL (7-18) Creatinine 1.3 MG/DL (0.55-1.30) Estimat Glomerular Filtration Rate 52.7 mL/min (>60) Glucose Level 169 MG/DL (74-106) H Calcium Level 6.6 MG/DL (8.5-10.1) L Phosphorus Level 2.4 MG/DL (2.5-4.9) L Magnesium Level 1.6 MG/DL (1.8-2.4) L Total Bilirubin 0.2 MG/DL (0.2-1.0) Aspartate Amino Transf (AST/SGOT) 21 U/L (15-37) Alanine Aminotransferase (ALT/SGPT) < 6 U/L (12-78) L Alkaline Phosphatase 71 U/L (46-116) Total Protein 5.8 G/DL (6.4-8.2) L Albumin 1.7 G/DL (3.4-5.0) L Globulin 4.1 g/dL Albumin/Globulin Ratio 0.4 (1.0-2.7) L Amylase Level 80 U/L (25-115) Lipase 615 U/L (73-393) H Test 01/13/20 17:01 POC Whole Blood Glucose 131 MG/DL (74-106) H Assessment/Plan Assessment/Plan UTI - complicated Fungal cystitis resolved Severe sepsis Acute pancreatitis Hypovolemia Dehydration Lactic acidosis Acute renal failure Hx CHF - diastolic NIDDM Hypertension/HHD Hx Crohns with diarrhea Sinus tachycardia Hypomagnesemia Hypokalemia Replace K+/Mg++ tube feeds per GI IVF adjustment Titrate beta jose Resume Sinemet rx DVT prophyl Insulin cov'g by Mitchell Blount MD Jan 13, 2020 18:31
--- NOTE | 2020-01-13 18:53 | NUR ---
NURSE NOTES: Patient received from LISBETH Neely. Patient seen in stable condition, AAOx1, alert only to name, bed bound. belongings checked and signed with nurse. IV site patent and intact. Patient noted to have abbott cath 16F patent and draining well via gravity. Skin issues noted will endorse to oncoming shift. Patient noted to been having diarrhea, perineal area has redness. BEd is locked and placed in lowest position with bed alarm on. Call light within reach. Will continue to monitor
--- NOTE | 2020-01-13 18:53 | NUR ---
NURSE NOTES: pt is stable, V/S stable, no stress noted, iv access intact and running well, pt transferred to 406 BED 1 , Report given to LISBETH Parr, endorsed plan of care, endorsed to weight pt now as Dr Bill harris.
--- NOTE | 2020-01-13 19:29 | NUR ---
NURSE HAND-OFF: Important Events on Shift:Transferred from [facility], 47.3kg Patient Status: stable Diet: low fat Pending Orders: n/a Pending Results/Labs:n/a Pending MD notification:n/a Latest Vital Signs: Temperature 97.0 , Pulse 95 , B/P 108 /62 , Respiratory Rate 20 , O2 SAT 97 , Nasal Cannula, O2 Flow Rate 2.0 . Vital Sign Comment: stable Latest Miranda Fall Score: 70 Fall Risk: High Risk Safety Measures: Call light Within Reach, Bed Alarm Zone 1, Side Rails Side Rails x3, Bed position Low and Locked. Fall Precautions: Yellow Socks Yellow Gown Door Sign Patient Fall Education Report given to LISBETH Casanova.
--- NOTE | 2020-01-13 19:32 | NUR ---
NURSE NOTES: Patient received from Keshav BOB. Patient seen in stable condition, AAOx1, alert to name only, pt is bed bound. IV site patent and intact. Patient noted to have abbott cath 16F patent and draining well via gravity, secured to leg. Skin issues noted and will take photos to upload. Patient noted to been having frequent episodes of diarrhea, perineal area has moisture associated skin damage and excoriation, redness. Bed is locked and placed in lowest position with bed alarm on. Call light within reach. Will continue to monitor
[2020-01-13 20:00] VITALS: BP 109/65
[2020-01-13] MEDS: Tamsulosin 0.4mg cap ORAL SCH (22:06)
[2020-01-14] VITALS: BP 100/61
[2020-01-14] MEDS: POTASSIUM PHOSPHATE IV SCH ×2 (00:24→02:34)
[2020-01-14] MEDS: 1/2 NS IV SCH ×2 (00:24→02:34)
[2020-01-14 04:00] VITALS: BP 124/61
[2020-01-14] MEDS: NovoLOG Insulin Flexpen SUBQ SCH ×3 (05:56→17:21)
[2020-01-14 07:29] LABS: CREATININE 1.4 MG/DL (0.55-1.30); PHOSPHORUS 4.6 MG/DL (2.5-4.9); POTASSIUM 3.4 MMOL/L (3.5-5.1)
--- NOTE | 2020-01-14 07:56 | NUR ---
NURSE HAND-OFF: wound care Important Events on Shift:Transferred from [facility], 47.3kg Patient Status: stable Diet: low fat ensure tid am labs Report given to Shelton [place] skin and updated shift assessment, pics uploaded
[2020-01-14 08:00] VITALS: BP 111/65
--- NOTE | 2020-01-14 08:07 | Urology Progress Note ---
Assessment/Plan Status: stable Assessment/Plan: 1. Acute kidney injury, improved. 2. BPH history. 3. Urinary retention. 4. Proteinuria. 5. UTI. 6. Hematuria. 7. Renal cyst. 8. Possible neurogenic bladder. monitor clinically abbott indwelling hand irrigate PRN abx as ordered f/u on blood cx flomax voiding trial today reinsert abbott PRN Subjective Allergies: Coded Allergies: NO KNOWN ALLERGIES (Verified Allergy, Unknown, 09/07/18) Subjective all noted Objective Last 24 Hour Vital Signs Date Time Temp Pulse Resp B/P (MAP) Pulse Ox O2 Delivery O2 Flow Rate FiO2 01/14/20 04:00 98.0 90 18 124/61 (82) 95 01/14/20 00:00 98.3 94 18 100/61 (74) 95 01/13/20 22:06 97 109/65 01/13/20 21:01 Nasal Cannula 2.0 01/13/20 20:00 98.1 97 18 109/65 (80) 96 01/13/20 15:53 97.0 95 20 108/62 (77) 97 01/13/20 15:10 96 01/13/20 13:23 76 01/13/20 12:00 96.9 100 18 102/53 (69) 96 01/13/20 09:09 110 116/62 01/13/20 09:00 Nasal Cannula 2.0 Intake and Output 01/13/20 01/14/20 19:00 07:00 Intake Total 1415.0 ml 590.0 ml Output Total 450 ml 600 ml Balance 965.0 ml -10.0 ml Intake Oral 180 ml IV Total 1235.0 ml 590.0 ml Output Urine Total 450 ml 600 ml # Voids 1 # Bowel Movements 3 Microbiology Date/Time Source Procedure Growth Status 01/10/20 12:53 Stool Stool Culture - Final NO SALMONELLA,SHIGELLA,OR CAMPYLOBACT... Complete 01/10/20 08:30 Rectum - Final NO CARBAPENEM-RESISTANT ENTEROBACTERI... Complete 01/10/20 05:30 Nasal Nares MRSA Culture - Final Staphylococcus Aureus - Mrsa Complete 01/09/20 13:30 Urine,Clean Catch Urine Culture - Final Escherichia Coli - Esbl Complete 01/09/20 11:40 Blood Blood Culture - Preliminary NO GROWTH AFTER 72 HOURS Resulted Current Medications Medications (Trade) Dose Ordered Sig/Adelaida Route PRN Reason Start Time Stop Time Status Last Admin Dose Admin Ascorbic Acid (Vitamin C) 500 mg DAILY ORAL 01/12/20 09:00 02/11/20 08:59 01/13/20 09:09 Carbidopa/Levodopa (Sinemet 25/100) 1 tab THREE TIMES A DAY ORAL 01/11/20 14:30 02/10/20 14:29 01/13/20 18:10 Dextrose (Dextrose 50%) 25 ml Q30M PRN IV Hypoglycemia 01/10/20 00:15 04/09/20 00:14 Dextrose (Dextrose 50%) 50 ml Q30M PRN IV Hypoglycemia 01/10/20 00:15 04/09/20 00:14 Heparin Sodium (Porcine) (Heparin 5000 units/ml) 5,000 units EVERY 12 HOURS SUBQ 01/09/20 21:00 02/23/20 20:59 01/13/20 22:07 Hydrocortisone (Cortenema) 60 ml BID RECTAL 01/13/20 13:00 04/12/20 12:59 01/13/20 18:11 Insulin Aspart (NovoLOG) BEFORE MEALS AND HS SUBQ 01/10/20 06:30 04/09/20 06:29 01/14/20 05:56 Loperamide HCl (Imodium) 4 mg Q6H PRN ORAL Diarrhea 01/13/20 10:45 02/12/20 09:44 01/13/20 12:05 Metoprolol Tartrate (Lopressor) 12.5 mg Q12HR ORAL 01/11/20 15:00 04/10/20 14:59 01/13/20 22:06 Multivitamins (Multivitamins) 1 tab DAILY ORAL 01/12/20 09:00 02/11/20 08:59 01/13/20 09:09 Pantoprazole (Protonix) 40 mg EVERY 12 HOURS ORAL 01/13/20 13:00 02/12/20 12:59 01/13/20 22:06 Piperacillin Sod/ Tazobactam Sod 3.375 gm/Sodium Chloride 110 ml @ 27.5 mls/hr Q12HR IVPB 01/11/20 10:00 01/18/20 09:59 01/13/20 22:11 Potassium Phosphate 15 mm/ Sodium Chloride 1,005 ml @ 75 mls/hr [id number] IV 01/13/20 11:00 02/12/20 10:59 01/14/20 02:34 Tamsulosin HCl (Flomax) 0.4 mg BEDTIME ORAL 01/11/20 21:00 02/10/20 20:59 01/13/20 22:06 Zinc Sulfate (Zinc Sulfate) 220 mg DAILY ORAL 01/12/20 09:00 01/22/20 08:59 01/13/20 09:09 Laboratory Tests 01/13/20 11:58: POC Whole Blood Glucose 178H 01/13/20 11:59: POC Whole Blood Glucose 171H 01/13/20 17:01: POC Whole Blood Glucose 131H 01/13/20 22:15: POC Whole Blood Glucose 123H 01/14/20 05:30: Sodium Level 141, Potassium Level 3.4L, Chloride Level 102, Carbon Dioxide Level 31, Anion Gap 8, Blood Urea Nitrogen 10, Creatinine 1.4H, Estimat Glomerular Filtration Rate 48.4, Glucose Level 164H, Calcium Level 7.0L, Phosphorus Level 4.6, Magnesium Level 2.4 01/14/20 05:51: POC Whole Blood Glucose 162H Height (Feet): 5 Height (Inches): 6.00 Weight (Pounds): 106 Objective exam stable urine yellow/adan CT A/P (01/10) noted Shailesh Sullivan MD Jan 14, 2020 08:07
--- NOTE | 2020-01-14 09:06 | Cardiology Report ---
APPROVED REPORT EXAM: Two-dimensional and M-mode echocardiogram with Doppler and color Doppler. INDICATION Endocarditis M-Mode DIMENSIONS IVSd0.9 (0.7-1.1cm)Left Atrium (MM)2.1 (1.6-4.0cm) LVDd3.2 (3.5-5.6cm)Aortic Root2.6 (2.0-3.7cm) PWd0.8 (0.7-1.1cm)Aortic Cusp Exc.1.6 (1.5-2.0cm) IVSs1.3 cmEPSS0.8 (>1.0cm) LVDs2.3 (2.5-4.0cm) PWs1.6 cm <Conclusion> Technically difficult and limited study due to poor acoustic windows. All images obtained from subcostal view. Study quality precludes accurate assessment of regional wall motion. Normal left ventricular chamber size, systolic function and wall motionto extent visualized. Left ventricular ejection fraction estimated to be 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. No evidence of left ventricular hypertrophy. Anterior Echo-free space, may be due to pericardial fat or effusion. All other cardiac chamber sizes appear to be within normal limits. Mild focal aortic valve sclerosis with adequate cusp excursion. Thickened mitral valve leaflets with normal excursion. Mitral annulus and aortic root calcification. Pulmonic valve not visualized. Normal tricuspid valve structure. IVC is normal in size with physiological collapse. A color flow and spectral Doppler study was performed and revealed: Trace mitral regurgitation. Mitral diastolic velocities suggest mild left ventricular diastolic dysfunction (Grade I). No tricuspid regurgitation.
[2020-01-14] MEDS: Zinc Sulfate 220mg ORAL SCH (09:34)
[2020-01-14] MEDS: Levodopa/Carbidopa 25/100 tab ORAL SCH ×3 (09:35→17:21)
[2020-01-14] MEDS: Metoprolol Tartrate 12.5mg TAB ORAL SCH (09:35)
[2020-01-14] MEDS: Ascorbic Acid 500mg tab ORAL SCH (09:36)
[2020-01-14] MEDS: Heparin 5000 units/ml inj SUBQ SCH (09:38)
[2020-01-14] MEDS: Piperacillin/Tazobactam 3.375 GM in NS 110 ML IVPB SCH (09:44)
[2020-01-14] MEDS: Hydrocortisone Enema Susp 60ml RECTAL SCH (09:45)
--- NOTE | 2020-01-14 11:42 | Infectious Diseases Prog Note ---
Assessment/Plan Assessment/Plan antibiotics : zosyn A 1. ESBL E. coli urinary tract infection s/p rx 2. Diabetes. 3. Hypertension. 4. Renal failure is improving. 5. Crohn disease. 6. He is COVID-19 negative. 7. Pancreatitis is improving P 1. d/c zosyn 2. observe off antibiotics Subjective ROS Limited/Unobtainable: Yes Allergies: Coded Allergies: NO KNOWN ALLERGIES (Verified Allergy, Unknown, 09/07/18) Objective Last 24 Hour Vital Signs Date Time Temp Pulse Resp B/P (MAP) Pulse Ox O2 Delivery O2 Flow Rate FiO2 01/14/20 09:35 90 111/65 01/14/20 08:00 97.2 90 18 111/65 (80) 100 01/14/20 04:00 98.0 90 18 124/61 (82) 95 01/14/20 00:00 98.3 94 18 100/61 (74) 95 01/13/20 22:06 97 109/65 01/13/20 21:01 Nasal Cannula 2.0 01/13/20 20:00 98.1 97 18 109/65 (80) 96 01/13/20 15:53 97.0 95 20 108/62 (77) 97 01/13/20 15:10 96 01/13/20 13:23 76 01/13/20 12:00 96.9 100 18 102/53 (69) 96 Height (Feet): 5 Height (Inches): 6.00 Weight (Pounds): 106 Respiratory/Chest: lungs clear Cardiovascular: normal rate, regular rhythm, no gallop/murmur Abdomen: soft, non tender Extremities: no edema Laboratory Tests Test 01/13/20 11:58 01/13/20 11:59 01/13/20 17:01 01/13/20 22:15 POC Whole Blood Glucose 178 MG/DL (74-106) H 171 MG/DL (74-106) H 131 MG/DL (74-106) H 123 MG/DL (74-106) H Test 01/14/20 05:30 01/14/20 05:51 Sodium Level 141 MMOL/L (136-145) Potassium Level 3.4 MMOL/L (3.5-5.1) L Chloride Level 102 MMOL/L (98-107) Carbon Dioxide Level 31 MMOL/L (21-32) Anion Gap 8 mmol/L (5-15) Blood Urea Nitrogen 10 mg/dL (7-18) Creatinine 1.4 MG/DL (0.55-1.30) H Estimat Glomerular Filtration Rate 48.4 mL/min (>60) Glucose Level 164 MG/DL (74-106) H Calcium Level 7.0 MG/DL (8.5-10.1) L Phosphorus Level 4.6 MG/DL (2.5-4.9) Magnesium Level 2.4 MG/DL (1.8-2.4) POC Whole Blood Glucose 162 MG/DL (74-106) H Current Medications Medications (Trade) Dose Ordered Sig/Adelaida Route PRN Reason Start Time Stop Time Status Last Admin Dose Admin Ascorbic Acid (Vitamin C) 500 mg DAILY ORAL 01/12/20 09:00 02/11/20 08:59 01/14/20 09:36 Carbidopa/Levodopa (Sinemet 25/100) 1 tab THREE TIMES A DAY ORAL 01/11/20 14:30 02/10/20 14:29 01/14/20 09:35 Dextrose (Dextrose 50%) 25 ml Q30M PRN IV Hypoglycemia 01/10/20 00:15 04/09/20 00:14 Dextrose (Dextrose 50%) 50 ml Q30M PRN IV Hypoglycemia 01/10/20 00:15 04/09/20 00:14 Heparin Sodium (Porcine) (Heparin 5000 units/ml) 5,000 units EVERY 12 HOURS SUBQ 01/09/20 21:00 02/23/20 20:59 01/14/20 09:38 Hydrocortisone (Cortenema) 60 ml BID RECTAL 01/13/20 13:00 04/12/20 12:59 01/14/20 09:45 Insulin Aspart (NovoLOG) BEFORE MEALS AND HS SUBQ 01/10/20 06:30 04/09/20 06:29 01/14/20 05:56 Loperamide HCl (Imodium) 4 mg Q6H PRN ORAL Diarrhea 01/13/20 10:45 02/12/20 09:44 01/13/20 12:05 Metoprolol Tartrate (Lopressor) 12.5 mg Q12HR ORAL 01/11/20 15:00 04/10/20 14:59 01/14/20 09:35 Multivitamins (Multivitamins) 1 tab DAILY ORAL 01/12/20 09:00 02/11/20 08:59 01/14/20 09:36 Pantoprazole (Protonix) 40 mg EVERY 12 HOURS ORAL 01/13/20 13:00 02/12/20 12:59 01/14/20 09:34 Piperacillin Sod/ Tazobactam Sod 3.375 gm/Sodium Chloride 110 ml @ 27.5 mls/hr Q12HR IVPB 01/11/20 10:00 01/18/20 09:59 01/14/20 09:44 Potassium Phosphate 15 mm/ Sodium Chloride 1,005 ml @ 75 mls/hr [id number] IV 01/13/20 11:00 02/12/20 10:59 01/14/20 02:34 Tamsulosin HCl (Flomax) 0.4 mg BEDTIME ORAL 01/11/20 21:00 02/10/20 20:59 01/13/20 22:06 Zinc Sulfate (Zinc Sulfate) 220 mg DAILY ORAL 01/12/20 09:00 01/22/20 08:59 01/14/20 09:34 Aftab Candelario MD Jan 14, 2020 11:42
[2020-01-14 12:00] VITALS: BP 102/65
[2020-01-14] MEDS ORDERED: FLOMAX0.4 MG ORAL (12:58)
[2020-01-14] MEDS ORDERED: PREDNISONE20 MG ORAL (12:58)
--- NOTE | 2020-01-14 13:17 | Nephrology Progress Note ---
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, Stroke (10) Malnutrition (11) Hypomagnesemia (12) Hypophosphatemia (13) Hypokalemia Plan continue iv, reduce rate replace K, Phos , Mg Subjective ROS Limited/Unobtainable: Yes Objective Objective Last 24 Hour Vital Signs Date Time Temp Pulse Resp B/P (MAP) Pulse Ox O2 Delivery O2 Flow Rate FiO2 01/14/20 12:00 96.2 82 18 102/65 (77) 100 01/14/20 09:35 90 111/65 01/14/20 08:00 97.2 90 18 111/65 (80) 100 01/14/20 04:00 98.0 90 18 124/61 (82) 95 01/14/20 00:00 98.3 94 18 100/61 (74) 95 01/13/20 22:06 97 109/65 01/13/20 21:01 Nasal Cannula 2.0 01/13/20 20:00 98.1 97 18 109/65 (80) 96 01/13/20 15:53 97.0 95 20 108/62 (77) 97 01/13/20 15:10 96 01/13/20 13:23 76 Intake and Output 01/13/20 01/14/20 19:00 07:00 Intake Total 1415.0 ml 590.0 ml Output Total 450 ml 600 ml Balance 965.0 ml -10.0 ml Intake Oral 180 ml IV Total 1235.0 ml 590.0 ml Output Urine Total 450 ml 600 ml # Voids 1 # Bowel Movements 3 Laboratory Tests 01/13/20 17:01: POC Whole Blood Glucose 131H 01/13/20 22:15: POC Whole Blood Glucose 123H 01/14/20 05:30: Sodium Level 141, Potassium Level 3.4L, Chloride Level 102, Carbon Dioxide Level 31, Anion Gap 8, Blood Urea Nitrogen 10, Creatinine 1.4H, Estimat Glomerular Filtration Rate 48.4, Glucose Level 164H, Calcium Level 7.0L, Phosphorus Level 4.6, Magnesium Level 2.4 01/14/20 05:51: POC Whole Blood Glucose 162H 01/14/20 12:28: POC Whole Blood Glucose [Pending] Height (Feet): 5 Height (Inches): 6.00 Weight (Pounds): 106 General Appearance: no apparent distress, alert EENT: normal ENT inspection Neck: normal alignment Cardiovascular: normal rate Respiratory/Chest: lungs clear Abdomen: non tender, soft Neurologic: motor weakness Jose A Martinez MD Jan 14, 2020 13:17
--- NOTE | 2020-01-14 13:17 | Surgery Progress Note ---
Surgery Progress Note Subjective Symptoms: improved, tolerating diet, passing flatus, BM Objective Last 24 Hour Vital Signs Date Time Temp Pulse Resp B/P (MAP) Pulse Ox O2 Delivery O2 Flow Rate FiO2 01/14/20 12:00 96.2 82 18 102/65 (77) 100 01/14/20 09:35 90 111/65 01/14/20 08:00 97.2 90 18 111/65 (80) 100 01/14/20 04:00 98.0 90 18 124/61 (82) 95 01/14/20 00:00 98.3 94 18 100/61 (74) 95 01/13/20 22:06 97 109/65 01/13/20 21:01 Nasal Cannula 2.0 01/13/20 20:00 98.1 97 18 109/65 (80) 96 01/13/20 15:53 97.0 95 20 108/62 (77) 97 01/13/20 15:10 96 01/13/20 13:23 76 I&O Intake and Output 01/13/20 01/14/20 19:00 07:00 Intake Total 1415.0 ml 590.0 ml Output Total 450 ml 600 ml Balance 965.0 ml -10.0 ml Intake Oral 180 ml IV Total 1235.0 ml 590.0 ml Output Urine Total 450 ml 600 ml # Voids 1 # Bowel Movements 3 Dressing: saturated Cardiovascular: RSR Respiratory: decreased breath sounds Abdomen: non-tender, present bowel sounds Extremities: no edema, no tenderness, no cyanosis Laboratory Tests Test 01/13/20 17:01 01/13/20 22:15 01/14/20 05:30 01/14/20 05:51 POC Whole Blood Glucose 131 MG/DL (74-106) H 123 MG/DL (74-106) H 162 MG/DL (74-106) H Sodium Level 141 MMOL/L (136-145) Potassium Level 3.4 MMOL/L (3.5-5.1) L Chloride Level 102 MMOL/L (98-107) Carbon Dioxide Level 31 MMOL/L (21-32) Anion Gap 8 mmol/L (5-15) Blood Urea Nitrogen 10 mg/dL (7-18) Creatinine 1.4 MG/DL (0.55-1.30) H Estimat Glomerular Filtration Rate 48.4 mL/min (>60) Glucose Level 164 MG/DL (74-106) H Calcium Level 7.0 MG/DL (8.5-10.1) L Phosphorus Level 4.6 MG/DL (2.5-4.9) Magnesium Level 2.4 MG/DL (1.8-2.4) Test 01/14/20 12:28 POC Whole Blood Glucose Pending Plan Problems: (1) Decubitus ulcer (2) Incontinence associated dermatitis Assessment & Plan: 84-year-old male with significant con associated dermatitis in the buttock inner thigh sacrum perirectal area. There is breakdown of the epidermis and erythema of the dermis with open wounds identified. Some decubitus noted changes in the area. Present upon admission. Area clean. Skin protectant applied. Optifoam dressing applied. Monitor for incontinence. C hange accordingly. Okay for rectal tube as needed. We will continue with local care. Turn every 2 hours. Offload pressure with pillows. Air soft mattress. Nutritional optimization. Will follow with recommendations. Thank you for letting participate patient's care (3) Malnutrition Assessment & Plan: DAILY ESTIMATED NEEDS: Needs based on underweight, wt loss 48kg 30-35 kcals/kg 8259-5356 total kcals 1.25-2 g protein/kg 60-96 g total protein 25-30 mL/kg 3671-2160 total fluid mLs NUTRITION DIAGNOSIS: Increased kcal/prot needs R/T wound healing, underweight status w/ recent significant wt loss as evidenced by admitted w/ multiple wounds at sacrum, BL buttocks and BL heels per photos, pt @ 75% IBW w/ low BMI of 17.2, w/ significant wt loss of 8.4lbs/ 7.3% in <1 month CURRENT DIET:CLEAR LIQUID DIET PO DIET RECOMMENDATIONS: advance diet as tolerated -> CCHO MED/ texture per [employer] ADDITIONAL RECOMMENDATIONS: 1) Daily calibrated bedscale wt, monitor wt trend 2) Glucerna TID w/ meals once diet advances 3) Monitor PO tolerance: h/o Crohn's disease, elev lipase 4) Monitor BGs closely for hypoglycemia while on CLD 5) Wound healing: Add MVI x 1, Vit C 500mg QD, ZnSO4 220mg QD x 10 days NICK bid added to tray (4) Sepsis Assessment & Plan: leukocytosis anemia labs noted on abx micro reviewed ID input appreciated wounds unlikely etiology no abscess (5) Septic shock (6) Hypomagnesemia (7) Gastroenteritis (8) Hypernatremia (9) SVT (supraventricular tachycardia) (10) Proteinuria (11) Liver failure (12) Hypophosphatemia (13) UTI (urinary tract infection) (14) Crohn's colitis (15) IBD (inflammatory bowel disease) (16) Acute renal failure (ARF) (17) Diabetes type 2, controlled (18) Toxic metabolic encephalopathy (19) Inabality to Ambulate, Stroke Daniel Patten Jan 14, 2020 13:16
[2020-01-14 16:00] VITALS: BP 111/62
--- NOTE | 2020-01-14 17:06 | General Progress Note ---
Subjective ROS Limited/Unobtainable: No Constitutional: Reports: malaise, weakness HEENT: Reports: no symptoms Cardiovascular: Reports: no symptoms Respiratory: Reports: cough Gastrointestinal/Abdominal: Reports: no symptoms Genitourinary: Reports: no symptoms Neurologic/Psychiatric: Reports: anxiety, depressed, pre-existing deficit Endocrine: Reports: no symptoms Hematologic/Lymphatic: Reports: no symptoms Allergies: Coded Allergies: NO KNOWN ALLERGIES (Verified Allergy, Unknown, 09/07/18) All Systems: reviewed and negative except above Subjective remains on nasal cannula. labs reviewed. lipase trending down. wbc improved, GI noted. Objective Last 24 Hour Vital Signs Date Time Temp Pulse Resp B/P (MAP) Pulse Ox O2 Delivery O2 Flow Rate FiO2 01/14/20 16:00 96.0 72 18 111/62 (78) 95 01/14/20 12:00 96.2 82 18 102/65 (77) 100 01/14/20 09:35 90 111/65 01/14/20 09:00 Room Air 01/14/20 08:00 97.2 90 18 111/65 (80) 100 01/14/20 04:00 98.0 90 18 124/61 (82) 95 01/14/20 00:00 98.3 94 18 100/61 (74) 95 01/13/20 22:06 97 109/65 01/13/20 21:01 Nasal Cannula 2.0 01/13/20 20:00 98.1 97 18 109/65 (80) 96 Intake and Output 01/13/20 01/14/20 19:00 07:00 Intake Total 1415.0 ml 590.0 ml Output Total 450 ml 600 ml Balance 965.0 ml -10.0 ml Intake Oral 180 ml IV Total 1235.0 ml 590.0 ml Output Urine Total 450 ml 600 ml # Voids 1 # Bowel Movements 3 Laboratory Tests 01/13/20 22:15: POC Whole Blood Glucose 123H 01/14/20 05:30: Sodium Level 141, Potassium Level 3.4L, Chloride Level 102, Carbon Dioxide Level 31, Anion Gap 8, Blood Urea Nitrogen 10, Creatinine 1.4H, Estimat Glomerular Filtration Rate 48.4, Glucose Level 164H, Calcium Level 7.0L, Phosphorus Level 4.6, Magnesium Level 2.4 01/14/20 05:51: POC Whole Blood Glucose 162H 01/14/20 12:28: POC Whole Blood Glucose [Pending] Height (Feet): 5 Height (Inches): 6.00 Weight (Pounds): 106 General Appearance: WD/WN, alert, confused EENT: PERRL/EOMI, normal ENT inspection Neck: non-tender, normal alignment Cardiovascular: normal peripheral pulses, normal rate, regular rhythm Respiratory/Chest: chest wall non-tender, lungs clear, normal breath sounds, no respiratory distress Abdomen: normal bowel sounds, non tender, soft, no organomegaly Edema: no edema noted Arm (L), no edema noted Arm (R) Neurologic: informatics manager II-XII 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, alert, responsive Assessment/Plan Problem List: (1) Diabetes type 2, controlled ICD Codes: E11.9 - Type 2 diabetes mellitus without complications SNOMED: 45470425, 053374169 (2) Toxic metabolic encephalopathy ICD Codes: G92 - Toxic encephalopathy SNOMED: 892434706 (3) Acute renal failure (ARF) ICD Codes: N17.9 - Acute kidney failure, unspecified SNOMED: 60802632 Qualifiers: Qualified Codes: N17.9 - Acute kidney failure, unspecified (4) Crohn's colitis ICD Codes: K50.10 - Crohn's disease of large intestine without complications SNOMED: 11722567 (5) UTI (urinary tract infection) ICD Codes: N39.0 - Urinary tract infection, site not specified SNOMED: 17608556 Qualifiers: Qualified Codes: N39.0 - Urinary tract infection, site not specified; R31.9 - Hematuria, unspecified (6) IBD (inflammatory bowel disease) ICD Codes: K52.9 - Noninfective gastroenteritis and colitis, unspecified SNOMED: 95863671 (7) Inabality to Ambulate, Stroke (8) SVT (supraventricular tachycardia) ICD Codes: I47.1 - Supraventricular tachycardia SNOMED: 6761300 Status: stable Assessment/Plan: advance diet ivf as needed PPI rx steroids enemas and po steroids off mesalamine monitor bs on steroids d/w dtr. concerned about outbreak at [facility] Carlos Hunt MD Jan 14, 2020 17:06
--- NOTE | 2020-01-14 17:15 | NUR ---
NURSE NOTES: Pt's daughter, Shraddha, called asking for update regarding pt's D/C and informed me that she is fine w/pt returning to [facility]. Informed CM who will work on arranging transport. Will continue to monitor.
--- NOTE | 2020-01-14 17:38 | NUR ---
NURSE NOTES: Pt voided x 1 (incontinent) and post-void residual was 0 ml. Will continue to monitor.
--- NOTE | 2020-01-14 17:47 | NUR ---
FRONT END DEVELOPER JAVASCRIPT HTML CSS NOTES PT ACCEPTED BACK TO [facility] TO TRANSPORT PT WITH AN ETA 1900.
--- NOTE | 2020-01-14 19:36 | NUR ---
NURSE NOTES: Pt VSS, removed abbott at around 0900, helped feed the patient, pt complete assist and does not feed himself. Changed linens. Pt urinated twice and had small bm. Shelton RN took pictures of skin issues and will upload them. Pt dc to shelter and Shelton gave report to receiving care nurse.
--- NOTE | 2020-01-14 19:58 | NUR ---
NURSE NOTES: [facility] D[facility]; report given to LISBETH Otero; notified pt's daughter, Shraddha, of transfer.
--- NOTE | 2020-01-14 22:33 | Cardiology Progress Note ---
Subjective DATE OF SERVICE: Jan 14, 2020 Remains on IVF hydration and tube feeds No fevers No vomiting despite elevated lipase, which is normalizing. BP parameters stable Lactic acid normalized. Renal fxn improving slowly. Venous duplex: negative for DVT CT abdomen only notable for bowel and duodenal thickening; no pancreatic abn. Objective Last 24 Hour Vital Signs Date Time Temp Pulse Resp B/P (MAP) Pulse Ox O2 Delivery O2 Flow Rate FiO2 01/14/20 16:00 96.0 72 18 111/62 (78) 95 01/14/20 12:00 96.2 82 18 102/65 (77) 100 01/14/20 09:35 90 111/65 01/14/20 09:00 Room Air 01/14/20 08:00 97.2 90 18 111/65 (80) 100 01/14/20 04:00 98.0 90 18 124/61 (82) 95 01/14/20 00:00 98.3 94 18 100/61 (74) 95 ROS: unchanged from my initial evaluation HEENT: normal ENT inspection RHYTHM: NSR, ST, PACs LUNGS: lungs clear bilaterally CARDIAC: normal rate, regular rhythm, normal S1 and S2 ABDOMEN: normal bowel sounds, soft, no mass EXTREMITIES: non-tender, no swelling, No edema Laboratory Tests Test 01/14/20 05:30 01/14/20 05:51 01/14/20 12:28 01/14/20 17:15 Sodium Level 141 MMOL/L (136-145) Potassium Level 3.4 MMOL/L (3.5-5.1) L Chloride Level 102 MMOL/L (98-107) Carbon Dioxide Level 31 MMOL/L (21-32) Anion Gap 8 mmol/L (5-15) Blood Urea Nitrogen 10 mg/dL (7-18) Creatinine 1.4 MG/DL (0.55-1.30) H Estimat Glomerular Filtration Rate 48.4 mL/min (>60) Glucose Level 164 MG/DL (74-106) H Calcium Level 7.0 MG/DL (8.5-10.1) L Phosphorus Level 4.6 MG/DL (2.5-4.9) Magnesium Level 2.4 MG/DL (1.8-2.4) POC Whole Blood Glucose 162 MG/DL (74-106) H Pending Pending Assessment/Plan Assessment/Plan UTI - complicated Fungal cystitis resolved Severe sepsis Acute pancreatitis Hypovolemia Dehydration Lactic acidosis Acute renal failure Hx CHF - diastolic NIDDM Hypertension/HHD Hx Crohns with diarrhea Sinus tachycardia Hypomagnesemia Hypokalemia Start oral steroids per GI; stop enemas Tube feeds IVF until po intake confirmed adequate. Continue low dose beta jose Maintain Sinemet rx Insulin cov'g by SS DC plan to SNF Mitchell West MD Jan 14, 2020 22:33
--- NOTE | 2020-01-16 08:19 | Discharge Summary ---
Discharge Summary Discharge Summary _ DATE OF ADMISSION: 01/09/2020 DATE OF DISCHARGE: 01/14/2020 DISCHARGED BY: Dr. Hunt REASON FOR ADMISSION: 84 years old male with past medical history of diabetes mellitus, hypertension, myocardial infarction, CHF, dementia, Crohn disease, history of CVA, presented from the assisted facility for evaluation due to elevated BUN and creatinine. Nursing staff also noted that patient was hypoxic at the facility. Patient nonverbal at baseline and unable to provide much of the information No reported fever or chills. No reported cough. Patient was tested Covid by PCR , which was negative. Vital signs revealed tachycardia with heart rate 118,. No fevers. Patient required supplemental oxygen. Chest x-ray revealed no acute cardiopulmonary pathology. EKG revealed sinus tachycardia, no acute ischemic changes. Troponin negative. Urinalysis grossly positive for UTI. WBC 20.9 D-dimer 8.24. BUN 51, creatinine 3.6. Glucose 162. Lactic acid 5.9 , repeated 3.8. Ferritin 340 , LDH 413 , CRP 2.5. Stable LFT Lipase over 1999. Patient pancultured , started on empiric antibiotic and admitted for further management. CONSULTANTS: slate roofer Dr. West ID specialist Dr. Candelario urologist Dr. Sullivan GI specialist Dr. Khan director asset Dr. Martinez [facility] COURSE: Patient initially admitted to monitored floor. Patient hydrated with IV fluids and started on broad-spectrum antibiotic. Patient was kept n.p.o. Hemodynamic status was closely monitored. Patient initially was hypotensive , but blood pressure fortunately responded to IV fluids; no need for pressors. DVT prophylaxis provided. Supplemental oxygen provided and titrated to keep pulse oximetry above 92% ; pulmonary toilet provided . Echocardiogram demonstrated preserved ejection fraction to the extent visualized. No evidence of left ventricular hypertrophy. No evidence of wall motion abnormality. Venous duplex bilateral lower extremity revealed no evidence of acute DVT. Blood culture came back negative. Urine culture revealed E. coli ESBL. Stool for C. difficile and stool culture were negative. COVID-19 by PCR came back not detected. Antibiotics provided as per ID specialist recommendation . Patient completed treatment for UTI while in the hospital. Leukocytosis resolved. No fevers. CT scan of the abdomen pelvis revealed diffuse small bowel wall thickening of the descending and sigmoid colon , more questionably of the ascending and transverse colon , likely related to clinical history of Crohn's disease. Some duodenal wall thickening. Lipase was closely monitored and trended down from > 2000 down to 615. Patient had diarrhea related to Crohn disease ( as mentioned above stool for C. difficile and stool cultures were negative). Per GI specialist presentation with pneumonitis and pancreatitis possibly was related to mesalamine side effect , that patient was taking. Patient has a history of Crohn's ileitis and pancolitis, steroids responsive. Patient was off Humira due to recurrent urosepsis and now off mesalamine given current clinical presentation. GI specialist recommended steroid enema twice daily while in the hospital and oral steroids when cleared by ID specialist. Diet was advanced as tolerated. Patient started on PPI twice daily. Multivitamin , zinc, vitamin C were added. Protein supplements provided as per registered dietitian recommendation. Renal parameters were closely monitored. With hydration acute renal failure resolved : BUN from 51 down to 10 and creatinine from 3.6 down to 1.4. Electrolytes corrected e as needed: magnesium , phosphorus and potassium. Patient initially had Cisneros catheter with hand irrigation as needed. Patient was continued on Flomax. Subsequently Cisneros was discontinued . Voiding trial implemented . Patient was incontinent but able to void. Supportive care provided. Wound care for incontinence associated dermatitis provided as per surgeon recommendation Continue wound care at the facility. Patient clinically stabilized and was ready for transfer back to assisted facility for continuation of care FINAL DIAGNOSES: Severe sepsis Early shock-resolved Acute renal failure -resolved Dehydration Toxic metabolic encephalopathy E. coli ESBL UTI Pancreatitis ( likely due to effect of Mesalamine) Inflammatory bowel disease Crohn's ileitis and pancolitis Chronic diastolic congestive heart failure Diabetes mellitus type 2 Cerebrovascular disease with dementia Hypertensive and ischemic cardiomyopathy Neurogenic bladder Incontinence associated dermatitis BPH DISCHARGE MEDICATIONS: See Medication Reconciliation list. DISCHARGE INSTRUCTIONS: Patient was discharged to the assisted facility. Follow up with medical doctor at the facility. I have been assigned to dictate discharge summary for this account. I was not involved in the patient's management. Lottie Hartman NP Jan 16, 2020 08:19
== END 2020-01-14 19:20 | DRG 871 ==
LOC: EDBD 11:42 → EMR 13:32 → 2E 13:45 → EDBEDREQ 16:37 → 2E 01-12 00:16 → 4E 01-13 18:53
DX: A41.9 Sepsis, unspecified organism (principal); K85.90 Acute pancreatitis without necrosis or infection, unspecified; G92 Toxic encephalopathy; R65.21 Severe sepsis with septic shock; I50.32 Chronic diastolic (congestive) heart failure; N17.9 Acute kidney failure, unspecified; I47.1 Supraventricular tachycardia; N39.0 Urinary tract infection, site not specified; K50.90 Crohn's disease, unspecified, without complications; E44.0 Moderate protein-calorie malnutrition; Z16.12 Extended spectrum beta lactamase (ESBL) resistance; Z68.1 Body mass index [BMI] 19.9 or less, adult; I11.0 Hypertensive heart disease with heart failure; L89.90 Pressure ulcer of unspecified site, unspecified stage; E11.9 Type 2 diabetes mellitus without complications; R09.02 Hypoxemia; I25.10 Atherosclerotic heart disease of native coronary artery without angina pectoris; I25.2 Old myocardial infarction; G20 Parkinson's disease; F02.80 Dementia in other diseases classified elsewhere, unspecified severity, without behavioral disturbance, psychotic disturbance, mood disturbance, and anxiety; I25.5 Ischemic cardiomyopathy; Z79.4 Long term (current) use of insulin; E83.42 Hypomagnesemia; K72.90 Hepatic failure, unspecified without coma; E83.39 Other disorders of phosphorus metabolism; I69.398 Other sequelae of cerebral infarction; R26.2 Difficulty in walking, not elsewhere classified; L30.8 Other specified dermatitis; N40.1 Benign prostatic hyperplasia with lower urinary tract symptoms; R33.8 Other retention of urine; B96.20 Unspecified Escherichia coli [E. coli] as the cause of diseases classified elsewhere; E87.6 Hypokalemia; N31.9 Neuromuscular dysfunction of bladder, unspecified; N39.498 Other specified urinary incontinence
CPT/HCPCS: 36415; 71045; 74176; 80048; 80053; 80061; 81003; 82009; 82010; 82150; 82728; 82803; 82962; 83605; 83615; 83690; 83735; 83880; 84100; 84484; 85007; 85025; 85379; 85610; 85730; 86140; 87040; 87045; 87081; 87086; 87181; 87324; 93005; 93306; 93970; 96361; 96365; 99291; J1815; J7030; J8499